=== PATIENT | male | born 1935 | race Caucasian/White ===

== ENCOUNTER → 2016-08-07 | Outpatient (CLI) | payer BC ==
[~2016-08-07] MED LIST: ASPCH81X PO; ATOR-24 PO; CEPH500C2 PO; CLOP1TAB15 PO; CYAN100020 PO; FLM4 PO; GLC/500 PO; GLIM2TAB2 PO; ISOS60TA25 PO; METO50TA7 PO; NRN100 PO; NTRGSL/4 UT; RANO500T PO; RIVA1DIS4 TD; RQP25 PO; TAMS0.4C59 PO
[2016-08-07 13:59] LABS: ESTIMATED AVERAGE GLUCOSE 146 mg/dl; HA1C FLAG Normal (Normal)
[2016-08-07 15:42] LABS: BLOOD UREA NITROGEN 26 mg/dl (7-18); BUN/CREATININE RATIO 15.1 (10-20); CALCIUM 9.2 mg/dl (8.5-10.1); CARBON DIOXIDE 27 mmol/L (21-32); CHLORIDE 103 mmol/L (98-107); GLUCOSE 200 mg/dl (70-99); POTASSIUM 5.2 mmol/L (3.5-5.1); SODIUM 138 mmol/L (136-145)
[2016-08-07 15:44] LABS: PHOSPHORUS 3.2 mg/dl (2.5-4.9)
== END | disposition home or self-care (01) ==
LOC: C.LABMFLN 08:02
PROVIDERS: ATTEND Family Medicine
DX: E11.9 Type 2 diabetes mellitus without complications (principal)

== ENCOUNTER → 2016-09-04 | Outpatient (CLI) | payer BC ==
[2016-09-04 18:19] LABS: URINE APPEARANCE CLEAR (CLEAR); URINE BILIRUBIN NEG (NEG); URINE COLOR YELLOW; URINE NITRITE NEG (NEG); URINE SPECIFIC GRAVITY 1.019 (1.000-1.030); UROBILINOGEN NEG (NEG)
[2016-09-04 18:31] LABS: MANUAL MICROSCOPIC REQUIRED? NO; REVIEW REQ? NO
[2016-09-04 18:51] LABS: URINE PROTIEN/CREAT RATIO 0.2 (0-0.2); URINE TOTAL PROTEIN 18.7 mg/dl (0-11.9)
[2016-09-04 19:27] LABS: BLOOD UREA NITROGEN 33 mg/dl (7-18); BUN/CREATININE RATIO 18.5 (10-20); CALCIUM 9.1 mg/dl (8.5-10.1); CARBON DIOXIDE 31 mmol/L (21-32); CHLORIDE 104 mmol/L (98-107); GLUCOSE 164 mg/dl (70-99); SODIUM 140 mmol/L (136-145)
== END | disposition home or self-care (01) ==
LOC: C.LABMFLN 07:47
PROVIDERS: ATTEND Internal Medicine Nephrology
DX: N18.3 Chronic kidney disease, stage 3 (moderate) (principal)

== ENCOUNTER → 2016-09-24 | Outpatient (CLI) | payer BC ==
[2016-09-24 13:41] LABS: BLOOD UREA NITROGEN 30 mg/dl (7-18); BUN/CREATININE RATIO 18.9 (10-20); CALCIUM 9.1 mg/dl (8.5-10.1); CARBON DIOXIDE 27 mmol/L (21-32); CHLORIDE 106 mmol/L (98-107); GLUCOSE 132 mg/dl (70-99); POTASSIUM 5.1 mmol/L (3.5-5.1); SODIUM 140 mmol/L (136-145)
[2016-09-24 13:42] LABS: PHOSPHORUS 3.4 mg/dl (2.5-4.9)
== END | disposition home or self-care (01) ==
LOC: C.LABMFLN 08:32
PROVIDERS: ATTEND Internal Medicine Nephrology
DX: N18.3 Chronic kidney disease, stage 3 (moderate) (principal)

== ENCOUNTER → 2016-10-27 | Outpatient (CLI) | payer BC ==
[2016-10-27 13:13] LABS: HEMATOCRIT 37.5 % (42-52); MEAN CELL VOLUME 92.8 fL (80-100); MEAN CORPUSCULAR HEMOGLOBIN 31.4 pg (25-34); MEAN CORPUSCULAR HGB CONC 33.9 g/dl (32-36); MEAN PLATELET VOLUME 9.9 fL (7.4-10.4); PLATELET COUNT 196 K/uL (130-400); RED BLOOD COUNT 4.04 M/uL (4.7-6.1); WHITE BLOOD COUNT 7.52 K/uL (4.8-10.8)
[2016-10-27 13:44] LABS: ALT/SGPT 14 U/L (12-78); AST/SGOT 12 U/L (15-37); BLOOD UREA NITROGEN 30 mg/dl (7-18); BUN/CREATININE RATIO 18.9 (10-20); CALCIUM 8.9 mg/dl (8.5-10.1); CARBON DIOXIDE 26 mmol/L (21-32); CHLORIDE 107 mmol/L (98-107); GLUCOSE 140 mg/dl (70-99); POTASSIUM 5.2 mmol/L (3.5-5.1); SODIUM 142 mmol/L (136-145)
== END | disposition home or self-care (01) ==
LOC: C.LABMFLN 11:28
PROVIDERS: ATTEND Internal Medicine Cardiovascular Disease
DX: I25.10 Atherosclerotic heart disease of native coronary artery without angina pectoris (principal); I10 Essential (primary) hypertension; R06.09 Other forms of dyspnea; E78.5 Hyperlipidemia, unspecified

== ENCOUNTER → 2016-11-12 | Outpatient (CLI) | payer BC ==
[2016-11-12 14:30] LABS: ESTIMATED AVERAGE GLUCOSE 143 mg/dl; HA1C FLAG Normal (Normal)
== END | disposition home or self-care (01) ==
LOC: C.LABMFLN 10:15
PROVIDERS: ATTEND Family Medicine
DX: E11.9 Type 2 diabetes mellitus without complications (principal)

== ENCOUNTER → 2017-02-17 | Outpatient (CLI) | payer BC ==
[2017-02-17 14:06] LABS: BLOOD UREA NITROGEN 32 mg/dl (7-18); BUN/CREATININE RATIO 16.1 (10-20); CALCIUM 9.5 mg/dl (8.5-10.1); CARBON DIOXIDE 29 mmol/L (21-32); CHLORIDE 104 mmol/L (98-107); GLUCOSE 304 mg/dl (70-99); PHOSPHORUS 3.1 mg/dl (2.5-4.9); POTASSIUM 5.2 mmol/L (3.5-5.1); SODIUM 138 mmol/L (136-145)
[2017-02-17 14:17] LABS: BETA-HYDROXYBUTYRATE 1.13 mg/dL (0.2-2.81)
[2017-02-18 07:33] LABS: ESTIMATED AVERAGE GLUCOSE 174 mg/dl; HA1C FLAG Normal (Normal)
== END | disposition home or self-care (01) ==
LOC: C.LABMFLN 08:48
PROVIDERS: ATTEND Family Medicine
DX: E11.9 Type 2 diabetes mellitus without complications (principal); N18.3 Chronic kidney disease, stage 3 (moderate)

== ENCOUNTER → 2017-03-02 | Outpatient (CLI) | payer BC ==
[2017-03-02 14:45] LABS: BLOOD UREA NITROGEN 30 mg/dl (7-18); BUN/CREATININE RATIO 17.8 (10-20); CALCIUM 9.2 mg/dl (8.5-10.1); CARBON DIOXIDE 28 mmol/L (21-32); CHLORIDE 105 mmol/L (98-107); GLUCOSE 183 mg/dl (70-99); POTASSIUM 5.3 mmol/L (3.5-5.1); SODIUM 139 mmol/L (136-145)
[2017-03-02 14:46] LABS: PHOSPHORUS 3.3 mg/dl (2.5-4.9)
== END | disposition home or self-care (01) ==
LOC: C.LABMFLN 11:01
PROVIDERS: ATTEND Family Medicine
DX: N18.3 Chronic kidney disease, stage 3 (moderate) (principal)

== ENCOUNTER → 2017-03-24 | Outpatient (CLI) | payer BC ==
[2017-03-24 17:59] LABS: URINE APPEARANCE CLEAR (CLEAR); URINE BILIRUBIN NEG (NEG); URINE COLOR YELLOW; URINE NITRITE NEG (NEG); URINE SPECIFIC GRAVITY 1.026 (1.000-1.030); UROBILINOGEN NEG (NEG)
[2017-03-24 18:04] LABS: MANUAL MICROSCOPIC REQUIRED? NO; REVIEW REQ? NO
[2017-03-24 18:07] LABS: BLOOD UREA NITROGEN 37 mg/dl (7-18); BUN/CREATININE RATIO 19.4 (10-20); CALCIUM 9.4 mg/dl (8.5-10.1); CARBON DIOXIDE 30 mmol/L (21-32); CHLORIDE 105 mmol/L (98-107); GLUCOSE 203 mg/dl (70-99); POTASSIUM 4.7 mmol/L (3.5-5.1); SODIUM 139 mmol/L (136-145)
[2017-03-24 18:08] LABS: PHOSPHORUS 3.5 mg/dl (2.5-4.9)
[2017-03-24 18:19] LABS: HEMATOCRIT 43.3 % (42-52); MEAN CELL VOLUME 92.7 fL (80-100); MEAN CORPUSCULAR HEMOGLOBIN 31.7 pg (25-34); MEAN CORPUSCULAR HGB CONC 34.2 g/dl (32-36); MEAN PLATELET VOLUME 9.8 fL (7.4-10.4); PLATELET COUNT 209 K/uL (130-400); RED BLOOD COUNT 4.67 M/uL (4.7-6.1); WHITE BLOOD COUNT 6.35 K/uL (4.8-10.8)
== END | disposition home or self-care (01) ==
LOC: C.LABMFLN 11:48
PROVIDERS: ATTEND Internal Medicine Nephrology
DX: N18.3 Chronic kidney disease, stage 3 (moderate) (principal)

== ENCOUNTER → 2017-04-08 | Outpatient (CLI) | payer BC ==
--- NOTE | 2017-04-08 14:19 | MAMMOGRAPHY REPORT ---
MALE BILATERAL DIGITAL DIAGNOSTIC MAMMOGRAM WITH CAD AND TARGETED LEFT ULTRASOUND: 04/08/2017 CLINICAL HISTORY: The patient reports focal tenderness in the left breast for approximately 2 months. He denies any palpable lumps, nipple discharge, or other complaints. TECHNIQUE: Current study was also evaluated with a Computer Aided Detection (CAD) system. Bilateral CC and MLO views were obtained. COMPARISON: No prior exams were available for comparison. BREAST COMPOSITION: The tissue of both breasts is prominently fatty. FINDINGS: A triangle marker calloway the site of focal tenderness in the left upper outer breast periare olar region. There is fibroglandular tissue within the left subareolar breast, consistent with gynec omastia. A minimal amount of fibroglandular tissue is also seen within the right subareolar breast. No suspicious masses, calcifications, or areas of architectural distortion are noted in either breas t. Targeted ultrasound was performed of the area of tenderness pointed out by the patient in the left la teral periareolar breast, with ultrasound also performed of the left subareolar breast. Mixed echoge nicity tissue is seen within these regions, which has the sonographic appearance of gynecomastia. No suspicious masses or other suspicious sonographic abnormalities are evident. IMPRESSION: ACR BI-RADS CATEGORY 2: BENIGN, TARGETED ULTRASOUND ACR BI-RADS CATEGORY 2: BENIGN The area of left breast tenderness pointed out by the patient corresponds with benign gynecomastia. There is no mammographic or targeted sonographic evidence of malignancy. Recommend clinical follow-u p as to a possible underlying cause. The patient has been verbally notified of the results. Approximately 10% of breast cancers are not detected with mammography. A negative mammographic report should not delay biopsy if a clinically suggestive mass is present. Amy Deleon M.D. /:04/08/2017 09:32:17 Computer Science Instructor: Merry FONTAINE)(Peterson), [facility] letter sent: Normal 1/2 BI-RADS Code: ACR BI-RADS Category 2: Benign Ultrasound BI-RADS: ACR BI-RADS Category 2: Benign
== END | disposition home or self-care (01) ==
LOC: C.MAMM 09:06
PROVIDERS: ATTEND Family Medicine
DX: N64.4 Mastodynia (principal); N62 Hypertrophy of breast

== ENCOUNTER 2017-04-24 16:57 | Emergency (ER) | payer BC ==
[~2017-04-24] VITALS: Ht 160 cm; Wt 62.6 kg
[~2017-04-24 16:57] MED LIST changes: -CEPH500C2 PO; -FLM4 PO; -NRN100 PO; -RIVA1DIS4 TD
[2017-04-24 17:15] VITALS: TEMP 36.7; Ht 160 cm; Wt 62.6 kg
[2017-04-24] MEDS ORDERED: BUPIVACAINE 0.5 % 5 MG/1 ML MPF 30ML VIAL INFIL ONE (17:45)
[2017-04-24] MEDS ORDERED: DIPHTHERIA/TETANUS/PERTUSSIS 0.5 ML SYR/VIAL IM. ONE (17:45)
[2017-04-24] MEDS ORDERED: XYLOCAINE 1%/SOD BICARB 20 ML VIAL INFIL ONE (17:45)
[2017-04-24] MEDS ORDERED: RIVA1DIS4 TD (18:21)
[2017-04-24] MEDS ORDERED: NRN100 PO (18:21)
[2017-04-24] MEDS ORDERED: FLM4 PO (18:21)
--- NOTE | 2017-04-24 18:27 | DIAGNOSTIC IMAGING REPORT ---
R FINGER(S) MIN 2 VIEWS ROUTINE HISTORY: 81 years-old Male RIGHT 5TH, CRUSH INJURY W/LACERATION acute crush injury with laceration of the distal fifth digit. COMPARISON: None available. TECHNIQUE: 3 views of the right fifth digit. FINDINGS: There is moderate soft tissue swelling about the distal fifth digit with skin defect and subcutaneous emphysema compatible with penetrating trauma. Additionally, there is an acute transverse displaced fracture of the fifth distal phalangeal tuft displaced medially 3 mm and distally 3 mm. No opaque foreign body. Moderate to severe interphalangeal degenerative changes are noted throughout the fifth digit. No additional acute fracture or dislocation. Bones are mildly demineralized. IMPRESSION: 1. Acute mildly displaced transverse fracture of the fifth distal phalangeal tuft. 2. Soft tissue swelling with areas of subcutaneous emphysema about the fifth digit compatible with history of penetrating trauma. Correlate clinically to exclude nailbed injury. No opaque foreign body. The above report was generated using voice recognition software. It may contain grammatical, syntax or spelling errors. Electronically signed by: Sandoval Savage M.D. 04/24/2017 6:25 PM Dictated Date/Time: 04/24/2017 6:23 PM
--- NOTE | 2017-04-24 19:25 | EMERGENCY ROOM VISIT NOTE ---
ED Visit Note First contact with patient: 19:24 This Patient was discussed with the physician Ged Preparation Teacher, Lela Jorgensen PA-C. The pertinent historical and physical exam findings were confirmed. I agree with the studies ordered and with the interpretations of these studies. I agree with the disposition and care plan.
[2017-04-24 19:26] VITALS: BP 156/82; PULSE 69; O2SAT 95
[2017-04-24] MEDS ORDERED: CEPH500C2 PO (19:26)
--- NOTE | 2017-04-24 19:28 | EMERGENCY ROOM VISIT NOTE ---
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 He was wearing a glove at the time. He notes a laceration to the tip of the right second finger. He reports that it is not particularly painful. Bleeding has been controlled. He rates his pain a 0/10. He denies any numbness finger. REVIEW OF SYSTEMS: Review of systems as per HPI. All other systems reviewed were negative. At least 6 systems reviewed. PMH: Electronic medical records are reviewed and summarized as above/below. See Problem List. Last tetanus is unknown. SOCIAL HISTORY: Patient lives at home with his . Former smoker. PHYSICAL EXAM: Vital Signs: Reviewed Nurse's notes. Examination of the right fifth finger show a small, 0.5 cm laceration on the palmar finger pad. He has a larger, 4 cm laceration through the dorsal aspect of the finger, through the midportion of the nailbed. The nail has been dislodged from the base, is still attached to the nailbed distally. There is no subungual hematoma. I cannot palpate or visualize distal phalanx in the base of the wound. The edges gape apart with traction. There is no foreign material in the wound and it looks clean. There is scant bleeding. Patient is able to flex and extend at the DIP joint, although minimally. Sensation is intact. EMERGENCY DEPARTMENT COURSE: The patient was seen and evaluated as above. His old records were reviewed. He declined any medication for discomfort. X-rays of the right fifth finger were obtained. His tetanus was updated. He appears to have a chronic, arthritic deformity at the DIP joints preceding the injury. I do not appreciate any tendinous disruption. His sensation is intact, and I do not suspect nerve injury. X-ray findings are consistent with a tuft fracture. Using sterile technique, the finger was scrubbed with Betadine. A 2:1 mixture of 1% plain buffered lidocaine and 0.5% Sensorcaine were used and digital block was performed. When the finger was adequately anesthetized, it was re-scrubbed with Betadine and redraped. The laceration was irrigated copiously using 250 mL of normal saline solution. A total of 12, 5-0 nylon sutures were used to repair the laceration, then 2, 4-0 nylon sutures were used to secure the nail back to the nail bed/root. Wounds were then cleansed and dressed and he was placed in a fingertip cage. Given the open fracture, he will be placed on Keflex. He was given a [place] home pack for pain. Wound care measures were outlined. He was discharged home in good condition with his . He rated his pain a 0/10 at discharge. Medication reconciliation: I attest that I have personally reviewed the patient' s current medication list. Blood pressure screening : Patient was found to have normal blood pressure on screening and does not require follow-up. R FINGER(S) MIN 2 VIEWS ROUTINE HISTORY: 81 years-old Male RIGHT 5TH, CRUSH INJURY W/LACERATION acute crush injury with laceration of the distal fifth digit. COMPARISON: None available. TECHNIQUE: 3 views of the right fifth digit. FINDINGS: There is moderate soft tissue swelling about the distal fifth digit with skin defect and subcutaneous emphysema compatible with penetrating trauma. Additionally, there is an acute transverse displaced fracture of the fifth distal phalangeal tuft displaced medially 3 mm and distally 3 mm. No opaque foreign body. Moderate to severe interphalangeal degenerative changes are noted throughout the fifth digit. No additional acute fracture or dislocation. Bones are mildly demineralized. IMPRESSION: 1. Acute mildly displaced transverse fracture of the fifth distal phalangeal tuft. 2. Soft tissue swelling with areas of subcutaneous emphysema about the fifth digit compatible with history of penetrating trauma. Correlate clinically to exclude nailbed injury. No opaque foreign body. Problem List Medical Problems: (1) Benign hypertension Status: Chronic (2) Calculus Of Kidney Status: Resolved (3) Cardiac angina Status: Resolved (4) Chest pain Status: Resolved (5) Diabetes mellitus Status: Chronic (6) Heart disease Status: Chronic (7) Hyperlipidemia, Unspecified Status: Chronic (8) Hypertensive Chronic Kidney Disease W Stg 1-4/Unsp Chr Kdny Status: Chronic (9) NSTEMI (non-ST elevated myocardial infarction) Status: Resolved (10) Precordial chest pain Status: Resolved Surgical Problems: (1) Cardiac bypass Status: Resolved (2) Orthopedic sugery Status: Resolved Current/Historical Medications Scheduled Aspirin (Aspirin Chewable), 81 MG PO QAM Atorvastatin (Lipitor), 40 MG PO HS Cephalexin Monohydrate (Keflex), 500 MG PO QID Clopidogrel (Plavix), 75 MG PO QAM Cyanocobalamin (Vitamin B12), 1 TAB PO QAM Gabapentin (Gabapentin), 1-2 TAB PO HS Glimepiride (Glimepiride), 1 TAB PO QAM Isosorbide Mononitrate Ext Rel (Imdur Ext Rel), 60 MG PO QAM Metoprolol Succ (Toprol Xl) (Toprol-Xl), 50 MG PO QAM Nitroglycerin (Nitrostat), 0.4 MG UT PRN Ranolazine (Ranexa), 1 TAB PO BID Rivastigmine (Rivastigmine Transdermal), 1 PATCH TD UD Ropinirole HCl (Ropinirole HCl), 1 TAB PO HS Tamsulosin HCl (Tamsulosin HCl), 1 TAB PO DAILY Allergies Coded Allergies: No Known Allergies (Unverified , 04/24/17) Vital Signs Date Time Temp Pulse Resp B/P (MAP) Pulse Ox O2 Delivery O2 Flow Rate FiO2 04/24/17 19:26 69 16 156/82 95 Room Air 04/24/17 17:15 36.7 67 15 127/67 95 Room Air Medications Administered Medications (Trade) Dose Ordered Sig/Bon Route Start Time Stop Time Status Last Admin Dose Admin Diphtheria/ Pertussis/Tetanus Vacc (Adacel Inj) 0.5 ml ONCE ONCE IM. 04/24/17 17:45 04/24/17 17:46 DC 04/24/17 18:03 0.5 ML Cephalexin Monohydrate (Keflex 500MG Home Pack) 1 homepack NOW ONCE PO 04/24/17 19:30 04/24/17 19:31 DC 04/24/17 19:30 1 HOMEPACK Acetaminophen/ Hydrocodone Bitart ([place] 5/325mg Home Pack) 1 homepack UD ONCE PO 04/24/17 19:30 04/24/17 19:31 DC 04/24/17 19:30 1 HOMEPACK Departure Information Impression Primary Impression: Open fracture of tuft of distal phalanx of finger Additional Impression: Finger laceration with complication Prescriptions Cephalexin Monohydrate (KEFLEX) 500 Mg Cap 500 MG PO QID, #40 CAP Prov: Meg Jorgensen PA 04/24/17 Referrals No Doctor, Assigned (PCP) Patient Instructions My [facility] Additional Instructions Keep wound clean and dry. Do not allow any crusting or dried blood to accumulate on sutures. Clean gently with mild soap and water daily. Use an antibiotic ointment for 3-4 days, then let wound dry. Wear the metal finger splint for support and protection until sutures are removed. Suture removal in 12-14 days. Return immediately for any signs of infection (increasing redness, swelling, drainage). Ice and elevate for swelling and pain. Acetaminophen(Tylenol) may be used for fever or pain. Use 1000mg every six hours as needed. Avoid using more than 3000mg in a 24 hour period. Hydrocodone/Acetaminophen ([place]) 5/325 mg: Take 1-2 pills every four hours for breakthrough pain. Avoid alcohol, operating machinery or dangerous equipment, working on ladders or roofs, DRIVING, or situations where being under the influence may be dangerous. It is recommended to use an [id number] stool softener such as Colace, 100mg twice daily while taking this medication to avoid constipation. Problem Qualifiers Additional Impression: Finger laceration with complication Encounter type: initial encounter Qualified Codes: S61.219A - Laceration without foreign body of unspecified finger without damage to nail, initial encounter
[2017-04-24] MEDS ORDERED: CEPHALEXIN 500MG HOME PACK 1 EA BTL PO ONE (19:30)
[2017-04-24] MEDS ORDERED: NORCO 5/325MG HOME PACK PO ONE (19:30)
== END 2017-04-24 19:41 | disposition home or self-care (01) ==
LOC: C.EDB 16:58 → C.EDD 19:41
DX: S62.636B Displaced fracture of distal phalanx of right little finger, initial encounter for open fracture (principal); S61.316A Laceration without foreign body of right little finger with damage to nail, initial encounter; S61.210A Laceration without foreign body of right index finger without damage to nail, initial encounter; W31.89XA Contact with other specified machinery, initial encounter; I12.9 Hypertensive chronic kidney disease with stage 1 through stage 4 chronic kidney disease, or unspecified chronic kidney disease; N18.9 Chronic kidney disease, unspecified; E11.22 Type 2 diabetes mellitus with diabetic chronic kidney disease; E78.5 Hyperlipidemia, unspecified; I25.2 Old myocardial infarction; Z95.1 Presence of aortocoronary bypass graft; Z79.82 Long term (current) use of aspirin; Z87.442 Personal history of urinary calculi; Z23 Encounter for immunization

== ENCOUNTER → 2017-06-04 | Outpatient (CLI) | payer BC ==
[~2017-06-04] MED LIST changes: +CEPH500C2 PO; +FLM4 PO; -GLC/500 PO; +NRN100 PO; +RIVA1DIS4 TD; -TAMS0.4C59 PO
[2017-06-04 13:21] LABS: BLOOD UREA NITROGEN 30 mg/dl (7-18); BUN/CREATININE RATIO 16.9 (10-20); CALCIUM 8.9 mg/dl (8.5-10.1); CARBON DIOXIDE 27 mmol/L (21-32); CHLORIDE 107 mmol/L (98-107); CREATININE 1.76 mg/dl (0.60-1.40); GLUCOSE 282 mg/dl (70-99); SODIUM 139 mmol/L (136-145)
[2017-06-04 13:22] LABS: PHOSPHORUS 3.1 mg/dl (2.5-4.9)
[2017-06-04 13:30] LABS: ESTIMATED AVERAGE GLUCOSE 154 mg/dl; HA1C FLAG Normal (Normal)
== END | disposition home or self-care (01) ==
LOC: C.LABMFLN 08:49
PROVIDERS: ATTEND Family Medicine
DX: N18.3 Chronic kidney disease, stage 3 (moderate) (principal); E11.9 Type 2 diabetes mellitus without complications

== ENCOUNTER → 2017-09-16 | Outpatient (CLI) | payer BC ==
[~2017-09-16] MED LIST changes: -METO50TA7 PO; +METO50TA8 PO; +REGADENOSON 0.4 MG/5 ML SYR ONE
--- NOTE | 2017-09-16 18:04 | Myocardial Perfusion Study ---
Myocardial Perfusion Study Rpt Myocardial Perfusion Study Rpt Date of Service 09/16/2017 Myocardial Perfusion Study Rpt Procedure: 1. Myocardial perfusion study performed in multiple views/images 2. Lexiscan pharmacologic stress ECG Indications: 1. Chest pain 2. CAD 3. Dyspnea with exertion 4. CABG Consent: Informed written consent was obtained prior to the procedure. Ordering physician: Dr. Blackburn Procedural details: For the stress portion of the study, Lexiscan 0.4 mg was intravenously administered followed by a saline flush. This was followed by 30 mCi of technetium 99m Cardiolite, injected at 11:05 a.m. on 09/16/2017. 30 minutes following the injection, imaging of the heart was performed in multiple projections. For the rest portion of the study, 11.1 mCi technetium 99m Cardiolite was injected intravenously at 9:36 a.m. on 09/16/2017. 1 hour following the injection, imaging of the heart was performed in the same projections. Lexiscan stress ECG: Resting ECG demonstrated: Sinus bradycardia at 59 bpm. PVC. Right bundle- branch block. Maximum heart rate: 78 bpm Resting blood pressure: 131/61 mmHg Maximum blood pressure: 134/60 mmHg Maximal, age-predicted heart rate: 57 % Significant ST changes: None Arrhythmia: None Symptoms: No chest pain or shortness of breath. No symptoms reported. Findings: Rotating raw imaging demonstrated no significant lung uptake. There is no significant motion artifact. Heart size appeared normal. Myocardial perfusion demonstrated a small area of mildly reduced uptake involving the inferolateral and inferior wall from base to apex which appeared fixed in post stress and rest imaging. There were no significant reversible defects to suggest ischemia. Ejection fraction: 67 % Wall motion: Normal No significant transient ischemic dilation. Impression: 1. Negative myocardial perfusion study for ischemic changes. 2. Fixed inferolateral and inferior wall defect may represent diaphragmatic attenuation given normal wall motion. 3. Normal left ventricular systolic function. EF 67%. 4. Normal wall motion. 5. No chest pain or shortness of breath reported. 6. Nondiagnostic Lexiscan ECG.
== END | disposition home or self-care (01) ==
LOC: C.NUCL 08:56
PROVIDERS: ATTEND Internal Medicine Cardiovascular Disease
DX: R93.1 Abnormal findings on diagnostic imaging of heart and coronary circulation (principal); E78.5 Hyperlipidemia, unspecified; I10 Essential (primary) hypertension; I25.10 Atherosclerotic heart disease of native coronary artery without angina pectoris; R06.09 Other forms of dyspnea; R07.89 Other chest pain; Z95.1 Presence of aortocoronary bypass graft

== ENCOUNTER → 2017-09-23 | Outpatient (CLI) | payer BC ==
[~2017-09-23] MED LIST changes: -REGADENOSON 0.4 MG/5 ML SYR ONE
[2017-09-23 13:06] LABS: HEMOGLOBIN A1C 7.1 % (4.5-5.6)
[2017-09-23 13:31] LABS: ALBUMIN 3.3 gm/dl (3.4-5.0); BLOOD UREA NITROGEN 27 mg/dl (7-18); CALCIUM 8.8 mg/dl (8.5-10.1); CARBON DIOXIDE 30 mmol/L (21-32); CHOLESTEROL 115 mg/dl (0-200); CREATININE 1.88 mg/dl (0.60-1.40); GLUCOSE 143 mg/dl (70-99); POTASSIUM 4.7 mmol/L (3.5-5.1); SODIUM 137 mmol/L (136-145)
[2017-09-23 13:34] LABS: LDL CHOLESTEROL CALCULATED 33 mg/dl; PHOSPHORUS 3.1 mg/dl (2.5-4.9)
== END | disposition home or self-care (01) ==
LOC: C.LABMFLN 10:00
PROVIDERS: ATTEND Internal Medicine Nephrology
DX: N18.3 Chronic kidney disease, stage 3 (moderate) (principal); I25.10 Atherosclerotic heart disease of native coronary artery without angina pectoris; I12.9 Hypertensive chronic kidney disease with stage 1 through stage 4 chronic kidney disease, or unspecified chronic kidney disease; R06.09 Other forms of dyspnea; E78.5 Hyperlipidemia, unspecified; R07.89 Other chest pain; Z95.1 Presence of aortocoronary bypass graft; E11.22 Type 2 diabetes mellitus with diabetic chronic kidney disease

== ENCOUNTER → 2017-12-15 | Outpatient (CLI) | payer BC ==
[~2017-12-15] MED LIST changes: -CEPH500C2 PO
[2017-12-15 12:45] LABS: BASO % 0.8 %; BASO ABS # 0.06 K/uL (0-0.2); EOS % 1.7 %; EOS ABS # 0.13 K/uL (0-0.5); HEMATOCRIT 41.4 % (42-52); IG# 0.08 K/uL (0.00-0.02); LYMPH % 23.1 %; LYMPH ABS # 1.73 K/uL (1.2-3.4); MEAN CELL VOLUME 93.7 fL (80-100); MEAN CORPUSCULAR HEMOGLOBIN 31.7 pg (25-34); MEAN CORPUSCULAR HGB CONC 33.8 g/dl (32-36); MEAN PLATELET VOLUME 9.8 fL (7.4-10.4); NEUT % 65.3 %; PLATELET COUNT 204 K/uL (130-400); RED CELL DISTRIBUTION WIDTH CV 13.2 % (11.5-14.5); RED CELL DISTRIBUTION WIDTH SD 45.9 fL (36.4-46.3)
[2017-12-15 13:32] LABS: HEMOGLOBIN A1C 7.6 % (4.5-5.6)
== END | disposition home or self-care (01) ==
LOC: C.LABMFLN 09:45
PROVIDERS: ATTEND Family Medicine
DX: E11.9 Type 2 diabetes mellitus without complications (principal)

== ENCOUNTER 2018-12-31 17:16 | Inpatient (IN) ==
[2018-12-31] MEDS ORDERED: CARBOHYDRATES FOR HYPOGLYCEMIA PO PRN (20:36)
[2018-12-31] MEDS ORDERED: GLUCOSE 10 TABS/TUBE PO PRN (20:36)
[2018-12-31] MEDS ORDERED: ONDANSETRON INJ 2 MG/ML 2 ML VIAL IV PRN (20:36)
[2018-12-31] MEDS ORDERED: DEXTROSE 50% 50 ML SYRINGE IV PRN (20:36)
[2018-12-31] MEDS ORDERED: GLUCAGON FOR INJ 1 MG VIAL SQ PRN (20:36)
[2018-12-31] MEDS ORDERED: ACETAMINOPHEN 325 MG TAB PO PRN (20:36)
[2018-12-31] MEDS ORDERED: GLUCOSE 40% GEL 15 GM TUBE PO PRN (20:36)
[2018-12-31] MEDS ORDERED: NITROGLYCERIN SL 0.4 MG/TAB TAB SL PRN (20:45)
[2018-12-31] MEDS ORDERED: SODIUM CHLORIDE 0.9% 1000ML 1,000 ML IV SCH (21:00)
--- NOTE | 2018-12-31 21:20 | History & Physical Report ---
Date of Service December 31, 2018 Assessment & Plan (1) MICHAEL (acute kidney injury): Patient is elevation of his creatinine likely based on his recent diuretic dosage and perhaps low blood pressure from the Ranexa. We are holding things at this time and reducing Ranexa to the previous dose of 500 (2) Coronary artery disease: Patient has known coronary disease he is Dr. Rich will maintain his Plavix aspirin atorvastatin metoprolol isosorbide and Ranexa. (3) Diabetes: Patient reportedly had his blood glucose checked during his periods at home and they were all in the normal range according to his . We will hold his oral agents and have him on insulin sliding scale right now (4) Chronic kidney disease, stage III (moderate): Patient typically has chronic kidney disease stage III with appropriate renal dose medications at this time (5) Hypertension: His antihypertensive medications were also used for coronary disease he is to be continued (6) DVT prophylaxis: Heparin is used for DVT prevention at this time (7) Movement disorder: Patient is typical and request this will be held poorly the patient's legs give out on him and he had a work-up with Dr. Infante if he continues any problems with ambulation after physical therapy evaluate and perhaps neurology consultation or imaging of his lumbar spine could be undertaken History of Present Illness Primary Care Provider: Edie Tavares MD We received the patient in transfer from [facility] emergency department as per family request. Patient is awake he is oriented to person place and somewhat to time. I spoke to the patient's who he resides with she states that he had intermittent episodes of the last 2 days and was in a continuous diarrhea leg on the ground but is been increasingly sleepy having increasing leg weakness for which she has a history of. Denies having injuries he said he just could not get up. He is a known significant coronary history having had CABG and PTCA and most recently has been managed by Dr. Rich. His most recent visit [address] Rich doubled his Ranexa from 502,000 twice daily and added Lasix 20 twice daily this occurred prior to these events. Hi In the emergency department there was no significant untoward issues found except for mild minor elevation of troponin without acute current of injury and EKG. Currently the patient has no complaints or problems but is somewhat forgetful and cannot tell me exact details about his medications or past medical history Patient is acute kidney injury on chronic kidney disease stage III Allergies Allergy/AdvReac Type Severity Reaction Status Date / Time No Known Allergies Allergy Unverified 04/24/17 18:17 Home Medications Home Medications Medication Instructions Recorded Confirmed Type ASPIRIN (ASPIRIN CHEWABLE) 81 mg PO QAM #0 11/20/15 History ATORVASTATIN (LIPITOR) 40 mg PO HS #0 tab 11/20/15 History CYANOCOBALAMIN (VITAMIN B12) 1 tab PO QAM #0 11/20/15 History Clopidogrel (Plavix) 75 mg PO QAM #0 tab 11/20/15 History GLIMEPIRIDE 1 tab PO QAM #0 tab 11/20/15 History Isosorbide Mononitrate Ext Rel 60 mg PO QAM #0 tab 11/20/15 History (Imdur Ext Rel) Metoprolol Succ (Toprol Xl) 50 mg PO QAM #30 tab 11/20/15 History (Toprol-Xl) RANOLAZINE (RANEXA) 1 tab PO BID #0 11/20/15 History Ropinirole HCl 1 tab PO HS #0 11/20/15 History Nitroglycerin (Nitrostat) 0.4 mg UT PRN #0 btl 11/28/15 History Gabapentin 1 - 2 tab PO HS #0 04/24/17 History Rivastigmine (Rivastigmine 1 patch TRANSDERMAL UD #0 04/24/17 History Transdermal) Tamsulosin HCl 1 tab PO DAILY #0 04/24/17 History Past Med/Surg History Medical History Chronic kidney disease, stage III (moderate) Coronary artery disease Diabetes Dyslipidemia Hypertension Nephrolithiasis Surgical History Hx of CABG Social History Smoking Status: Never smoker Hx Alcohol Use: Yes Review of Systems Review of Systems: ROS: well nourished well developed. No double vision blurry vision No problems with speech or swallowing No palpitations, chest pain or pressure No Wheezing or breathing issues No abdominal pain nausea vomiting diarrhea changes in appetite or weight No burning urine urine frequency or changes in color No focal joint pain or muscle pain No skin rashes or oral lesions No unusual bruising or bleeding No focused back pain or numbness or loss of strength patient cannot state why he fell nor can he give me any issues with regards to injuries from falling Seems to have some baseline dementia and persistent changes in memory Physical Exam Physical Exam: The patient appeared well nourished and normally developed. Vital signs as documented. Head exam is unremarkable. normocephalic, atraumatic Neck is without jugular venous distension, thyromegaly, or lymphademopathy Lungs are basilar rales which clear with deep inspiration Cardiac exam reveals Rhythm is regular. First and second heart sounds normal. Abdominal exam reveals normal bowel sounds, no masses, no organomegaly Extremities are mildly edematous and both pedal pulses are present Neurologic exam is A&Ox3, patient cannot follow complex questions he has no focal loss he has some intention tremor but no resting tremor Psychologically seems neither anxious or depressed Skin is warm Dry without bruises or lesions
[2018-12-31] MEDS: RANOLAZINE 500 MG ER TAB PO SCH (21:27)
[2018-12-31] MEDS: ATORVASTATIN 40 MG TAB PO SCH (21:27)
[2018-12-31] MEDS: INSULIN ASPART 100 UNITS/ML 3 ML PEN SC SCH (21:40)
[2018-12-31] MEDS: PATIENT'S HEIGHT AND/OR WEIGHT NEEDED SCH (21:41)
[2018-12-31 22:07] LABS: Hemoglobin 13.4 g/dL (14.0-18.0); Mean Corpuscular Hgb Conc 34.4 g/dL (32-36); Mean Corpuscular Volume 93.3 fL (80-100); Mean Platelet Volume 9.6 fL (7.4-10.4); Platelet Count 181 K/uL (130-400); RDW Coefficient of Variation 13.3 % (11.5-14.5); RDW Standard Deviation 45.6 fL (36.4-46.3); Red Blood Count 4.18 M/uL (4.7-6.1); White Blood Count 7.25 K/uL (4.8-10.8)
[2018-12-31 23:25] LABS: Prothrombin Time 10.7 Seconds (9.0-12.0)
[2019-01-01] MEDS: PATIENT'S HEIGHT AND/OR WEIGHT NEEDED SCH (00:47)
[2019-01-01 07:03] LABS: Hematocrit (blood only) 35.2 % (42-52); Hemoglobin 12.1 g/dL (14.0-18.0); Mean Corpuscular Hgb Conc 34.4 g/dL (32-36); Mean Corpuscular Volume 93.4 fL (80-100); Mean Platelet Volume 9.8 fL (7.4-10.4); Platelet Count 171 K/uL (130-400); RDW Coefficient of Variation 13.5 % (11.5-14.5); RDW Standard Deviation 46.3 fL (36.4-46.3); Red Blood Count 3.77 M/uL (4.7-6.1)
[2019-01-01 07:05] LABS: Estimated Average Glucose 226 mg/dl; Hemoglobin A1C 9.5 % (4.5-5.6)
[2019-01-01 07:44] LABS: BUN Creatinine Ratio 17.7 (10-20); Calcium 8.4 mg/dl (8.5-10.1); Creatinine Clr Calc Pharmacy 17.7 ml/min; Est GFR (African American) 24.3; Est GFR (Non-African American) 20.9; Potassium 4.2 mmol/L (3.5-5.1); Troponin I 0.019 ng/ml (0-0.045)
[2019-01-01 07:55] LABS: Beta-Hydroxybutyrate 4.35 mg/dl (0.2-2.81)
[2019-01-01] MEDS ORDERED: INSULIN GLARGINE SOLOSTAR 100 UNITS/ML 3 ML PEN SC STA (08:46)
[2019-01-01] MEDS: ISOSORBIDE MONO EXTENDED REL 60 MG TABCR PO SCH (09:25)
[2019-01-01] MEDS: RANOLAZINE 500 MG ER TAB PO SCH ×2 (09:25→21:11)
[2019-01-01] MEDS: CLOPIDOGREL BISULFATE 75 MG TAB PO SCH (09:25)
[2019-01-01] MEDS: TAMSULOSIN HCL 0.4 MG CAP PO SCH (09:25)
[2019-01-01] MEDS: ASPIRIN 81 MG ECTAB PO SCH (09:25)
[2019-01-01] MEDS: METOPROLOL SUCC 50MG EXT REL TAB PO SCH (09:25)
[2019-01-01] MEDS: INSULIN ASPART 100 UNITS/ML 3 ML PEN SC SCH ×4 (09:26→21:09)
[2019-01-01] MEDS: HEPARIN SOD 5,000 UNIT/0.5 ML VIAL SQ SCH ×2 (09:26→21:08)
--- NOTE | 2019-01-01 15:46 | Hospitalist Progress Note ---
Date of Service January 01, 2019 Assessment & Plan (1) MICHAEL (acute kidney injury): Cr up slightly to 2.6 from 2.3 but making urine electrolytes stable drinking well, continue to encourage hydration if there was an obstruction issue it has resolved with the gaitan repeat BMP in the morning if Cr continues to trend upward then consult Dr. Minor, his outpatient barrel lathe operator outside reviewing Cr trends, baseline appears to be in range of 1.5-2.0 (2) Coronary artery disease: Patient has known coronary disease he is Dr. Rich will maintain his Plavix aspirin atorvastatin metoprolol isosorbide and Ranexa. reduce Ranexa dose to 500mg instead of 1000mg (3) Diabetes: hyperglycemia this morning, 350s given a dose of Lantus 15 units and tightened coverage, sugar down to 250s will continue Lantus 15 units qAM normally on Glimepiride which is being held (4) Chronic kidney disease, stage III (moderate): Patient typically has chronic kidney disease stage III with appropriate renal dose medications at this time follows with Dr. Minor (5) Hypertension: BP low normal, continue to monitor (6) DVT prophylaxis: Heparin is used for DVT prevention at this time (7) Movement disorder: unclear picture, he says he is conscious during episodes has intention tremors, whole body will shake says he felt like he was "dying" on due to prolonged episode had difficult time accessing outpatient records so unsure of what Dr. Infante's differential was continue to monitor, get PT/OT evaluations, fall precautions Subjective patient feeling great, said "when can I go home" he said that he had one of his shaking spells this morning but it did not last long reviewed records from [place], his Cr was 2.3 in the ED, it is up slightly to 2.6 here he says he follows with Dr. Minor, his Cr is "always elevated" he also said that he follows with Dr. Infante for this "movement disorder" but he is not quite sure what it is he said that Dr. Blackburn treats his heart patient is eating well, transferring independently he says that the gaitan was placed at [facility] because he could not void he typically has no issues if he is taking Flomax per the RN, the gaitan had some minor bleeding and clots, that had resolved attempted to access outpatient records but could not login to [employer] Review of Systems Review of Systems: All systems reviewed & are unremarkable except as noted in HPI & below Physical Exam Constitutional: WD/WN, vitals as above Eyes: PERRL, conjunctivae normal, anicteric sclerae ENMT: external ear and nose normal, oropharynx normal Neck: trachea midline, no thyromegaly Respiratory: normal respiratory effort, lungs clear to auscultation Cardiovascular: RRR, no murmur, no edema Gastrointestinal (Abdomen): normal bowel sounds, soft, nontender, no hepatosplenomegaly Musculoskeletal: no cyanosis or clubbing, extremities motor strength 5/5 Skin: no rashes, warm and dry Neurologic: patellar DTR's 2+ bilat, sensation intact and PERRL, EOMI, accommodation nl, no face palsy, no dysarthria Psychiatric: A+Ox3, euthymic affect Lymphatic: no cervical or axillary lymphadenopathy Results & Data Vital Signs (Past 12 Hours) Vital Signs Temp Pulse Pulse Resp BP Pulse Ox 01/01/19 15:36 36.4 C L 65 20 120/65 97 01/01/19 11:49 36.5 C 68 20 114/62 96 01/01/19 08:00 73 01/01/19 07:00 36.8 C 78 16 109/61 92 Laboratory Results Laboratory Results - last 24 hr 12/31/18 12/31/18 12/31/18 20:40 21:42 21:42 WBC 7.25 RBC 4.18 L Hgb 13.4 L Hct 39.0 L MCV 93.3 MCH 32.1 MCHC 34.4 RDW Std Deviation 45.6 RDW Coeff of Bryce 13.3 Plt Count 181 MPV 9.6 PT Cancelled INR Cancelled Sodium Potassium Chloride Carbon Dioxide Anion Gap BUN Creatinine Est Cr Clr Drug Dosing Est GFR ( Amer) Est GFR (Non-Af Amer) BUN/Creatinine Ratio Glucose POC Glucose 185 H Estimat Average Glucose Hemoglobin A1c Calcium Troponin I Beta-Hydroxybutyric Acd 12/31/18 01/01/19 01/01/19 22:51 06:29 06:29 WBC 8.80 RBC 3.77 L Hgb 12.1 L Hct 35.2 L MCV 93.4 MCH 32.1 MCHC 34.4 RDW Std Deviation 46.3 RDW Coeff of Bryce 13.5 Plt Count 171 MPV 9.8 PT 10.7 INR 1.0 Sodium 139 Potassium 4.2 Chloride 102 Carbon Dioxide 26 Anion Gap 11.0 BUN 47 H Creatinine 2.66 H Est Cr Clr Drug Dosing 17.7 Est GFR ( Amer) 24.3 Est GFR (Non-Af Amer) 20.9 BUN/Creatinine Ratio 17.7 Glucose 357 H* POC Glucose Estimat Average Glucose Hemoglobin A1c Calcium 8.4 L Troponin I 0.019 Beta-Hydroxybutyric Acd 4.35 H 01/01/19 01/01/19 01/01/19 06:29 07:35 07:37 WBC RBC Hgb Hct MCV MCH MCHC RDW Std Deviation RDW Coeff of Bryce Plt Count MPV PT INR Sodium Potassium Chloride Carbon Dioxide Anion Gap BUN Creatinine Est Cr Clr Drug Dosing Est GFR ( Amer) Est GFR (Non-Af Amer) BUN/Creatinine Ratio Glucose POC Glucose 321 H* 356 H* Estimat Average Glucose 226 Hemoglobin A1c 9.5 H Calcium Troponin I Beta-Hydroxybutyric Acd 01/01/19 11:43 WBC RBC Hgb Hct MCV MCH MCHC RDW Std Deviation RDW Coeff of Bryce Plt Count MPV PT INR Sodium Potassium Chloride Carbon Dioxide Anion Gap BUN Creatinine Est Cr Clr Drug Dosing Est GFR ( Amer) Est GFR (Non-Af Amer) BUN/Creatinine Ratio Glucose POC Glucose 258 H Estimat Average Glucose Hemoglobin A1c Calcium Troponin I Beta-Hydroxybutyric Acd Medications Administered Current Inpatient Medications Acetaminophen (Tylenol) 650 mg PO Q4H PRN PRN Reason: Pain or Fever Stop: 01/30/19 20:35 Aspirin (Ecotrin Ectab) 81 mg PO [facility] Stop: 01/31/19 08:59 Last Admin: 01/01/19 09:25 Dose: 81 mg Documented by: Atorvastatin Calcium (Lipitor) 40 mg PO [facility] Stop: 01/30/19 20:59 Last Admin: 12/31/18 21:27 Dose: 40 mg Documented by: Clopidogrel [facility] ([facility]ix) [facility] Stop: 01/31/19 08:59 Last Admin: 01/01/19 09:25 Dose: 75 mg Documented by: Dextrose (Dextrose 50%) 25 - 50 ml IV UD PRN; Protocol PRN Reason: Hypoglycemia Protocol Stop: 01/30/19 20:35 Glucagon (Glucagen) 1 mg SQ UD PRN; Protocol PRN Reason: Hypoglycemia Protocol Stop: 01/30/19 20:35 Glucose (Glucose 40%) 15 - 30 gm PO UD PRN; Protocol PRN Reason: Hypoglycemia Protocol Stop: 01/30/19 20:35 Glucose (Dex4 Glucose) 4 - 8 tabs PO UD PRN; Protocol PRN Reason: Hypoglycemia Protocol Stop: 01/30/19 20:35 Heparin Sodium (Porcine) (Heparin Sodium (Porcine)) 5,000 units SQ Q12 [place] Stop: 01/31/19 08:59 Last Admin: 01/01/19 09:26 Dose: 5,000 units Documented by: Insulin Aspart (Novolog Flexpen) 0 units SC ACHS [facility] Stop: 01/30/19 20:59 Last Admin: 01/01/19 14:02 Dose: 11 units Documented by: Isosorbide Mononitrate (Imdur Extended Rel) 60 mg PO QAM [facility] Stop: 01/31/19 08:59 Last Admin: 01/01/19 09:25 Dose: 60 mg Documented by: Metoprolol Succinate (Toprol Xl) 50 mg PO QAM [facility] Stop: 01/31/19 08:59 Last Admin: 01/01/19 09:25 Dose: 50 mg Documented by: Miscellaneous (Carbohydrates For Hypoglycemia) 15 - 30 gm PO UD PRN PRN Reason: Hypoglycemia Treatment Stop: 01/30/19 20:35 Miscellaneous (Order Awaiting Action) 1 ea N/A QS [facility] Stop: 01/31/19 00:00 Last Admin: 01/01/19 14:04 Dose: Not Given Documented by: Nitroglycerin (Nitrostat) 0.4 mg SL UD PRN PRN Reason: Chest Pain Stop: 01/30/19 20:44 Ondansetron HCl (Zofran) 4 mg IV Q6H PRN PRN Reason: Nausea Stop: 01/30/19 20:35 Ranolazine (Ranexa) 500 mg PO BID [facility] Stop: 01/30/19 20:59 Last Admin: 01/01/19 09:25 Dose: 500 mg Documented by: Tamsulosin HCl (Flomax) 0.4 mg PO DAILY [facility] Stop: 01/31/19 08:59 Last Admin: 01/01/19 09:25 Dose: 0.4 mg Documented by:
[2019-01-01] MEDS: ATORVASTATIN 40 MG TAB PO SCH (21:07)
[2019-01-02 06:16] LABS: Hematocrit (blood only) 30.3 % (42-52); Hemoglobin 10.6 g/dL (14.0-18.0); Mean Corpuscular Volume 92.4 fL (80-100); Mean Platelet Volume 9.3 fL (7.4-10.4); Platelet Count 155 K/uL (130-400); RDW Coefficient of Variation 13.4 % (11.5-14.5); RDW Standard Deviation 45.1 fL (36.4-46.3); Red Blood Count 3.28 M/uL (4.7-6.1); White Blood Count 13.38 K/uL (4.8-10.8)
[2019-01-02 06:46] LABS: BUN Creatinine Ratio 29.7 (10-20); Calcium 8.2 mg/dl (8.5-10.1); Est GFR (African American) 36.9; Est GFR (Non-African American) 31.9; Potassium 4.5 mmol/L (3.5-5.1)
[2019-01-02] MEDS: RANOLAZINE 500 MG ER TAB PO SCH ×2 (08:07→21:30)
[2019-01-02] MEDS: TAMSULOSIN HCL 0.4 MG CAP PO SCH (08:07)
[2019-01-02] MEDS: INSULIN GLARGINE SOLOSTAR 100 UNITS/ML 3 ML PEN SC SCH (08:25)
[2019-01-02] MEDS: METOPROLOL SUCC 50MG EXT REL TAB PO SCH (08:25)
[2019-01-02] MEDS: INSULIN ASPART 100 UNITS/ML 3 ML PEN SC SCH ×4 (08:26→21:41)
[2019-01-02] MEDS: CLOPIDOGREL BISULFATE 75 MG TAB PO SCH (08:27)
[2019-01-02] MEDS: ASPIRIN 81 MG ECTAB PO SCH (08:28)
[2019-01-02] MEDS: HEPARIN SOD 5,000 UNIT/0.5 ML VIAL SQ SCH ×2 (08:28→21:42)
[2019-01-02] MEDS: ISOSORBIDE MONO EXTENDED REL 60 MG TABCR PO SCH (08:28)
[2019-01-02 14:30] LABS: Appearance Urine Clear (Clear); Bacteria Urine Automated Negative (Negative); Bilirubin Urine Negative (Negative); Blood Urine 2+ (Negative); Color Urine Yellow; Glucose Urine UA 1+ (Negative); Ketones Urine Negative (Negative); Leukocyte Esterase Urine 1+ (Negative); Nitrite Urine Negative (Negative); Protein Urine Negative (Negative); RBC Urine Automated >30 /hpf (0-4); Specific Gravity Urine 1.019 (1.000-1.030); Urobilinogen Urine Negative (Negative); pH Urine 6.5 (4.5-7.5)
--- NOTE | 2019-01-02 15:01 | Hospitalist Progress Note ---
Date of Service January 02, 2019 Assessment & Plan (1) MICHAEL (acute kidney injury): Cr up to 2.66 from baseline 1.9 upon admission, now improved again to 1.88 and feeling much better after giving IV fluids and holding Lasix. Was secondary to increased dose of Lasix recently as an outpatient from 20 mg every other day up to 20 mg twice daily (as per )-however, an outpatient cardiology notes state that patient was only to increase to 20 mg ONCE DAILY electrolytes stable Tolerating p.o. and eating 3 meals a day It is unclear Drummond catheter was placed for accurate I's and O's or due to renal failure or due to urinary retention. He has never had any issues with urinary retention in the past but does have BPH - will remove Drummond catheter today and do a trial of void-does have a history of BPH but never had to be catheterized in the past-does follow with Dr. Osborn of urology if needed -Suspect acute kidney injury caused buildup of metabolites of gabapentin and ropinirole possibly leading to his episodes of shaking and inability to speak or move all extremities prior to admission -Patient now reports feeling "great" since his acute kidney injury is resolved -Continue holding Lasix for now -Consider starting Lasix back at usual dose of 20 mg every other day or perhaps 20 mg once daily as was originally intended by mental measurements teacher if creatinine remains stable-we will need to closely watch his volume status given lower extremity edema (2) Coronary artery disease: Patient has known coronary disease and is status post CABG -Maintain his Plavix, aspirin, atorvastatin, metoprolol, isosorbide, and Ranexa at reduced dose of 500 mg twice daily although I do not think that the increased dose of Ranexa caused his symptoms leading to admission. No angina at this time (3) Diabetes: Hyperglycemia early in admission is now resolved with increased insulin coverage Hemoglobin A 1C severely uncontrolled 8.9% normally on Glimepiride which is being held -Continue basal bolus insulin -Consider adding on second agent as an outpatient (4) Chronic kidney disease, stage III (moderate): Patient typically has chronic kidney disease stage III, baseline creatini ne around 1.[address] Minor -Gabapentin is okay at current dosing from home-increase back to 300 mg at bedtime now Otherwise, medications are appropriately renally dosed-ropinirole requires creatinine clearance greater than 30 but otherwise is undefined for creatinine clearance less than 30-suspect this may have played a role when his creatinine clearance worsened with acute kidney injury as above -Okay to restart ropinirole at home dosing of 1 mg at lunchtime and 1 mg at bedtime (5) Hypertension: BP is controlled -Okay to continue metoprolol, isosorbide at current doses (6) Movement disorder: Upon admission, had episodes of body shaking, inability to move all extremities or speak and he says he is conscious during episodes says he felt like he was "dying" on due to prolonged episode As above, suspect likely due to accumulation of medication metabolites such as ropinirole and gabapentin due to acute kidney injury Completely resolved now Follows with neurology for tremor, restless leg syndrome, and polyneuropathy-is on Exelon patch, gabapentin, and ropinirole for all of these conditions. -Patient and family request a consultation with neurology in the morning (7) Restless leg syndrome: Okay to increase ropinirole back to home dose of 1 mg at lunchtime and 1 mg at bedtime, as well as increase gabapentin back to home dose of 300 mg at bedtime now that renal function is improved Even this dosing though is not controlling his symptoms -Is mildly anemic here-check iron studies and replace iron if deficient as this can contribute to worsening RLS (8) Essential tremor: Continue beta-radha (9) Leukocytosis: WBC count up to 13 today without obvious etiology Urinalysis negative for infection, no cough for evidence of pneumonia on examina tion, afebrile Perhaps just a stress response -Monitor for fevers -Follow CBC again in the morning (10) Polyneuropathy: Continue gabapentin Follows with neurology (11) Alzheimer's dementia: Follows with neurology, mild -Exelon patch if can be brought in from home (12) Lower extremity edema: Not thought to be secondary to heart failure as per outpatient cardiology notes, with preserved EF on echocardiogram in 2018 Increased dose of Lasix caused acute kidney injury as above -Continue COLE hose, elevation -Consider restarting Lasix 20 mg every other day as before -Follow weights, changed to low-sodium diet (13) S/P CABG (coronary artery bypass graft): Noted -Continue meds as above and CAD (14) BPH (benign prostatic hyperplasia): Follows with Dr. Osborn of urology -Remove Drummond now and trial of void as above -Continue tamsulosin (15) DVT prophylaxis: Heparin SQ, COLE hose Disposition-remain overnight as trial of void was delayed-Drummond catheter was not removed till 1700, also need to ensure leukocytosis resolves, renal function remains stable overnight, and family requesting neurology consultation in the morning If all is well, can be discharged to home on 01/03 PT/OT recommending return home Subjective Patient reports feeling "the best they have in a long time." No further episod es today of weakness or shaking with inability to speak. reports he had an episode of this for 3 nights last week prior to admission that resolved on their own. He was recently increased on his Lasix by the cardiology PA from 20 mg every other day to 20 mg twice daily approximately 2 weeks ago. While he does have a history of enlarged prostate and follows with Dr. Osborn of urology, he reports he has not had to have a Drummond catheter in the long long time. He cannot recall why it was placed at the outside hospital, but most likely due to acute kidney injury. Denies chest pain or shortness of breath. He denies abdominal pain or nausea. He ate 3 full meals today which is the most he is eaten in several days as per his . He reports that he was shaking very badly last night and RN confirms this. If finally was relieved when he got a dose of ropinirole around 1230 overnight. As it turns out, he did not get his usual ropinirole 1 mg at lunchtime and 1 mg in evening yesterday. Also, we do not have his Exelon patch available here. asked if there is anything else that can be done for his sleep as his restless leg syndrome is so severe it keeps him awake all night Telemetry with sinus bradycardia and normal sinus rhythm with IVCD with rates in the 50s to 60s Review of Systems Review of Systems: All systems reviewed & are unremarkable except as noted in HPI & below Physical Exam Constitutional: WD/WN, vitals as above Eyes: PERRL, conjunctivae normal, anicteric sclerae ENMT: external ear and nose normal, oropharynx normal Neck: trachea midline, no thyromegaly Respiratory: normal respiratory effort, lungs clear to auscultation Cardiovascular: Rate/Rhythm: regular rate and regular rhythm Heart Sounds: no murmur Extremities: + edema (1-2+ pitting edema of the legs to the knees bilaterally-family reports much improved from previous) Gastrointestinal (Abdomen): normal bowel sounds, soft, nontender, no hepatosplenomegaly Musculoskeletal: Extremities: extremities normal to inspection; no cyanosis and no clubbing Skin: no rashes, warm and dry Neurologic: moves all extremities and awake; no focal motor deficits Motor/Sensory: + tremor (Resting tremor in the hand on the right) Psychiatric: A+Ox3, euthymic affect Genitourinary: Drummond catheter in place draining clear yellow urine Results & Data Vital Signs (Past 12 Hours) Vital Signs Temp Pulse Pulse Resp BP Pulse Ox 01/02/19 11:48 96 01/02/19 11:46 36.4 C L 58 L 20 135/66 94 01/02/19 08:00 96 H 01/02/19 07:26 36.5 C 59 L 20 90/57 L 96 01/02/19 04:07 36.6 C 59 L 18 100/55 L 92 Laboratory Results 01/02/19 01/02/19 01/02/19 Range/Units 20:21 16:27 13:50 WBC (4.8-10.8) K/uL RBC (4.7-6.1) M/uL Hgb (14.0-18.0) g/dL Hct (42-52) % MCV (80-100) fL MCH (25-34) pg MCHC (32-36) g/dL RDW Std Deviation (36.4-46.3) fL RDW Coeff of Bryce (11.5-14.5) % Plt Count (130-400) K/uL MPV (7.4-10.4) fL Sodium (136-145) mmol/L Potassium (3.5-5.1) mmol/L Chloride (98-107) mmol/L Carbon Dioxide (21-32) mmol/L Anion Gap (3-11) BUN (7-18) mg/dl Creatinine (0.6-1.4) mg/dl Est Cr Clr Drug Dosing ml/min Est GFR ( Amer) Est GFR (Non-Af Amer) BUN/Creatinine Ratio (10-20) Glucose (70-99) mg/dl POC Glucose 120 H 140 H (70-99) Calcium (8.5-10.1) mg/dl Urine Color Yellow Urine Appearance Clear (Clear) Urine pH 6.5 (4.5-7.5) Ur Specific [place] 1.019 (1.000-1.030) Urine Protein Negative (Negative) Urine Glucose (UA) 1+ H (Negative) Urine Ketones Negative (Negative) Urine Blood 2+ H (Negative) Urine Nitrite Negative (Negative) Urine Bilirubin Negative (Negative) Urine Urobilinogen Negative (Negative) Ur Leukocyte Esterase 1+ H (Negative) Urine WBC (Auto) 1-5 (0-5) /hpf Urine RBC (Auto) >30 H (0-4) /hpf U Hyaline Cast (Auto) 1-5 (0-5) /lpf U Epithel Cells (Auto) 5-10 H (0-5) /lpf Urine Bacteria (Auto) Negative (Negative) 01/02/19 01/02/19 01/02/19 Range/Units 11:54 11:40 07:33 WBC (4.8-10.8) K/uL RBC (4.7-6.1) M/uL Hgb (14.0-18.0) g/dL Hct (42-52) % MCV (80-100) fL MCH (25-34) pg MCHC (32-36) g/dL RDW Std Deviation (36.4-46.3) fL RDW Coeff of Bryce (11.5-14.5) % Plt Count (130-400) K/uL MPV (7.4-10.4) fL Sodium (136-145) mmol/L Potassium (3.5-5.1) mmol/L Chloride (98-107) mmol/L Carbon Dioxide (21-32) mmol/L Anion Gap (3-11) BUN (7-18) mg/dl Creatinine (0.6-1.4) mg/dl Est Cr Clr Drug Dosing ml/min Est GFR ( Amer) Est GFR (Non-Af Amer) BUN/Creatinine Ratio (10-20) Glucose (70-99) mg/dl POC Glucose 90 90 93 (70-99) Calcium (8.5-10.1) mg/dl Urine Color Urine Appearance (Clear) Urine pH (4.5-7.5) Ur Specific [place] (1.000-1.030) Urine Protein (Negative) Urine Glucose (UA) (Negative) Urine Ketones (Negative) Urine Blood (Negative) Urine Nitrite (Negative) Urine Bilirubin (Negative) Urine Urobilinogen (Negative) Ur Leukocyte Esterase (Negative) Urine WBC (Auto) (0-5) /hpf Urine RBC (Auto) (0-4) /hpf U Hyaline Cast (Auto) (0-5) /lpf U Epithel Cells (Auto) (0-5) /lpf Urine Bacteria (Auto) (Negative) 01/02/19 01/02/19 Range/Units 05:59 05:59 WBC 13.38 H (4.8-10.8) K/uL RBC 3.28 L (4.7-6.1) M/uL Hgb 10.6 L (14.0-18.0) g/dL Hct 30.3 L (42-52) % MCV 92.4 (80-100) fL MCH 32.3 (25-34) pg MCHC 35.0 (32-36) g/dL RDW Std Deviation 45.1 (36.4-46.3) fL RDW Coeff of Bryce 13.4 (11.5-14.5) % Plt Count 155 (130-400) K/uL MPV 9.3 (7.4-10.4) fL Sodium 140 (136-145) mmol/L Potassium 4.5 (3.5-5.1) mmol/L Chloride 106 (98-107) mmol/L Carbon Dioxide 28 (21-32) mmol/L Anion Gap 6.0 (3-11) BUN 56 H (7-18) mg/dl Creatinine 1.88 H D (0.6-1.4) mg/dl Est Cr Clr Drug Dosing 25.0 ml/min Est GFR ( Amer) 36.9 Est GFR (Non-Af Amer) 31.9 BUN/Creatinine Ratio 29.7 H (10-20) Glucose 93 (70-99) mg/dl POC Glucose (70-99) Calcium 8.2 L (8.5-10.1) mg/dl Urine Color Urine Appearance (Clear) Urine pH (4.5-7.5) Ur Specific [place] (1.000-1.030) Urine Protein (Negative) Urine Glucose (UA) (Negative) Urine Ketones (Negative) Urine Blood (Negative) Urine Nitrite (Negative) Urine Bilirubin (Negative) Urine Urobilinogen (Negative) Ur Leukocyte Esterase (Negative) Urine WBC (Auto) (0-5) /hpf Urine RBC (Auto) (0-4) /hpf U Hyaline Cast (Auto) (0-5) /lpf U Epithel Cells (Auto) (0-5) /lpf Urine Bacteria (Auto) (Negative)
[2019-01-02] MEDS: DOCUSATE SODIUM/SENNA 50/8.6MG TAB PO SCH (16:50)
[2019-01-02] MEDS ORDERED: GABAPENTIN 300 MG CAP PO SCH (21:00)
[2019-01-02] MEDS ORDERED: GABAPENTIN 100 MG CAP PO SCH (21:00)
[2019-01-02] MEDS ORDERED: ROPINIROLE HCL 0.25 MG TABLET PO SCH (21:00)
[2019-01-02] MEDS: ATORVASTATIN 40 MG TAB PO SCH (21:30)
[2019-01-02] MEDS: ROPINIROLE HCL 1 MG TABLET PO SCH (21:39)
[2019-01-03 05:57] LABS: Hemoglobin 11.8 g/dL (14.0-18.0); Mean Corpuscular Hgb Conc 33.7 g/dL (32-36); Mean Corpuscular Volume 93.3 fL (80-100); Mean Platelet Volume 9.3 fL (7.4-10.4); Platelet Count 168 K/uL (130-400); RDW Coefficient of Variation 13.4 % (11.5-14.5); RDW Standard Deviation 45.8 fL (36.4-46.3); Red Blood Count 3.75 M/uL (4.7-6.1); White Blood Count 7.85 K/uL (4.8-10.8)
[2019-01-03 06:16] LABS: BUN Creatinine Ratio 27.5 (10-20); Calcium 8.5 mg/dl (8.5-10.1); Creatinine Clr Calc Pharmacy 24.1 ml/min; Est GFR (African American) 38.9; Est GFR (Non-African American) 33.6; Potassium 4.5 mmol/L (3.5-5.1)
[2019-01-03 06:26] LABS: Ferritin 88.7 ng/ml (8-388)
--- NOTE | 2019-01-03 08:58 | Neurology Consultation ---
Date of Consultation January 03, 2019 Assessment & Plan (1) Alzheimer's dementia: Patient has a history of memory dysfunction, predominantly short-term, over the last 6 years or so. He is followed by Dr. Infante as an outpatient who made a diagnosis of senile dementia of the Alzheimer's type, of a moderate nature, in February of 2016. He has failed donepezil due to side effects and is currently on Exelon patch 4.6 milligrams. Higher doses gave him side effects. He is stable on this although his feels that he is getting mildly worse memory over the last 6 months. Overall, he is functioning fairly well considering and can carry on conversations. He has no focal neurologic findings and no meningeal signs. There is nothing by his history or exam that would suggest stroke or TIA. Patient had issues with generalized weakness and other symptoms as described above over the last week. I believe these were likely secondary to medication effects (increased Ranexa as well as very large increase in furosemide) and he is neurologically back to baseline currently. Patient has had some sort of cerebral vascular event in the remote past. He is currently on Plavix and aspirin (for cardiac reasons). (2) Essential tremor: Patient has a mild essential tremor. There is no family history of tremor. On exam, there are no signs of parkinsonism. The tremor is mild and he is on metoprolol which may have a positive affect of dampening the tremor some. (3) Restless leg syndrome: Patient has significant restless leg syndrome. Ropinirole helps some but this can still be an issue sometimes. (4) Diabetic polyneuropathy: Patient has polyneuropathy with decreased reflexes on examination. This is likely secondary to diabetes. 300 milligrams gabapentin each evening helps and he any really does not have any neuropathic pain currently. Glucose was 71 this hospitalization. Recommendations: 1. Continue Exelon patch at 4.6 milligrams daily (higher doses gives him side effects). 2. Continue ropinirole 1 milligram at noon and 1 milligram in the evening. 3. Continue gabapentin 300 milligrams at bedtime 4. I see no reason for additional neurologic testing at this time. 5. He can follow up with Dr. Infante as an outpatient. Overall, I spent a total of 100 minutes with this case including review of records, direct evaluation the patient at bedside, and discussion of the case with the patient at bedside along with his and son were at bedside, and Dr. Miller including differential diagnosis and treatment options. History of Present Illness Reason for Consultation: Patient is an 83 year old, who i was asked to see at the request of Dr. Ta, for neurologic consultation regarding abnormal movements and other issues. Requesting Physician: Dr. Ta Attending Physician: Gavin Miller, DO History of Present Illness The patient has a history of hypertension, diabetes, coronary artery disease, and chronic renal disease, post CABG and stenting, followed by Dr. Go. He first saw Dr. Infante in April of 2016 for significant memory loss. A diagnosis of Senile dementia of the alzheimer's type (SDAT) was made and he was started on donepezil. MRI then showed moderate generalized and hippocampal atrophy. He scored 16/30 in a MMSE. Aricept was stopped due to nausea side effects. He was then put on Exelon patch which he is still on He carries diagnoses of restless legs syndrome, helped some with ropinirole and diabetic polyneuropathy. He has a chronic action tremor. Higher doses of Exelon gave side effects too, and he was last seen as an outpatient in September of this year, stable and doing well. On December 17, the patient saw Adeline Norman, as an outpatient, who at the direction of Dr. Blackburn, increase Lasix to 20 milligrams a day and Ranexa 1000 milligrams twice daily. Unfortunately, there was a misunderstanding and the patient was given 20 milligrams of Lasix twice daily as well as the increased Ranexa. Patient had several episodes and was feeling worse last week. December 26, December 27, and December 30 he had episodes lasting hours where he was weak in general could not talk or walk well and had difficulty swallowing. Most recently on December 30 he had some trouble breathing. He had no loss of consciousness, and could recall events from those days. In addition he had no incontinence of urine, tongue biting, or a jerking/stiffening of the limbs. His tremor was more predominant during these times and he had no vision problems, numbness or tingling. Patient gets occipital headaches from time to time and these were little worse during these episodes but he had no other increased pain. Patient was admitted to our institution on December 31 transferred from [facility] ER. At 2130 temperature 36.6, pulse 66 and regular, respiratory rate 18 and regular, blood pressure 124/68, and O2 saturation 92 percent. He had some mild anemia on CBC and elevated BUN creatinine on Chem profile. Urinalysis showed some blood but cultures showed no growth. Patient has been markedly improved over the last 48 hours. Today he denies weakness or balance problems. His speech is back to baseline and he is not short of breath. He can swallow normally. Most recent labs show hemoglobin of 11.8 hematocrit of 35. BUN is 50 and creatinine 1.8. Glucose was 71. Nursing reports no seizures or abnormal issues overnight or today. Allergies Allergy/AdvReac Type Severity Reaction Status Date / Time No Known Allergies Allergy Unverified 04/24/17 18:17 Home Medications Home Medications Medication Instructions Recorded Confirmed Type ASPIRIN (ASPIRIN CHEWABLE) 81 mg PO QAM #0 11/20/15 01/03/19 History ATORVASTATIN (LIPITOR) 40 mg PO HS #0 tab 11/20/15 01/03/19 History CYANOCOBALAMIN (VITAMIN B12) 1 tab PO QAM #0 11/20/15 01/03/19 History Clopidogrel (Plavix) 75 mg PO QAM #0 tab 11/20/15 01/03/19 History GLIMEPIRIDE 1 tab PO QAM #0 tab 11/20/15 01/03/19 History Isosorbide Mononitrate Ext Rel 60 mg PO QAM #0 tab 11/20/15 01/03/19 History (Imdur Ext Rel) Metoprolol Succ (Toprol Xl) 50 mg PO QAM #30 tab 11/20/15 01/03/19 History (Toprol-Xl) RANOLAZINE (RANEXA) 1 tab PO BID #0 11/20/15 01/03/19 History Ropinirole HCl 1 tab PO HS #0 11/20/15 01/03/19 History Nitroglycerin (Nitrostat) 0.4 mg UT PRN #0 btl 11/28/15 01/03/19 History Gabapentin 1 - 2 tab PO HS #0 04/24/17 01/03/19 History Rivastigmine (Rivastigmine 1 patch TRANSDERMAL UD #0 04/24/17 01/03/19 History Transdermal) Tamsulosin HCl 1 tab PO DAILY #0 04/24/17 01/03/19 History Patient History Medical History Chronic kidney disease, stage III (moderate) Coronary artery disease Diabetes Dyslipidemia Hypertension Nephrolithiasis Surgical History H/O shoulder surgery Hx of CABG Family History Mother , age 88 of heart issues Heart disease Father , age 52 of silicosis Lung disease Social History Communication Ability: Effective Sharepoint Solutions Developer Required: No Beliefs That Will Affect Care: None Current Living Situation: Spouse current occupational status: retired 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 Other Information That Helps Us Care for You: No Feels Safe at Home: Yes Safety Concerns: Feels Safe At This Time Smoking Status: Former smoker Number of Years Since Quit: 50 Hx Alcohol Use: Yes Alcohol type: beer Alcohol Intake Frequency Comment: Rare use only Hx Substance Use: No Review of Systems Constitutional: no fever, no body aches, no fatigue and no weakness Eyes: no diplopia, no eye pain and no worsening vision Ear, Nose, Mouth, Throat: + hearing loss; no ear pain, no tinnitus and no dysphagia Respiratory: no cough and no dyspnea Cardiovascular: no chest pain, no dyspnea and no palpitations Gastrointestinal: no abdominal pain, no nausea and no vomiting Genitourinary: no dysuria, no urinary frequency and no urinary incontinence Musculoskeletal: no back pain, no neck pain, no radicular pain, no myalgia, no muscle weakness and no muscle atrophy Integumentary: no rash and no lesions Neurologic: + headache(s) and + memory loss; no gait abnormality, no falls, no localized weakness, no generalized weakness, no tingling, no numbness, no tremor(s), no abnormal movements, no dizziness, no abnormal speech, no behavioral changes and no confusion Psychiatric: no depression, no abnormal sleep pattern, no anxiety, no difficulty concentrating, no confusion and no hallucinations Endocrine: no fatigue and no flushing Hematologic / Lymphatic: no easy bleeding and no easy bruising Allergy / Immunological: no urticaria Physical Exam Physical Exam: The patient is right-handed. The patient is awake, alert, and attentive. Speech is normal without any aphasia or dysarthria. Mentation and thought processes are reasonable to conversation and he is oriented to name, place, date.. Attention and concentration are normal. Mood and affect are normal and appropriate. General appearance and grooming are normal. Short term memory is moderately impaired long-term memory seems intact. The discs are sharp with positive venous pulsations bilaterally. There are no exudates, hemorrhages, or blood vessel changes seen. Pupils are 3 mm bilaterally and reactive to light. Extraocular eye muscles are intact without nystagmus. Visual acuity and visual hammonds seem normal grossly to confrontation. Patient has a variable chin tremor. There is no other head tremor. There is no masklike face or generalized bradykinesia. There are no deficits to sensation in the face in all 3 distributions of the fifth cranial nerve bilaterally. Corneal reflexes are positive bilaterally. Facial strength and symmetry was normal bilaterally. Hearing is decreased bilaterally. Palate moves well without asymmetry. There is normal sternocleidomastoid and trapezius (shoulder shrug) strength bilaterally. Tongue is midline with good strength bilaterally. Neck has a full range of motion without discomfort. There are no cervical bruits bilaterally. There are no cranial or ocular bruits. Heart is without murmur. There is a regular rhythm and rate. Cervical, thoracic, and lumbar spine are nontender to palpation. Gait is narrow based, with good arm swing, turns, and stance. With outstretched arms there is no drift. There are no resting or postural tremors. There is mild action tremor bilaterally. There is no ataxia with finger to nose testing. There is good facility in the hands. No other abnormal involuntary movements are noted. Motor strength is 5/5 diffusely in the arms bilaterally including deltoids, biceps, triceps, brachioradialis, wrist flexors and extensors, financial aids officer, and intrinsic hand muscles. Motor strength is 5/5 diffusely in the legs bilaterally including hip flexors, quadriceps, hamstrings, gastrocnemius, tibialis anterior, tibialis posterior, and Peroneii muscles bilaterally. Toe extensors are normal and there is good bulk in the extensor digitorum brevis muscles bilaterally. The limbs have good tone without rigidity or spasticity. There is no atrophy noted in the muscles. Muscle bulk is normal, there is no tenderness to palpation, no myotonia to percussion, and no fasciculations seen. Sensory examination is intact to touch and pin throughout all 4 limbs diffusely. Reflexes are 0/4 in the biceps, triceps, brachioradialis, quadriceps, and Achilles tendons bilaterally. Toes are downgoing with plantar stimulation bilaterally. Peripheral pulses are present and of normal quality distally in all 4 limbs. There is no peripheral edema noted in the limbs. Results & Data Vital Signs (Past 12 Hours) Vital Signs Temp Pulse Pulse Resp BP Pulse Ox 01/03/19 07:01 36.6 C 61 18 118/57 L 97 01/03/19 03:22 36.3 C L 61 18 122/64 97 01/03/19 00:13 36.4 C L 64 16 105/54 L 92 01/02/19 23:29 65
[2019-01-03 09:00] LABS: Folate (Folic Acid) 9.48 ng/ml (>5.38)
[2019-01-03] MEDS: DOCUSATE SODIUM/SENNA 50/8.6MG TAB PO SCH (09:05)
[2019-01-03] MEDS: HEPARIN SOD 5,000 UNIT/0.5 ML VIAL SQ SCH (09:06)
[2019-01-03] MEDS: CLOPIDOGREL BISULFATE 75 MG TAB PO SCH (09:07)
[2019-01-03] MEDS: METOPROLOL SUCC 50MG EXT REL TAB PO SCH (09:07)
[2019-01-03] MEDS: TAMSULOSIN HCL 0.4 MG CAP PO SCH (09:08)
[2019-01-03] MEDS: ASPIRIN 81 MG ECTAB PO SCH (09:08)
[2019-01-03] MEDS: ISOSORBIDE MONO EXTENDED REL 60 MG TABCR PO SCH (09:08)
[2019-01-03] MEDS: INSULIN ASPART 100 UNITS/ML 3 ML PEN SC SCH ×2 (09:09→12:28)
[2019-01-03] MEDS: INSULIN GLARGINE SOLOSTAR 100 UNITS/ML 3 ML PEN SC SCH (09:09)
[2019-01-03] MEDS: RANOLAZINE 500 MG ER TAB PO SCH (09:09)
--- NOTE | 2019-01-03 10:07 | Procedure Note ---
EEG Procedure Note Date of Service January 03, 2019 Start / End Times Start Time: 848 End Time: 908 Referring Physician Walt Goff PA-C History Patient is a 50-year-old with 2 day history of acute encephalopathy, combativeness/agitation Home Medication List Home Medications Medication Instructions Recorded Confirmed Type ASPIRIN (ASPIRIN CHEWABLE) 81 mg PO QAM #0 11/20/15 01/03/19 History ATORVASTATIN (LIPITOR) 40 mg PO HS #0 tab 11/20/15 01/03/19 History CYANOCOBALAMIN (VITAMIN B12) 1 tab PO QAM #0 11/20/15 01/03/19 History Clopidogrel (Plavix) 75 mg PO QAM #0 tab 11/20/15 01/03/19 History GLIMEPIRIDE 1 tab PO QAM #0 tab 11/20/15 01/03/19 History Isosorbide Mononitrate Ext Rel 60 mg PO QAM #0 tab 11/20/15 01/03/19 History (Imdur Ext Rel) Metoprolol Succ (Toprol Xl) 50 mg PO QAM #30 tab 11/20/15 01/03/19 History (Toprol-Xl) RANOLAZINE (RANEXA) 1 tab PO BID #0 11/20/15 01/03/19 History Ropinirole HCl 1 tab PO HS #0 11/20/15 01/03/19 History Nitroglycerin (Nitrostat) 0.4 mg UT PRN #0 btl 11/28/15 01/03/19 History Gabapentin 1 - 2 tab PO HS #0 04/24/17 01/03/19 History Rivastigmine (Rivastigmine 1 patch TRANSDERMAL UD #0 04/24/17 01/03/19 History Transdermal) Tamsulosin HCl 1 tab PO DAILY #0 04/24/17 01/03/19 History Inpatient Medication List Aspirin (Ecotrin Ectab) 81 mg PO QAM [place] Stop: 01/31/19 08:59 Last Admin: 01/03/19 09:08 Dose: 81 mg Documented by: [id number] Admin: 01/02/19 08:28 Dose: 81 mg Documented by: [id number] Admin: 01/01/19 09:25 Dose: 81 mg Documented by: [id number] Atorvastatin Calcium (Lipitor) 40 mg PO HS [place] Stop: 01/30/19 20:59 Last Admin: 01/02/19 21:30 Dose: 40 mg Documented by: [id number] Admin: 01/01/19 21:07 Dose: 40 mg Documented by: [id number] Admin: 12/31/18 21:27 Dose: 40 mg Documented by: [id number] Clopidogrel Bisulfate (Plavix) 75 mg PO QAM [facility] Stop: 01/31/19 08:59 Last Admin: 01/03/19 09:07 Dose: 75 mg Documented by: [id number] Admin: 01/02/19 08:27 Dose: 75 mg Documented by: [id number] Admin: 01/01/19 09:25 Dose: 75 mg Documented by: [id number] Gabapentin (Neurontin) 300 mg PO HS [facility] Stop: 02/01/19 20:59 Last Admin: 01/02/19 21:30 Dose: 300 mg Documented by: [id number] Heparin Sodium (Porcine) (Heparin Sodium (Porcine)) 5,000 units SQ Q12 [facility] Stop: 01/31/19 08:59 Last Admin: 01/03/19 09:06 Dose: 5,000 units Documented by: [id number] Cosigned by: [id number] Admin: 01/02/19 21:42 Dose: 5,000 units Documented by: [id number] Cosigned by: [id number] Admin: 01/02/19 08:28 Dose: 5,000 units Documented by: [id number] Cosigned by: [id number] Admin: 01/01/19 21:08 Dose: 5,000 units Documented by: [id number] Cosigned by: [id number] Admin: 01/01/19 09:26 Dose: 5,000 units Documented by: [id number] Cosigned by: [id number] Insulin Aspart (Novolog Flexpen) 0 units SC ACHS [facility] Stop: 01/30/19 20:59 Last Admin: 01/03/19 09:09 Dose: 4 units Documented by: [id number] Cosigned by: [id number] Admin: 01/02/19 21:41 Dose: Not Given Documented by: [id number] Cosigned by: [id number] Admin: 01/02/19 17:23 Dose: 7 units Documented by: [id number] Cosigned by: [id number] Admin: 01/02/19 13:30 Dose: 6 units Documented by: [id number] Cosigned by: [id number] Admin: 01/02/19 08:26 Dose: 4 units Documented by: [id number] Cosigned by: [id number] Admin: 01/01/19 21:09 Dose: Not Given Documented by: [id number] Cosigned by: [id number] Admin: 01/01/19 17:30 Dose: 8 units Documented by: [id number] Cosigned by: [id number] Admin: 01/01/19 14:02 Dose: 11 units Documented by: [id number] Cosigned by: [id number] Admin: 01/01/19 09:26 Dose: 15 units Documented by: [id number] Cosigned by: [id number] Admin: 12/31/18 21:40 Dose: 2 units Documented by: [id number] Cosigned by: [id number] Insulin Glargine (Lantus Solostar Pen) 15 units SC [facility] Stop: 02/01/19 08:59 Last Admin: 01/03/19 09:09 Dose: 15 units Documented by: [id number] Cosigned by: [id number] Admin: 01/02/19 08:25 Dose: 15 units Documented by: [id number] Cosigned by: [id number] Isosorbide Mononitrate (Imdur Extended Rel) 60 mg PO [facility] Stop: 01/31/19 08:59 Last Admin: 01/03/19 09:08 Dose: 60 mg Documented by: [id number] Admin: 01/02/19 08:28 Dose: 60 mg Documented by: [id number] Admin: 01/01/19 09:25 Dose: 60 mg Documented by: [id number] Metoprolol Succinate (Toprol Xl) 50 mg PO [facility] Stop: 01/31/19 08:59 Last Admin: 01/03/19 09:07 Dose: 50 mg Documented by: [id number] Admin: 01/02/19 08:25 Dose: Not Given Documented by: [id number] Admin: 01/01/19 09:25 Dose: 50 mg Documented by: [id number] Miscellaneous (Order Awaiting Action) 1 ea N/A QS [facility] Stop: 01/31/19 00:00 Last Admin: 01/03/19 09:05 Dose: Not Given Documented by: [id number] Admin: 01/02/19 23:46 Dose: Not Given Documented by: [id number] Admin: 01/02/19 13:30 Dose: Not Given Documented by: [id number] Admin: 01/02/19 08:07 Dose: Not Given Documented by: [id number] Admin: 01/01/19 23:18 Dose: Not Given Documented by: [id number] Admin: 01/01/19 14:04 Dose: Not Given Documented by: [id number] Admin: 01/01/19 09:24 Dose: Not Given Documented by: [id number] Admin: 01/01/19 00:19 Dose: Not Given Documented by: [id number] Ranolazine (Ranexa) 500 mg PO BID [place] Stop: 01/30/19 20:59 Last Admin: 01/03/19 09:09 Dose: 500 mg Documented by: [id number] Admin: 01/02/19 21:30 Dose: 500 mg Documented by: [id number] Admin: 01/02/19 08:07 Dose: 500 mg Documented by: [id number] Admin: 01/01/19 21:11 Dose: 500 mg Documented by: [id number] Admin: 01/01/19 09:25 Dose: 500 mg Documented by: [id number] Admin: 12/31/18 21:27 Dose: 500 mg Documented by: [id number] Ropinirole HCl (Requip) 1 mg PO BID@1200,2100 [facility] Stop: 02/01/19 20:59 Last Admin: 01/02/19 21:39 Dose: 1 mg Documented by: [id number] Senna/Docusate Sodium (Senokot S) 1 tab PO QAM [facility] Stop: 02/01/19 16:29 Last Admin: 01/03/19 09:05 Dose: 1 tab Documented by: [id number] Admin: 01/02/19 16:50 Dose: 1 tab Documented by: [id number] Tamsulosin HCl (Flomax) 0.4 mg PO DAILY [place] Stop: 01/31/19 08:59 Last Admin: 01/03/19 09:08 Dose: 0.4 mg Documented by: [id number] Admin: 01/02/19 08:07 Dose: 0.4 mg Documented by: [id number] Admin: 01/01/19 09:25 Dose: 0.4 mg Documented by: [id number] Discontinued Medications Gabapentin (Neurontin) 200 mg PO HS [place] Stop: 02/01/19 20:59 Last Admin: 01/02/19 00:31 Dose: 200 mg Documented by: [id number] Sodium Chloride (Nss 1000ml) 1,000 mls @ 80 mls/hr IV .[id number] [place] Stop: 01/01/19 03:14 Last Infusion: 01/01/19 09:24 Dose: 0 mls/hr Documented by: [id number] Admin: 12/31/18 21:25 Dose: 80 mls/hr Documented by: [id number] Insulin Glargine (Lantus Solostar Pen) 15 units SC [facility] Stop: 01/01/19 08:47 Last Admin: 01/01/19 09:32 Dose: 15 units Documented by: [id number] Cosigned by: [id number] Miscellaneous (Patient's Height And/Or Weight Needed) 1 ea N/A Q2H [place] Stop: 01/30/19 21:14 Last Admin: 01/01/19 00:47 Dose: Not Given Documented by: [id number] Admin: 12/31/18 21:41 Dose: 1 ea Documented by: [id number] Ropinirole HCl (Requip) 0.25 mg PO HS [place] Stop: 02/01/19 20:59 Last Admin: 01/02/19 00:31 Dose: 0.25 mg Documented by: [id number] Description This is a 21 electrode EEG with a single channel dedicated to limited EKG. The electrodes were placed in accordance with the International 10-20 system. Interpretation This EEG was very difficult to obtain due to patient cooperation issues. She had frequent head movement, eye movement, and eye opening throughout the recording. The predominant background activity consists of a somewhat irregular 10-11 Hz activity, of up to 30 mV in amplitude,seen symmetrically distributed over the posterior head regions bilaterally. This activity attenuates some with eye- opening and other alerting procedures. Photic stimulation and hyperventilation was not performed on this bedside ICU EEG. A moderate amount of muscle and movement artifact activity contaminated the recording and injury interpretation from time to time throughout the recording but not to any significant degree overall. Throughout the recording, no focal abnormalities, abnormal slow activity, or potentially epileptogenic discharges are seen. In summary, this EEG was normal during wakefulness. No focal abnormalities, potentially epileptogenic discharges, or abnormal slow activity was seen. Clinical Correlation The abscence of potentially epileptogenic activity does not exclude a seizure disorder, since interictally, EEGs can be normal. Clinical correlation is required.
[2019-01-03] MEDS: ROPINIROLE HCL 1 MG TABLET PO SCH (12:29)
--- NOTE | 2019-01-03 15:06 | Discharge Summary ---
Date of Service January 03, 2019 Admission HPI Per Admitting Provider We received the patient in transfer from [place] emergency department as per family request. Patient is awake he is oriented to person place and somewhat to time. I spoke to the patient's who he resides with she states that he had intermittent episodes of the last 2 days and was in a continuous diarrhea leg on the ground but is been increasingly sleepy having increasing leg weakness for which she has a history of. Denies having injuries he said he just could not get up. He is a known significant coronary history having had CABG and PTCA and most recently has been managed by Dr. Rich. His most recent visit [address] Rich doubled his Ranexa from 502,000 twice daily and added Lasix 20 twice daily this occurred prior to these events. Hi In the emergency department there was no significant untoward issues found except for mild minor elevation of troponin without acute current of injury and EKG. Currently the patient has no complaints or problems but is somewhat forgetful and cannot tell me exact details about his medications or past medical history Patient is acute kidney injury on chronic kidney disease stage III Admission Exam Per Admitting Provider The patient appeared well nourished and normally developed. Vital signs as documented. Head exam is unremarkable. normocephalic, atraumatic Neck is without jugular venous distension, thyromegaly, or lymphademopathy Lungs are basilar rales which clear with deep inspiration Cardiac exam reveals Rhythm is regular. First and second heart sounds normal. Abdominal exam reveals normal bowel sounds, no masses, no organomegaly Extremities are mildly edematous and both pedal pulses are present Neurologic exam is A&Ox3, patient cannot follow complex questions he has no focal loss he has some intention tremor but no resting tremor Psychologically seems neither anxious or depressed Skin is warm Dry without bruises or lesions Principal Diagnosis Acute kidney injury Discharge Exam Constitutional WD/WN, vitals as above Eyes PERRL, conjunctivae normal, anicteric sclerae ENMT external ear and nose normal, oropharynx normal Neck trachea midline, no thyromegaly Respiratory normal respiratory effort, lungs clear to auscultation Cardiovascular RRR, no murmur, no edema Gastrointestinal (Abdomen) normal bowel sounds, soft, nontender, no hepatosplenomegaly Musculoskeletal no cyanosis or clubbing, extremities motor strength 5/5 Skin no rashes, warm and dry Neurologic patellar DTR's 2+ bilat, sensation intact and PERRL, EOMI, accommodation nl, no face palsy, no dysarthria Psychiatric A+Ox3, euthymic affect Lymphatic no cervical or axillary lymphadenopathy Discharge Data Allergies Allergy/AdvReac Type Severity Reaction Status Date / Time No Known Allergies Allergy Unverified 04/24/17 18:17 Consultations 12/31/18 20:36 Consult Case Management - Discharge Planning Routine 01/02/19 15:08 Consult Neurology Routine Hospital Course (1) MICHAEL (acute kidney injury): Cr up to 2.66 from baseline 1.9 upon admission, now improved again to 1.88 and feeling much better after giving IV fluids and holding Lasix. Was secondary to increased dose of Lasix recently as an outpatient from 20 mg every other day up to 20 mg twice daily (as per )-however, an outpatient cardiology notes state that patient was only to increase to 20 mg ONCE DAILY electrolytes stable Tolerating p.o. and eating 3 meals a day It is unclear Gaitan catheter was placed for accurate I's and O's or due to renal failure or due to urinary retention. He has never had any issues with urinary retention in the past but does have BPH - gaitan removed, no issues urinating -Suspect acute kidney injury caused buildup of metabolites of gabapentin and ropinirole possibly leading to his episodes of shaking and inability to speak or move all extremities prior to admission -Patient now reports feeling "great" since his acute kidney injury is resolved will resume Lasix at 20mg EVERY OTHER DAY and should follow up with PCP and nephrology (2) Coronary artery disease: Patient has known coronary disease and is status post CABG -Maintain his Plavix, aspirin, atorvastatin, metoprolol, isosorbide, and Ranexa at reduced dose of 500 mg twice daily No angina at this time (3) Diabetes: Hyperglycemia early in admission is now resolved with increased insulin coverage Hemoglobin A 1C severely uncontrolled 8.9% normally on Glimepiride which is being held -Continue basal bolus insulin -Consider adding on second agent as an outpatient (4) Chronic kidney disease, stage III (moderate): Patient typically has chronic kidney disease stage III, baseline creat inine around 1.[address] Minor -Gabapentin is okay at current dosing from home-increase back to 300 mg at bedtime now Otherwise, medications are appropriately renally dosed-ropinirole requires creatinine clearance greater than 30 but otherwise is undefined for creatinine clearance less than 30-suspect this may have played a role when his creatinine clearance worsened with acute kidney injury as above -Okay to restart ropinirole at home dosing of 1 mg at lunchtime and 1 mg at bedtime (5) Hypertension: BP is controlled -Okay to continue metoprolol, isosorbide at current doses (6) Movement disorder: Upon admission, had episodes of body shaking, inability to move all extremities or speak and he says he is conscious during episodes says he felt like he was "dying" on due to prolonged episode As above, suspect likely due to accumulation of medication metabolites such as ropinirole and gabapentin due to acute kidney injury Completely resolved now Follows with neurology for tremor, restless leg syndrome, and polyneuropathy-is on Exelon patch, gabapentin, and ropinirole for all of these conditions. -Patient and family request a consultation with neurology - appreciate recommendations from neurology, d/w them prior to discharge (7) Restless leg syndrome: Okay to increase ropinirole back to home dose of 1 mg at lunchtime and 1 mg at bedtime, as well as increase gabapentin back to home dose of 300 mg at bedtime now that renal function is improved Even this dosing though is not controlling his symptoms -Is mildly anemic here-check iron studies and replace iron if deficient as this can contribute to worsening RLS (8) Essential tremor: Continue beta-radha (9) Leukocytosis: WBC count up to 13 today without obvious etiology Urinalysis negative for infection, no cough for evidence of pneumonia on examination, afebrile Perhaps just a stress response -Monitor for fevers -Follow CBC again in the morning (10) Polyneuropathy: Continue gabapentin Follows with neurology (11) Alzheimer's dementia: Follows with neurology, mild -Exelon patch if can be brought in from home (12) Lower extremity edema: Not thought to be secondary to heart failure as per outpatient cardiology notes, with preserved EF on echocardiogram in 2018 Increased dose of Lasix caused acute kidney injury as above -Continue COLE hose, elevation -Consider restarting Lasix 20 mg every other day as before -Follow weights, changed to low-sodium diet (13) S/P CABG (coronary artery bypass graft): Noted -Continue meds as above and CAD (14) BPH (benign prostatic hyperplasia): Follows with Dr. Osborn of urology -Remove Gaitan now and trial of void as above -Continue tamsulosin (15) DVT prophylaxis: Heparin SQ, COLE hose Disposition-remain overnight as trial of void was delayed-Gaitan catheter was not removed till 1700, also need to ensure leukocytosis resolves, renal function remains stable overnight, and family requesting neurology consultation in the morning If all is well, can be discharged to home on 01/03 PT/OT recommending return home Total Time Total Time Spent Total Time Spent (In Minutes): 35 minutes Total Time Includes: Examination of the Patient, Discharge Planning, Medication Reconciliation and Communication With Other Providers Discharge Plan Discharge Items Patient Disposition: Home - Home Health Services Reason For Visit: FALL,ACUTE KIDNEY INJURY Discharge Diagnosis: Acute kidney injury, resolved Movement disorder Condition: Good Discharge Goals: Improve disease control and Improve function Activity: Resume your previous activity Non-emergency contact: Primary Care Provider, Engineering Inspection Assistant and Neurologist Call non-emergency contact if: you have any medication questions, your symptoms worsen and you have a fever Follow-up/Referrals: Edie Tavares MD [Primary Care Provider] - 01/11/19 11:30 am (A follow up appt has been made with your PCP on Thursday 01/11 at 11:30am They are aware of A1C results) Diet: Carb Consistent or DM2 and Heart Healthy Addtl Provider Instructions: Medications: - FUROSEMIDE: recommend cutting back to 20mg every other day as previously taking - GABAPENTIN: continue 300mg at bedtime - RANEXA: 500mg twice a day continue all other medications at previous dosing Acute kidney injury: likely due to increased dosing of lasix to 20mg twice a day, Cr was up to 2.66 when you presented here Cr down to 1.8 which is in your baseline range, making good urine after gaitan removed recommend follow up with Dr. Minor in 2-3 weeks, call for appt [phone] Movement disorder: seen by Dr. Rivera with neurology, no new recommendations for tremors follow up with Dr. Infante in one month, call for appt [phone] FOLLOW UP - Dr. Tavares in one week, can keep appt for tomorrow if already scheduled Prescriptions: New furosemide 20 mg tablet 20 mg PO Q OTHER DAY Qty: 14 RF: 1 No Action OneTouch Verio strip .ROUTE .MEDSUPPLY Qty: 10 RF: 3 blood-glucose meter [OneTouch Verio Flex Start] kit .ROUTE .MEDSUPPLY Qty: 1 RF: 0 glimepiride 1 mg tablet 3 mg PO QAM Qty: 60 RF: 0 aspirin 81 mg tablet 81 mg PO DAILY RF: 0 cetirizine 10 mg tablet 10 mg PO HS Qty: 30 RF: 0 clopidogrel 75 mg tablet 75 mg PO DAILY Qty: 30 RF: 0 gabapentin 300 mg capsule 300 mg PO QPM Qty: 30 RF: 0 isosorbide mononitrate 60 mg tablet extended release 24 hr 60 mg PO DAILY Qty: 90 RF: 0 metoprolol succinate 50 mg tablet extended release 24 hr 50 mg PO DAILY Qty: 90 RF: 0 nitroglycerin 0.4 mg tablet, sublingual 0.4 mg SL Q5M Qty: 25 RF: 0 lancets [OneTouch UltraSoft Lancets] misc .ROUTE .MEDSUPPLY Qty: 50 RF: 0 ranolazine 500 mg tablet extended release 12 hr 1,000 mg PO Q12H Qty: 180 RF: 0 rivastigmine 4.6 mg/24 hr patch 24 hour 1 patch TD DAILY Qty: 30 RF: 0 tamsulosin 0.4 mg capsule 0.4 mg PO DAILY Qty: 90 RF: 0 ropinirole 1 mg tablet 1 mg PO .COMPLEX RF: 0 cyanocobalamin (vitamin B-12) 1,000 mcg tablet 1,000 mcg PO DAILY Qty: 90 RF: 0 Stand-Alone Forms: [facility] Discharge Orders: Discharge Order (Routine); Ordered 01/03/19 Ordered By: Gavin Miller Admission Data Admit Date/Time: 12/31/18 20:34 Attending Provider: Gavin Miller Admit Provider: Paul Pepe Primary Care Provider: Edie Tavares Other Providers: Linwood Infante Service: Telemetry Medical Other Interventions: Discharge Summary Assessment (RN) Last Done: 01/03/19 12:57 DC Date/Time DO NOT enter until pt leaves facility: 01/03/19 14:30
== END 2019-01-03 14:30 | disposition home health service (06) | DRG 683 ==
LOC: 2N → SUATTDRO 20:34
DX: E11.9 Type 2 diabetes mellitus without complications; R60.9 Edema, unspecified; D72.829 Elevated white blood cell count, unspecified; G25.0 Essential tremor; G30.9 Alzheimer's disease, unspecified; Z79.82 Long term (current) use of aspirin; G25.9 Extrapyramidal and movement disorder, unspecified; Z95.1 Presence of aortocoronary bypass graft; G62.9 Polyneuropathy, unspecified; N17.9 Acute kidney failure, unspecified; N18.3 Chronic kidney disease, stage 3 (moderate); G25.81 Restless legs syndrome; I25.10 Atherosclerotic heart disease of native coronary artery without angina pectoris; N40.0 Benign prostatic hyperplasia without lower urinary tract symptoms; I12.9 Hypertensive chronic kidney disease with stage 1 through stage 4 chronic kidney disease, or unspecified chronic kidney disease

== ENCOUNTER 2019-06-07 13:25 | Inpatient (IN) ==
[2019-06-07] MEDS ORDERED: ONDANSETRON INJ 2 MG/ML 2 ML VIAL IV PRN (15:28)
[2019-06-07] MEDS ORDERED: ACETAMINOPHEN 325 MG TAB PO PRN (15:28)
[2019-06-07] MEDS ORDERED: FUROSEMIDE 80 MG in SYRINGE 0 ML IV ONE (15:45)
[2019-06-07 16:40] LABS: BUN Creatinine Ratio 14.9 (10-20); Calcium 8.8 mg/dl (8.5-10.1); Creatinine Clr Calc Pharmacy 23.1 ml/min; Est GFR (African American) 36.9; Est GFR (Non-African American) 31.9; Hematocrit (blood only) 32.4 % (42-52); Hemoglobin 10.9 g/dL (14.0-18.0); Mean Corpuscular Hemoglobin 32.2 pg (25-34); Mean Corpuscular Hgb Conc 33.6 g/dL (32-36); Mean Corpuscular Volume 95.9 fL (80-100); Mean Platelet Volume 10.4 fL (7.4-10.4); Platelet Count 124 K/uL (130-400); Potassium 4.1 mmol/L (3.5-5.1); RDW Coefficient of Variation 14.2 % (11.5-14.5); RDW Standard Deviation 49.3 fL (36.4-46.3); Red Blood Count 3.38 M/uL (4.7-6.1); White Blood Count 5.16 K/uL (4.8-10.8)
--- NOTE | 2019-06-07 16:54 | History & Physical Report ---
Date of Service June 07, 2019 Assessment & Plan (1) Acute on chronic diastolic (congestive) heart failure: gained at least 10lb according to patient and pitting edema to his thighs will treat with Lasix 80mg IV x 1 now and watch for response place gaitan for strict I/O, daily weight, fluid restrict to 1500mL/day will consult cardiology, CHF clinic order echocardiogram redose Lasix in the AM based on renal function and his response (2) Angina pectoris: added Imdur continue antiplatelet therapy check echo add Ranexa cardiology following (3) Chronic kidney disease, stage III (moderate): Cr at baseline of 1.88, electrolytes stable will repeat in the AM with aggressive diuresis (4) Peripheral vascular disease: continue antiplatelet therapy (5) Coronary artery disease: continue antiplatelets continue beta radha Ranexa (6) Bilateral hearing loss: chronic issue (7) Type 2 diabetes mellitus: diabetic diet Novolog monitor for hypoglycemia (8) Essential hypertension: BP stable History of Present Illness Chief Complaint: My legs are swollen Primary Care Provider: Edie Tavares MD 83 yo male with history of heart failure with preserved EF, presented to his dietary clerk office today due to worsening swelling in his legs and weight gain. His helps with most of the recent history due to his poor hearing. She says that the swelling has been slowly increasing for the past few weeks. The past two weeks things have gotten really bad. He now has edema in his feet up to his thighs. He has some ulcer on his lower legs associated with the edema. He admits to some dyspnea on exertion and with activities of daily living. He is not orthopneic, can sleep through the night. His weight is up by 10lbs. He admits that he does not step on a scale at home, he does not follow a fluid restriction. He is compliant with his Lasix 20mg every other day, he has been on low dose diuretic due to his renal dysfunction. He denies any chest pain or pressure. He presented to Dr. Blackburn's office today, clearly needed admitted for IV diuretics. Discussed with Dr. Blackburn over the phone, he recommends Lasix 80mg IV, echocardiogram, he will see in the hospital tomorrow. Allergies Allergy/AdvReac Type Severity Reaction Status Date / Time No Known Allergies Allergy Verified 06/07/19 11:53 Home Medications Home Medications Medication Instructions Recorded Confirmed Type aspirin 81 mg tablet 81 mg PO DAILY tab 01/03/19 06/07/19 History cetirizine 10 mg tablet 10 mg PO HS #30 tab 01/03/19 06/07/19 History cyanocobalamin (vitamin B-12) 1,000 mcg PO DAILY #90 tab 01/03/19 06/07/19 History 1,000 mcg tablet furosemide 20 mg PO Q OTHER DAY #14 tab 01/03/19 06/07/19 Rx isosorbide mononitrate 60 mg 60 mg PO DAILY #90 tab 01/03/19 06/07/19 History tablet,extended release 24 hr lancets #50 ea 01/03/19 06/07/19 History metoprolol succinate 50 mg 50 mg PO DAILY #90 tab 01/03/19 06/07/19 History tablet,extended release 24 hr rivastigmine 4.6 mg/24 hour 1 patch TD DAILY #30 ea 01/03/19 06/07/19 History transdermal patch blood-glucose meter #1 ea 01/10/19 06/07/19 Rx atorvastatin 40 mg tablet 40 mg PO QPM 03/04/19 06/07/19 History blood sugar diagnostic #50 ea 03/08/19 06/07/19 Rx glimepiride 1 mg tablet 3 mg PO QAM #270 tab 03/11/19 06/07/19 Rx tamsulosin 0.4 mg capsule 0.4 mg PO DAILY #90 cap 03/21/19 06/07/19 Rx gabapentin 300 mg capsule 300 mg PO BID #60 cap 03/29/19 06/07/19 Rx ranolazine 500 mg tablet,extended 500 mg PO Q12H #180 tab 04/04/19 06/07/19 Rx release,12 hr ropinirole 1 mg tablet 1 mg PO .COMPLEX 30 Days #60 tab 04/20/19 06/07/19 Rx clopidogrel 75 mg tablet 75 mg PO DAILY #90 tab 05/17/19 06/07/19 Rx nitroglycerin 0.4 mg sublingual 0.4 mg SL Q5M PRN #25 tab 06/07/19 06/07/19 Rx tablet Past Med/Surg History Medical History (Updated 06/07/19 @ 21:49 by Gavin Miller DO) Alzheimer's dementia (Chronic) Benign prostatic hyperplasia with urinary obstruction (Chronic) Bilateral hearing loss (Chronic) Chronic kidney disease, stage III (moderate) (Chronic) Coronary artery disease (Chronic) Diabetic polyneuropathy (Chronic) Essential hypertension (Chronic) Essential tremor (Chronic) Hyperlipidemia (Chronic) Nephrolithiasis (Chronic) Past myocardial infarction (Chronic) Peripheral vascular disease (Chronic) Restless leg syndrome (Chronic) Type 2 diabetes mellitus (Chronic) Vitamin D deficiency (Chronic) Surgical History (Updated 03/31/19 @ 21:10 by Edie Tavares MD) H/O hemorrhoidectomy H/O shoulder surgery Hx of CABG S/P cholecystectomy S/P coronary artery stent placement S/P cystoscopy Social History Preferred Language: Trinidadian Communication Ability: Effective 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 Other Information That Helps Us Care for You: No Feels Safe at Home: Yes Safety Concerns: Feels Safe At This Time Smoking Status: Former smoker Hx Alcohol Use: No Hx Substance Use: No Review of Systems Review of Systems: All systems reviewed & are unremarkable except as noted in HPI & below Constitutional: + fatigue, + weakness and + weight gain (10 lbs); no fever, no chills and no sweats Respiratory: + dyspnea on exertion; no cough, no dyspnea, no sputum production and no wheezing Cardiovascular: + dyspnea on exertion and + edema; no chest pain, no orthopnea, no palpitations and no syncope Gastrointestinal: no abdominal pain, no nausea, no vomiting, no constipation and no diarrhea/loose stools Genitourinary: no dysuria Physical Exam Constitutional: WD/WN, vitals as above Eyes: PERRL, conjunctivae normal, anicteric sclerae ENMT: external ear and nose normal, oropharynx normal Neck: trachea midline, no thyromegaly Respiratory: normal respiratory effort, lungs clear to auscultation Cardiovascular: Rate/Rhythm: regular rate and regular rhythm Heart Sounds: normal S1 and normal S2; no murmur Vessels: + JVD Extremities: normal capillary refill and + edema (pitting edema to thighs bilaterally); no calf tenderness Gastrointestinal (Abdomen): normal bowel sounds, soft, nontender, no hepatosplenomegaly Musculoskeletal: no cyanosis or clubbing, extremities motor strength 5/5 Skin: no rashes, warm and dry Neurologic: patellar DTR's 2+ bilat, sensation intact and PERRL, EOMI, accommodation nl, no face palsy, no dysarthria Psychiatric: A+Ox3, euthymic affect Lymphatic: no cervical or axillary lymphadenopathy Results & Data Vital Signs (Past 12 Hours) Vital Signs Temp Pulse Pulse Resp BP Pulse Ox 06/07/19 16:00 64 06/07/19 15:05 36.4 C L 62 16 138/68 95 Laboratory Results Laboratory Results - last 24 hr 06/07/19 06/07/19 06/07/19 16:07 16:07 16:07 WBC 5.16 RBC 3.38 L Hgb 10.9 L Hct 32.4 L MCV 95.9 MCH 32.2 MCHC 33.6 RDW Std Deviation 49.3 H RDW Coeff of Bryce 14.2 Plt Count 124 L MPV 10.4 Sodium 139 Potassium 4.1 Chloride 107 Carbon Dioxide 28 Anion Gap 4.0 BUN 28 H Creatinine 1.88 H Est Cr Clr Drug Dosing 23.1 Est GFR ( Amer) 36.9 Est GFR (Non-Af Amer) 31.9 BUN/Creatinine Ratio 14.9 Glucose 140 H Calcium 8.8 Troponin I < 0.015 Medications Administered Current Inpatient Medications Acetaminophen (Tylenol) 650 mg PO Q4H PRN PRN Reason: Pain or Fever Stop: 07/07/19 15:27 Aspirin (Aspirin Chew) 81 mg PO DAILY [place] Stop: 07/07/19 16:14 Last Admin: 06/07/19 20:09 Dose: 81 mg Documented by: Atorvastatin Calcium (Lipitor) 40 mg PO QPM [place] Stop: 07/07/19 20:59 Last Admin: 06/07/19 20:09 Dose: 40 mg Documented by: Cetirizine HCl (Zyrtec) 10 mg PO HS [place] Stop: 07/07/19 20:59 Last Admin: 06/07/19 20:09 Dose: 10 mg Documented by: Clopidogrel Bisulfate (Plavix) 75 mg PO DAILY [place] Stop: 07/08/19 08:59 Cyanocobalamin (Vitamin B-12) 1,000 mcg PO DAILY [place] Stop: 07/08/19 08:59 Gabapentin (Neurontin) 300 mg PO BID [facility] Stop: 07/07/19 20:59 Last Admin: 06/07/19 20:09 Dose: 300 mg Documented by: Heparin Sodium (Porcine) (Heparin Sodium (Porcine)) 5,000 units SQ Q8 [place] Stop: 07/07/19 21:59 Last Admin: 06/07/19 20:09 Dose: 5,000 units Documented by: Insulin Aspart (Novolog Flexpen) 0 units SC ACHS [facility] Stop: 07/08/19 07:29 Isosorbide Mononitrate (Imdur Extended Rel) 60 mg PO QAM [facility] Stop: 07/08/19 08:59 Metoprolol Succinate (Toprol Xl) 50 mg PO QAM [facility] Stop: 07/08/19 08:59 Ondansetron HCl (Zofran) 4 mg IV Q6H PRN PRN Reason: Nausea Stop: 07/07/19 15:27 Ranolazine (Ranexa) 1,000 mg PO BID [facility] Stop: 07/07/19 20:59 Last Admin: 06/07/19 20:14 Dose: 1,000 mg Documented by: Code Status & VTE Plan Code Status full code VTE Prophylaxis Plan VTE Prophylaxis will be ordered: Yes PG Care Time/CCT Total # of Minutes Spent Total Time Spent with Patient: Total time spent is greater than 50% in coordination of care (as documented) at patient's floor/unit and/or counseling patient:
--- NOTE | 2019-06-07 19:27 | Cardiology Consultation ---
Date of Consultation June 07, 2019 Assessment & Plan (1) Acute on chronic diastolic (congestive) heart failure: (2) Coronary artery disease: (3) S/P coronary artery stent placement: (4) Essential hypertension: (5) Hyperlipidemia: (6) Angina pectoris: ASSESSMENT/PLAN: 1. Acute on chronic diastolic CHF: He appears significantly hypervolemic. He has been taking Lasix 20 mg p.o. every other day at home. Low-sodium diet recommended. Would recommend Lasix 80 mg IV x1 today and then reassess output tomorrow. Monitor renal function and electrolytes very closely given underlying CKD. Daily weights. Strict I&Os. 2. CAD s/p CABG x 2 and PCI of RCA and circumflex: He is describing symptoms concerning for angina, however chest pain-free during our meeting. We discussed potential options such as invasive measures with coronary angiography versus medical therapy. We discussed potential for worsening renal function given underlying CKD. Recommend continuing anti-platelet therapy, high-intensity statin therapy, ranolazine, beta-radha, nitrate therapy. Will increase ranolazine to 1000 mg twice daily. ECG ordered. Recommend echo. No urgent indication for cardiac catheterization at this time. 3. Angina: Plan as above. Adjust medical therapy for now. Consider coronary angiography for quality of life improvement if necessary. 4. Hypertension: Blood pressure adequately controlled. Plan as above. 5. Dyslipidemia: Continue high-intensity statin therapy. 6. Disposition: Cardiology will continue to follow. Plan of care discussed with Dr. Miller of the primary hospitalist service. Highly complex medical issues. Thank you for allowing me to participate in the care of your patient. Please call for any other questions or concerns. Sincerely, Robbie Blackburn M.D. History of Present Illness Reason for Consultation: Acute on chronic CHF Requesting Physician: Gavin Miller DO Attending Physician: Gavin Miller DO History of Present Illness Mr. Stanley is a pleasant 83-year-old gentleman with a history significant for multivessel CAD status post three-vessel PCI, CABG x 2, type 2 diabetes, hypertension, and hyperlipidemia. He also has dementia and is very hard of hearing. On 12/22/12, he was admitted to [facility] due to chest pain. It felt exactly as his angina did prior to CABG. [place] [facility] He underwent stent placement of the proximal circumflex and it was noted that his RCA occluded in the mid region since his last cardiac catheterization. He has had the following procedures: 1. PCI of left circumflex and RCA on 12/11/04. Paclitaxel drug-eluting stents. 2. LAD rotational atherectomy and paclitaxel and cobalt chromium stent 12/16/04. This was done for a total, chronic mid LAD occlusion. 3. Holter monitor 03/12/06: Sinus rhythm with average HR 66 bpm, maximum 117 bpm, minimum 49 bpm. Rare PVC. Frequent PACs. Symptoms of shortness of breath not associated with significant arrhythmia. 4. Stress Echo 04/15/12: Negative for ischemia at 76% MPHR. Nondiagnostic ECG. Chest pain and shortness of breath with exertion. Frequent PVCs. Exercised 7 minutes and 18 seconds on Jg protocol. 5. Echo 04/15/12: Normal LV size, wall motion, systolic function. EF 60%. Type I diastolic dysfunction. No significant valvular abnormalities. 6. Cardiac catheterization 11/03/12: Distal LMCA 50%. Proximal LAD in-stent restenosis 40%. Mid LAD in-stent restenosis 50% followed by 70% focal stenosis after the stent. Apical LAD 70%. Septal #1 with 70% ostial stenosis. Ostial D3 90%. Ostial circumflex 80%. Mid OM1 40% OM1 superior branch 70%. Ostial RCA 60- 70%. Proximal RCA stent minimal in-stent restenosis. 7. CABG x2 [facility] [place]/09/12: HERMOSILLO to LAD; SVG to OM. RCA stented throughout it's length and PDA too small to bypass. Had an asystolic episode while going to restroom with CPR post-op while ambulating, thought to be vaso-vagal. 8. Echo 12/10/12: Normal LV size, low normal systolic function, and basal inferior wall dyskinesis. EF 55%. No significant valvular abnormalities. 9. Echo 12/10/12: Normal LV size with low normal systolic function. Basal inferior wall was dyskinetic. EF 55%. No significant valvular abnormalities. 10. Cardiac catheterization 12/24/12 [facility] Mid LAD 60% proximal and distal to the anastomosis of the HERMOSILLO. D1 and D2 (small vessels) 80%. Proximal circumflex 90%. Small OM1 90% proximal to anastomosis of SVG. Ostial RCA 90%. Mid RCA diffuse in-stent tapering to 100% occlusion in the mid RCA. HERMOSILLO to LAD and SVG to OM 1 patent. PCI of PROX Cx with 2.75 x 18 mm Resolute Integrity NEO. 11. Echo 11/29/2015: Normal LV size, wall motion and systolic function. EF 55%. No significant valvular abnormalities. Mild biatrial dilation. 12. New stress 07/17/2016: No significant ischemic change. Small fixed inferolateral defect with normal wall motion. EF 49%. Possible mild hypokinesis of the septum. 13. PFT's 07/22/2016: Mild obstructive small airway disease. Normal lung volumes. Mild reduction in DLCO. 14. Nuclear stress 09/16/2017: Negative for ischemia. Fixed inferolateral and inferior wall defect may represent diaphragmatic attenuation given normal wall motion. EF 67%. 15. Echo 03/30/2018: Normal LV size and systolic function. EF 60-65%. Small area of akinesis involving the basal inferior wall. Small area of apical akinesis without obvious thrombus. No significant valvular abnormalities. Technically difficult. 16. Lower extremity arterial duplex 03/11/2019: Right lower extremity 30-49%. Left PFA 50-74%. Left ostial/proximal SFA 75-99% with dampened, monophasic flow distally. He is here today for routine cardiology appointment. He is very hard of hearing and his helps provide some of the history. He has been experiencing chest pain across his entire chest with bilateral arm radiation and also radiation to the neck. The symptoms have been occurring 3-4 times per day lasting for 3-4 minutes but sometimes resolves faster with nitroglycerin. He states that it is the same feeling that he experienced in the past with his myocardial infarction/angina. Symptoms occur at rest and also with exertion. Sometimes he will be awaken from sleep with these symptoms. He has occasional shortness of breath, especially with exertion but denies orthopnea. He has leg pain and has difficulty climbing stairs due to the fact that his legs are heavy with edema. Claudication is worse on the left leg compared to the right leg. He denies syncope, near-syncope, palpitations, or bleeding such as melena, hematochezia, or hematuria. He is currently chest pain-free. Review of systems: As above. Review of systems otherwise negative/unremarkable. Family history: Family history of CAD. Social history: Quit smoking over 30 years ago. Rare alcohol. and lives with his . 4 sons, one in 2010. 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 His accompanies him today. Allergies Allergy/AdvReac Type Severity Reaction Status Date / Time No Known Allergies Allergy Verified 06/07/19 11:53 Home Medications Home Medications Medication Instructions Recorded Confirmed Type aspirin 81 mg tablet 81 mg PO DAILY tab 01/03/19 06/07/19 History cetirizine 10 mg tablet 10 mg PO HS #30 tab 01/03/19 06/07/19 History cyanocobalamin (vitamin B-12) 1,000 mcg PO DAILY #90 tab 01/03/19 06/07/19 History 1,000 mcg tablet furosemide 20 mg PO Q OTHER DAY #14 tab 01/03/19 06/07/19 Rx isosorbide mononitrate 60 mg 60 mg PO DAILY #90 tab 01/03/19 06/07/19 History tablet,extended release 24 hr lancets #50 ea 01/03/19 06/07/19 History metoprolol succinate 50 mg 50 mg PO DAILY #90 tab 01/03/19 06/07/19 History tablet,extended release 24 hr rivastigmine 4.6 mg/24 hour 1 patch TD DAILY #30 ea 01/03/19 06/07/19 History transdermal patch blood-glucose meter #1 ea 01/10/19 06/07/19 Rx atorvastatin 40 mg tablet 40 mg PO QPM 03/04/19 06/07/19 History blood sugar diagnostic #50 ea 03/08/19 06/07/19 Rx glimepiride 1 mg tablet 3 mg PO QAM #270 tab 03/11/19 06/07/19 Rx tamsulosin 0.4 mg capsule 0.4 mg PO DAILY #90 cap 03/21/19 06/07/19 Rx gabapentin 300 mg capsule 300 mg PO BID #60 cap 03/29/19 06/07/19 Rx ranolazine 500 mg tablet,extended 500 mg PO Q12H #180 tab 04/04/19 06/07/19 Rx release,12 hr ropinirole 1 mg tablet 1 mg PO .COMPLEX 30 Days #60 tab 04/20/19 06/07/19 Rx clopidogrel 75 mg tablet 75 mg PO DAILY #90 tab 05/17/19 06/07/19 Rx nitroglycerin 0.4 mg sublingual 0.4 mg SL Q5M PRN #25 tab 06/07/19 06/07/19 Rx tablet Patient History Medical History (Updated 06/07/19 @ 19:08 by Negrito Blackburn MD) Alzheimer's dementia (Chronic) Benign prostatic hyperplasia with urinary obstruction (Chronic) Bilateral hearing loss (Chronic) Chronic kidney disease, stage III (moderate) (Chronic) Coronary artery disease (Chronic) Diabetic polyneuropathy (Chronic) Essential hypertension (Chronic) Essential tremor (Chronic) Hyperlipidemia (Chronic) Nephrolithiasis (Chronic) Past myocardial infarction (Chronic) Peripheral vascular disease (Chronic) Restless leg syndrome (Chronic) Type 2 diabetes mellitus (Chronic) Vitamin D deficiency (Chronic) Surgical History (Updated 03/31/19 @ 21:10 by Edie Tavares MD) H/O hemorrhoidectomy H/O shoulder surgery Hx of CABG S/P cholecystectomy S/P coronary artery stent placement S/P cystoscopy Social History Preferred Language: Amharic Communication Ability: Effective 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 Other Information That Helps Us Care for You: No Feels Safe at Home: Yes Safety Concerns: Feels Safe At This Time Smoking Status: Former smoker Hx Alcohol Use: No Hx Substance Use: No Physical Exam Physical Exam: Gen.: No acute distress. Alert. Very hard of hearing. HEENT: Anicteric sclera. Neck: Elevated JVD. Cardiac: PMI was nonpalpable. No ventricular heave. Regular. No ectopy. Normal S1-S2. No audible murmur. No rubs, or gallops. Pulmonary: Bibasilar rales. Abdomen: Soft, nontender, nondistended, with normoactive bowel sounds. No bruits noted. Extremities: 2+ radial pulses bilaterally. 1+ posterior tibialis pulses bilaterally. 3 to 4+ bilateral lower extremity edema to the knees and 1+ to the hips. (status post left lower extremity vein harvest). No cyanosis. Psychiatric: Affect appears appropriate. Results & Data Vital Signs (Past 12 Hours) Vital Signs Temp Pulse Pulse Resp BP Pulse Ox 06/07/19 18:58 36.4 C L 62 19 144/62 H 96 06/07/19 16:00 64 06/07/19 15:05 36.4 C L 62 16 138/68 95 Laboratory Results Laboratory Results - last 24 hr 06/07/19 06/07/19 16:07 16:07 WBC 5.16 RBC 3.38 L Hgb 10.9 L Hct 32.4 L MCV 95.9 MCH 32.2 MCHC 33.6 RDW Std Deviation 49.3 H RDW Coeff of Bryce 14.2 Plt Count 124 L MPV 10.4 Sodium 139 Potassium 4.1 Chloride 107 Carbon Dioxide 28 Anion Gap 4.0 BUN 28 H Creatinine 1.88 H Est Cr Clr Drug Dosing 23.1 Est GFR ( Amer) 36.9 Est GFR (Non-Af Amer) 31.9 BUN/Creatinine Ratio 14.9 Glucose 140 H Calcium 8.8 Medications Administered Current Inpatient Medications Acetaminophen (Tylenol) 650 mg PO Q4H PRN PRN Reason: Pain or Fever Stop: 07/07/19 15:27 Aspirin (Aspirin Chew) 81 mg PO DAILY [place] Stop: 07/07/19 16:14 Atorvastatin Calcium (Lipitor) 40 mg PO QPM [place] Stop: 07/07/19 20:59 Cetirizine HCl (Zyrtec) 10 mg PO HS [place] Stop: 07/07/19 20:59 Clopidogrel Bisulfate (Plavix) 75 mg PO DAILY [place] Stop: 07/08/19 08:59 Cyanocobalamin (Vitamin B-12) 1,000 mcg PO DAILY [place] Stop: 07/08/19 08:59 Gabapentin (Neurontin) 300 mg PO BID [place] Stop: 07/07/19 20:59 Heparin Sodium (Porcine) (Heparin Sodium (Porcine)) 5,000 units SQ Q8 [place] Stop: 07/07/19 21:59 Ondansetron HCl (Zofran) 4 mg IV Q6H PRN PRN Reason: Nausea Stop: 07/07/19 15:27 PG Care Time/CCT Total # of Minutes Spent Total Time Spent with Patient: Total time spent is greater than 50% in coordination of care (as documented) at patient's floor/unit and/or counseling patient:
--- NOTE | 2019-06-07 19:32 | XRay Report ---
XR chest 1V portable CLINICAL HISTORY: 83 years-old Male presenting with CHF. TECHNIQUE: Portable upright AP view of the chest was obtained. COMPARISON: 07/22/2018. FINDINGS: Median sternotomy wires and mediastinal surgical clips noted. Numerous external leads project over th e right upper quadrant of the abdomen. Atherosclerosis of the aortic arch. Cardiac silhouette normal in size. Coronary artery stent or calcification noted. Mildly low lung volumes with mild pulmonary va scular prominence and heterogeneity lung parenchyma. Minimal left linear opacities similar to prior. Small left pleural effusion. Trace right pleural effusion may also be present. No pneumothorax. Degen erative changes of the thoracic spine. Degenerative changes of the glenohumeral joints. Osteopenia ma y be present. Upper abdomen normal. IMPRESSION: 1. Mildly low lung volumes with left basilar atelectasis or scarring. 2. Small left effusion suspected. 3. Mild volume overload. No advanced congestive change or pulmonary edema. Electronically signed by: Tor Vazquez M.D. 06/07/2019 7:31 PM
[2019-06-07] MEDS: ASPIRIN 81 MG CHEW PO SCH (20:09)
[2019-06-07] MEDS: HEPARIN SOD 5,000 UNIT/0.5 ML VIAL SQ SCH (20:09)
[2019-06-07] MEDS: CETIRIZINE HCL 10 MG TABLET PO SCH (20:09)
[2019-06-07] MEDS: GABAPENTIN 300 MG CAP PO SCH (20:09)
[2019-06-07] MEDS: ATORVASTATIN 40 MG TAB PO SCH (20:09)
[2019-06-07] MEDS: RANOLAZINE 500 MG ER TAB PO SCH (20:14)
[2019-06-07] MEDS ORDERED: GLUCAGON FOR INJ 1 MG VIAL IM PRN (22:00)
[2019-06-07] MEDS ORDERED: DEXTROSE 50% 50 ML SYRINGE IV PRN (22:00)
[2019-06-07] MEDS ORDERED: GLUCOSE 40% GEL 15 GM TUBE PO PRN (22:00)
[2019-06-07] MEDS ORDERED: GLUCOSE 10 TABS/TUBE PO PRN (22:00)
[2019-06-08] MEDS: HEPARIN SOD 5,000 UNIT/0.5 ML VIAL SQ SCH ×3 (06:19→20:59)
[2019-06-08 06:38] LABS: Hematocrit (blood only) 35.5 % (42-52); Hemoglobin 11.9 g/dL (14.0-18.0); Mean Corpuscular Hemoglobin 31.8 pg (25-34); Mean Corpuscular Hgb Conc 33.5 g/dL (32-36); Mean Corpuscular Volume 94.9 fL (80-100); Platelet Count 145 K/uL (130-400); RDW Standard Deviation 48.5 fL (36.4-46.3); Red Blood Count 3.74 M/uL (4.7-6.1); White Blood Count 7.88 K/uL (4.8-10.8)
[2019-06-08 07:14] LABS: BUN Creatinine Ratio 14.4 (10-20); Calcium 9.2 mg/dl (8.5-10.1); Creatinine Clr Calc Pharmacy 19.1 ml/min; Est GFR (African American) 29.2; Est GFR (Non-African American) 25.2; Potassium 3.8 mmol/L (3.5-5.1)
[2019-06-08] MEDS: CARBOHYDRATES FOR HYPOGLYCEMIA PO PRN ×2 (07:35→07:52)
[2019-06-08] MEDS ORDERED: FUROSEMIDE 80 MG in SYRINGE 0 ML IV ONE (07:40)
[2019-06-08] MEDS: INSULIN ASPART 100 UNITS/ML 3 ML PEN SC SCH ×4 (08:14→20:56)
[2019-06-08] MEDS: GABAPENTIN 300 MG CAP PO SCH ×2 (08:15→20:19)
[2019-06-08] MEDS: CYANOCOBALAMIN 500 MCG TABLET (VITAMIN B-12) PO SCH (08:16)
[2019-06-08] MEDS: ISOSORBIDE MONO EXTENDED REL 60 MG TABCR PO SCH (08:16)
[2019-06-08] MEDS: CLOPIDOGREL BISULFATE 75 MG TAB PO SCH (08:16)
[2019-06-08] MEDS: METOPROLOL SUCC 50MG EXT REL TAB PO SCH (08:16)
[2019-06-08] MEDS: ASPIRIN 81 MG CHEW PO SCH (08:16)
[2019-06-08] MEDS: POTASSIUM CHLORIDE 20 MEQ TABCR PO SCH ×3 (08:21→20:19)
[2019-06-08] MEDS: RANOLAZINE 500 MG ER TAB PO SCH ×2 (09:03→20:57)
--- NOTE | 2019-06-08 09:20 | Cardiology Progress Note ---
Date of Service June 08, 2019 Assessment & Plan (1) Acute on chronic diastolic (congestive) heart failure: (2) Coronary artery disease: (3) S/P coronary artery stent placement: (4) Essential hypertension: (5) Hyperlipidemia: (6) Angina pectoris: ASSESSMENT/PLAN: 1. Acute on chronic diastolic CHF: Diuresed nicely with 80 mg of IV Lasix. Much improved but still hypervolemic. Improved from a symptom standpoint as well. Will give Lasix 40 mg IV daily but may need another dose this afternoon if his fluid balance is not nearing 1 L negative for the day. Continue to monitor renal function closely. Low-sodium diet recommended. Daily weights. Strict I&Os. 2. CAD s/p CABG x 2 and PCI of RCA and circumflex: He had complained of very frequent anginal symptoms prior to this hospitalization but has not had any symptoms while here. Symptoms may improve simply with diuresis and improvement of his filling pressures. Continue medical therapy for now. Ranolazine has been increased to 1000 mg twice daily. Continue other home medications including anti-platelet therapy, high-intensity statin therapy, ranolazine, beta-radha, nitrate therapy. Will increase ranolazine to 1000 mg twice daily. Recommend echo. No urgent indication for cardiac catheterization at this time. 3. Angina: Plan as above. Adjust medical therapy for now. Consider coronary angiography for quality of life improvement if necessary. 4. Hypertension: Blood pressure adequately controlled. Continue diuresis as above. 5. Dyslipidemia: Continue high-intensity statin therapy. 6. Disposition: Cardiology will continue to follow. Patient care communicated with Dr. Miller of primary hospitalist service. Please call with questions or concerns. Subjective He feels better. He denies any shortness of breath. He believes that his leg swelling has improved. He denies chest discomfort during this hospital stay. He denies palpitations, syncope, or bleeding. He was unaccompanied in his hospital room. Review of systems: As above. Physical Exam Physical Exam: Gen.: No acute distress. Alert. Very hard of hearing. HEENT: Anicteric sclera. Neck: Elevated JVD. Hepatic jugular reflux noted. Cardiac: Regular. No ectopy. Normal S1-S2. No audible murmur. No rubs, or gallops. Pulmonary: Bibasilar rales, left greater than right. Abdomen: Soft, nontender, nondistended, with normoactive bowel sounds. No bruits noted. Extremities: 2+ radial pulses bilaterally. 1+ posterior tibialis pulses bilaterally. 2 to 3+ bilateral lower extremity edema to the knees and 1+ to the hips. (status post left lower extremity vein harvest). No cyanosis. Psychiatric: Affect appears appropriate. Results & Data Vital Signs (Past 12 Hours) Vital Signs Temp Pulse Resp BP Pulse Ox 06/08/19 07:09 36.5 C 59 L 18 121/53 L 94 06/08/19 04:40 36.4 C L 61 17 101/49 L 92 06/07/19 23:51 36.4 C L 59 L 18 118/53 L 92 Intake & Output 06/06/19 06/07/19 06/08/19 06/09/19 06:59 06:59 06:59 06:59 Intake Total 275 / 275 Output Total 3301 / 3301 Balance -3026 / -3026 Weight 61.6 kg Laboratory Results Laboratory Results - last 24 hr 06/07/19 06/07/19 06/07/19 16:07 16:07 16:07 WBC 5.16 RBC 3.38 L Hgb 10.9 L Hct 32.4 L MCV 95.9 MCH 32.2 MCHC 33.6 RDW Std Deviation 49.3 H RDW Coeff of Bryce 14.2 Plt Count 124 L MPV 10.4 Sodium 139 Potassium 4.1 Chloride 107 Carbon Dioxide 28 Anion Gap 4.0 BUN 28 H Creatinine 1.88 H Est Cr Clr Drug Dosing 23.1 Est GFR ( Amer) 36.9 Est GFR (Non-Af Amer) 31.9 BUN/Creatinine Ratio 14.9 Glucose 140 H POC Glucose Calcium 8.8 Troponin I < 0.015 06/08/19 06/08/19 06/08/19 06:28 06:28 07:30 WBC 7.88 RBC 3.74 L Hgb 11.9 L Hct 35.5 L MCV 94.9 MCH 31.8 MCHC 33.5 RDW Std Deviation 48.5 H RDW Coeff of Bryce 14.0 Plt Count 145 MPV 10.0 Sodium 140 Potassium 3.8 Chloride 104 Carbon Dioxide 32 Anion Gap 4.0 BUN 33 H Creatinine 2.28 H D Est Cr Clr Drug Dosing 19.1 Est GFR ( Amer) 29.2 Est GFR (Non-Af Amer) 25.2 BUN/Creatinine Ratio 14.4 Glucose 58 L POC Glucose 60 L* Calcium 9.2 Troponin I 06/08/19 06/08/19 07:45 08:10 WBC RBC Hgb Hct MCV MCH MCHC RDW Std Deviation RDW Coeff of Bryce Plt Count MPV Sodium Potassium Chloride Carbon Dioxide Anion Gap BUN Creatinine Est Cr Clr Drug Dosing Est GFR ( Amer) Est GFR (Non-Af Amer) BUN/Creatinine Ratio Glucose POC Glucose 58 L* 103 H Calcium Troponin I Diagnostic Findings Telemetry personally reviewed: Sinus rhythm. ECG personally reviewed: ECG 06/07/2019: Sinus bradycardia 59 bpm. RBBB. Possible inferior infarct. Chest x-ray 06/07/2019: Low lung volumes with left basilar atelectasis or scarring per Radiology. Small left pleural effusion suspected. Mild pulmonary vascular prominence. Medications Administered Current Inpatient Medications Acetaminophen (Tylenol) 650 mg PO Q4H PRN PRN Reason: Pain or Fever Stop: 07/07/19 15:27 Aspirin (Aspirin Chew) 81 mg PO DAILY [place] Stop: 07/07/19 16:14 Last Admin: 06/08/19 08:16 Dose: 81 mg Documented by: Atorvastatin Calcium (Lipitor) 40 mg PO QPM [place] Stop: 07/07/19 20:59 Last Admin: 06/07/19 20:09 Dose: 40 mg Documented by: Cetirizine HCl (Zyrtec) 10 mg PO HS [place] Stop: 07/07/19 20:59 Last Admin: 06/07/19 20:09 Dose: 10 mg Documented by: Clopidogrel Bisulfate (Plavix) 75 mg PO DAILY [place] Stop: 07/08/19 08:59 Last Admin: 06/08/19 08:16 Dose: 75 mg Documented by: Cyanocobalamin (Vitamin B-12) 1,000 mcg PO DAILY [place] Stop: 07/08/19 08:59 Last Admin: 06/08/19 08:16 Dose: 1,000 mcg Documented by: Dextrose (Dextrose 50%) 25 - 50 ml IV UD PRN; Protocol PRN Reason: Hypoglycemia Protocol Stop: 07/07/19 21:59 Gabapentin (Neurontin) 300 mg PO BID [place] Stop: 07/07/19 20:59 Last Admin: 06/08/19 08:15 Dose: 300 mg Documented by: Glucagon (Glucagen) 1 mg IM UD PRN; Protocol PRN Reason: Hypoglycemia Protocol Stop: 07/07/19 21:59 Glucose (Glucose 40%) 15 - 30 gm PO UD PRN; Protocol PRN Reason: Hypoglycemia Protocol Stop: 07/07/19 21:59 Glucose (Dex4 Glucose) 4 - 8 tabs PO UD PRN; Protocol PRN Reason: Hypoglycemia Protocol Stop: 07/07/19 21:59 Heparin Sodium (Porcine) (Heparin Sodium (Porcine)) 5,000 units SQ Q8 [place] Stop: 07/07/19 21:59 Last Admin: 06/08/19 06:19 Dose: 5,000 units Documented by: Insulin Aspart (Novolog Flexpen) 0 units SC ACHS [facility] Stop: 07/08/19 07:29 Last Admin: 06/08/19 08:14 Dose: Not Given Documented by: Isosorbide Mononitrate (Imdur Extended Rel) 60 mg PO QAM [facility] Stop: 07/08/19 08:59 Last Admin: 06/08/19 08:16 Dose: 60 mg Documented by: Metoprolol Succinate (Toprol Xl) 50 mg PO QAM [facility] Stop: 07/08/19 08:59 Last Admin: 06/08/19 08:16 Dose: 50 mg Documented by: Miscellaneous (Carbohydrates For Hypoglycemia) 15 - 30 gm PO UD PRN PRN Reason: Hypoglycemia Treatment Stop: 07/07/19 21:59 Last Admin: 06/08/19 07:52 Dose: 15 gm Documented by: Ondansetron HCl (Zofran) 4 mg IV Q6H PRN PRN Reason: Nausea Stop: 07/07/19 15:27 Potassium Chloride (Klor-Con M20) 20 meq PO TID [facility] Stop: 07/08/19 08:59 Last Admin: 06/08/19 08:21 Dose: 20 meq Documented by: Ranolazine (Ranexa) 1,000 mg PO BID [facility] Stop: 07/07/19 20:59 Last Admin: 06/08/19 09:03 Dose: 1,000 mg Documented by: PG Care Time/CCT Total # of Minutes Spent Total Time Spent with Patient: Total time spent is greater than 50% in coordination of care (as documented) at patient's floor/unit and/or counseling patient:
--- NOTE | 2019-06-08 09:59 | Hospitalist Progress Note ---
Date of Service June 08, 2019 Assessment & Plan (1) Acute on chronic diastolic (congestive) heart failure: gained at least 10lb according to patient and pitting edema to his thighs responded well to Lasix 80mg IV, negative 3L, weight trending down will give another dose of Lasix 80mg IV today and follow response repeat BMP tomorrow place gaitan for strict I/O, daily weight, fluid restrict to 1500mL/day appreciate Dr. Blackburn's recommendations echo shows EF is preserved Dina Dee with heart failure clinic will follow after discharge (2) Angina pectoris: added Imdur, BP low normal so will keep an eye on pressures continue antiplatelet therapy echo without wall motion abnormalities add [facility] cardiology following (3) Chronic kidney disease, stage III (moderate): Cr at baseline of 1.88, electrolytes stable on admission Cr up to 2.2 today, K is 3.8 will repeat BMP tomorrow as patient still with impressive volume retention and needs diuresis (4) Peripheral vascular disease: continue antiplatelet therapy (5) Coronary artery disease: continue antiplatelets continue beta radha [facility]ex[facility] (6) Bilateral hearing loss: chronic issue (7) Type 2 diabetes mellitus: diabetic diet Novolog monitor for hypoglycemia (8) Essential hypertension: BP stable Subjective patient doing well this morning, negative 3L this morning Cr is up to 2.2 from 1.8 patient breathing well, eating well, no chest pain or pressure discussed with Dr. Blackburn, will observe how he responds to further Lasix IV today discussed with Heavenly Dee PA, she will make contact with him here in the hospital and arrange follow up K is low normal at 3.8, will plan to replace given aggressive diuresis explained to patient again that this will be day to day issue Review of Systems Review of Systems: All systems reviewed & are unremarkable except as noted in HPI & below Constitutional: no fever Respiratory: no cough, no dyspnea, no dyspnea on exertion and no wheezing Cardiovascular: + edema; no chest pain, no dyspnea, no dyspnea on exertion, no orthopnea and no syncope Gastrointestinal: no abdominal pain, no nausea, no vomiting, no constipation and no diarrhea/loose stools Physical Exam Constitutional: WD/WN, vitals as above Eyes: PERRL, conjunctivae normal, anicteric sclerae ENMT: external ear and nose normal, oropharynx normal Neck: trachea midline, no thyromegaly Respiratory: normal respiratory effort, lungs clear to auscultation Cardiovascular: Rate/Rhythm: regular rate and regular rhythm Heart Sounds: normal S1 and normal S2; no murmur Extremities: normal capillary refill and + edema (pitting edema to thighs bilaterally but just above knees today); no calf tenderness Gastrointestinal (Abdomen): normal bowel sounds, soft, nontender, no hepatosplenomegaly Musculoskeletal: no cyanosis or clubbing, extremities motor strength 5/5 Skin: no rashes, warm and dry Neurologic: patellar DTR's 2+ bilat, sensation intact and PERRL, EOMI, accommodation nl, no face palsy, no dysarthria Psychiatric: A+Ox3, euthymic affect Lymphatic: no cervical or axillary lymphadenopathy Results & Data Vital Signs (Past 12 Hours) Vital Signs Temp Pulse Resp BP Pulse Ox 06/08/19 07:09 36.5 C 59 L 18 121/53 L 94 06/08/19 04:40 36.4 C L 61 17 101/49 L 92 06/07/19 23:51 36.4 C L 59 L 18 118/53 L 92 Laboratory Results Laboratory Results - last 24 hr 06/07/19 06/07/19 06/07/19 16:07 16:07 16:07 WBC 5.16 RBC 3.38 L Hgb 10.9 L Hct 32.4 L MCV 95.9 MCH 32.2 MCHC 33.6 RDW Std Deviation 49.3 H RDW Coeff of Bryce 14.2 Plt Count 124 L MPV 10.4 Sodium 139 Potassium 4.1 Chloride 107 Carbon Dioxide 28 Anion Gap 4.0 BUN 28 H Creatinine 1.88 H Est Cr Clr Drug Dosing 23.1 Est GFR ( Amer) 36.9 Est GFR (Non-Af Amer) 31.9 BUN/Creatinine Ratio 14.9 Glucose 140 H POC Glucose Calcium 8.8 Troponin I < 0.015 06/08/19 06/08/19 06/08/19 06:28 06:28 07:30 WBC 7.88 RBC 3.74 L Hgb 11.9 L Hct 35.5 L MCV 94.9 MCH 31.8 MCHC 33.5 RDW Std Deviation 48.5 H RDW Coeff of Bryce 14.0 Plt Count 145 MPV 10.0 Sodium 140 Potassium 3.8 Chloride 104 Carbon Dioxide 32 Anion Gap 4.0 BUN 33 H Creatinine 2.28 H D Est Cr Clr Drug Dosing 19.1 Est GFR ( Amer) 29.2 Est GFR (Non-Af Amer) 25.2 BUN/Creatinine Ratio 14.4 Glucose 58 L POC Glucose 60 L* Calcium 9.2 Troponin I 06/08/19 06/08/19 07:45 08:10 WBC RBC Hgb Hct MCV MCH MCHC RDW Std Deviation RDW Coeff of Bryce Plt Count MPV Sodium Potassium Chloride Carbon Dioxide Anion Gap BUN Creatinine Est Cr Clr Drug Dosing Est GFR ( Amer) Est GFR (Non-Af Amer) BUN/Creatinine Ratio Glucose POC Glucose 58 L* 103 H Calcium Troponin I Medications Administered Current Inpatient Medications Acetaminophen (Tylenol) 650 mg PO Q4H PRN PRN Reason: Pain or Fever Stop: 07/07/19 15:27 Aspirin (Aspirin Chew) 81 mg PO DAILY [place] Stop: 07/07/19 16:14 Last Admin: 06/08/19 08:16 Dose: 81 mg Documented by: Atorvastatin Calcium (Lipitor) 40 mg PO QPM [place] Stop: 07/07/19 20:59 Last Admin: 06/07/19 20:09 Dose: 40 mg Documented by: Cetirizine HCl (Zyrtec) 10 mg PO HS [place] Stop: 07/07/19 20:59 Last Admin: 06/07/19 20:09 Dose: 10 mg Documented by: Clopidogrel Bisulfate (Plavix) 75 mg PO DAILY [place] Stop: 07/08/19 08:59 Last Admin: 06/08/19 08:16 Dose: 75 mg Documented by: Cyanocobalamin (Vitamin B-12) 1,000 mcg PO DAILY [place] Stop: 07/08/19 08:59 Last Admin: 06/08/19 08:16 Dose: 1,000 mcg Documented by: Dextrose (Dextrose 50%) 25 - 50 ml IV UD PRN; Protocol PRN Reason: Hypoglycemia Protocol Stop: 07/07/19 21:59 Gabapentin (Neurontin) 300 mg PO BID [place] Stop: 07/07/19 20:59 Last Admin: 06/08/19 08:15 Dose: 300 mg Documented by: Glucagon (Glucagen) 1 mg IM UD PRN; Protocol PRN Reason: Hypoglycemia Protocol Stop: 07/07/19 21:59 Glucose (Glucose 40%) 15 - 30 gm PO UD PRN; Protocol PRN Reason: Hypoglycemia Protocol Stop: 07/07/19 21:59 Glucose (Dex4 Glucose) 4 - 8 tabs PO UD PRN; Protocol PRN Reason: Hypoglycemia Protocol Stop: 07/07/19 21:59 Heparin Sodium (Porcine) (Heparin Sodium (Porcine)) 5,000 units SQ Q8 [facility] Stop: 07/07/19 21:59 Last Admin: 06/08/19 06:19 Dose: 5,000 units Documented by: Furosemide 40 mg/ Syringe 4 mls @ 4 mls/min IV QAM [facility] Stop: 07/08/19 09:59 Insulin Aspart (Novolog Flexpen) 0 units SC ACHS [facility] Stop: 07/08/19 07:29 Last Admin: 06/08/19 08:14 Dose: Not Given Documented by: Isosorbide Mononitrate (Imdur Extended Rel) 60 mg PO QAM [facility] Stop: 07/08/19 08:59 Last Admin: 06/08/19 08:16 Dose: 60 mg Documented by: Metoprolol Succinate (Toprol Xl) 50 mg PO QAM [facility] Stop: 07/08/19 08:59 Last Admin: 06/08/19 08:16 Dose: 50 mg Documented by: Miscellaneous (Carbohydrates For Hypoglycemia) 15 - 30 gm PO UD PRN PRN Reason: Hypoglycemia Treatment Stop: 07/07/19 21:59 Last Admin: 06/08/19 07:52 Dose: 15 gm Documented by: Ondansetron HCl (Zofran) 4 mg IV Q6H PRN PRN Reason: Nausea Stop: 07/07/19 15:27 Potassium Chloride (Klor-Con M20) 20 meq PO TID [facility] Stop: 07/08/19 08:59 Last Admin: 06/08/19 08:21 Dose: 20 meq Documented by: Ranolazine (Ranexa) 1,000 mg PO BID [facility] Stop: 07/07/19 20:59 Last Admin: 06/08/19 09:03 Dose: 1,000 mg Documented by: PG Care Time/CCT Total # of Minutes Spent Total Time Spent with Patient: Total time spent is greater than 50% in coordination of care (as documented) at patient's floor/unit and/or counseling patient:
[2019-06-08] MEDS ORDERED: FUROSEMIDE 40 MG in SYRINGE 0 ML IV SCH (10:00)
[2019-06-08] MEDS: ATORVASTATIN 40 MG TAB PO SCH (20:19)
[2019-06-08] MEDS: ROPINIROLE HCL 1 MG TABLET PO SCH (20:19)
[2019-06-08] MEDS: CETIRIZINE HCL 10 MG TABLET PO SCH (20:58)
[2019-06-09 05:51] LABS: Hemoglobin 10.5 g/dL (14.0-18.0); Mean Corpuscular Hemoglobin 31.9 pg (25-34); Mean Corpuscular Hgb Conc 33.9 g/dL (32-36); Mean Corpuscular Volume 94.2 fL (80-100); Platelet Count 145 K/uL (130-400); RDW Coefficient of Variation 14.1 % (11.5-14.5); RDW Standard Deviation 48.7 fL (36.4-46.3); Red Blood Count 3.29 M/uL (4.7-6.1); White Blood Count 6.44 K/uL (4.8-10.8)
[2019-06-09 06:23] LABS: BUN Creatinine Ratio 19.7 (10-20); Calcium 8.6 mg/dl (8.5-10.1); Creatinine Clr Calc Pharmacy 16.8 ml/min; Est GFR (African American) 25.1; Est GFR (Non-African American) 21.6; Potassium 4.3 mmol/L (3.5-5.1)
[2019-06-09] MEDS: HEPARIN SOD 5,000 UNIT/0.5 ML VIAL SQ SCH ×3 (06:34→20:45)
--- NOTE | 2019-06-09 08:00 | Hospitalist Progress Note ---
Date of Service June 09, 2019 Assessment & Plan (1) Acute on chronic diastolic (congestive) heart failure: gained at least 10lb according to patient and pitting edema to his thighs responded well to Lasix 80mg IV on 06/07, less response on 06/08 negative 3500mL total but could be higher given leaking around catheter weights are inaccurate, up by 2kg today? will give Lasix 40mg IV q12 ask nephrology to weigh in since Cr rising echo shows EF is preserved Dina Dee with heart failure clinic will follow after discharge (2) MICHAEL (acute kidney injury): due to aggressive diuresis Cr up to 2.59 from 1.8 at baseline K is stable will stop K supplementation consult nephrology Lasix 40mg IV q12 (3) Angina pectoris: added Imdur, BP low normal so will keep an eye on pressures continue antiplatelet therapy echo without wall motion abnormalities add [facility] cardiology following (4) Chronic kidney disease, stage III (moderate): Cr at baseline of 1.88, electrolytes stable on admission Cr up to 2.5 today, K is 4.3 repeat BMP, stop K supplementation (5) Peripheral vascular disease: continue antiplatelet therapy (6) Coronary artery disease: continue antiplatelets continue beta radha [facility] (7) Bilateral hearing loss: chronic issue (8) Type 2 diabetes mellitus: diabetic diet Novolog SS monitor for hypoglycemia, no episodes (9) Essential hypertension: BP running low normal with addition of Imdur and aggressive diuresis will monitor Subjective patient continues to feel better making more urine, likely low estimate because he was leaking around his catheter according to RN less edema in legs, less dyspnea on exertion, walked around the nursing unit d/w Dr. Blackburn, will give another dose of Lasix this morning Cr jumped up to 2.59, BUN is 51, CO2 is 29 will ask nephrology to see as well eating well, moving bowels Review of Systems Review of Systems: All systems reviewed & are unremarkable except as noted in HPI & below Cardiovascular: + edema Physical Exam Constitutional: WD/WN, vitals as above Eyes: PERRL, conjunctivae normal, anicteric sclerae ENMT: external ear and nose normal, oropharynx normal Neck: trachea midline, no thyromegaly Respiratory: normal respiratory effort, lungs clear to auscultation Cardiovascular: Rate/Rhythm: regular rate and regular rhythm Heart Sounds: normal S1 and normal S2; no murmur Extremities: normal capillary refill and + edema (pitting edema to knees bilaterally); no calf tenderness Gastrointestinal (Abdomen): normal bowel sounds, soft, nontender, no hepatosplenomegaly Musculoskeletal: no cyanosis or clubbing, extremities motor strength 5/5 Skin: no rashes, warm and dry Neurologic: patellar DTR's 2+ bilat, sensation intact and PERRL, EOMI, accommodation nl, no face palsy, no dysarthria Psychiatric: A+Ox3, euthymic affect Lymphatic: no cervical or axillary lymphadenopathy Results & Data Vital Signs (Past 12 Hours) Vital Signs Temp Pulse Resp BP Pulse Ox 06/09/19 07:18 36.5 C 64 18 112/60 93 06/09/19 04:02 36.3 C L 73 20 119/57 L 94 06/08/19 23:48 36.8 C 52 L 16 94/44 L 92 Laboratory Results Laboratory Results - last 24 hr 06/08/19 06/08/19 06/08/19 08:10 11:22 16:02 WBC RBC Hgb Hct MCV MCH MCHC RDW Std Deviation RDW Coeff of Bryce Plt Count MPV Sodium Potassium Chloride Carbon Dioxide Anion Gap BUN Creatinine Est Cr Clr Drug Dosing Est GFR ( Amer) Est GFR (Non-Af Amer) BUN/Creatinine Ratio Glucose POC Glucose 103 H 176 H 176 H Calcium 06/08/19 06/09/19 06/09/19 20:19 05:34 05:34 WBC 6.44 RBC 3.29 L Hgb 10.5 L Hct 31.0 L MCV 94.2 MCH 31.9 MCHC 33.9 RDW Std Deviation 48.7 H RDW Coeff of Bryce 14.1 Plt Count 145 MPV 10.0 Sodium 140 Potassium 4.3 Chloride 106 Carbon Dioxide 29 Anion Gap 5.0 BUN 51 H D Creatinine 2.59 H D Est Cr Clr Drug Dosing 16.8 Est GFR ( Amer) 25.1 Est GFR (Non-Af Amer) 21.6 BUN/Creatinine Ratio 19.7 Glucose 91 POC Glucose 220 H Calcium 8.6 06/09/19 06/09/19 07:17 07:35 WBC RBC Hgb Hct MCV MCH MCHC RDW Std Deviation RDW Coeff of Bryce Plt Count MPV Sodium Potassium Chloride Carbon Dioxide Anion Gap BUN Creatinine Est Cr Clr Drug Dosing Est GFR ( Amer) Est GFR (Non-Af Amer) BUN/Creatinine Ratio Glucose POC Glucose 88 85 Calcium Medications Administered Current Inpatient Medications Acetaminophen (Tylenol) 650 mg PO Q4H PRN PRN Reason: Pain or Fever Stop: 07/07/19 15:27 Aspirin (Aspirin Chew) 81 mg PO DAILY [place] Stop: 07/07/19 16:14 Last Admin: 06/08/19 08:16 Dose: 81 mg Documented by: Atorvastatin Calcium (Lipitor) 40 mg PO QPM [place] Stop: 07/07/19 20:59 Last Admin: 06/08/19 20:19 Dose: 40 mg Documented by: Cetirizine HCl (Zyrtec) 10 mg PO HS [place] Stop: 07/07/19 20:59 Last Admin: 06/08/19 20:58 Dose: 10 mg Documented by: Clopidogrel Bisulfate (Plavix) 75 mg PO DAILY [place] Stop: 07/08/19 08:59 Last Admin: 06/08/19 08:16 Dose: 75 mg Documented by: Cyanocobalamin (Vitamin B-12) 1,000 mcg PO DAILY [place] Stop: 07/08/19 08:59 Last Admin: 06/08/19 08:16 Dose: 1,000 mcg Documented by: Dextrose (Dextrose 50%) 25 - 50 ml IV UD PRN; Protocol PRN Reason: Hypoglycemia Protocol Stop: 07/07/19 21:59 Gabapentin (Neurontin) 300 mg PO BID [place] Stop: 07/07/19 20:59 Last Admin: 06/08/19 20:19 Dose: 300 mg Documented by: Glucagon (Glucagen) 1 mg IM UD PRN; Protocol PRN Reason: Hypoglycemia Protocol Stop: 07/07/19 21:59 Glucose (Glucose 40%) 15 - 30 gm PO UD PRN; Protocol PRN Reason: Hypoglycemia Protocol Stop: 07/07/19 21:59 Glucose (Dex4 Glucose) 4 - 8 tabs PO UD PRN; Protocol PRN Reason: Hypoglycemia Protocol Stop: 07/07/19 21:59 Heparin Sodium (Porcine) (Heparin Sodium (Porcine)) 5,000 units SQ Q8 [place] Stop: 07/07/19 21:59 Last Admin: 06/09/19 06:34 Dose: 5,000 units Documented by: Furosemide 40 mg/ Syringe 4 mls @ 4 mls/min IV QAM [facility] Stop: 07/08/19 09:59 Last Admin: 06/08/19 10:50 Dose: Not Given Documented by: Insulin Aspart (Novolog Flexpen) 0 units SC ACHS [facility] Stop: 07/08/19 07:29 Last Admin: 06/08/19 20:56 Dose: 2 units Documented by: Isosorbide Mononitrate (Imdur Extended Rel) 60 mg PO QAM [facility] Stop: 07/08/19 08:59 Last Admin: 06/08/19 08:16 Dose: 60 mg Documented by: Metoprolol Succinate (Toprol Xl) 50 mg PO QAM [facility] Stop: 07/08/19 08:59 Last Admin: 06/08/19 08:16 Dose: 50 mg Documented by: Miscellaneous (Carbohydrates For Hypoglycemia) 15 - 30 gm PO UD PRN PRN Reason: Hypoglycemia Treatment Stop: 07/07/19 21:59 Last Admin: 06/08/19 07:52 Dose: 15 gm Documented by: Ondansetron HCl (Zofran) 4 mg IV Q6H PRN PRN Reason: Nausea Stop: 07/07/19 15:27 Potassium Chloride (Klor-Con M20) 20 meq PO TID [facility] Stop: 07/08/19 08:59 Last Admin: 06/08/19 20:19 Dose: 20 meq Documented by: Ranolazine (Ranexa) 1,000 mg PO BID [facility] Stop: 07/07/19 20:59 Last Admin: 06/08/19 20:57 Dose: 1,000 mg Documented by: Ropinirole HCl (Requip) 1 mg PO BID@1200,1900 [facility] Stop: 07/08/19 19:59 Last Admin: 06/08/19 20:19 Dose: 1 mg Documented by: PG Care Time/CCT Total # of Minutes Spent Total Time Spent with Patient: Total time spent is greater than 50% in coordination of care (as documented) at patient's floor/unit and/or counseling patient:
[2019-06-09] MEDS: INSULIN ASPART 100 UNITS/ML 3 ML PEN SC SCH ×4 (08:50→20:44)
[2019-06-09] MEDS: ASPIRIN 81 MG CHEW PO SCH (08:50)
[2019-06-09] MEDS: ISOSORBIDE MONO EXTENDED REL 60 MG TABCR PO SCH (08:51)
[2019-06-09] MEDS: GABAPENTIN 300 MG CAP PO SCH ×2 (08:52→20:40)
[2019-06-09] MEDS: RANOLAZINE 500 MG ER TAB PO SCH ×2 (08:53→20:40)
[2019-06-09] MEDS: METOPROLOL SUCC 50MG EXT REL TAB PO SCH (08:53)
[2019-06-09] MEDS: CLOPIDOGREL BISULFATE 75 MG TAB PO SCH (08:53)
[2019-06-09] MEDS: CYANOCOBALAMIN 500 MCG TABLET (VITAMIN B-12) PO SCH (08:54)
--- NOTE | 2019-06-09 09:02 | Cardiology Progress Note ---
Date of Service June 09, 2019 Assessment & Plan (1) Acute on chronic diastolic (congestive) heart failure: (2) Coronary artery disease: (3) S/P coronary artery stent placement: (4) Essential hypertension: (5) Hyperlipidemia: (6) Angina pectoris: ASSESSMENT/PLAN: 1. Acute on chronic diastolic CHF: He still appears significantly hypervolemic. He diuresed less so yesterday but there was some leakage around the Drummond catheter. For now, Lasix 40 mg IV b.i.d.. BUN and creatinine are rising. We will involve Nephrology. Continue to monitor renal function closely. Low-sodium diet recommended. Daily weights. Strict I&Os. 2. CAD s/p CABG x 2 and PCI of RCA and circumflex: He had complained of very frequent anginal symptoms prior to this hospitalization. He has been here we for 3 days and has not had any chest discomfort. Continue medical therapy for now. Ranolazine has been increased to 1000 mg twice daily. Continue other home medications including anti-platelet therapy, high-intensity statin therapy, ranolazine, beta-radha, nitrate therapy. Ranolazine has been increased to 1000 mg twice daily. No urgent indication for cardiac catheterization at this time. 3. Angina: Plan as above. No symptoms while hospitalized. We Adjust medical therapy for now. Consider coronary angiography for quality of life improvement if necessary. 4. Hypertension: Blood pressure adequately controlled. Continue diuresis as above. 5. Dyslipidemia: Continue high-intensity statin therapy. 6. CKD: Nephrology consultation as noted above. 7. Disposition: Cardiology will continue to follow. Patient care communicated with Dr. Miller of primary hospitalist service. Patient care also discussed with Dr. Kay of Nephrology. Please call with questions or concerns. Subjective He denies chest pain, shortness of breath, syncope, near-syncope, palpitations. He acknowledges that his legs are still edematous. He states that his legs bother him at night, concerning for restless leg syndrome. He denies bleeding. Yesterday it was noted by nursing staff that there was leakage around his Drummond catheter. His Drummond catheter has since been removed. Because of this, his fluid balance may not be completely accurate. He was alone in his hospital room. Review of systems: As above. Physical Exam Physical Exam: Gen.: No acute distress. Alert. Hard of hearing. HEENT: Anicteric sclera. Neck: No obvious JVD sitting upright. Hepatic jugular reflux noted. Cardiac: Regular. No ectopy. Normal S1-S2. No audible murmur. No rubs, or gallops. Pulmonary: Bibasilar rales, left greater than right, but improved since admission. Abdomen: Soft, nontender, nondistended, with normoactive bowel sounds. No bruits noted. Extremities: 2+ radial pulses bilaterally. 1+ posterior tibialis pulses bilaterally. 3+ bilateral lower extremity edema to the knees and trace to 1+ above the knees. (status post left lower extremity vein harvest). No cyanosis. Psychiatric: Affect appears appropriate. Results & Data Vital Signs (Past 12 Hours) Vital Signs Temp Pulse Resp BP Pulse Ox 06/09/19 07:18 36.5 C 64 18 112/60 93 06/09/19 04:02 36.3 C L 73 20 119/57 L 94 06/08/19 23:48 36.8 C 52 L 16 94/44 L 92 Intake & Output 06/07/19 06/08/19 06/09/19 06/10/19 06:59 06:59 06:59 06:59 Intake Total 275 / 275 780 / 780 Output Total 3301 / 3301 1100 / 1100 Balance -3026 / -3026 -320 / -320 Weight 61.6 kg 63.8 kg Laboratory Results Laboratory Results - last 24 hr 06/08/19 06/08/19 06/08/19 11:22 16:02 20:19 WBC RBC Hgb Hct MCV MCH MCHC RDW Std Deviation RDW Coeff of Bryce Plt Count MPV Sodium Potassium Chloride Carbon Dioxide Anion Gap BUN Creatinine Est Cr Clr Drug Dosing Est GFR ( Amer) Est GFR (Non-Af Amer) BUN/Creatinine Ratio Glucose POC Glucose 176 H 176 H 220 H Calcium Albumin 06/09/19 06/09/19 06/09/19 05:34 05:34 05:34 WBC 6.44 RBC 3.29 L Hgb 10.5 L Hct 31.0 L MCV 94.2 MCH 31.9 MCHC 33.9 RDW Std Deviation 48.7 H RDW Coeff of Bryce 14.1 Plt Count 145 MPV 10.0 Sodium 140 Potassium 4.3 Chloride 106 Carbon Dioxide 29 Anion Gap 5.0 BUN 51 H D Creatinine 2.59 H D Est Cr Clr Drug Dosing 16.8 Est GFR ( Amer) 25.1 Est GFR (Non-Af Amer) 21.6 BUN/Creatinine Ratio 19.7 Glucose 91 POC Glucose Calcium 8.6 Albumin 2.7 L 06/09/19 06/09/19 07:17 07:35 WBC RBC Hgb Hct MCV MCH MCHC RDW Std Deviation RDW Coeff of Bryce Plt Count MPV Sodium Potassium Chloride Carbon Dioxide Anion Gap BUN Creatinine Est Cr Clr Drug Dosing Est GFR ( Amer) Est GFR (Non-Af Amer) BUN/Creatinine Ratio Glucose POC Glucose 88 85 Calcium Albumin Diagnostic Findings Telemetry personally reviewed: Sinus rhythm. Medications Administered Current Inpatient Medications Acetaminophen (Tylenol) 650 mg PO Q4H PRN PRN Reason: Pain or Fever Stop: 07/07/19 15:27 Aspirin (Aspirin Chew) 81 mg PO DAILY [place] Stop: 07/07/19 16:14 Last Admin: 06/09/19 08:50 Dose: 81 mg Documented by: Atorvastatin Calcium (Lipitor) 40 mg PO QPM [place] Stop: 07/07/19 20:59 Last Admin: 06/08/19 20:19 Dose: 40 mg Documented by: Cetirizine HCl (Zyrtec) 10 mg PO HS [place] Stop: 07/07/19 20:59 Last Admin: 06/08/19 20:58 Dose: 10 mg Documented by: Clopidogrel Bisulfate (Plavix) 75 mg PO DAILY [place] Stop: 07/08/19 08:59 Last Admin: 06/09/19 08:53 Dose: 75 mg Documented by: Cyanocobalamin (Vitamin B-12) 1,000 mcg PO DAILY [place] Stop: 07/08/19 08:59 Last Admin: 06/09/19 08:54 Dose: 1,000 mcg Documented by: Dextrose (Dextrose 50%) 25 - 50 ml IV UD PRN; Protocol PRN Reason: Hypoglycemia Protocol Stop: 07/07/19 21:59 Gabapentin (Neurontin) 300 mg PO BID [place] Stop: 07/07/19 20:59 Last Admin: 06/09/19 08:52 Dose: 300 mg Documented by: Glucagon (Glucagen) 1 mg IM UD PRN; Protocol PRN Reason: Hypoglycemia Protocol Stop: 07/07/19 21:59 Glucose (Glucose 40%) 15 - 30 gm PO UD PRN; Protocol PRN Reason: Hypoglycemia Protocol Stop: 07/07/19 21:59 Glucose (Dex4 Glucose) 4 - 8 tabs PO UD PRN; Protocol PRN Reason: Hypoglycemia Protocol Stop: 07/07/19 21:59 Heparin Sodium (Porcine) (Heparin Sodium (Porcine)) 5,000 units SQ Q8 [place] Stop: 07/07/19 21:59 Last Admin: 06/09/19 06:34 Dose: 5,000 units Documented by: Furosemide 40 mg/ Syringe 4 mls @ 4 mls/min IV BID [facility] Stop: 07/09/19 08:59 Insulin Aspart (Novolog Flexpen) 0 units SC ACHS [facility] Stop: 07/08/19 07:29 Last Admin: 06/09/19 08:50 Dose: Not Given Documented by: Isosorbide Mononitrate (Imdur Extended Rel) 60 mg PO QAM [facility] Stop: 07/08/19 08:59 Last Admin: 06/09/19 08:51 Dose: 60 mg Documented by: Metoprolol Succinate (Toprol Xl) 50 mg PO QAM [facility] Stop: 07/08/19 08:59 Last Admin: 06/09/19 08:53 Dose: 50 mg Documented by: Miscellaneous (Carbohydrates For Hypoglycemia) 15 - 30 gm PO UD PRN PRN Reason: Hypoglycemia Treatment Stop: 07/07/19 21:59 Last Admin: 06/08/19 07:52 Dose: 15 gm Documented by: Ondansetron HCl (Zofran) 4 mg IV Q6H PRN PRN Reason: Nausea Stop: 07/07/19 15:27 Ranolazine (Ranexa) 1,000 mg PO BID [facility] Stop: 07/07/19 20:59 Last Admin: 06/09/19 08:53 Dose: 1,000 mg Documented by: Ropinirole HCl (Requip) 1 mg PO BID@1200,1900 [facility] Stop: 07/08/19 19:59 Last Admin: 06/08/19 20:19 Dose: 1 mg Documented by: PG Care Time/CCT Total # of Minutes Spent Total Time Spent with Patient: Total time spent is greater than 50% in coordination of care (as documented) at patient's floor/unit and/or counseling patient:
[2019-06-09] MEDS: FUROSEMIDE 40 MG in SYRINGE 0 ML IV SCH ×2 (09:45→16:59)
[2019-06-09] MEDS: ROPINIROLE HCL 1 MG TABLET PO SCH ×2 (12:17→20:41)
--- NOTE | 2019-06-09 13:23 | Heart Failure Progress Note ---
Date of Service June 09, 2019 Assessment & Plan (1) Acute on chronic diastolic (congestive) heart failure: (2) Coronary artery disease: (3) S/P coronary artery stent placement: (4) Essential hypertension: (5) Hyperlipidemia: (6) Angina pectoris: ASSESSMENT/PLAN: Acute on chronic diastolic CHF: Dr. Blackburn did see the patient this morning and has outlined the plan. He still appears significantly hypervolemic with crackles and significant lower extremity edema. Initially he had a good response to Lasix. He diuresed less so yesterday but there was some leakage around the Drummond catheter. For now, Lasix 40 mg IV b.i.d.. BUN and creatinine are rising. Nephrology consult is pending. Continue to monitor renal function closely. Low-sodium diet recommended, less than 2,000 mg daily. Fluid restriction, less than 1500 ml daily. Daily standing weights. Strict I&Os. Aim for net negative 0.5-1 L daily. Disposition: Cardiology will continue to follow. The heart failure program was introduced yesterday while his family was present and he is agreeable. Anticipate heart failure follow up in [place] within 7 days of discharge. This will be arranged once a more definitive discharge plan is established. Subjective Patient sitting in a chair at the bedside. Reports he's feeing improved.He denies shortness of breath. He has been sleeping with his head elevated and denies PND. He continues to have lower extremity edema. He is net negative 3.3 L so far this admission. His documented output has slowed down significantly. Yesterday it was noted by nursing staff that there was leakage around his Drummond catheter. His Drummond catheter has since been removed. Because of this, his fluid balance may not be completely accurate. Weight was 147 lb at admission, down to 135 lb, now 140 lb today. Physical Exam Physical Exam: Gen.: No acute distress. Alert. Hard of hearing. HEENT: Anicteric sclera. Neck: No obvious JVD sitting upright. Hepatic jugular reflux noted. Cardiac: Regular. No ectopy. Normal S1-S2. No audible murmur. No rubs, or gallops. Pulmonary: Normal respiratory rate. Bibasilar rales, left greater than right, but improved since admission. Abdomen: Soft, nontender, nondistended, with normoactive bowel sounds. No bruits noted. Extremities: 2+ radial pulses bilaterally. 1+ posterior tibialis pulses bilaterally. 3+ bilateral lower extremity edema to the knees and trace to 1+ above the knees. (status post left lower extremity vein harvest). No cyanosis. No ulcerations or drainage. Psychiatric: Affect appears appropriate. Results & Data Vital Signs (Past 12 Hours) Vital Signs Temp Pulse Resp BP Pulse Ox 06/09/19 11:03 97.5 F L 55 L 18 99/44 L 95 06/09/19 07:18 97.7 F 64 18 112/60 93 06/09/19 04:02 97.3 F L 73 20 119/57 L 94 PG Care Time/CCT Total # of Minutes Spent Total Time Spent with Patient: Total time spent is greater than 50% in coordination of care (as documented) at patient's floor/unit and/or counseling patient:
--- NOTE | 2019-06-09 18:49 | Nephrology Consultation ---
Date of Consultation June 09, 2019 Assessment & Plan (1) Acute on chronic diastolic (congestive) heart failure: There was notable improvement with IV furosemide 80 mg. Patient has maintain appropriate negative fluid balance. Certainly seems like his decompensated heart failure is improving with treatment. Due to his aggressive recent diuresis changes in his hemodynamics, I do think that this is the reason his creatinine has been rising. Furosemide was reduced to 40 mg twice daily today. We will continue to monitor closely as we continue his diuresis. (2) MICHAEL (acute kidney injury): Blood pressure and volume status are acceptable. Certainly the patient is having adequate urine output to continue his diuresis. His electrolytes are appropriate. There is no current indication for dialysis. Agree with the adjustment in his diuretic. Input and output should be strictly documented. Will monitor daily weights. I will repeat a metabolic profile tomorrow morning. (3) Angina pectoris: Cardiology following. This does appear to be improving as well with medical management. (4) Chronic kidney disease, stage III (moderate): Baseline creatinine approximately 1.8 mg/dL. Urine studies will be updated. Renal imaging deferred at this time pending additional monitoring. Patient does have anemia and iron studies will be checked with next blood work. (5) Coronary artery disease: (6) Type 2 diabetes mellitus: (7) Essential hypertension: Blood had pressure has been running low on therapy for his coronary disease and hypertension. Does not appear to be overtly treated. Will continue to monitor. Check orthostatic vitals in the a.m.. History of Present Illness Reason for Consultation: MICHAEL/CKD Requesting Physician: Gavin Miller DO Attending Physician: Gavin Miller DO History of Present Illness Mr. Dae Stanley is an 83-year-old male who was seen in consultation this morning regarding his acute and chronic renal insufficiency. The patient's medical history and current plan of care were reviewed with Dr. Blackburn. The patient has at least class 4 chronic kidney disease at baseline with a serum creatinine of approximately 1.88 mg/dL. Patient did not have proteinuria on urine studies obtained in December of 2018. There are no renal imaging studies available for review. Medical history is notable for significant coronary artery disease, history of CABG, type 2 diabetes mellitus, hypertension, and hyperlipidemia. The patient has a history of chronic diastolic congestive heart failure. He presented to the cardiology clinic on June 07 for routine cardiology evaluation. At the time of his evaluation was noted be in significant decompensated congestive heart failure. Patient was then directly admitted at the medical center. He has undergone aggressive diuresis. Symptomatically the patient notes that he is significantly improved. He did have some difficulty with a Drummond catheter resulting in leakage around the catheter. Input and output has not been accurately documented for this reason. Dae has been experiencing chest pain consistent with exertional and nonexertional angina. This is being LIP medically managed at this time. It is noted that the patient has also had recent progressive symptoms of peripheral arterial disease including a claudication. Activity tolerance is limited at baseline. I did not discuss this in detail with the patient today. However, he has noted significant improvement in symptoms. Ranexa has been added in the patient's isosorbide mononitrate has been increased. Orthopnea has dramatically improved since admission. Patient was sitting comfortably in bed upon my evaluation. He was breathing comfortably and denied any chest pain at that time. He denies any palpitations. He denied lightheadedness or dizziness. He denies any syncope or presyncope. He had no urinary complaints. Allergies Allergy/AdvReac Type Severity Reaction Status Date / Time No Known Allergies Allergy Verified 06/07/19 11:53 Home Medications Home Medications Medication Instructions Recorded Confirmed Type aspirin 81 mg tablet 81 mg PO DAILY tab 01/03/19 06/07/19 History cetirizine 10 mg tablet 10 mg PO HS #30 tab 01/03/19 06/07/19 History cyanocobalamin (vitamin B-12) 1,000 mcg PO DAILY #90 tab 01/03/19 06/07/19 History 1,000 mcg tablet furosemide 20 mg PO Q OTHER DAY #14 tab 01/03/19 06/07/19 Rx isosorbide mononitrate 60 mg 60 mg PO DAILY #90 tab 01/03/19 06/07/19 History tablet,extended release 24 hr lancets #50 ea 01/03/19 06/07/19 History metoprolol succinate 50 mg 50 mg PO DAILY #90 tab 01/03/19 06/07/19 History tablet,extended release 24 hr rivastigmine 4.6 mg/24 hour 1 patch TD DAILY #30 ea 01/03/19 06/07/19 History transdermal patch blood-glucose meter #1 ea 01/10/19 06/07/19 Rx atorvastatin 40 mg tablet 40 mg PO QPM 03/04/19 06/07/19 History blood sugar diagnostic #50 ea 03/08/19 06/07/19 Rx glimepiride 1 mg tablet 3 mg PO QAM #270 tab 03/11/19 06/07/19 Rx tamsulosin 0.4 mg capsule 0.4 mg PO DAILY #90 cap 03/21/19 06/07/19 Rx gabapentin 300 mg capsule 300 mg PO BID #60 cap 03/29/19 06/07/19 Rx ranolazine 500 mg tablet,extended 500 mg PO Q12H #180 tab 04/04/19 06/07/19 Rx release,12 hr ropinirole 1 mg tablet 1 mg PO .COMPLEX 30 Days #60 tab 04/20/19 06/07/19 Rx clopidogrel 75 mg tablet 75 mg PO DAILY #90 tab 05/17/19 06/07/19 Rx nitroglycerin 0.4 mg sublingual 0.4 mg SL Q5M PRN #25 tab 06/08/19 06/08/19 Rx tablet Patient History Medical History Alzheimer's dementia (Chronic) Benign prostatic hyperplasia with urinary obstruction (Chronic) Bilateral hearing loss (Chronic) Chronic kidney disease, stage III (moderate) (Chronic) Coronary artery disease (Chronic) Diabetic polyneuropathy (Chronic) Essential hypertension (Chronic) Essential tremor (Chronic) Hyperlipidemia (Chronic) Nephrolithiasis (Chronic) Past myocardial infarction (Chronic) Peripheral vascular disease (Chronic) Restless leg syndrome (Chronic) Type 2 diabetes mellitus (Chronic) Vitamin D deficiency (Chronic) Surgical History H/O hemorrhoidectomy H/O shoulder surgery Hx of CABG S/P cholecystectomy S/P coronary artery stent placement S/P cystoscopy Family History Mother , age 88 of heart issues Heart disease Father , age 52 of silicosis Lung disease Social History Preferred Language: [place] Communication Ability: Effective Director Of Dietary Required: No Beliefs That Will Affect Care: None Current Living Situation: Spouse current occupational status: retired 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 Other Information That Helps Us Care for You: No Feels Safe at Home: Yes Safety Concerns: Feels Safe At This Time Smoking Status: Former smoker Hx Alcohol Use: No Hx Substance Use: No Review of Systems Review of Systems: All systems reviewed & are unremarkable except as noted in HPI & below Physical Exam Constitutional: well developed; no acute distress Eyes: no scleral abnormality and no corneal abnormality ENMT: Mouth: no oral mucosal abnormality and oral mucous membranes not dry Neck: normal visual inspection; + trachea not midline Respiratory: normal respiratory effort Auscultation: lungs clear to auscultation bilaterally Cardiovascular: Rate/Rhythm: regular rate Heart Sounds: normal S1 and normal S2 Vessels: + JVD Extremities: + edema Gastrointestinal (Abdomen): Percussion/Palpation: abdomen soft; abdomen nontender Musculoskeletal: Extremities: no cyanosis and no clubbing Skin: normal turgor; no lesions Neurologic: Motor/Sensory: no tremor and no asterixis Psychiatric: Orientation: alert and oriented x 3 Results & Data Vital Signs (Past 12 Hours) Vital Signs Temp Pulse Pulse Resp BP Pulse Ox 06/09/19 18:25 113/48 L 06/09/19 18:23 49 L 06/09/19 15:55 36.4 C L 51 L 17 95/42 L 96 06/09/19 11:03 36.4 C L 55 L 18 99/44 L 95 06/09/19 08:00 66 06/09/19 07:18 36.5 C 64 18 112/60 93 Laboratory Results Laboratory Results - last 24 hr 06/08/19 06/09/19 06/09/19 20:19 05:34 05:34 WBC 6.44 RBC 3.29 L Hgb 10.5 L Hct 31.0 L MCV 94.2 MCH 31.9 MCHC 33.9 RDW Std Deviation 48.7 H RDW Coeff of Bryce 14.1 Plt Count 145 MPV 10.0 Sodium 140 Potassium 4.3 Chloride 106 Carbon Dioxide 29 Anion Gap 5.0 BUN 51 H D Creatinine 2.59 H D Est Cr Clr Drug Dosing 16.8 Est GFR ( Amer) 25.1 Est GFR (Non-Af Amer) 21.6 BUN/Creatinine Ratio 19.7 Glucose 91 POC Glucose 220 H Calcium 8.6 Albumin 06/09/19 06/09/19 06/09/19 05:34 07:17 07:35 WBC RBC Hgb Hct MCV MCH MCHC RDW Std Deviation RDW Coeff of Bryce Plt Count MPV Sodium Potassium Chloride Carbon Dioxide Anion Gap BUN Creatinine Est Cr Clr Drug Dosing Est GFR ( Amer) Est GFR (Non-Af Amer) BUN/Creatinine Ratio Glucose POC Glucose 88 85 Calcium Albumin 2.7 L 06/09/19 06/09/19 11:05 16:28 WBC RBC Hgb Hct MCV MCH MCHC RDW Std Deviation RDW Coeff of Bryce Plt Count MPV Sodium Potassium Chloride Carbon Dioxide Anion Gap BUN Creatinine Est Cr Clr Drug Dosing Est GFR ( Amer) Est GFR (Non-Af Amer) BUN/Creatinine Ratio Glucose POC Glucose 229 H 111 H Calcium Albumin PG Care Time/CCT Total # of Minutes Spent Total Time Spent with Patient: Total time spent is greater than 50% in coordination of care (as documented) at patient's floor/unit and/or counseling patient:
[2019-06-09] MEDS: ATORVASTATIN 40 MG TAB PO SCH (20:39)
[2019-06-09] MEDS: CETIRIZINE HCL 10 MG TABLET PO SCH (20:43)
[2019-06-10] MEDS: HEPARIN SOD 5,000 UNIT/0.5 ML VIAL SQ SCH (05:51)
[2019-06-10 05:55] LABS: Appearance Urine Clear (Clear); Bilirubin Urine Negative (Negative); Blood Urine Negative (Negative); Color Urine Yellow; Glucose Urine UA Negative (Negative); Ketones Urine Negative (Negative); Leukocyte Esterase Urine Negative (Negative); Nitrite Urine Negative (Negative); Protein Urine Negative (Negative); Specific Gravity Urine 1.013 (1.000-1.030); Urobilinogen Urine Negative (Negative); pH Urine 5.5 (4.5-7.5)
[2019-06-10 06:56] LABS: Hematocrit (blood only) 32.5 % (42-52); Hemoglobin 10.9 g/dL (14.0-18.0); Mean Corpuscular Hemoglobin 31.8 pg (25-34); Mean Corpuscular Hgb Conc 33.5 g/dL (32-36); Mean Corpuscular Volume 94.8 fL (80-100); Platelet Count 150 K/uL (130-400); RDW Coefficient of Variation 14.3 % (11.5-14.5); RDW Standard Deviation 49.2 fL (36.4-46.3); Red Blood Count 3.43 M/uL (4.7-6.1); White Blood Count 5.56 K/uL (4.8-10.8)
[2019-06-10 07:33] LABS: Albumin Level 2.7 gm/dl (3.4-5.0); BUN Creatinine Ratio 20.1 (10-20); Calcium 8.7 mg/dl (8.5-10.1); Creatinine Clr Calc Pharmacy 18.3 ml/min; Est GFR (African American) 27.8; Potassium 4.2 mmol/L (3.5-5.1)
[2019-06-10 07:38] LABS: Ferritin 88.2 ng/ml (8-388); Phosphorus 2.7 mg/dl (2.5-4.9)
--- NOTE | 2019-06-10 08:32 | Cardiology Progress Note ---
Date of Service June 10, 2019 Assessment & Plan (1) Acute on chronic diastolic (congestive) heart failure: (2) Coronary artery disease: (3) S/P coronary artery stent placement: (4) Essential hypertension: (5) Hyperlipidemia: (6) Angina pectoris: ASSESSMENT/PLAN: 1. Acute on chronic diastolic CHF: Improving on a daily basis for from a volume standpoint. He still has residual edema. Renal function improving. Continue Lasix 40 mg IV b.i.d. Continue to monitor renal function closely. Low-sodium diet recommended. Daily weights. Strict I&Os. 2. CAD s/p CABG x 2 and PCI of RCA and circumflex: He had complained of very frequent anginal symptoms prior to this hospitalization. He has been here for 4 days and has not had any chest discomfort. Continue medical therapy for now. Ranolazine has been increased to 1000 mg twice daily during the hospital stay. Continue other home medications including anti-platelet therapy, high-intensity statin therapy, ranolazine, beta-radha, nitrate therapy. Ranolazine has been increased to 1000 mg twice daily. No urgent indication for cardiac catheterization at this time. 3. Angina: Plan as above. No symptoms while hospitalized. Would not pursue coronary angiography at this time. Improvement in his filling pressures of also likely help relieve any anginal symptoms. 4. Hypertension: Blood pressure adequately controlled. Continue diuresis as above. 5. Dyslipidemia: Continue high-intensity statin therapy. 6. CKD: Appreciate Nephrology input. 7. Disposition: Cardiology will continue to follow. On discharge, recommend close follow-up with heart failure program. Please call with any other questions or concerns. Subjective He denies shortness of breath. He has gone several days without chest discomfort throughout this entire hospitalization. He denies orthopnea, syncope, near-syncope, palpitations. He believes that his edema has improved. He denies bleeding. He denies lightheadedness. He was unaccompanied during our visit. Review of systems: As above. Physical Exam Physical Exam: Gen.: No acute distress. Alert. Hard of hearing. HEENT: Anicteric sclera. Neck: No obvious JVD sitting upright. No significant hepatic jugular reflux today. Cardiac: Regular. No ectopy. Normal S1-S2. 1/6 systolic murmur. No rubs, or gallops. Pulmonary: Clear to auscultation bilaterally today. Abdomen: Soft, nontender, nondistended, with normoactive bowel sounds. No bruits noted. Extremities: 3+ bilateral lower extremity edema; overall improved. (status post left lower extremity vein harvest). No cyanosis. Psychiatric: Affect appears appropriate. Results & Data Vital Signs (Past 12 Hours) Vital Signs Temp Pulse Pulse Resp BP Pulse Ox 06/10/19 03:30 36.5 C 63 17 110/58 L 97 06/10/19 00:00 55 L 06/09/19 23:47 36.4 C L 57 L 18 97/50 L 94 Intake & Output 06/08/19 06/09/19 06/10/19 06/11/19 06:59 06:59 06:59 06:59 Intake Total 275 / 275 780 / 780 640 / 640 Output Total 3301 / 3301 1100 / 1100 1350 / 1350 Balance -3026 / -3026 -320 / -320 -710 / -710 Weight 61.6 kg 63.8 kg 63.7 kg Laboratory Results Laboratory Results - last 24 hr 06/09/19 06/09/19 06/09/19 05:34 11:05 16:28 WBC RBC Hgb Hct MCV MCH MCHC RDW Std Deviation RDW Coeff of Bryce Plt Count MPV Sodium Potassium Chloride Carbon Dioxide Anion Gap BUN Creatinine Est Cr Clr Drug Dosing Est GFR ( Amer) Est GFR (Non-Af Amer) BUN/Creatinine Ratio Glucose POC Glucose 229 H 111 H Calcium Phosphorus Iron Transferrin Transferrin % Sat Ferritin Albumin 2.7 L Urine Color Urine Appearance Urine pH Ur Specific [place] Urine Protein Urine Glucose (UA) Urine Ketones Urine Blood Urine Nitrite Urine Bilirubin Urine Urobilinogen Ur Leukocyte Esterase 06/09/19 06/10/19 06/10/19 20:38 05:15 06:45 WBC 5.56 RBC 3.43 L Hgb 10.9 L Hct 32.5 L MCV 94.8 MCH 31.8 MCHC 33.5 RDW Std Deviation 49.2 H RDW Coeff of Bryce 14.3 Plt Count 150 MPV 10.0 Sodium Potassium Chloride Carbon Dioxide Anion Gap BUN Creatinine Est Cr Clr Drug Dosing Est GFR ( Amer) Est GFR (Non-Af Amer) BUN/Creatinine Ratio Glucose POC Glucose 167 H Calcium Phosphorus Iron Transferrin Transferrin % Sat Ferritin Albumin Urine Color Yellow Urine Appearance Clear Urine pH 5.5 Ur Specific [place] 1.013 Urine Protein Negative Urine Glucose (UA) Negative Urine Ketones Negative Urine Blood Negative Urine Nitrite Negative Urine Bilirubin Negative Urine Urobilinogen Negative Ur Leukocyte Esterase Negative 06/10/19 06/10/19 06:45 07:30 WBC RBC Hgb Hct MCV MCH MCHC RDW Std Deviation RDW Coeff of Bryce Plt Count MPV Sodium 139 Potassium 4.2 Chloride 103 Carbon Dioxide 32 Anion Gap 4.0 BUN 48 H Creatinine 2.38 H Est Cr Clr Drug Dosing 18.3 Est GFR ( Amer) 27.8 Est GFR (Non-Af Amer) 24.0 BUN/Creatinine Ratio 20.1 H Glucose 105 H POC Glucose 105 H Calcium 8.7 Phosphorus 2.7 Iron 86 Transferrin 223 Transferrin % Sat 27 Ferritin 88.2 Albumin 2.7 L Urine Color Urine Appearance Urine pH Ur Specific [place] Urine Protein Urine Glucose (UA) Urine Ketones Urine Blood Urine Nitrite Urine Bilirubin Urine Urobilinogen Ur Leukocyte Esterase Diagnostic Findings Telemetry personally reviewed: Sinus rhythm. Chart reviewed. Medications Administered Current Inpatient Medications Acetaminophen (Tylenol) 650 mg PO Q4H PRN PRN Reason: Pain or Fever Stop: 07/07/19 15:27 Aspirin (Aspirin Chew) 81 mg PO DAILY [place] Stop: 07/07/19 16:14 Last Admin: 06/09/19 08:50 Dose: 81 mg Documented by: Atorvastatin Calcium (Lipitor) 40 mg PO QPM [place] Stop: 07/07/19 20:59 Last Admin: 06/09/19 20:39 Dose: 40 mg Documented by: Cetirizine HCl (Zyrtec) 10 mg PO HS [place] Stop: 07/07/19 20:59 Last Admin: 06/09/19 20:43 Dose: 10 mg Documented by: Clopidogrel Bisulfate (Plavix) 75 mg PO DAILY [place] Stop: 07/08/19 08:59 Last Admin: 06/09/19 08:53 Dose: 75 mg Documented by: Cyanocobalamin (Vitamin B-12) 1,000 mcg PO DAILY [place] Stop: 07/08/19 08:59 Last Admin: 06/09/19 08:54 Dose: 1,000 mcg Documented by: Dextrose (Dextrose 50%) 25 - 50 ml IV UD PRN; Protocol PRN Reason: Hypoglycemia Protocol Stop: 07/07/19 21:59 Gabapentin (Neurontin) 300 mg PO BID [facility] Stop: 07/07/19 20:59 Last Admin: 06/09/19 20:40 Dose: 300 mg Documented by: Glucagon (Glucagen) 1 mg IM UD PRN; Protocol PRN Reason: Hypoglycemia Protocol Stop: 07/07/19 21:59 Glucose (Glucose 40%) 15 - 30 gm PO UD PRN; Protocol PRN Reason: Hypoglycemia Protocol Stop: 07/07/19 21:59 Glucose (Dex4 Glucose) 4 - 8 tabs PO UD PRN; Protocol PRN Reason: Hypoglycemia Protocol Stop: 07/07/19 21:59 Heparin Sodium (Porcine) (Heparin Sodium (Porcine)) 5,000 units SQ Q8 [facility] Stop: 07/07/19 21:59 Last Admin: 06/10/19 05:51 Dose: 5,000 units Documented by: Furosemide 40 mg/ Syringe 4 mls @ 4 mls/min IV [id number] [facility] Stop: 07/09/19 08:59 Last Admin: 06/09/19 16:59 Dose: 4 mls/min Documented by: Insulin Aspart (Novolog Flexpen) 0 units SC ACHS [facility] Stop: 07/08/19 07:29 Last Admin: 06/09/19 20:44 Dose: 1 units Documented by: Isosorbide Mononitrate (Imdur Extended Rel) 60 mg PO QAM [facility] Stop: 07/08/19 08:59 Last Admin: 06/09/19 08:51 Dose: 60 mg Documented by: Metoprolol Succinate (Toprol Xl) 50 mg PO QAM [facility] Stop: 07/08/19 08:59 Last Admin: 06/09/19 08:53 Dose: 50 mg Documented by: Miscellaneous (Carbohydrates For Hypoglycemia) 15 - 30 gm PO UD PRN PRN Reason: Hypoglycemia Treatment Stop: 07/07/19 21:59 Last Admin: 06/08/19 07:52 Dose: 15 gm Documented by: Ondansetron HCl (Zofran) 4 mg IV Q6H PRN PRN Reason: Nausea Stop: 07/07/19 15:27 Ranolazine (Ranexa) 1,000 mg PO BID [facility] Stop: 07/07/19 20:59 Last Admin: 06/09/19 20:40 Dose: 1,000 mg Documented by: Ropinirole HCl (Requip) 1 mg PO BID@1200,1900 [place] Stop: 07/08/19 19:59 Last Admin: 06/09/19 20:41 Dose: 1 mg Documented by: PG Care Time/CCT Total # of Minutes Spent Total Time Spent with Patient: Total time spent is greater than 50% in coordination of care (as documented) at patient's floor/unit and/or counseling patient:
[2019-06-10] MEDS: INSULIN ASPART 100 UNITS/ML 3 ML PEN SC SCH ×2 (09:00→12:01)
[2019-06-10] MEDS: CYANOCOBALAMIN 500 MCG TABLET (VITAMIN B-12) PO SCH (09:27)
[2019-06-10] MEDS: METOPROLOL SUCC 50MG EXT REL TAB PO SCH (09:27)
[2019-06-10] MEDS: GABAPENTIN 300 MG CAP PO SCH (09:27)
[2019-06-10] MEDS: CLOPIDOGREL BISULFATE 75 MG TAB PO SCH (09:27)
[2019-06-10] MEDS: ISOSORBIDE MONO EXTENDED REL 60 MG TABCR PO SCH (09:27)
[2019-06-10] MEDS: ASPIRIN 81 MG CHEW PO SCH (09:28)
[2019-06-10] MEDS: RANOLAZINE 500 MG ER TAB PO SCH (09:28)
[2019-06-10] MEDS: FUROSEMIDE 40 MG in SYRINGE 0 ML IV SCH (09:28)
--- NOTE | 2019-06-10 11:55 | Discharge Summary ---
Date of Service June 10, 2019 Admission HPI Per Admitting Provider 83 yo male with history of heart failure with preserved EF, presented to his controller mechanic office today due to worsening swelling in his legs and weight gain. His helps with most of the recent history due to his poor hearing. She says that the swelling has been slowly increasing for the past few weeks. The past two weeks things have gotten really bad. He now has edema in his feet up to his thighs. He has some ulcer on his lower legs associated with the edema. He admits to some dyspnea on exertion and with activities of daily living. He is not orthopneic, can sleep through the night. His weight is up by 10lbs. He admits that he does not step on a scale at home, he does not follow a fluid restriction. He is compliant with his Lasix 20mg every other day, he has been on low dose diuretic due to his renal dysfunction. He denies any chest pain or pressure. He presented to Dr. Blackburn's office today, clearly needed admitted for IV diuretics. Discussed with Dr. Blackburn over the phone, he recommends Lasix 80mg IV, echocardiogram, he will see in the hospital tomorrow. Principal Diagnosis Acute on chronic heart failure with preserved EF Discharge Exam Constitutional WD/WN, vitals as above Eyes PERRL, conjunctivae normal, anicteric sclerae ENMT external ear and nose normal, oropharynx normal Neck trachea midline, no thyromegaly Respiratory normal respiratory effort, lungs clear to auscultation Cardiovascular Rate/Rhythm: regular rate and regular rhythm Heart Sounds: normal S1 and normal S2; no murmur Extremities: normal capillary refill and + edema (pitting edema to mid shins bilaterally); no calf tenderness Gastrointestinal (Abdomen) normal bowel sounds, soft, nontender, no hepatosplenomegaly Musculoskeletal no cyanosis or clubbing, extremities motor strength 5/5 Skin no rashes, warm and dry Neurologic patellar DTR's 2+ bilat, sensation intact and PERRL, EOMI, accommodation nl, no face palsy, no dysarthria Psychiatric A+Ox3, euthymic affect Lymphatic no cervical or axillary lymphadenopathy Discharge Data Allergies Allergy/AdvReac Type Severity Reaction Status Date / Time No Known Allergies Allergy Verified 06/07/19 11:53 Consultations 06/07/19 15:28 Consult Cardiology Routine 06/07/19 15:30 Consult Case Management - Discharge Planning Routine 06/09/19 08:52 Consult Nephrology Routine Hospital Course (1) Acute on chronic diastolic (congestive) heart failure: gained at least 10lb according to patient and pitting edema to his thighs on admission responded well to Lasix 80mg IV on 06/07 and 06/08 responded well to Lasix 40mg IV BID with Cr actually going down slightly weight is down, edema is significantly decreased he is ambulating around the RN station without difficulty, no dyspnea will d/c home on Lasix 40mg daily, this is increased from 20mg every other day that he was on will check BMP next week with results to PCP, cardiology, nephrology CHF instructions given including fluid restriction, salt restriction, daily weights and info on when to call cardiology echo shows EF is preserved Dina Dee with heart failure clinic will follow after discharge (2) MICHAEL (acute kidney injury): due to aggressive diuresis Cr up to 2.59 from 1.8 at baseline K is stable nephrology followed while here Cr down to 2.3 from 2.5 on admission it ranged from 1.8 to 2.5, likely baseline is in the low 2's will repeat BMP early next week (3) Angina pectoris: continue Imdur, BP low normal so will keep an eye on pressures continue antiplatelet therapy echo without wall motion abnormalities increased Ranexa to 1000mg BID cardiology following (4) Chronic kidney disease, stage III (moderate): Cr at baseline of 1.88, electrolytes stable on admission likely baseline is low 2's (5) Peripheral vascular disease: continue antiplatelet therapy (6) Coronary artery disease: continue antiplatelets continue beta radha Ranexa (7) Bilateral hearing loss: chronic issue (8) Type 2 diabetes mellitus: diabetic diet Novolog monitor for hypoglycemia, no episodes (9) Essential hypertension: BP running low normal with aggressive diuresis will monitor Total Time Total Time Spent Total Time Spent (In Minutes): 36 minutes Total Time Includes: Examination of the Patient, Discharge Planning, Medication Reconciliation and Communication With Other Providers (Dr. Kay, Dr. Blackburn) Discharge Plan Discharge Items Patient Disposition: Home - Self-Care Reason For Visit: ACUTE ON CHRONIC HEART FAILURE Discharge Diagnosis: Acute on chronic heart failure with preserved ejection fracture Acute kidney injury due to aggressive diuresis Condition on Discharge: Good Goals: improve disease control follow fluid restriction, salt restriction follow up lab work next week Activity: Resume your previous activity Non-emergency contact: Primary Care Provider and Household Refrigerator Mechanic Call non-emergency contact if: you have any medication questions and your symptoms worsen Follow-up/Referrals: Edie Tavares MD [Primary Care Provider] - Heavenly Dee PA-C [Physician Access Clerk] - 06/16/19 2:00 pm (Congestive Heart Failure Program Appointment Information Early follow up is essential to managing your heart failure. An appointment has been scheduled for you with the [facility] Heart Failure Program within 7 days of discharge. Anticipate this visit to be 30-60 minutes long. Please expect a animal husbandry worker phone call from one of our nurses approximately 48 hours from discharge. They will also be placing an order for lab work to be completed 1-2 days prior to your heart failure follow up appointment. Please be sure to have this done so we can go over the results when you come in. Office Location The cardiology office building is located in front of the hospital at [address] [facility]. Bring the following with you to your follow-up doctor appointments: Please bring your daily weight log any discharge paperwork all of your medication bottles with you to this visit. ) Diet: Carb Consistent or DM2 and Heart Healthy Fluids: 1800ml (7 cups) Ambulatory Orders: Basic Metabolic Panel (Routine) Timeframe: 3 Days Location: Determined by Patient Ordered By: Gavin Torres Attending Provider Instructions: Medications: - LASIX: increased to 40mg daily, start this tomorrow - RANEXA: dose increased to 1000mg twice a day to help control chest pain symptoms Acute on chronic heart failure, preserved ejection fraction on echocardiogram likely caused by drinking too much fluids, eating too much salt you will need to follow a fluid restriction of 1800mL a day (seven 8oz cups) this is all fluid, water, coffee, soda, juice etc you will need to follow a sodium restriction of less than 2gm a day, read how much sodium is in food you eat most important, you will need to WEIGH YOURSELF EVERY MORNING generally recommend stepping on scale after you urinate and before you eat or drink, record your weight if your weight trends upward by more than 2-3 lbs total from your baseline then you need to call cardiology office for instructions you will be on lasix 40mg daily, this is a change from 20mg every other day Acute kidney injury on Chronic kidney disease stage III Creatinine anu due to aggressive diuresis with Lasix IV Creatinine is coming back down with lower doses of Lasix it is possible that your Creatinine was even a little falsely low due to how much volume you had recommend repeating renal profile on lab work early next week FOLLOW UP - Dr. Tavares in one week - heart failure clinic in 1-2 weeks, Heavenly CASTRO - Dr. Blackburn in 3-4 weeks - nephrology as previously scheduled for managment of CKD Call 911 and go to the Emergency Room if: * You have tightness or pain in your chest that does not go away with rest or Nitroglycerin * You are very short of breath even with rest Call your doctor if any of the following symptoms or problems start or get worse: * Shortness of breath or difficulty breathing * Wake up at night short of breath * Chest pain * Cough * Swelling of your hands, fee, or legs * More fatigued or tired with your normal activity * Palpitations - sudden fast heart beats WEIGHT * Weigh yourself every morning after using the bathroom. * Use the same scale. * Wear the same amount of clothing. * Write your weight down on your chart. * Call your doctor if you gain more than 2-3 pounds in 1-2 days. MEDICATIONS * Use this discharge instruction sheet for instructions. * Take your medications at the time your doctor ordered. * Do not skip a dose of your medicines. * If you miss a dose of medicine, take as soon as possible, but DO NOT DOUBLE A DOSE. * Read your medicine information when you get home. * Know all of the side effects of your medicine. * Call your doctor's office if you have any side effects. * Be sure all of your doctors know what medicine and herbs you take (including cold, flu, and herbal medicine). * Pain Medicine: If you do not get relief from your pain, please call your doctor for help. Take the following with you to your follow-up doctor appointments: * Weight Chart * Medication List * List of questions Do not drink excessive alcohol, beer or wine. Pending Studies at Discharge: No Stand-Alone Forms: [facility] [place], Smoking Cessation Medications and DC Order Prescriptions: New ranolazine [Ranexa] 500 mg Tablet Extended Release 12 Hr 1,000 mg PO BID 30 Days Qty: 120 RF: 0 furosemide [Lasix] 40 mg tablet 40 mg PO DAILY 30 Days Qty: 30 RF: 3 Continued (DME) OneTouch Verio strip See Dose Instructions .ROUTE .MEDSUPPLY Qty: 50 RF: 5 glimepiride 1 mg tablet 3 mg PO QAM Qty: 270 RF: 3 tamsulosin 0.4 mg capsule 0.4 mg PO DAILY Qty: 90 RF: 3 ropinirole 1 mg tablet 1 mg PO .COMPLEX 30 Days Qty: 60 RF: 5 clopidogrel 75 mg tablet 75 mg PO DAILY Qty: 90 RF: 3 (DME) blood-glucose meter [OneTouch Verio Flex Start] kit See Dose Instructions .ROUTE .MEDSUPPLY Qty: 1 RF: 0 aspirin 81 mg tablet 81 mg PO DAILY RF: 0 cetirizine 10 mg tablet 10 mg PO HS Qty: 30 RF: 0 isosorbide mononitrate 60 mg tablet extended release 24 hr 60 mg PO DAILY Qty: 90 RF: 0 metoprolol succinate 50 mg tablet extended release 24 hr 50 mg PO DAILY Qty: 90 RF: 0 (DME) lancets [OneTouch UltraSoft Lancets] misc See Dose Instructions .ROUTE .MEDSUPPLY Qty: 50 RF: 0 rivastigmine 4.6 mg/24 hr patch 24 hour 1 patch TD DAILY Qty: 30 RF: 0 cyanocobalamin (vitamin B-12) 1,000 mcg tablet 1,000 mcg PO DAILY Qty: 90 RF: 0 atorvastatin 40 mg tablet 40 mg PO QPM RF: 0 gabapentin 300 mg capsule 300 mg PO BID Qty: 60 RF: 5 nitroglycerin 0.4 mg tablet, sublingual 0.4 mg SL Q5M PRN (Reason: chest pain) Qty: 25 RF: 3 Discontinued ranolazine 500 mg tablet extended release 12 hr 500 mg PO Q12H Qty: 180 RF: 1 furosemide 20 mg tablet 20 mg PO Q OTHER DAY Qty: 14 RF: 1 Discharge Orders: Discharge Order (Routine); Ordered 06/10/19 Ordered By: Gavin Miller Admission Data Admit Date/Time: 06/07/19 14:39 Attending Provider: Gavin Miller Admit Provider: Gavin Miller Primary Care Provider: Edie Tavares Other Providers: Negrito Blackburn ; Jj Kay Other Interventions: Discharge Summary Assessment (RN) Last Done: 06/10/19 12:06 DC Date/Time DO NOT enter until pt leaves facility: 06/10/19 15:07
--- NOTE | 2019-06-10 11:56 | Nephrology Progress Note ---
Date of Service June 10, 2019 Assessment & Plan (1) Acute on chronic diastolic (congestive) heart failure: Improving. Plan for discharge today with follow up in the CHF clinic. Continue furosemide at current dose. (2) MICHAEL (acute kidney injury): Related to aggressive diuresis. Kidney function stable. Metabolic profile otherwise acceptable. No changes at this time. (3) Angina pectoris: (4) Chronic kidney disease, stage III (moderate): Baseline creatinine approximately 1.8 mg/dL. Urine studies updated. Follow up in the nephrology clinic within weeks of discharge. (5) Coronary artery disease: (6) Type 2 diabetes mellitus: (7) Essential hypertension: BP acceptable at this time. Subjective No acute events overnight. Dae feels well. Edema improving. Dyspnea notably improved. No lightheadedness or dizziness. No syncope or presyncope. Review of Systems Review of Systems: All systems reviewed & are unremarkable except as noted in HPI & below Physical Exam Constitutional: well developed; no acute distress Eyes: no scleral abnormality and no corneal abnormality ENMT: Mouth: no oral mucosal abnormality and oral mucous membranes not dry Neck: normal visual inspection and trachea midline Respiratory: normal respiratory effort Auscultation: lungs clear to au scultation bilaterally Cardiovascular: Rate/Rhythm: regular rate Heart Sounds: normal S1 and normal S2 Extremities: + edema Gastrointestinal (Abdomen): Percussion/Palpation: abdomen soft; abdomen nontender Musculoskeletal: Extremities: no cyanosis and no clubbing Skin: normal turgor; no lesions Neurologic: Motor/Sensory: no tremor and no asterixis Psychiatric: Orientation: alert and oriented x 3 Results & Data Vital Signs (Past 12 Hours) Vital Signs Temp Pulse Pulse Resp BP Pulse Ox 06/10/19 08:00 59 L 06/10/19 03:30 36.5 C 63 17 110/58 L 97 06/10/19 00:00 55 L Laboratory Results Laboratory Results - last 24 hr 06/09/19 06/09/19 06/10/19 16:28 20:38 05:15 WBC RBC Hgb Hct MCV MCH MCHC RDW Std Deviation RDW Coeff of Bryce Plt Count MPV Sodium Potassium Chloride Carbon Dioxide Anion Gap BUN Creatinine Est Cr Clr Drug Dosing Est GFR ( Amer) Est GFR (Non-Af Amer) BUN/Creatinine Ratio Glucose POC Glucose 111 H 167 H Calcium Phosphorus Iron Transferrin Transferrin % Sat Ferritin Albumin Urine Color Yellow Urine Appearance Clear Urine pH 5.5 Ur Specific Carnation 1.013 Urine Protein Negative Urine Glucose (UA) Negative Urine Ketones Negative Urine Blood Negative Urine Nitrite Negative Urine Bilirubin Negative Urine Urobilinogen Negative Ur Leukocyte Esterase Negative 06/10/19 06/10/19 06/10/19 06:45 06:45 07:30 WBC 5.56 RBC 3.43 L Hgb 10.9 L Hct 32.5 L MCV 94.8 MCH 31.8 MCHC 33.5 RDW Std Deviation 49.2 H RDW Coeff of Bryce 14.3 Plt Count 150 MPV 10.0 Sodium 139 Potassium 4.2 Chloride 103 Carbon Dioxide 32 Anion Gap 4.0 BUN 48 H Creatinine 2.38 H Est Cr Clr Drug Dosing 18.3 Est GFR ( Amer) 27.8 Est GFR (Non-Af Amer) 24.0 BUN/Creatinine Ratio 20.1 H Glucose 105 H POC Glucose 105 H Calcium 8.7 Phosphorus 2.7 Iron 86 Transferrin 223 Transferrin % Sat 27 Ferritin 88.2 Albumin 2.7 L Urine Color Urine Appearance Urine pH Ur Specific Carnation Urine Protein Urine Glucose (UA) Urine Ketones Urine Blood Urine Nitrite Urine Bilirubin Urine Urobilinogen Ur Leukocyte Esterase 06/10/19 11:30 WBC RBC Hgb Hct MCV MCH MCHC RDW Std Deviation RDW Coeff of Bryce Plt Count MPV Sodium Potassium Chloride Carbon Dioxide Anion Gap BUN Creatinine Est Cr Clr Drug Dosing Est GFR ( Amer) Est GFR (Non-Af Amer) BUN/Creatinine Ratio Glucose POC Glucose 275 H Calcium Phosphorus Iron Transferrin Transferrin % Sat Ferritin Albumin Urine Color Urine Appearance Urine pH Ur Specific Carn[place] Urine Protein Urine Glucose (UA) Urine Ketones Urine Blood Urine Nitrite Urine Bilirubin Urine Urobilinogen Ur Leukocyte Esterase PG Care Time/CCT Total # of Minutes Spent Total Time Spent with Patient: Total time spent is greater than 50% in coordination of care (as documented) at patient's floor/unit and/or counseling patient:
[2019-06-10] MEDS: ROPINIROLE HCL 1 MG TABLET PO SCH (12:03)
[2019-06-10] MEDS ORDERED: FUROSEMIDE 40 MG in SYRINGE 0 ML IV ONE (15:00)
== END 2019-06-10 15:07 | disposition home or self-care (01) | DRG 291 ==
LOC: 2E 14:39

== ENCOUNTER 2019-06-13 02:40 | Inpatient (IN) ==
[2019-06-13] MEDS: SODIUM CHLORIDE 0.9% 500 ML IV SCH ×2 (03:20→07:31)
[2019-06-13 03:24] LABS: Basophils # (auto) 0.04 K/uL (0-0.2); Basophils % (auto) 0.8 %; Eosinophils # (auto) 0.14 K/uL (0-0.5); Eosinophils % (auto) 2.9 %; Hematocrit (blood only) 34.4 % (42-52); Hemoglobin 11.5 g/dL (14.0-18.0); Immature Granulocytes # (auto) 0.02 K/uL (0.00-0.02); Immature Granulocytes % (auto) 0.4 %; Lymphocytes # (auto) 1.28 K/uL (1.2-3.4); Lymphocytes % (auto) 26.6 %; Mean Corpuscular Hemoglobin 31.9 pg (25-34); Mean Corpuscular Hgb Conc 33.4 g/dL (32-36); Mean Corpuscular Volume 95.6 fL (80-100); Mean Platelet Volume 10.3 fL (7.4-10.4); Monocytes # (auto) 0.61 K/uL (0.11-0.59); Monocytes % (auto) 12.7 %; Neutrophils # (auto) 2.72 K/uL (1.4-6.5); Neutrophils % (auto) 56.6 %; Platelet Count 177 K/uL (130-400); RDW Coefficient of Variation 13.9 % (11.5-14.5); RDW Standard Deviation 48.4 fL (36.4-46.3); White Blood Count 4.81 K/uL (4.8-10.8)
[2019-06-13 03:33] LABS: Alanine Aminotransferase 20 U/L (12-78); Albumin Level 3.1 gm/dl (3.4-5.0); Aspartate Aminotransferase 20 U/L (15-37); Blood Urea Nitrogen 43 mg/dl (7-18); Calcium 9.3 mg/dl (8.5-10.1); Carbon Dioxide 32 mmol/L (21-32); Chloride 101 mmol/L (98-107); Est GFR (Non-African American) 22.5; Glucose 150 mg/dl (70-99); Lipase 121 U/L (73-393); Magnesium 2.3 mg/dl (1.8-2.4); Potassium 4.2 mmol/L (3.5-5.1); Sodium 139 mmol/L (136-145)
[2019-06-13 03:44] LABS: Albumin Globulin Ratio 0.9 (0.9-2); Alkaline Phosphatase 59 U/L (45-117); Bilirubin,Total 0.7 mg/dl (0.2-1); Creatine Kinase 59 U/L (39-308); Creatine Kinase MB 1.3 ng/ml (0.5-3.6); Globulin 3.6 gm/dl (2.5-4.0); NT Pro B Type Natriuretic Pept 557 pg/ml (0-1800); Total Protein 6.7 gm/dl (6.4-8.2); Troponin I < 0.015 ng/ml (0-0.045)
[2019-06-13 04:28] LABS: Partial Thromboplastin Ratio 0.8; Partial Thromboplastin Time 22.2 Seconds (21.0-31.0); Prothrombin Time 10.6 Seconds (9.0-12.0)
--- NOTE | 2019-06-13 05:19 | Emergency Department Note ---
ED Visit Note I saw this patient in conjunction with Dae Gill PA-C. I agree with his decision making and treatment plan. The patient was sleeping upon my evaluation. He easily woke up and stated that his back pain was feeling somewhat better. He was preparing to go for CT scan. I reviewed the laboratory studies with the PA and with the patient's family. He will be dispositioned once we see the results of the CT scan. .
--- NOTE | 2019-06-13 05:23 | Emergency Department Note ---
History of Present Illness General Chief complaint: Flank Pain Stated complaint: ACUTE KIDNEY FAILURE, CANT WALK, KIDNEY PAIN Time Seen by Provider: 06/13/19 03:00 History of Present Illness Maximum Pain Intensity: 6 This is an 83-year-old male presenting to the emergency department with complaint of weakness and flank pain worsening over the past 2 to 3 days. The patient has an extensive chronic medical history including diabetes, coronary artery disease, and chronic kidney disease. The patient was last seen at this facility less than a week ago, where he was admitted for CHF. The patient was feeling well at the time of discharge, and did go home after being diuresed. Evidently 2 days ago he was feeling ill agatin but refused to come to the ER per family request. He is reported to have had episodic severe back pain, and has had difficulty with walking. The patient's symptoms continued tonight, and now he presents for evaluation. The patient does not report injury or trauma. He has not had recent fevers or chills. No chest pain or shortness of breath in the past 48 hours. He has lost roughly 6 pounds from the time of his admission a few days ago. He does have some increased tremors according to family. His discomfort is currently rated a 6/10. Home Medications Home Medications Medication Instructions Recorded Confirmed Type cetirizine 10 mg tablet 10 mg PO HS #30 tab 01/03/19 06/13/19 History cyanocobalamin (vitamin B-12) 1,000 mcg PO DAILY #90 tab 01/03/19 06/13/19 History 1,000 mcg tablet isosorbide mononitrate 60 mg 60 mg PO DAILY #90 tab 01/03/19 06/13/19 History tablet,extended release 24 hr lancets #50 ea 01/03/19 06/07/19 History metoprolol succinate 50 mg 50 mg PO DAILY #90 tab 01/03/19 06/13/19 History tablet,extended release 24 hr rivastigmine 4.6 mg/24 hour 1 patch TD DAILY #30 ea 01/03/19 06/13/19 History transdermal patch blood-glucose meter #1 ea 01/10/19 06/07/19 Rx atorvastatin 40 mg tablet 40 mg PO QPM 03/04/19 06/13/19 History blood sugar diagnostic #50 ea 03/08/19 06/07/19 Rx glimepiride 1 mg tablet 3 mg PO QAM #270 tab 03/11/19 06/13/19 Rx tamsulosin 0.4 mg capsule 0.4 mg PO DAILY #90 cap 03/21/19 06/13/19 Rx gabapentin 300 mg capsule 300 mg PO BID #60 cap 03/29/19 06/13/19 Rx ropinirole 1 mg tablet 1 mg PO .COMPLEX 30 Days #60 tab 04/20/19 06/13/19 Rx clopidogrel 75 mg tablet 75 mg PO DAILY #90 tab 05/17/19 06/13/19 Rx nitroglycerin 0.4 mg sublingual 0.4 mg SL Q5M PRN #25 tab 06/08/19 06/13/19 Rx tablet furosemide [Lasix] 40 mg PO DAILY 30 Days #30 tab 06/10/19 06/13/19 Rx ranolazine [Ranexa] 1,000 mg PO BID 30 Days #120 tab 06/10/19 06/13/19 Rx aspirin 81 mg PO DAILY 06/13/19 06/13/19 History Allergies Allergy/AdvReac Type Severity Reaction Status Date / Time No Known Allergies Allergy Verified 06/13/19 03:10 Past Med/Surg History Medical History Alzheimer's dementia (Chronic) Benign prostatic hyperplasia with urinary obstruction (Chronic) Bilateral hearing loss (Chronic) Chronic kidney disease, stage III (moderate) (Chronic) Coronary artery disease (Chronic) Diabetic polyneuropathy (Chronic) Essential hypertension (Chronic) Essential tremor (Chronic) Hyperlipidemia (Chronic) Nephrolithiasis (Chronic) Past myocardial infarction (Chronic) Peripheral vascular disease (Chronic) Restless leg syndrome (Chronic) Type 2 diabetes mellitus (Chronic) Vitamin D deficiency (Chronic) Surgical History H/O hemorrhoidectomy H/O shoulder surgery Hx of CABG S/P cholecystectomy S/P coronary artery stent placement S/P cystoscopy Family History Mother , age 88 of heart issues Heart disease Father , age 52 of silicosis Lung disease Social History Preferred Language: Stateless Communication Ability: Effective Gambreler Helper Required: No Beliefs That Will Affect Care: None Current Living Situation: Spouse current occupational status: retired 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 Feels Safe at Home: Yes Smoking Status: Former smoker Hx Alcohol Use: No Hx Substance Use: No Review of Systems A total of 10 systems reviewed and were otherwise negative Physical Exam Vital Signs Vital Signs - 24 hr 06/13/19 02:41 06/13/19 03:00 06/13/19 03:17 Temperature 36.6 C Temperature Source Oral Pulse Rate 79 50 L 79 Pulse Rate [Left Finger] Pulse Rate from SpO2 Sensor 51 L Respiratory Rate 18 14 18 Respiratory Effort / Characteristics Non-Labored Spontaneous Respiratory Depth Normal Blood Pressure 108/69 114/55 L Blood Pressure [Left Arm] Blood Pressure Mean 82 86 Blood Pressure Mean [Left Arm] Pulse Oximetry 98 92 98 Oxygen Delivery Method Room Air Room Air Oxygen Flow Rate Sepsis Recent Fever Within 48 Hours No Sepsis Action Taken by Nursing No Action Required 06/13/19 03:30 06/13/19 03:42 06/13/19 04:00 Temperature Temperature Source Pulse Rate 50 L 50 L 50 L Pulse Rate [Left Finger] Pulse Rate from SpO2 Sensor 50 L 50 L 51 L Respiratory Rate 12 16 19 Respiratory Effort / Characteristics Respiratory Depth Blood Pressure 120/57 L 123/75 108/65 Blood Pressure [Left Arm] Blood Pressure Mean 88 88 80 Blood Pressure Mean [Left Arm] Pulse Oximetry 91 96 95 Oxygen Delivery Method Oxygen Flow Rate Sepsis Recent Fever Within 48 Hours Sepsis Action Taken by Nursing 06/13/19 04:31 06/13/19 05:02 06/13/19 05:32 Temperature Temperature Source Pulse Rate 50 L 54 L 54 L Pulse Rate [Left Finger] Pulse Rate from SpO2 Sensor 50 L 52 L 54 L Respiratory Rate 14 15 17 Respiratory Effort / Characteristics Respiratory Depth Blood Pressure 110/59 L 128/56 L 122/56 L Blood Pressure [Left Arm] Blood Pressure Mean 71 84 91 Blood Pressure Mean [Left Arm] Pulse Oximetry 93 94 96 Oxygen Delivery Method Oxygen Flow Rate Sepsis Recent Fever Within 48 Hours Sepsis Action Taken by Nursing 06/13/19 06:01 06/13/19 06:59 Temperature Temperature Source Pulse Rate 53 L Pulse Rate [Left Finger] 52 L Pulse Rate from SpO2 Sensor 53 L Respiratory Rate 14 18 Respiratory Effort / Characteristics Respiratory Depth Blood Pressure 125/53 L Blood Pressure [Left Arm] 111/56 L Blood Pressure Mean 91 Blood Pressure Mean [Left Arm] 74 Pulse Oximetry 92 96 Oxygen Delivery Method Nasal Cannula Oxygen Flow Rate 2 Sepsis Recent Fever Within 48 Hours Sepsis Action Taken by Nursing VITALS: Vitals are noted on the nurse's note and reviewed by myself. Vital signs stable. GENERAL: Elderly white male who is very hard of hearing. HEAD: Normocephalic atraumatic. NECK: Supple without nuchal rigidity. No lymphadenopathy. No thyromegaly. Cervical spine is nontender. HEART: Regular rate and rhythm LUNGS: Clear to auscultation bilaterally without wheezes, rales or rhonchi. No retractions or accessory muscle use. ABDOMEN: Positive normal bowel sounds x 4. Soft, nontender, without masses or organomegaly. No guarding or rebound tenderness. No CVA tenderness. MUSCULOSKELETAL: No muscle atrophy, erythema, or edema noted. Full range of motion in all extremities. No tenderness to palpation. Normal gait. Strength 5/5 throughout. NEURO: Patient was alert and oriented to person place and time. Course Administered Medications Aspirin (Ecotrin Ectab) 81 mg PO DAILY [place] Stop: 07/13/19 09:08 Last Admin: 06/13/19 11:44 Dose: 81 mg Documented by: [id number] Atorvastatin Calcium (Lipitor) 40 mg PO QPM [place] Stop: 07/13/19 20:59 Last Admin: 06/13/19 20:59 Dose: 40 mg Documented by: [id number] Clopidogrel Bisulfate (Plavix) 75 mg PO DAILY [place] Stop: 07/13/19 09:08 Last Admin: 06/13/19 11:38 Dose: 75 mg Documented by: [id number] Cyanocobalamin (Vitamin B-12) 1,000 mcg PO DAILY [place] Stop: 07/13/19 08:59 Last Admin: 06/13/19 11:37 Dose: 1,000 mcg Documented by: [id number] Furosemide (Lasix) 40 mg PO DAILY [place] Stop: 07/13/19 09:08 Last Admin: 06/13/19 11:36 Dose: 40 mg Documented by: [id number] Gabapentin (Neurontin) 300 mg PO BID [place] Stop: 07/13/19 09:08 Last Admin: 06/13/19 20:59 Dose: 300 mg Documented by: [id number] Admin: 06/13/19 11:55 Dose: 300 mg Documented by: [id number] Sodium Chloride (Nss 1000ml) 1,000 mls @ 60 mls/hr IV .[id number] [place] Stop: 07/13/19 09:34 Last Admin: 06/13/19 11:39 Dose: 60 mls/hr Documented by: [id number] Insulin Aspart (Novolog Flexpen) 0 units SC ACHS [place] Stop: 07/13/19 16:29 Last Admin: 06/13/19 21:01 Dose: Not Given Documented by: [id number] Cosigned by: [id number] Admin: 06/13/19 17:36 Dose: 5 units Documented by: [id number] Cosigned by: [id number] Isosorbide Mononitrate (Imdur Extended Rel) 60 mg PO DAILY [facility] Stop: 07/13/19 09:08 Last Admin: 06/13/19 11:44 Dose: 60 mg Documented by: [id number] Metoprolol Succinate (Toprol Xl) 50 mg PO DAILY [facility] Stop: 07/13/19 09:08 Last Admin: 06/13/19 11:38 Dose: 50 mg Documented by: [id number] Miscellaneous (Order Awaiting Action) 1 ea N/A QS [facility] Stop: 07/13/19 09:59 Last Admin: 06/13/19 17:09 Dose: Not Given Documented by: [id number] Admin: 06/13/19 11:45 Dose: Not Given Documented by: [id number] Ranolazine (Ranexa) 1,000 mg PO BID [facility] Stop: 07/13/19 09:08 Last Admin: 06/13/19 21:00 Dose: 1,000 mg Documented by: [id number] Admin: 06/13/19 11:37 Dose: 1,000 mg Documented by: [id number] Ropinirole HCl (Requip) 1 mg PO DAILY@1200,1900 [facility] Stop: 07/13/19 11:59 Last Admin: 06/13/19 20:58 Dose: 1 mg Documented by: [id number] Admin: 06/13/19 11:48 Dose: 1 mg Documented by: [id number] Tamsulosin HCl (Flomax) 0.4 mg PO DAILY [facility] Stop: 07/13/19 09:08 Last Admin: 06/13/19 11:38 Dose: 0.4 mg Documented by: [id number] Discontinued Medications Sodium Chloride (Nss) 500 mls @ 125 mls/hr IV .Q4H [place] Stop: 07/13/19 03:14 Last Infusion: 06/13/19 11:11 Dose: 0 mls/hr Documented by: [id number] Admin: 06/13/19 07:31 Dose: 125 mls/hr Documented by: [id number] Infusion: 06/13/19 07:30 Dose: 0 mls/hr Documented by: [id number] Admin: 06/13/19 03:20 Dose: 125 mls/hr Documented by: [id number] Insulin Aspart (Novolog Flexpen) 0 units SC Q6 [place] Stop: 07/13/19 11:59 Last Admin: 06/13/19 11:51 Dose: Not Given Documented by: [id number] Cosigned by: [id number] Miscellaneous (Patient's Height And/Or Weight Needed) 1 ea N/A Q2H [place] Stop: 07/13/19 09:44 Last Admin: 06/13/19 18:29 Dose: Not Given Documented by: [id number] Morphine Sulfate (Morphine Sulfate) 4 mg IV NOW STA Stop: 06/13/19 06:03 Last Admin: 06/13/19 06:07 Dose: 4 mg Documented by: [id number] Ondansetron HCl (Zofran) 4 mg IV NOW STA Stop: 06/13/19 06:03 Last Admin: 06/13/19 06:08 Dose: 4 mg Documented by: [id number] Medical Decision Making Differential Diagnosis Differential diagnosis: Etiologies such as biliary colic, cholecystitis, hepatitis, pancreatitis, cardiac disease, pancreatitis, gastritis, peptic ulcer disease, appendicitis, cystitis, diverticulitis, mesenteric ischemia, inflammatory bowel disease, ileus, bowel obstruction, testicular/adnexal torsion, aortic pathology, shingles, as well as others were considered Laboratory Data Result diagrams: 06/13/19 09:17 06/13/19 03:02 Lab Results 06/13/19 06/13/19 06/13/19 Range/Units 03:02 03:02 03:02 WBC 4.81 (4.8-10.8) K/uL RBC 3.60 L (4.7-6.1) M/uL Hgb 11.5 L (14.0-18.0) g/dL Hct 34.4 L (42-52) % MCV 95.6 (80-100) fL MCH 31.9 (25-34) pg MCHC 33.4 (32-36) g/dL RDW Std Deviation 48.4 H (36.4-46.3) fL RDW Coeff of Bryce 13.9 (11.5-14.5) % Plt Count 177 (130-400) K/uL MPV 10.3 (7.4-10.4) fL Immature Gran % (Auto) 0.4 % Neut % (Auto) 56.6 % Lymph % (Auto) 26.6 % [place] % (Auto) 12.7 % Eos % (Auto) 2.9 % Baso % (Auto) 0.8 % Immature Gran # (Auto) 0.02 (0.00-0.02) K/uL Neut # (Auto) 2.72 (1.4-6.5) K/uL Lymph # (Auto) 1.28 (1.2-3.4) K/uL [place] # (Auto) 0.61 H (0.11-0.59) K/uL Eos # (Auto) 0.14 (0-0.5) K/uL Baso # (Auto) 0.04 (0-0.2) K/uL PT Cancelled INR Cancelled APTT Cancelled PTT Ratio Cancelled Sodium 139 (136-145) mmol/L Potassium 4.2 (3.5-5.1) mmol/L Chloride 101 (98-107) mmol/L Carbon Dioxide 32 (21-32) mmol/L Anion Gap 6.0 (3-11) BUN 43 H (7-18) mg/dl Creatinine 2.51 H (0.6-1.4) mg/dl Est Cr Clr Drug Dosing Not Reportable Est GFR ( Amer) 26.0 Est GFR (Non-Af Amer) 22.5 BUN/Creatinine Ratio 17.0 (10-20) Glucose 150 H (70-99) mg/dl Calcium 9.3 (8.5-10.1) mg/dl Magnesium 2.3 (1.8-2.4) mg/dl Total Bilirubin 0.7 (0.2-1) mg/dl AST 20 (15-37) U/L ALT 20 (12-78) U/L Alkaline Phosphatase 59 (45-117) U/L Total Creatine Kinase 59 (39-308) U/L CK-MB (CK-2) 1.3 (0.5-3.6) ng/ml CK/CKMB % Calc 2.2 (0-3.0) Troponin I < 0.015 (0-0.045) ng/ml NT-Pro-B Natriuret Pep 557 (0-1800) pg/ml Total Protein 6.7 (6.4-8.2) gm/dl Albumin 3.1 L (3.4-5.0) gm/dl Globulin 3.6 (2.5-4.0) gm/dl Albumin/Globulin Ratio 0.9 (0.9-2) Lipase 121 (73-393) U/L TSH 1.440 (0.300-4.500) uIu/ml 06/13/19 Range/Units 03:59 WBC (4.8-10.8) K/uL RBC (4.7-6.1) M/uL Hgb (14.0-18.0) g/dL Hct (42-52) % MCV (80-100) fL MCH (25-34) pg MCHC (32-36) g/dL RDW Std Deviation (36.4-46.3) fL RDW Coeff of Bryce (11.5-14.5) % Plt Count (130-400) K/uL MPV (7.4-10.4) fL Immature Gran % (Auto) % Neut % (Auto) % Lymph % (Auto) % [place] % (Auto) % Eos % (Auto) % Baso % (Auto) % Immature Gran # (Auto) (0.00-0.02) K/uL Neut # (Auto) (1.4-6.5) K/uL Lymph # (Auto) (1.2-3.4) K/uL [place] # (Auto) (0.11-0.59) K/uL Eos # (Auto) (0-0.5) K/uL Baso # (Auto) (0-0.2) K/uL PT 10.6 INR 1.0 APTT 22.2 PTT Ratio 0.8 Sodium (136-145) mmol/L Potassium (3.5-5.1) mmol/L Chloride (98-107) mmol/L Carbon Dioxide (21-32) mmol/L Anion Gap (3-11) BUN (7-18) mg/dl Creatinine (0.6-1.4) mg/dl Est Cr Clr Drug Dosing Est GFR ( Amer) Est GFR (Non-Af Amer) BUN/Creatinine Ratio (10-20) Glucose (70-99) mg/dl Calcium (8.5-10.1) mg/dl Magnesium (1.8-2.4) mg/dl Total Bilirubin (0.2-1) mg/dl AST (15-37) U/L ALT (12-78) U/L Alkaline Phosphatase (45-117) U/L Total Creatine Kinase (39-308) U/L CK-MB (CK-2) (0.5-3.6) ng/ml CK/CKMB % Calc (0-3.0) Troponin I (0-0.045) ng/ml NT-Pro-B Natriuret Pep (0-1800) pg/ml Total Protein (6.4-8.2) gm/dl Albumin (3.4-5.0) gm/dl Globulin (2.5-4.0) gm/dl Albumin/Globulin Ratio (0.9-2) Lipase (73-393) U/L TSH (0.300-4.500) uIu/ml Imaging Data Radiologist's Impression: CT SCAN OF THE ABDOMEN AND PELVIS WITHOUT IV CONTRAST CLINICAL HISTORY: Back and flank pain. COMPARISON STUDY: Abdominal CT dated 03/31/2008. TECHNIQUE: CT scan of the abdomen and pelvis is performed from the lung bases to the proximal femora. Images are reviewed in the axial, sagittal, and coronal planes. IV contrast was not administered for this examination as per the referring clinician. The examination is compromised by motion artifact. A dose lowering technique was utilized adhering to the principles of ALARA. CT DOSE: 314.32 mGy.cm FINDINGS: Lung bases: The patient is status post midline sternotomy. The heart is mildly enlarged and without pericardial effusion. The coronary arteries are densely calcified. There is a tiny hiatal hernia. Scarring/atelectasis is noted at the lung bases. No airspace consolidation or pleural effusion is seen. Liver: The unenhanced liver is normal in size, contour, and attenuation. There is no intrahepatic biliary ductal dilatation. Gallbladder: Unremarkable. Spleen: Normal in size and attenuation. Pancreas: The unenhanced pancreas is moderately atrophic and grossly unremarkable. Adrenal glands: Unremarkable. Kidneys: The unenhanced kidneys are atrophic and without hydronephrosis. A 4 mm nonobstructing calculus is seen in the lower pole of the right kidney. No left renal calculi are identified. There is a 5 mm calculus in the right proximal ureter seen on image #229 at the level of L3-L4. A 3 cm simple cyst is noted in the left lower pole. Additional renal cortical hypodensities also likely represent cysts but are too small for definitive characterization. Abdominal vasculature: The abdominal aorta is normal in course and caliber noting moderate atherosclerotic calcification. Bowel: There is mild to moderate colonic diverticulosis without CT evidence of acute diverticulitis. No bowel obstruction is seen. There is colonic fecal retention. The appendix is well-visualized and normal. Peritoneum: There is no intraperitoneal free air or abdominal ascites. Lymphadenopathy: None. Pelvic viscera: The prostate gland is enlarged and heterogeneous, noting median lobe hypertrophy. The bladder wall is mildly thickened and trabeculated indicating chronic outlet obstruction. Skeletal structures: The skeletal structures are osteopenic. Moderate lumbosacral spondylosis. No lytic or blastic lesions are seen. IMPRESSION: 1. Motion compromised examination. 2. There is a 5 mm obstructing calculus in the right proximal ureter as above. There is no associated upstream hydronephrosis. 3. There is an additional nonobstructing right renal calculus. No left renal calculi are identified. 4. Mild to moderate colonic diverticulosis without CT evidence of acute diverticulitis. 5. Additional findings as above. ECG Data Additional Comments: Sinus bradycardia @51 bpm Right bundle branch block Abnormal ECG When compared with ECG of 08-JUN-2019 07:03, No significant change was found MDM Narrative Physical exam and history were performed. Nursing notes, EMR, and Medication List were personally reviewed. Patient appears to have several vague complaints bring him to the ER. The patient is very hard of hearing and much of the history is provided by the family. The patient was recently discharged following an episode of congestive heart failure and successful diuresis. The patient has been feeling unwell the past 2 days with primary complaint being of back and side pain. He does not urinate very often, and does not report dysuria or hematuria. IV access was established and labs were obtained. Patient was gently hydrated with 125 cc of saline per hour. EKG was performed as above. He was placed on the phototypesetting equipment monitor. The patient's blood work is as above and was reviewed. He does not have a significantly elevated white blood cell count. He is minimally anemic at 11.7. INR is 1.0. BUN is 43 and creatinine is 2.51. This is roughly stable for him. Glucose is 150. BNP is normal. We did eventually obtain a urine which is with some red blood cells but no obvious infection. Because of this CT scan of the abdomen and pelvis was performed, and reviewed by myself and radiology showing a 5 mm proximal ureteral calculi. This is likely the cause of the patient's back discomfort. Overall the patient does not appear well for discharge home. He is 83 years old and has a proximal stone with several comorbidities. The case was discussed with the on-call hospitalist team who agreed to evaluate the patient for further care management. The chart was completed utilizing [employer] Speech Voice Recognition Software. Grammatical errors, random word insertions, pronoun errors, and incomplete sentences are an occasional consequence of this system due to software limitations, ambient noise, and hardware issues. Any formal questions or concerns about the content, text, or information contained within the body of this dictation should be directly addressed to the provider for clarification. . Impression & Plan Acute flank pain, Calculus of proximal right ureter Discharge Plan Visit Data *Final* Discharge Date/Time: 06/13/19 08:36 Chief Complaint: Flank Pain Stated Complaint: ACUTE KIDNEY FAILURE, CANT WALK, KIDNEY PAIN ED Provider: Monica Cartwright ED Midlevel Provider: Dae Gill Discharge Problem: Acute flank pain, Calculus of proximal right ureter Patient Disposition: Admitted As Inpatient Discharge Instructions Interventions: ED Discharge Assessment Last Done: 06/13/19 08:36
[2019-06-13] MEDS ORDERED: MoRPHine SULFATE 4 MG/ML 1 ML CARP\\VIAL IV STA (06:02)
[2019-06-13] MEDS ORDERED: ONDANSETRON INJ 2 MG/ML 2 ML VIAL IV STA (06:02)
--- NOTE | 2019-06-13 07:17 | CT Scan Report ---
CT SCAN OF THE ABDOMEN AND PELVIS WITHOUT IV CONTRAST CLINICAL HISTORY: Back and flank pain. COMPARISON STUDY: Abdominal CT dated 03/31/2008. TECHNIQUE: CT scan of the abdomen and pelvis is performed from the lung bases to the proximal femora. Images are reviewed in the axial, sagittal, and coronal planes. IV contrast was not administered for this examination as per the referring clinician. The examination is compromised by motion artifact. A dose lowering technique was utilized adhering to the principles of ALARA. CT DOSE: 314.32 mGy.cm FINDINGS: Lung bases: The patient is status post midline sternotomy. The heart is mildly enlarged and without p ericardial effusion. The coronary arteries are densely calcified. There is a tiny hiatal hernia. Scar ring/atelectasis is noted at the lung bases. No airspace consolidation or pleural effusion is seen. Liver: The unenhanced liver is normal in size, contour, and attenuation. There is no intrahepatic alicia iary ductal dilatation. Gallbladder: Unremarkable. Spleen: Normal in size and attenuation. Pancreas: The unenhanced pancreas is moderately atrophic and grossly unremarkable. Adrenal glands: Unremarkable. Kidneys: The unenhanced kidneys are atrophic and without hydronephrosis. A 4 mm nonobstructing calcul us is seen in the lower pole of the right kidney. No left renal calculi are identified. There is a 5 mm calculus in the right proximal ureter seen on image #229 at the level of L3-L4. A 3 cm simple cyst is noted in the left lower pole. Additional renal cortical hypodensities also likely represent cysts but are too small for definitive characterization. Abdominal vasculature: The abdominal aorta is normal in course and caliber noting moderate atheroscle rotic calcification. Bowel: There is mild to moderate colonic diverticulosis without CT evidence of acute diverticulitis. No bowel obstruction is seen. There is colonic fecal retention. The appendix is well-visualized and normal. Peritoneum: There is no intraperitoneal free air or abdominal ascites. Lymphadenopathy: None. Pelvic viscera: The prostate gland is enlarged and heterogeneous, noting median lobe hypertrophy. The bladder wall is mildly thickened and trabeculated indicating chronic outlet obstruction. Skeletal structures: The skeletal structures are osteopenic. Moderate lumbosacral spondylosis. No lyt ic or blastic lesions are seen. IMPRESSION: 1. Motion compromised examination. 2. There is a 5 mm obstructing calculus in the right proximal ureter as above. There is no associated upstream hydronephrosis. 3. There is an additional nonobstructing right renal calculus. No left renal calculi are identified. 4. Mild to moderate colonic diverticulosis without CT evidence of acute diverticulitis. 5. Additional findings as above. Electronically signed by: Walt Centeno M.D. 06/13/2019 7:16 AM
--- NOTE | 2019-06-13 08:07 | History & Physical Report ---
Date of Service June 13, 2019 Assessment & Plan (1) Nephrolithiasis: Admit to PCU on telemetry. Vital signs every 4 hours. Neurochecks every 4 hours for possible transient ischemic attack versus stroke. Gentle IV fluid hydration is 60 cc/h of normal saline for only 1 L. Carefully monitor for volume overload since patient also has congestive heart failure not in exacerbation. Patient appears to be euvolemic at this time. Urology consult for extraction of 5 mm right ureteral stone. Physical and occupational therapy for immobility MRI of the brain for slurred speech and possible transient ischemic attack versus stroke and ultrasound of the bilateral carotids to rule out any obstruct ion as a reason for transient ischemic attack versus stroke versus slurred speech. DVT prophylaxis SCDs and teds Full code Present on Admission?: Yes (2) MICHAEL (acute kidney injury): Acute to chronic kidney insufficiency. Monitor creatinine and GFR. Avoid nephrotoxic agents. Present on Admission?: Yes (3) Coronary artery disease: Continue home medication: Aspirin 81 mg p.o. daily, clopidogrel 75 mg p.o. daily, furosemide 40 mg p.o. daily, isosorbide mononitrate 60 mg extended release p.o. daily, metoprolol succinate 50 mg extended release p.o. daily, nitroglycerin 0.4 sublingual tablet, ranolazine 1000 mg p.o. twice daily Present on Admission?: Yes (4) Slurred speech: Continue aspirin and clopidogrel. MRI brain pending and bilateral ult rasound of carotids. Neurochecks every 24 hours and stroke without TPA to rule out transient ischemic attack. Present on Admission?: Yes (5) Hyperlipidemia: Continue home dose of atorvastatin 40 mg p.o. every afternoon. Present on Admission?: Yes (6) Type 2 diabetes mellitus: Hold home hypoglycemic agents while patient is in the hospital to avoid hypoglycemia and nephrotoxic effect. Sliding scale insulin and Accu-Cheks befo re meals and at bedtime. Glycemic control per pharmacy. Present on Admission?: Yes (7) Alzheimer's dementia: Appears to be worsening. Possibly patient has progression of the disease at this point versus transient ischemic attack versus stroke. MRI brain pending. Ultrasound of the carotid pending. Continue to rivastigmine 4.6 mg every 24 hours transdermal patch daily. Present on Admission?: Yes (8) Essential hypertension: Continue home medicine furosemide 40 mg p.o. daily, isosorbide mononitrate 60 mg extended release p.o. daily, metoprolol succinate 50 mg extended release p.o. daily, nitroglycerin 0.4 mg sublingual tablets every afternoon as needed, ranolazine 1000 mg p.o. twice daily, heart healthy diet low sodium. Present on Admission?: Yes (9) Congestive heart failure, diastolic, left, w/preserved LV function, NYHA class 4: Continue home medicine as above. At this point patient appears to be euvolemic. Monitor for fluid overload. Present on Admission?: Yes (10) Diabetic neuropathy: Continue gabapentin 300 mg p.o. twice daily. Present on Admission?: Yes (11) Restless leg syndrome: Continue Adderall. No 1 mg p.o., continue home dose of ferrous sulfate and B12. Present on Admission?: Yes (12) Benign prostatic hyperplasia: Continue tamsulosin 0.4 mg p.o. daily. Present on Admission?: Yes History of Present Illness Chief Complaint: Confusion, slurred speech immobility and back pain Primary Care Provider: Edie Tavares MD Patient is a 83 years old male with past medical history of congestive heart failure with preserved ejection fraction, poor hearing, coronary artery disease, nephrolithiasis, hyperlipidemia, essential hypertension, benign prostatic hypert rophy, status post coronary artery stent placement approximately 10 years ago chronic kidney disease stage III, acute on chronic diastolic heart failure, type 2 diabetes mellitus, early Alzheimer dementia, diabetic neuropathy, restless leg syndrome, essential tremor who was brought by his and son to the emergency room with a complaint that since discharge home patient is not acting himself an d he has slowed speech, he appears to be confused he complains of generalized weakness and flank pain and he is unable to walk. Patient himself is a poor historian and most of the history is given by patient and . Patient usually does not use oxygen at home and now in the emergency room he is on 2 L. Patient reports no swelling of his lower extremities and he appears to be euvolemic at this time. Patient denies fever, chills, chest pain, shortness of breath, abdominal pain,, dysuria, hematuria, syncope or near syncope. He complains of generalized weakness inability to walk and the right flank pain. Patient is oriented in person and place and disoriented in time. He is very hard and hearing and he does not have hearing aid. Patient Mini-Mental test is poor. Patient scored below 15. Patient is very concerned about patient's short- term memory loss even though she knows that he has early Alzheimer dementia, she said he never acted in such way that he does not know how to speak and his speech is very slurred. Labs are reviewed: WBCs 4.81, hemoglobin 11.5, hematocrit 34.4, platelets 177, there is no left shift, PT 10.6, INR 1, APTT 22.2, sodium 139, potassium 4.2, chloride 101, anion gap 6, BUN 43, creatinine 2.51 which is worsening in comparison from June 07, 2019 when was 1.88, GFR is worsening from 31.9-21.6., TSH 1.44, troponin 0 0.015, ALT 28 AST 20. Urine clear, all negative. CT abdomen and pelvis: Shows 5 mm obstructing calculus in the right proximal ureter as above. There is no association with upstream hydronephrosis. There is an additional nonobstructing right renal calculus. No left renal calculi are identified. Mild to moderate chronic diverticulosis without CT evidence of acute diverticulitis. Chest x-ray shows mildly low lung volumes with left bibasilar atelectasis or scarring. Small left effusion suspected. Mild volume overload. No evidence of congestive changes or pulmonary edema. Decision was made to admit patient for nephrolithiasis, confusion versus transient ischemic attack to PCU on telemetry. Allergies Allergy/AdvReac Type Severity Reaction Status Date / Time No Known Allergies Allergy Verified 06/13/19 03:10 Home Medications Home Medications Medication Instructions Recorded Confirmed Type cetirizine 10 mg tablet 10 mg PO HS #30 tab 01/03/19 06/13/19 History cyanocobalamin (vitamin B-12) 1,000 mcg PO DAILY #90 tab 01/03/19 06/13/19 History 1,000 mcg tablet isosorbide mononitrate 60 mg 60 mg PO DAILY #90 tab 01/03/19 06/13/19 History tablet,extended release 24 hr lancets #50 ea 01/03/19 06/07/19 History metoprolol succinate 50 mg 50 mg PO DAILY #90 tab 01/03/19 06/13/19 History tablet,extended release 24 hr rivastigmine 4.6 mg/24 hour 1 patch TD DAILY #30 ea 01/03/19 06/13/19 History transdermal patch blood-glucose meter #1 ea 01/10/19 06/07/19 Rx atorvastatin 40 mg tablet 40 mg PO QPM 03/04/19 06/13/19 History blood sugar diagnostic #50 ea 03/08/19 06/07/19 Rx glimepiride 1 mg tablet 3 mg PO QAM #270 tab 03/11/19 06/13/19 Rx tamsulosin 0.4 mg capsule 0.4 mg PO DAILY #90 cap 03/21/19 06/13/19 Rx gabapentin 300 mg capsule 300 mg PO BID #60 cap 03/29/19 06/13/19 Rx ropinirole 1 mg tablet 1 mg PO .COMPLEX 30 Days #60 tab 04/20/19 06/13/19 Rx clopidogrel 75 mg tablet 75 mg PO DAILY #90 tab 05/17/19 06/13/19 Rx nitroglycerin 0.4 mg sublingual 0.4 mg SL Q5M PRN #25 tab 06/08/19 06/13/19 Rx tablet furosemide [Lasix] 40 mg PO DAILY 30 Days #30 tab 06/10/19 06/13/19 Rx ranolazine [Ranexa] 1,000 mg PO BID 30 Days #120 tab 06/10/19 06/13/19 Rx aspirin 81 mg PO DAILY 06/13/19 06/13/19 History Past Med/Surg History Medical History Alzheimer's dementia (Chronic) Benign prostatic hyperplasia with urinary obstruction (Chronic) Bilateral hearing loss (Chronic) Chronic kidney disease, stage III (moderate) (Chronic) Coronary artery disease (Chronic) Diabetic polyneuropathy (Chronic) Essential hypertension (Chronic) Essential tremor (Chronic) Hyperlipidemia (Chronic) Nephrolithiasis (Chronic) Past myocardial infarction (Chronic) Peripheral vascular disease (Chronic) Restless leg syndrome (Chronic) Type 2 diabetes mellitus (Chronic) Vitamin D deficiency (Chronic) Surgical History H/O hemorrhoidectomy H/O shoulder surgery Hx of CABG S/P cholecystectomy S/P coronary artery stent placement S/P cystoscopy Family History Mother , age 88 of heart issues Heart disease Father , age 52 of silicosis Lung disease Social History Preferred Language: [place] Communication Ability: Effective Tax Manager Public Required: No Beliefs That Will Affect Care: None Current Living Situation: Spouse current occupational status: retired 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 Other Information That Helps Us Care for You: No Feels Safe at Home: Yes Safety Concerns: Feels Safe At This Time Smoking Status: Former smoker Hx Alcohol Use: No Hx Substance Use: No Review of Systems Review of Systems: All systems reviewed & are unremarkable except as noted in HPI & below Physical Exam Constitutional: WD/WN, vitals as above well developed and + frail appearing Eyes: PERRL, conjunctivae normal, anicteric sclerae ENMT: Ears: + hearing impairment Neck: trachea midline, no thyromegaly Respiratory: Auscultation: + wheezes Cardiovascular: Heart Sounds: normal S1 and normal S2 Palpation: + palpable S3 Vessels: dorsalis pedis pulses present Extremities: + pedal edema Gastrointestinal (Abdomen): normal bowel sounds, soft, nontender, no hepatosplenomegaly Musculoskeletal: no cyanosis or clubbing, extremities motor strength 5/5 Skin: no rashes, warm and dry Neurologic: patellar DTR's 2+ bilat, sensation intact Psychiatric: Insight: + limited insight Judgement: + limited judgement Very confused, has slurred speech Lymphatic: no cervical or axillary lymphadenopathy Results & Data Vital Signs (Past 12 Hours) Vital Signs Temp Pulse Pulse Resp BP BP Pulse Ox 06/13/19 06:59 52 L 18 111/56 L 96 06/13/19 06:01 53 L 14 125/53 L 92 06/13/19 05:32 54 L 17 122/56 L 96 06/13/19 05:02 54 L 15 128/56 L 94 06/13/19 04:31 50 L 14 110/59 L 93 06/13/19 04:00 50 L 19 108/65 95 06/13/19 03:42 50 L 16 123/75 96 06/13/19 03:30 50 L 12 120/57 L 91 06/13/19 03:17 79 18 98 06/13/19 03:00 50 L 14 114/55 L 92 06/13/19 02:41 36.6 C 79 18 108/69 98 Code Status & VTE Plan Code Status Full code VTE Prophylaxis Plan VTE Prophylaxis will be ordered: Yes PG Care Time/CCT Total # of Minutes Spent Total Time Spent with Patient: Total time spent is greater than 50% in coordination of care (as documented) at patient's floor/unit and/or counseling patient:
[2019-06-13] MEDS ORDERED: PHARMACIST DISCHARGE MED REC CONSULT PRN (09:09)
[2019-06-13] MEDS ORDERED: ACETAMINOPHEN 325 MG TAB PO PRN (09:09)
[2019-06-13] MEDS ORDERED: POLYETHYLENE (MIRALAX) 17 GM PACK PO PRN (09:09)
[2019-06-13] MEDS ORDERED: DEXTROSE 50% 50 ML SYRINGE IV PRN (09:09)
[2019-06-13] MEDS ORDERED: NITROGLYCERIN SL 0.4 MG/TAB TAB SL PRN (09:09)
[2019-06-13] MEDS ORDERED: ALUMINUM/MAGNESIUM SUSP 30 ML UDC PO PRN (09:09)
[2019-06-13] MEDS ORDERED: MAGNESIUM HYDROXIDE SUSP 30 ML UDC PO PRN (09:09)
[2019-06-13] MEDS ORDERED: ONDANSETRON INJ 2 MG/ML 2 ML VIAL IV PRN (09:09)
[2019-06-13] MEDS ORDERED: CARBOHYDRATES FOR HYPOGLYCEMIA PO PRN (09:09)
[2019-06-13] MEDS ORDERED: GLUCOSE 10 TABS/TUBE PO PRN (09:09)
[2019-06-13] MEDS ORDERED: GLUCAGON FOR INJ 1 MG VIAL SQ PRN (09:09)
[2019-06-13] MEDS ORDERED: GLUCOSE 40% GEL 15 GM TUBE PO PRN (09:09)
[2019-06-13 09:23] LABS: Appearance Urine Clear (Clear); Bilirubin Urine Negative (Negative); Blood Urine Negative (Negative); Color Urine Yellow; Glucose Urine UA Trace (Negative); Ketones Urine Negative (Negative); Leukocyte Esterase Urine Negative (Negative); Nitrite Urine Negative (Negative); Protein Urine Negative (Negative); Urobilinogen Urine Negative (Negative)
[2019-06-13 09:38] LABS: Basophils # (auto) 0.03 K/uL (0-0.2); Basophils % (auto) 0.6 %; Eosinophils # (auto) 0.12 K/uL (0-0.5); Eosinophils % (auto) 2.2 %; Hematocrit (blood only) 34.7 % (42-52); Hemoglobin 11.7 g/dL (14.0-18.0); Immature Granulocytes # (auto) 0.03 K/uL (0.00-0.02); Immature Granulocytes % (auto) 0.6 %; Lymphocytes # (auto) 1.76 K/uL (1.2-3.4); Lymphocytes % (auto) 32.7 %; Mean Corpuscular Hemoglobin 32.4 pg (25-34); Mean Corpuscular Hgb Conc 33.7 g/dL (32-36); Mean Corpuscular Volume 96.1 fL (80-100); Mean Platelet Volume 10.2 fL (7.4-10.4); Monocytes # (auto) 0.46 K/uL (0.11-0.59); Monocytes % (auto) 8.6 %; Neutrophils # (auto) 2.98 K/uL (1.4-6.5); Neutrophils % (auto) 55.3 %; Platelet Count 163 K/uL (130-400); RDW Standard Deviation 49.4 fL (36.4-46.3); Red Blood Count 3.61 M/uL (4.7-6.1); White Blood Count 5.38 K/uL (4.8-10.8)
[2019-06-13] MEDS ORDERED: PATIENT'S HEIGHT AND/OR WEIGHT NEEDED SCH (09:45)
[2019-06-13 10:01] LABS: Influenza A virus by PCR Neg for Influ A (Neg); Influenza B virus by PCR Neg for Influ B (Neg)
[2019-06-13] MEDS ORDERED: PHARMACY GLYCEMIC MGMT CONSULT SCH (10:02)
--- NOTE | 2019-06-13 10:22 | Pharmacy Report ---
Pharmacy Glycemic Short Note 2 - Date of Service June 13, 2019 - Glycemic Short BSG Results (Last 24 hours): 06/13/19 03:02 Glucose 150 H OUTPATIENT ANTIDIABETIC REGIMEN: * Glimepiride 3mg PO Q AM * A1c = 7.9% 04/01/19 ASSESSMENT: * Type 2 diabetic admitted for weakness and flank pain, found to have urolithiasis. MICHAEL present on admit labs * Admission Glu 150 on 1st set of labs. A1c probably near goal for a patient of this age w/ current comorbidities * Patient is currently NPO. * Will initiate Novolog SQ based upon pt weight and moderate stress level * Will add basal insulin at low stress level dosing given NPO status PLAN FOR INPATIENT GLYCEMIC CONTROL: * Hold outpatient oral diabetes medications (glimepiride) * Basal insulin * Lantus 6 units SQ BID * Bolus insulin * NovoLog per scale ACHS or Q6hrs while NPO * Goal Range: Low 110 mg/dL - High 140 mg/dL * Correction Factor: 30 mg/dL/unit * Nutritional / Prandial insulin per carb ratio of 1 unit per 12 grams CHO consumed PLAN FOR DISCHARGE: * to be determined.
--- NOTE | 2019-06-13 11:09 | Ultrasound Report ---
ULTRASOUND OF THE CAROTID ARTERIES CLINICAL HISTORY: Change in mental status. Transient ischemic attack. COMPARISON STUDY: No priors. TECHNIQUE: Real-time, grayscale, and color Doppler sonography of the carotid arteries is performed. I mages are reviewed in the transverse and longitudinal planes. FINDINGS: Blood pressures were not assessed due to limb restrictions. The carotid arteries are patent bilaterally and demonstrate antegrade flow. There is mild to moderate atherosclerotic plaque seen in the carotid bulbs bilaterally, right greater than left. Normal dopple r arterial waveforms are seen throughout. Velocity measurements are listed below. Common carotid peak systolic velocity (cm/sec): RIGHT: 97 LEFT: 115 ICA proximal peak systolic velocity (cm/sec): RIGHT: 181 LEFT: 93 ICA mid peak systolic velocity (cm/sec): RIGHT: 145 LEFT: 108 ICA distal peak systolic velocity (cm/sec): RIGHT: 98 LEFT: 102 ICA/CC peak systolic ratio: RIGHT: 1.9 LEFT: 0.9 Antegrade flow was shown in the vertebral arteries. The external carotid arteries are patent. IMPRESSION: 1. 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 2. There is no sonographic evidence of hemodynamically significant stenosis in the left carotid arter ial system. 3. Antegrade flow is shown in the vertebral arteries. Electronically signed by: Walt Centeno M.D. 06/13/2019 11:08 AM
--- NOTE | 2019-06-13 11:19 | Magnetic Resonance Report ---
MRI OF THE BRAIN WITHOUT IV CONTRAST CLINICAL HISTORY: Change in mental status. COMPARISON STUDY: MRI of the brain dated 01/23/2016. TECHNIQUE: MRI of the brain was performed utilizing various T1 and T2-weighted sequences in the axial , sagittal, and coronal planes. IV contrast was not administered for this examination. FINDINGS: Brain parenchyma: There is age-related involutional change noting mild subcortical and periventricula r microangiopathic disease. There is no hemorrhage or mass effect. There is no restricted diffusion t o suggest acute ischemia. Max-white matter differentiation is preserved. No extra-axial fluid collec tion is seen. Mineralization is noted in the basal ganglia. The cerebellar tonsils are normal in conf iguration. Ventricles, sulci, and cisterns: Prominent secondary to involutional change. Pituitary and sella: Unremarkable. Intracranial vasculature: Normal flow voids are maintained at the skull base. Orbits: The bony orbits are grossly intact. Orbital contents are normal in appearance noting bilatera l ocular lens implants. Sinuses and mastoids: There is opacification of a right posterior ethmoid sinus. The remaining nasal sinuses are clear. The mastoid air cells are well pneumatized. Calvarium: Unremarkable. Cervical cord: Partially visualized cervical spinal cord is normal in morphology and signal intensity . IMPRESSION: No acute intracranial abnormality. Electronically signed by: Walt Centeno M.D. 06/13/2019 11:18 AM
[2019-06-13] MEDS: FUROSEMIDE 40 MG TAB PO SCH (11:36)
[2019-06-13] MEDS: CYANOCOBALAMIN 500 MCG TABLET (VITAMIN B-12) PO SCH (11:37)
[2019-06-13] MEDS: RANOLAZINE 500 MG ER TAB PO SCH ×2 (11:37→21:00)
[2019-06-13] MEDS: CLOPIDOGREL BISULFATE 75 MG TAB PO SCH (11:38)
[2019-06-13] MEDS: METOPROLOL SUCC 50MG EXT REL TAB PO SCH (11:38)
[2019-06-13] MEDS: TAMSULOSIN HCL 0.4 MG CAP PO SCH (11:38)
[2019-06-13] MEDS: SODIUM CHLORIDE 0.9% 1000ML 1,000 ML IV SCH (11:39)
[2019-06-13] MEDS: ISOSORBIDE MONO EXTENDED REL 60 MG TABCR PO SCH (11:44)
[2019-06-13] MEDS: ASPIRIN 81 MG ECTAB PO SCH (11:44)
[2019-06-13] MEDS: ROPINIROLE HCL 1 MG TABLET PO SCH ×2 (11:48→20:58)
[2019-06-13] MEDS: GABAPENTIN 300 MG CAP PO SCH ×2 (11:55→20:59)
--- NOTE | 2019-06-13 11:56 | Urology Consultation ---
Date of Consultation June 13, 2019 Assessment & Plan (1) Nephrolithiasis: Assessment Nephrolithiasis CT reviewed 4 mm stone proximal right ureter there is no hydronephrosis Discussed with patient and his family the stone is small enough that it can pass on its own he would rather not be taken to the operating room for stent we will continue to watch the stone plan on outpatient extracorporal shockwave lithotripsy if the stone does not pass if he develops fevers or chills then he will need to have an emergent stent No urologic intervention planned at this time History of Present Illness Attending Physician: Amina Jones MD History of Present Illness Patient is a 89-year-old white male admitted to the hospital with change in mental status concerning for stroke or TIA He had an incidental finding of a 4 mm stone in the proximal right ureter. He is currently having no flank pain no fevers chills nausea or vomiting. He has passed stones before. He is currently being evaluated for possible stroke or TIA Allergies Allergy/AdvReac Type Severity Reaction Status Date / Time No Known Allergies Allergy Verified 06/13/19 03:10 Home Medications Home Medications Medication Instructions Recorded Confirmed Type cetirizine 10 mg tablet 10 mg PO HS #30 tab 01/03/19 06/13/19 History cyanocobalamin (vitamin B-12) 1,000 mcg PO DAILY #90 tab 01/03/19 06/13/19 History 1,000 mcg tablet isosorbide mononitrate 60 mg 60 mg PO DAILY #90 tab 01/03/19 06/13/19 History tablet,extended release 24 hr lancets #50 ea 01/03/19 06/07/19 History metoprolol succinate 50 mg 50 mg PO DAILY #90 tab 01/03/19 06/13/19 History tablet,extended release 24 hr rivastigmine 4.6 mg/24 hour 1 patch TD DAILY #30 ea 01/03/19 06/13/19 History transdermal patch blood-glucose meter #1 ea 01/10/19 06/07/19 Rx atorvastatin 40 mg tablet 40 mg PO QPM 03/04/19 06/13/19 History blood sugar diagnostic #50 ea 03/08/19 06/07/19 Rx glimepiride 1 mg tablet 3 mg PO QAM #270 tab 03/11/19 06/13/19 Rx tamsulosin 0.4 mg capsule 0.4 mg PO DAILY #90 cap 03/21/19 06/13/19 Rx gabapentin 300 mg capsule 300 mg PO BID #60 cap 03/29/19 06/13/19 Rx ropinirole 1 mg tablet 1 mg PO .COMPLEX 30 Days #60 tab 04/20/19 06/13/19 Rx clopidogrel 75 mg tablet 75 mg PO DAILY #90 tab 05/17/19 06/13/19 Rx nitroglycerin 0.4 mg sublingual 0.4 mg SL Q5M PRN #25 tab 06/08/19 06/13/19 Rx tablet furosemide [Lasix] 40 mg PO DAILY 30 Days #30 tab 06/10/19 06/13/19 Rx ranolazine [Ranexa] 1,000 mg PO BID 30 Days #120 tab 06/10/19 06/13/19 Rx aspirin 81 mg PO DAILY 06/13/19 06/13/19 History Patient History Medical History Alzheimer's dementia (Chronic) Benign prostatic hyperplasia with urinary obstruction (Chronic) Bilateral hearing loss (Chronic) Chronic kidney disease, stage III (moderate) (Chronic) Coronary artery disease (Chronic) Diabetic polyneuropathy (Chronic) Essential hypertension (Chronic) Essential tremor (Chronic) Hyperlipidemia (Chronic) Nephrolithiasis (Chronic) Past myocardial infarction (Chronic) Peripheral vascular disease (Chronic) Restless leg syndrome (Chronic) Type 2 diabetes mellitus (Chronic) Vitamin D deficiency (Chronic) Surgical History H/O hemorrhoidectomy H/O shoulder surgery Hx of CABG S/P cholecystectomy S/P coronary artery stent placement S/P cystoscopy Family History Mother , age 88 of heart issues Heart disease Father , age 52 of silicosis Lung disease Social History Preferred Language: Kiny[place] Communication Ability: Effective Spanish Medical Interpreter Required: No Beliefs That Will Affect Care: None Current Living Situation: Spouse current occupational status: retired 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 Feels Safe at Home: Yes Smoking Status: Former smoker Hx Alcohol Use: No Hx Substance Use: No Physical Exam Physical Exam: Well-developed well-nourished white male in no acute distress Neurologically alert and oriented x3 Abdomen soft nontender there are no masses or hepatospleno megaly Cardiac shows a regular rate and rhythm without murmur Lungs are clear Extremities there is no calf pain or edema Results & Data Vital Signs (Past 12 Hours) Vital Signs Temp Pulse Pulse Resp BP BP BP 06/13/19 10:19 52 L 06/13/19 09:08 36.4 C L 57 L 20 105/55 L 06/13/19 08:16 51 L 16 124/56 L 06/13/19 06:59 52 L 18 111/56 L 06/13/19 06:01 53 L 14 125/53 L 06/13/19 05:32 54 L 17 122/56 L 06/13/19 05:02 54 L 15 128/56 L 06/13/19 04:31 50 L 14 110/59 L 06/13/19 04:00 50 L 19 108/65 06/13/19 03:42 50 L 16 123/75 06/13/19 03:30 50 L 12 120/57 L 06/13/19 03:17 79 18 06/13/19 03:00 50 L 14 114/55 L 06/13/19 02:41 36.6 C 79 18 108/69 Pulse Ox 06/13/19 10:19 06/13/19 09:08 94 06/13/19 08:16 99 06/13/19 06:59 96 06/13/19 06:01 92 06/13/19 05:32 96 06/13/19 05:02 94 06/13/19 04:31 93 06/13/19 04:00 95 06/13/19 03:42 96 06/13/19 03:30 91 06/13/19 03:17 98 06/13/19 03:00 92 06/13/19 02:41 98 PG Care Time/CCT Total # of Minutes Spent Total Time Spent with Patient: Total time spent is greater than 50% in coordination of care (as documented) at patient's floor/unit and/or counseling patient:
[2019-06-13] MEDS ORDERED: INSULIN ASPART 100 UNITS/ML 3 ML PEN SC SCH (12:00)
[2019-06-13] MEDS ORDERED: Nursing to Pharmacy Communication ONE (17:11)
[2019-06-13] MEDS: INSULIN ASPART 100 UNITS/ML 3 ML PEN SC SCH ×2 (17:36→21:01)
--- NOTE | 2019-06-13 20:49 | Magnetic Resonance Report ---
MR angio neck wo con CLINICAL HISTORY: 83 years-old Male presenting with slurred speech, gait difficulties, abnormal ultra sound of the carotid arteries. TECHNIQUE: MR angiography of the neck was performed before and after the administration of intravenou s contrast. 3-D volumetric and/or maximum intensity projection (MIP) images were subsequently reconst ructed for review. IV contrast: None. Stenosis measurements were based on NASCET-like criteria (dista l lumen diameter as the denominator for stenosis measurement). COMPARISON: 06/13/2019. FINDINGS: Localizer images: Unremarkable. Aortic arch: Atherosclerosis of the three-vessel aortic arch. Innominate artery: Patent. Right subclavian artery: Patent. Right common carotid artery: Patent. Right internal and external carotid arteries: Right carotid bifurcation patent. Right internal and ex ternal carotid arteries widely patent. Left common carotid artery: Patent. Left internal and external carotid arteries: Left carotid bifurcation patent. Left internal and exter nal carotid arteries widely patent. Left subclavian artery: Patent. Vertebral arteries: Codominant vertebral arteries. Origins and courses of the bilateral vertebral art eries patent. Other: Limited intracranial evaluation within normal limits. Soft tissues of the neck normal allowing for the phase of contrast. IMPRESSION: 1. No dissection, significant stenosis, or focal vessel occlusion. Electronically signed by: Tor Vazquez M.D. 06/13/2019 8:47 PM
[2019-06-13] MEDS ORDERED: INSULIN GLARGINE SOLOSTAR 100 UNITS/ML 3 ML PEN SC SCH (21:00)
[2019-06-13] MEDS ORDERED: ATORVASTATIN 40 MG TAB PO SCH (21:00)
[2019-06-14] MEDS: SODIUM CHLORIDE 0.9% 1000ML 1,000 ML IV SCH (02:33)
[2019-06-14 02:52] LABS: Appearance Urine Clear (Clear); Bilirubin Urine Negative (Negative); Blood Urine Negative (Negative); Color Urine Yellow; Glucose Urine UA Negative (Negative); Ketones Urine Negative (Negative); Leukocyte Esterase Urine Negative (Negative); Nitrite Urine Negative (Negative); Protein Urine Negative (Negative); Specific Gravity Urine 1.015 (1.000-1.030); Urobilinogen Urine Negative (Negative); pH Urine 6.5 (4.5-7.5)
[2019-06-14 07:18] LABS: Basophils # (auto) 0.02 K/uL (0-0.2); Basophils % (auto) 0.3 %; Eosinophils # (auto) 0.18 K/uL (0-0.5); Eosinophils % (auto) 3.1 %; Hematocrit (blood only) 31.8 % (42-52); Hemoglobin 10.6 g/dL (14.0-18.0); Immature Granulocytes # (auto) 0.03 K/uL (0.00-0.02); Immature Granulocytes % (auto) 0.5 %; Lymphocytes # (auto) 1.49 K/uL (1.2-3.4); Lymphocytes % (auto) 25.9 %; Mean Corpuscular Hemoglobin 31.9 pg (25-34); Mean Corpuscular Hgb Conc 33.3 g/dL (32-36); Mean Corpuscular Volume 95.8 fL (80-100); Monocytes # (auto) 0.68 K/uL (0.11-0.59); Monocytes % (auto) 11.8 %; Neutrophils # (auto) 3.36 K/uL (1.4-6.5); Neutrophils % (auto) 58.4 %; Platelet Count 144 K/uL (130-400); RDW Coefficient of Variation 13.9 % (11.5-14.5); Red Blood Count 3.32 M/uL (4.7-6.1); White Blood Count 5.76 K/uL (4.8-10.8)
[2019-06-14 07:28] LABS: Prothrombin Time 10.6 Seconds (9.0-12.0)
[2019-06-14 07:47] LABS: Albumin Level 2.4 gm/dl (3.4-5.0); BUN Creatinine Ratio 17.6 (10-20); Calcium 8.6 mg/dl (8.5-10.1); Creatinine Clr Calc Pharmacy 17.9 ml/min; Est GFR (African American) 28.8; Est GFR (Non-African American) 24.8; Potassium 4.8 mmol/L (3.5-5.1)
[2019-06-14 07:53] LABS: Albumin Globulin Ratio 0.8 (0.9-2); Bilirubin,Total 0.6 mg/dl (0.2-1); Globulin 3.1 gm/dl (2.5-4.0); Total Protein 5.5 gm/dl (6.4-8.2)
[2019-06-14 08:16] LABS: Estimated Average Glucose 163 mg/dl; Hemoglobin A1C 7.3 % (4.5-5.6)
[2019-06-14] MEDS: METOPROLOL SUCC 50MG EXT REL TAB PO SCH (08:25)
[2019-06-14] MEDS: FUROSEMIDE 40 MG TAB PO SCH (08:27)
[2019-06-14] MEDS: GABAPENTIN 300 MG CAP PO SCH (08:27)
[2019-06-14] MEDS: CYANOCOBALAMIN 500 MCG TABLET (VITAMIN B-12) PO SCH (08:27)
[2019-06-14] MEDS: CLOPIDOGREL BISULFATE 75 MG TAB PO SCH (08:27)
[2019-06-14] MEDS: RANOLAZINE 500 MG ER TAB PO SCH (08:27)
[2019-06-14] MEDS: TAMSULOSIN HCL 0.4 MG CAP PO SCH (08:27)
[2019-06-14] MEDS: ISOSORBIDE MONO EXTENDED REL 60 MG TABCR PO SCH (08:27)
[2019-06-14] MEDS: INSULIN ASPART 100 UNITS/ML 3 ML PEN SC SCH ×2 (08:34→12:28)
[2019-06-14] MEDS: ASPIRIN 81 MG ECTAB PO SCH (08:34)
--- NOTE | 2019-06-14 09:39 | Pharmacy Report ---
Pharmacy Glycemic Short Note 2 - Date of Service June 14, 2019 - Glycemic Short BSG Results (Last 24 hours): 06/13/19 06/13/19 06/13/19 11:31 15:06 20:59 Glucose POC Glucose 80 136 H 80 06/14/19 06/14/19 07:02 08:39 Glucose 110 H POC Glucose 171 H OUTPATIENT ANTIDIABETIC REGIMEN: * Glimepiride 3mg PO Q AM * A1c = 7.9% 04/01/19 ASSESSMENT: 06/14 * Fasting BSG 110 this AM w/ no basal insulin on board * Novolog prandial insulin given w/ dinner yesterday and BSG did drop to 80 - will lessen prandial insulin dose * Renal fxn appears to be improving 06/13 * Type 2 diabetic admitted for weakness and flank pain, found to have urolithiasis. MICHAEL present on admit labs * Admission Glu 150 on 1st set of labs. A1c probably near goal for a patient of this age w/ current comorbidities * Patient is currently NPO. * Will initiate Novolog SQ based upon pt weight and moderate stress level * Will add basal insulin at low stress level dosing given NPO status PLAN FOR INPATIENT GLYCEMIC CONTROL: * Hold outpatient oral diabetes medications (glimepiride) * Basal insulin * None at this time * Bolus insulin (dose reduction) * NovoLog per scale ACHS or Q6hrs while NPO * Goal Range: Low 110 mg/dL - High 140 mg/dL * Correction Factor: 30 mg/dL/unit * Nutritional / Prandial insulin per carb ratio of 1 unit per 18 grams CHO consumed PLAN FOR DISCHARGE: * to be determined.
--- NOTE | 2019-06-14 09:41 | Urology Progress Note ---
Date of Service June 14, 2019 Assessment & Plan (1) Calculus of proximal right ureter: A/P 83-year-old male with asymptomatic right proximal ureteral stone. Trial of stone expulsion with medical therapy has been planned. This seems reasonable and the patient is amenable. Will arrange for outpatient follow-up with our service with imaging in the near future. Worrisome signs and symptoms reviewed. Thank you for allowing us to participate in this patient's care. Please contact our service with any questions or concerns. Subjective 83-year-old male admitted due to left lower extremity spasticity and fall who is been seen by our service for a 4 mm proximal right ureteral stone. This morning his chief complaint is left foot pain. He denies flank pain, stone passage or hematuria. He notes a previous history of kidney stone on one occasion, passed over the course of hospitalization. No surgical intervention was required. Previous notes reviewed. Review of Systems Constitutional: no fever and no chills Eyes: no diplopia Ear, Nose, Mouth, Throat: no ear trauma Respiratory: no hemoptysis Cardiovascular: no chest pain Integumentary: no acne and no boil Neurologic: no paralysis Psychiatric: no hopelessness Allergy / Immunological: no tongue swelling Physical Exam Constitutional: well developed and well nourished; no acute distress Eyes: eyes not dysmorphic ENMT: Ears: no external ear abnormality Neck: trachea midline; no anterior neck swelling Respiratory: no respiratory distress and does not use accessory muscles Cardiovascular: Vessels: radial pulses present Gastrointestinal (Abdomen): Inspection/Auscultation: abdomen not distended Percussion/Palpation: abdomen soft; abdomen nontender Musculoskeletal: Head/Neck/Chest: normocephalic and neck supple Skin: normal turgor Neurologic: awake; not obtunded Psychiatric: Orientation: oriented x 3 Lymphatic: no lymphadenopathy Results & Data Vital Signs (Past 12 Hours) Vital Signs Temp Pulse Pulse Resp BP Pulse Ox 06/14/19 08:01 36.5 C 49 L 18 106/59 L 95 06/14/19 08:00 54 L 06/14/19 03:22 36.5 C 54 L 17 107/54 L 97 06/14/19 00:48 54 L 06/13/19 23:08 36.4 C L 54 L 17 91/55 L 97 Laboratory Results Laboratory Results - last 48 hr 06/13/19 06/13/19 06/13/19 03:02 03:02 03:02 WBC 4.81 RBC 3.60 L Hgb 11.5 L Hct 34.4 L MCV 95.6 MCH 31.9 MCHC 33.4 RDW Std Deviation 48.4 H RDW Coeff of Bryce 13.9 Plt Count 177 MPV 10.3 Immature Gran % (Auto) 0.4 Neut % (Auto) 56.6 Lymph % (Auto) 26.6 [place] % (Auto) 12.7 Eos % (Auto) 2.9 Baso % (Auto) 0.8 Immature Gran # (Auto) 0.02 Neut # (Auto) 2.72 Lymph # (Auto) 1.28 [place] # (Auto) 0.61 H Eos # (Auto) 0.14 Baso # (Auto) 0.04 PT Cancelled INR Cancelled APTT Cancelled PTT Ratio Cancelled Sodium 139 Potassium 4.2 Chloride 101 Carbon Dioxide 32 Anion Gap 6.0 BUN 43 H Creatinine 2.51 H Est Cr Clr Drug Dosing Not Reportable Est GFR ( Amer) 26.0 Est GFR (Non-Af Amer) 22.5 BUN/Creatinine Ratio 17.0 Glucose 150 H POC Glucose Estimat Average Glucose Hemoglobin A1c Calcium 9.3 Magnesium 2.3 Total Bilirubin 0.7 AST 20 ALT 20 Alkaline Phosphatase 59 Total Creatine Kinase 59 CK-MB (CK-2) 1.3 CK/CKMB % Calc 2.2 Troponin I < 0.015 NT-Pro-B Natriuret Pep 557 Total Protein 6.7 Albumin 3.1 L Globulin 3.6 Albumin/Globulin Ratio 0.9 Lipase 121 TSH 1.440 Urine Color Urine Appearance Urine pH Ur Specific [place] Urine Protein Urine Glucose (UA) Urine Ketones Urine Blood Urine Nitrite Urine Bilirubin Urine Urobilinogen Ur Leukocyte Esterase Influenza Type A (PCR) Influenza Type B (PCR) 06/13/19 06/13/19 06/13/19 03:59 09:10 09:17 WBC RBC Hgb Hct MCV MCH MCHC RDW Std Deviation RDW Coeff of Bryce Plt Count MPV Immature Gran % (Auto) Neut % (Auto) Lymph % (Auto) [place] % (Auto) Eos % (Auto) Baso % (Auto) Immature Gran # (Auto) Neut # (Auto) Lymph # (Auto) [place] # (Auto) Eos # (Auto) Baso # (Auto) PT 10.6 INR 1.0 APTT 22.2 PTT Ratio 0.8 Sodium Potassium Chloride Carbon Dioxide Anion Gap BUN Creatinine Est Cr Clr Drug Dosing Est GFR ( Amer) Est GFR (Non-Af Amer) BUN/Creatinine Ratio Glucose POC Glucose Estimat Average Glucose Hemoglobin A1c Calcium Magnesium Total Bilirubin AST ALT Alkaline Phosphatase Total Creatine Kinase CK-MB (CK-2) CK/CKMB % Calc Troponin I NT-Pro-B Natriuret Pep 536 Total Protein Albumin Globulin Albumin/Globulin Ratio Lipase TSH Urine Color Yellow Urine Appearance Clear Urine pH 8.0 H Ur Specific [place] 1.010 Urine Protein Negative Urine Glucose (UA) Trace H Urine Ketones Negative Urine Blood Negative Urine Nitrite Negative Urine Bilirubin Negative Urine Urobilinogen Negative Ur Leukocyte Esterase Negative Influenza Type A (PCR) Influenza Type B (PCR) 06/13/19 06/13/19 06/13/19 09:17 09:19 11:31 WBC 5.38 RBC 3.61 L Hgb 11.7 L Hct 34.7 L MCV 96.1 MCH 32.4 MCHC 33.7 RDW Std Deviation 49.4 H RDW Coeff of Bryce 14.0 Plt Count 163 MPV 10.2 Immature Gran % (Auto) 0.6 Neut % (Auto) 55.3 Lymph % (Auto) 32.7 [place] % (Auto) 8.6 Eos % (Auto) 2.2 Baso % (Auto) 0.6 Immature Gran # (Auto) 0.03 H Neut # (Auto) 2.98 Lymph # (Auto) 1.76 [place] # (Auto) 0.46 Eos # (Auto) 0.12 Baso # (Auto) 0.03 PT INR APTT PTT Ratio Sodium Potassium Chloride Carbon Dioxide Anion Gap BUN Creatinine Est Cr Clr Drug Dosing Est GFR ( Amer) Est GFR (Non-Af Amer) BUN/Creatinine Ratio Glucose POC Glucose 80 Estimat Average Glucose Hemoglobin A1c Calcium Magnesium Total Bilirubin AST ALT Alkaline Phosphatase Total Creatine Kinase CK-MB (CK-2) CK/CKMB % Calc Troponin I NT-Pro-B Natriuret Pep Total Protein Albumin Globulin Albumin/Globulin Ratio Lipase TSH Urine Color Urine Appearance Urine pH Ur Specific [place] Urine Protein Urine Glucose (UA) Urine Ketones Urine Blood Urine Nitrite Urine Bilirubin Urine Urobilinogen Ur Leukocyte Esterase Influenza Type A (PCR) Neg for Influ A Influenza Type B (PCR) Neg for Influ B 06/13/19 06/13/19 06/14/19 15:06 20:59 02:29 WBC RBC Hgb Hct MCV MCH MCHC RDW Std Deviation RDW Coeff of Bryce Plt Count MPV Immature Gran % (Auto) Neut % (Auto) Lymph % (Auto) [place] % (Auto) Eos % (Auto) Baso % (Auto) Immature Gran # (Auto) Neut # (Auto) Lymph # (Auto) [place] # (Auto) Eos # (Auto) Baso # (Auto) PT INR APTT PTT Ratio Sodium Potassium Chloride Carbon Dioxide Anion Gap BUN Creatinine Est Cr Clr Drug Dosing Est GFR ( Amer) Est GFR (Non-Af Amer) BUN/Creatinine Ratio Glucose POC Glucose 136 H 80 Estimat Average Glucose Hemoglobin A1c Calcium Magnesium Total Bilirubin AST ALT Alkaline Phosphatase Total Creatine Kinase CK-MB (CK-2) CK/CKMB % Calc Troponin I NT-Pro-B Natriuret Pep Total Protein Albumin Globulin Albumin/Globulin Ratio Lipase TSH Urine Color Yellow Urine Appearance Clear Urine pH 6.5 Ur Specific [place] 1.015 Urine Protein Negative Urine Glucose (UA) Negative Urine Ketones Negative Urine Blood Negative Urine Nitrite Negative Urine Bilirubin Negative Urine Urobilinogen Negative Ur Leukocyte Esterase Negative Influenza Type A (PCR) Influenza Type B (PCR) 06/14/19 06/14/19 06/14/19 07:02 07:02 07:02 WBC 5.76 RBC 3.32 L Hgb 10.6 L Hct 31.8 L MCV 95.8 MCH 31.9 MCHC 33.3 RDW Std Deviation 49.0 H RDW Coeff of Bryce 13.9 Plt Count 144 MPV 10.0 Immature Gran % (Auto) 0.5 Neut % (Auto) 58.4 Lymph % (Auto) 25.9 [place] % (Auto) 11.8 Eos % (Auto) 3.1 Baso % (Auto) 0.3 Immature Gran # (Auto) 0.03 H Neut # (Auto) 3.36 Lymph # (Auto) 1.49 [place] # (Auto) 0.68 H Eos # (Auto) 0.18 Baso # (Auto) 0.02 PT 10.6 INR 1.0 APTT PTT Ratio Sodium 139 Potassium 4.8 Chloride 105 Carbon Dioxide 31 Anion Gap 3.0 BUN 41 H Creatinine 2.31 H Est Cr Clr Drug Dosing 17.9 Est GFR ( Amer) 28.8 Est GFR (Non-Af Amer) 24.8 BUN/Creatinine Ratio 17.6 Glucose 110 H POC Glucose Estimat Average Glucose Hemoglobin A1c Calcium 8.6 Magnesium Total Bilirubin 0.6 AST 18 ALT 16 Alkaline Phosphatase 49 Total Creatine Kinase CK-MB (CK-2) CK/CKMB % Calc Troponin I NT-Pro-B Natriuret Pep Total Protein 5.5 L Albumin 2.4 L Globulin 3.1 Albumin/Globulin Ratio 0.8 L Lipase TSH Urine Color Urine Appearance Urine pH Ur Specific [place] Urine Protein Urine Glucose (UA) Urine Ketones Urine Blood Urine Nitrite Urine Bilirubin Urine Urobilinogen Ur Leukocyte Esterase Influenza Type A (PCR) Influenza Type B (PCR) 06/14/19 06/14/19 07:02 08:39 WBC RBC Hgb Hct MCV MCH MCHC RDW Std Deviation RDW Coeff of Bryce Plt Count MPV Immature Gran % (Auto) Neut % (Auto) Lymph % (Auto) [place] % (Auto) Eos % (Auto) Baso % (Auto) Immature Gran # (Auto) Neut # (Auto) Lymph # (Auto) [place] # (Auto) Eos # (Auto) Baso # (Auto) PT INR APTT PTT Ratio Sodium Potassium Chloride Carbon Dioxide Anion Gap BUN Creatinine Est Cr Clr Drug Dosing Est GFR ( Amer) Est GFR (Non-Af Amer) BUN/Creatinine Ratio Glucose POC Glucose 171 H Estimat Average Glucose 163 Hemoglobin A1c 7.3 H Calcium Magnesium Total Bilirubin AST ALT Alkaline Phosphatase Total Creatine Kinase CK-MB (CK-2) CK/CKMB % Calc Troponin I NT-Pro-B Natriuret Pep Total Protein Albumin Globulin Albumin/Globulin Ratio Lipase TSH Urine Color Urine Appearance Urine pH Ur Specific [place] Urine Protein Urine Glucose (UA) Urine Ketones Urine Blood Urine Nitrite Urine Bilirubin Urine Urobilinogen Ur Leukocyte Esterase Influenza Type A (PCR) Influenza Type B (PCR) PG Care Time/CCT Total # of Minutes Spent Total Time Spent with Patient: Total time spent is greater than 50% in coord ination of care (as documented) at patient's floor/unit and/or counseling patient:
--- NOTE | 2019-06-14 11:26 | Consultation ---
Date of Consultation June 14, 2019 Assessment & Plan (1) Carotid stenosis: Pt with mild BL carotid stenosis noted on MRA and sx inconsistent with TIA. No indications for vascular surgical intervention at this time. Recommend consider neuro consult, pt has seen Dr Infante in past. Please call if needed. Present on Admission?: Yes History of Present Illness Reason for Consultation: carotid stenosis Attending Physician: Amina Jones MD History of Present Illness 83 yo m with multiple medical problems, including CHF, CKD, BPH, DMII, hx OR, HTN, hyperlipidemia, tremor, and alzheimer's dementia, admitted after his family brought him to [facility] d/t worsening tremors and difficulty speaking. Pt states he has had multiple episodes of his legs "shaking" uncontrollably, then his arms start. During these episodes, he has difficulty speaking and swallowing as well. He states he had this twice in past 2 days and they were worse than usual, so family brought him to [facility]. States episodes last a few hrs, then resolve. Was unable to get up and walk last night when this occurred. Pt states he was aware of everything that was happening. [facility] has seen Dr Infante in past for the hx of tremors. Denies DURANT, recent illness, chest pain, SOB, abd pain, N/V, rest pain, claudication, other complaints. Carotid US demonstrates 50-60% stenosis of R ICA. MRA neck demonstrates no significant stenosis of BL ICA. Allergies Allergy/AdvReac Type Severity Reaction Status Date / Time No Known Allergies Allergy Verified 06/13/19 03:10 Home Medications Home Medications Medication Instructions Recorded Confirmed Type cetirizine 10 mg tablet 10 mg PO HS #30 tab 01/03/19 06/13/19 History cyanocobalamin (vitamin B-12) 1,000 mcg PO DAILY #90 tab 01/03/19 06/13/19 History 1,000 mcg tablet isosorbide mononitrate 60 mg 60 mg PO DAILY #90 tab 01/03/19 06/13/19 History tablet,extended release 24 hr lancets #50 ea 01/03/19 06/07/19 History metoprolol succinate 50 mg 50 mg PO DAILY #90 tab 01/03/19 06/13/19 History tablet,extended release 24 hr rivastigmine 4.6 mg/24 hour 1 patch TD DAILY #30 ea 01/03/19 06/13/19 History transdermal patch blood-glucose meter #1 ea 01/10/19 06/07/19 Rx atorvastatin 40 mg tablet 40 mg PO QPM 03/04/19 06/13/19 History blood sugar diagnostic #50 ea 03/08/19 06/07/19 Rx glimepiride 1 mg tablet 3 mg PO QAM #270 tab 03/11/19 06/13/19 Rx tamsulosin 0.4 mg capsule 0.4 mg PO DAILY #90 cap 03/21/19 06/13/19 Rx gabapentin 300 mg capsule 300 mg PO BID #60 cap 03/29/19 06/13/19 Rx ropinirole 1 mg tablet 1 mg PO .COMPLEX 30 Days #60 tab 04/20/19 06/13/19 Rx clopidogrel 75 mg tablet 75 mg PO DAILY #90 tab 05/17/19 06/13/19 Rx nitroglycerin 0.4 mg sublingual 0.4 mg SL Q5M PRN #25 tab 06/08/19 06/13/19 Rx tablet furosemide [Lasix] 40 mg PO DAILY 30 Days #30 tab 06/10/19 06/13/19 Rx ranolazine [Ranexa] 1,000 mg PO BID 30 Days #120 tab 06/10/19 06/13/19 Rx aspirin 81 mg PO DAILY 06/13/19 06/13/19 History Patient History Medical History Alzheimer's dementia (Chronic) Benign prostatic hyperplasia with urinary obstruction (Chronic) Bilateral hearing loss (Chronic) Chronic kidney disease, stage III (moderate) (Chronic) Coronary artery disease (Chronic) Diabetic polyneuropathy (Chronic) Essential hypertension (Chronic) Essential tremor (Chronic) Hyperlipidemia (Chronic) Nephrolithiasis (Chronic) Past myocardial infarction (Chronic) Peripheral vascular disease (Chronic) Restless leg syndrome (Chronic) Type 2 diabetes mellitus (Chronic) Vitamin D deficiency (Chronic) Surgical History H/O hemorrhoidectomy H/O shoulder surgery Hx of CABG S/P cholecystectomy S/P coronary artery stent placement S/P cystoscopy Family History Mother , age 88 of heart issues Heart disease Father , age 52 of silicosis Lung disease Social History Preferred Language: Samoan Communication Ability: Effective 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 Feels Safe at Home: Yes Smoking Status: Former smoker Hx Alcohol Use: No Hx Substance Use: No Review of Systems Review of Systems: All systems reviewed & are unremarkable except as noted in HPI & below (difficult d/t pt is UNGA) Physical Exam Constitutional: WD/WN, vitals as above healthy appearing, cooperative and comfortable; not in distress and not combative Eyes: PERRL, conjunctivae normal, anicteric sclerae ENMT: Ears: + hearing impairment Nose: no external nose abnormality Neck: trachea midline Respiratory: normal respiratory effort (pt on oxygen via NC) and able to speak in complete sentences Auscultation: + diminished lung sounds Cardiovascular: Rate/Rhythm: regular rate and regular rhythm Vessels: posterior tibial pulses present, dorsalis pedis pulses present, brachial pulses present and radial pulses present; no carotid bruit and + abnormal peripheral pulses Extremities: normal capillary refill and + edema (trace) Gastrointestinal (Abdomen): normal bowel sounds, soft, nontender, no hepatosplenomegaly Musculoskeletal: no cyanosis or clubbing, extremities motor strength 5/5 Skin: no rashes, warm and dry Neurologic: moves all extremities and awake; no focal motor deficits and not confused Motor/Sensory: + tremor Psychiatric: A+Ox3, euthymic affect Results & Data Vital Signs (Past 12 Hours) Vital Signs Temp Pulse Pulse Resp BP BP Pulse Ox 06/14/19 11:16 36.4 C L 58 L 18 144/69 H 97 06/14/19 10:52 97 06/14/19 10:11 06/14/19 08:01 36.5 C 49 L 18 106/59 L 95 06/14/19 08:00 54 L 06/14/19 03:22 36.5 C 54 L 17 107/54 L 97 06/14/19 00:48 54 L Pulse Ox Pulse Ox 06/14/19 11:16 06/14/19 10:52 06/14/19 10:11 95 85 L 06/14/19 08:01 06/14/19 08:00 06/14/19 03:22 06/14/19 00:48
[2019-06-14] MEDS: ROPINIROLE HCL 1 MG TABLET PO SCH (12:28)
--- NOTE | 2019-06-14 14:33 | Hospitalist Progress Note ---
Date of Service June 14, 2019 Assessment & Plan (1) Nephrolithiasis: Patient is eager to go home. Follow-up with PCP in 7 days and follow-up with neurology for progressive Alzheimer dementia in 2 to 3 weeks. No vascular intervention required at this time. Discussed with . MRI of the brain for slurred speech and possible transient ischemic attack versus stroke- negative and MRA of the carotid -No dissection, significant stenosis, or focal vessel occlusion. DVT prophylaxis SCDs and teds Full code (2) MICHAEL (acute kidney injury): Acute to chronic kidney insufficiency. Monitor creatinine and GFR. Avoid nephrotoxic agents. Follow up nephrology in 2 weeks. (3) Coronary artery disease: Continue home medication: Aspirin 81 mg p.o. daily, clopidogrel 75 mg p.o. daily, furosemide 40 mg p.o. daily, isosorbide mononitrate 60 mg extended release p.o. daily, metoprolol succinate 50 mg extended release p.o. daily, nitroglycerin 0.4 sublingual tablet, ranolazine 1000 mg p.o. twice daily (4) Slurred speech: Resolved. Not stroke or TIA related. Continue aspirin and clopidogrel. MRI brain and MRA carotids negative for stroke or obstruction. (5) Hyperlipidemia: Continue home dose of atorvastatin 40 mg p.o. every afternoon. (6) Type 2 diabetes mellitus: Continue home meds. (7) Alzheimer's dementia: Appears to be worsening. Referred to neurology as outpatient. (8) Essential hypertension: Continue home medicine furosemide 40 mg p.o. daily, isosorbide mononitrate 60 mg extended release p.o. daily, metoprolol succinate 50 mg extended release p.o. daily, nitroglycerin 0.4 mg sublingual tablets every afternoon as needed, ranolazine 1000 mg p.o. twice daily, heart healthy diet low sodium. (9) Congestive heart failure, diastolic, left, w/preserved LV function, NYHA class 4: Continue home medicine as above. At this point patient appears to be euvolemic. Monitor for fluid overload. (10) Diabetic neuropathy: Continue gabapentin 300 mg p.o. twice daily. (11) Restless leg syndrome: Continue Adderall. No 1 mg p.o., continue home dose of ferrous sulfate and B12. (12) Benign prostatic hyperplasia: Continue tamsulosin 0.4 mg p.o. daily. Subjective Patient seen and examined at the bedside. He appears to the day alert and oriented in person time and space.He is able to speak in full sentences. He was actively involved in eating his breakfast sitting up in the bed. Patient is eager to go home. Case discussed with Dr. Lolita adamson and there is no vascular intervention required at this time. He recommended for patient to be seen by neurology. Discussed with Dr.Roy Pantoja and he recommended to see patient in the office for Alzheimer dementia and occasionally slurred speech.Pt dementia appeared to be a progression. He denies fever, chills, chest pain, SOB , abdominal pain , flank pain, stone passage or hematuria. He notes a previous history of kidney stone on one occasion, passed over the course of hospitalization. Review of Systems Review of Systems: All systems reviewed & are unremarkable except as noted in HPI & below Physical Exam Constitutional: WD/WN, vitals as above well developed and + frail appearing Eyes: PERRL, conjunctivae normal, anicteric sclerae ENMT: Ears: + hearing impairment Neck: trachea midline, no thyromegaly Respiratory: Auscultation: + wheezes Cardiovascular: Heart Sounds: normal S1 and normal S2 Palpation: + palpable S3 Vessels: dorsalis pedis pulses present Extremities: + pedal edema Gastrointestinal (Abdomen): normal bowel sounds, soft, nontender, no hepatosplenomegaly Musculoskeletal: no cyanosis or clubbing, extremities motor strength 5/5 Skin: no rashes, warm and dry Neurologic: patellar DTR's 2+ bilat, sensation intact Psychiatric: Insight: + limited insight Judgement: + limited judgement Lymphatic: no cervical or axillary lymphadenopathy Results & Data Vital Signs (Past 12 Hours) Vital Signs Temp Pulse Pulse Resp BP BP Pulse Ox 06/14/19 11:16 36.4 C L 58 L 18 144/69 H 97 06/14/19 10:52 97 06/14/19 10:11 06/14/19 08:01 36.5 C 49 L 18 106/59 L 95 06/14/19 08:00 54 L 06/14/19 03:22 36.5 C 54 L 17 107/54 L 97 Pulse Ox Pulse Ox 06/14/19 11:16 06/14/19 10:52 06/14/19 10:11 95 85 L 06/14/19 08:01 06/14/19 08:00 06/14/19 03:22 PG Care Time/CCT Total # of Minutes Spent Total Time Spent with Patient: Total time spent is greater than 50% in coordination of care (as documented) at patient's floor/unit and/or counseling patient:
--- NOTE | 2019-06-14 16:17 | Discharge Summary ---
Date of Service June 14, 2019 Admission HPI Per Admitting Provider Patient is a 83 years old male with past medical history of congestive heart failure with preserved ejection fraction, poor hearing, coronary artery disease, nephrolithiasis, hyperlipidemia, essential hypertension, benign prostatic hypertrophy, status post coronary artery stent placement approximately 10 years ago chronic kidney disease stage III, acute on chronic diastolic heart failure, type 2 diabetes mellitus, early Alzheimer dementia, diabetic neuropathy, restless leg syndrome, essential tremor who was brought by his and son to the emergency room with a complaint that since discharge home patient is not acting himself and he has slowed speech, he appears to be confused he complains of generalized weakness and flank pain and he is unable to walk. Patient himself is a poor historian and most of the history is given by patient and . Patient usually does not use oxygen at home and now in the emergency room he is on 2 L. Patient reports no swelling of his lower extremities and he appears to be euvolemic at this time. Patient denies fever, chills, chest pain, shortness of breath, abdominal pain,, dysuria, hematuria, syncope or near syncope. He complains of generalized weakness inability to walk and the right flank pain. Patient is oriented in person and place and disoriented in time. He is very hard and hearing and he does not have hearing aid. Patient Mini- Mental test is poor. Patient scored below 15. Patient is very concerned about patient's short-term memory loss even though she knows that he has early Alzheimer dementia, she said he never acted in such way that he does not know how to speak and his speech is very slurred. Labs are reviewed: WBCs 4.81, hemoglobin 11.5, hematocrit 34.4, platelets 177, there is no left shift, PT 10.6, INR 1, APTT 22.2, sodium 139, potassium 4.2, chloride 101, anion gap 6, BUN 43, creatinine 2.51 which is worsening in comparison from June 07, 2019 when was 1.88, GFR is worsening from 31.9-21.6., TSH 1.44, troponin 0 0.015, ALT 28 AST 20. Urine clear, all negative. CT abdomen and pelvis: Shows 5 mm obstructing calculus in the right proximal ureter as above. There is no association with upstream hydronephrosis. There is an additional nonobstructing right renal calculus. No left renal calculi are identified. Mild to moderate chronic diverticulosis without CT evidence of acute diverticulitis. Chest x-ray shows mildly low lung volumes with left bibasilar atelectasis or scarring. Small left effusion suspected. Mild volume overload. No evidence of congestive changes or pulmonary edema. Decision was made to admit patient for nephrolithiasis, confusion versus transient ischemic attack to PCU on telemetry. Principal Diagnosis none Discharge Exam Constitutional WD/WN, vitals as above well developed and + frail appearing Eyes PERRL, conjunctivae normal, anicteric sclerae ENMT Ears: + hearing impairment Neck trachea midline, no thyromegaly Respiratory Auscultation: + wheezes Cardiovascular Heart Sounds: normal S1 and normal S2 Palpation: + palpable S3 Vessels: dorsalis pedis pulses present Extremities: + pedal edema Gastrointestinal (Abdomen) normal bowel sounds, soft, nontender, no hepatosplenomegaly Musculoskeletal no cyanosis or clubbing, extremities motor strength 5/5 Skin no rashes, warm and dry Neurologic patellar DTR's 2+ bilat, sensation intact Psychiatric Insight: + limited insight Judgement: + limited judgement Lymphatic no cervical or axillary lymphadenopathy Discharge Data Allergies Allergy/AdvReac Type Severity Reaction Status Date / Time No Known Allergies Allergy Verified 06/13/19 03:10 Consultations 06/13/19 06:14 ED Decision to Admit Stat 06/13/19 09:09 Consult Case Management - Discharge Planning Routine Consult Case Management - Discharge Planning Routine Consult Urology Routine 06/13/19 17:25 Consult Vascular Surgery Routine Ordered Studies 06/13/19 04:56 CT abd pelvis wo con Urgent 06/13/19 09:09 MR brain wo con Stat US carotid doppler BI Stat 06/13/19 17:37 MR angio neck wo con Routine Hospital Course (1) Nephrolithiasis: Patient is eager to go home. Follow-up with PCP in 7 days and follow-up with neurology for progressive Alzheimer dementia in 2 to 3 weeks. No vascular intervention required at this time. Discussed with . MRI of the brain for slurred speech and possible transient ischemic attack versus stroke- negative and MRA of the carotid -No dissection, significant stenosis, or focal vessel occlusion. DVT prophylaxis SCDs and teds Full code (2) MICHAEL (acute kidney injury): Acute to chronic kidney insufficiency. Monitor creatinine and GFR. Avoid nephrotoxic agents. Follow up nephrology in 2 weeks. (3) Coronary artery disease: Continue home medication: Aspirin 81 mg p.o. daily, clopidogrel 75 mg p.o. daily, furosemide 40 mg p.o. daily, isosorbide mononitrate 60 mg extended r elease p.o. daily, metoprolol succinate 50 mg extended release p.o. daily, nitroglycerin 0.4 sublingual tablet, ranolazine 1000 mg p.o. twice daily (4) Slurred speech: Resolved. Not stroke or TIA related. Continue aspirin and clopidogrel. MRI brain and MRA carotids negative for stroke or obstruction. (5) Hyperlipidemia: Continue home dose of atorvastatin 40 mg p.o. every afternoon. (6) Type 2 diabetes mellitus: Continue home meds. (7) Alzheimer's dementia: Appears to be worsening. Referred to neurology as outpatient. (8) Essential hypertension: Continue home medicine furosemide 40 mg p.o. daily, isosorbide mononitrate 60 mg extended release p.o. daily, metoprolol succinate 50 mg extended release p.o. daily, nitroglycerin 0.4 mg sublingual tablets every afternoon as needed, ranolazine 1000 mg p.o. twice daily, heart healthy diet low sodium. (9) Congestive heart failure, diastolic, left, w/preserved LV function, NYHA class 4: Continue home medicine as above. At this point patient appears to be euvolemic. Monitor for fluid overload. (10) Diabetic neuropathy: Continue gabapentin 300 mg p.o. twice daily. (11) Restless leg syndrome: Continue Adderall. No 1 mg p.o., continue home dose of ferrous sulfate and B12. (12) Benign prostatic hyperplasia: Continue tamsulosin 0.4 mg p.o. daily. Total Time Total Time Spent Total Time Spent (In Minutes): over 30 min Discharge Plan Discharge Items Patient Disposition: Home - Self-Care Reason For Visit: UROLITHIASIS,CONFUSSION,TIA,ACUTE ON CHRONIC Discharge Diagnosis: Urolithiasis Condition on Discharge: Good Activity: As commented below Lifting: Gradually increase as tolerated Non-emergency contact: Primary Care Provider and Urologist Call non-emergency contact if: you have any medication questions, your symptoms worsen, your pain is not controlled, your pain is worsening, your pain is unusual for you, your pain is concerning for you, you have a fever, your tem perature is above 101 and your temperature is above 101.5 Follow-up/Referrals: Brendan Bruno MD [Physician] - (office will call you with a follow up appointment date and time ) Linwood Infante MD [Physician] - 08/22/19 9:30 am (follow up appointment with the nuerologist this appointment was scheudled for the [facility] as no appointments were available in the [facility] office. If you are unable to keep this appointment please call the office to reschedule) Edie Tavares MD [Primary Care Provider] - 06/16/19 11:30 am (follow up appointment with your primary care physician) Diet: Carb Consistent or DM2 and Heart Healthy Fluids: 1000ml (4 cups) Addtl Attending Provider Instructions: Follow up with Urology in 2 weeks for kidney stone follow up. Follow up with Neurology for Dementia in 2 weeks. Follow up with PCP in 7 days. Please repeat the labs. Pending Studies at Discharge: No Stand-Alone Forms: My [facility] [place], Smoking Cessation Medications and DC Order Prescriptions: Continued (DME) OneTouch Verio strip See Dose Instructions .ROUTE .MEDSUPPLY Qty: 50 RF: 5 glimepiride 1 mg tablet 3 mg PO QAM Qty: 270 RF: 3 tamsulosin 0.4 mg capsule 0.4 mg PO DAILY Qty: 90 RF: 3 ropinirole 1 mg tablet 1 mg PO .COMPLEX 30 Days Qty: 60 RF: 5 clopidogrel 75 mg tablet 75 mg PO DAILY Qty: 90 RF: 3 (DME) blood-glucose meter [OneTouch Verio Flex Start] kit See Dose Instructions .ROUTE .MEDSUPPLY Qty: 1 RF: 0 cetirizine 10 mg tablet 10 mg PO HS Qty: 30 RF: 0 isosorbide mononitrate 60 mg tablet extended release 24 hr 60 mg PO DAILY Qty: 90 RF: 0 metoprolol succinate 50 mg tablet extended release 24 hr 50 mg PO DAILY Qty: 90 RF: 0 (DME) lancets [OneTouch UltraSoft Lancets] misc See Dose Instructions .ROUTE .MEDSUPPLY Qty: 50 RF: 0 rivastigmine 4.6 mg/24 hr patch 24 hour 1 patch TD DAILY Qty: 30 RF: 0 cyanocobalamin (vitamin B-12) 1,000 mcg tablet 1,000 mcg PO DAILY Qty: 90 RF: 0 atorvastatin 40 mg tablet 40 mg PO QPM RF: 0 gabapentin 300 mg capsule 300 mg PO BID Qty: 60 RF: 5 nitroglycerin 0.4 mg tablet, sublingual 0.4 mg SL Q5M PRN (Reason: chest pain) Qty: 25 RF: 3 ranolazine [Ranexa] 500 mg Tablet Extended Release 12 Hr 1,000 mg PO BID 30 Days Qty: 120 RF: 0 furosemide [Lasix] 40 mg tablet 40 mg PO DAILY 30 Days Qty: 30 RF: 3 aspirin 81 mg Tablet,Delayed Release (Dr/Ec) 81 mg PO DAILY RF: 0 Discharge Orders: Discharge Order (Routine); Ordered 06/14/19 Ordered By: Amina Hopson/Other Patient Handouts: TIA, Falls Risks Prevent, Falls Prevent Safe Cane Walker, Falls Preventing Admission Data Admit Date/Time: 06/13/19 07:38 Attending Provider: Amina Jones Admit Provider: Amina Jones Primary Care Provider: Edie Tavares Other Providers: Rogerio Williamson ; Raffy Wong ; Earl Mchugh Other Interventions: Discharge Summary Assessment (RN) Last Done: 06/14/19 14:47
== END 2019-06-14 18:01 | disposition home or self-care (01) | DRG 694 ==
LOC: ED 02:40 → 2S 07:38

== ENCOUNTER 2021-02-16 06:28 | Inpatient (IN) ==
[2021-02-16] MEDS ORDERED: ONDANSETRON INJ 2 MG/ML 2 ML VIAL IV STA (07:03)
--- NOTE | 2021-02-16 07:10 | Emergency Department Note ---
Impression & Plan Intractable low back pain, Kidney stone on right side ED Provider Note NAME: BERNADETTE MARIN AGE: 85 SEX: M : 1935 ARRIVES VIA: Walk-In INFORMANT: Patient, the patient's significant other ED PROVIDER(S): Toi Boyle DO CHIEF COMPLAINT: Back pain HPI: The patient is an 85-year-old male who presented to the emergency [facility] for an evaluation of back pain. The patient's significant other gives the history for her . The patient has very severe hearing loss and also underlying dementia but for the most part his significant other knows his condition very well. The patient states that he was having significant back pain over the last few days which became much worse over the last 24 hours. He states his pain is worsened with any movement or sitting up. The patient denies any recent trauma. He denies having any abdominal pain. He does not have lower extremity pain but does have lower extremity swelling at baseline. The patient also had an episode of chest pain today for which she took nitroglycerin. The patient has had recent episodes of chest pain requiring nitroglycerin over the last few weeks. His significant other states this not necessarily new for him but he has no chest pain at this time. He denies having any difficulty breathing. He has had no dysuria frequency or hematuria. The patient's pain is moderate to severe and worsened with any movement. He did not see his provider for the symptoms. ROS: See above HPI for pertinent positives & negatives. A total of 10 systems reviewed and were otherwise negative. PAST MEDICAL HISTORY: See Below PAST SURGICAL HISTORY: See Below FAMILY HISTORY: See Below SOCIAL HISTORY: See Below HOME MEDICATIONS: See Below ALLERGIES: See Below VITALS: See Below PHYSICAL EXAMINATION: GENERAL: The patient is awake and alert. He appears to be somewhat uncomfortable. EYES: The conjunctivae are clear. The pupils are round and reactive. EARS, NOSE, MOUTH AND THROAT: The nose is without any evidence of any deformity. NECK: The neck is nontender and supple. RESPIRATORY: Normal respiratory effort is noted there is no evidence of wheezing rhonchi or rales CARDIOVASCULAR: Regular rate and rhythm noted there no murmurs rubs or gallops normal S1 normal S2. GASTROINTESTINAL: The abdomen is soft. Abdomen is nontender. BACK: No midline tenderness was appreciated. Range of motion elicits significant pain. The patient is unable to sit forward. Palpation over the right paravertebral musculature over the lower lumbar spine was appreciated. MUSCULOSKELETAL/EXTREMITIES: There is no evidence of gross deformity full range of motion is noted in the hips and shoulders. SKIN: Skin was warm and dry. Pedal edema was noted bilaterally. Pulses are symmetric in both wrists. NEUROLOGIC: Patient is awake alert and oriented to person place and situation. The patient moves all extremities well. Patellar tendon reflexes are 1+ bilaterally. MEDICAL DECISION MAKING: The patient is an 85-year-old male who presented to the emergency department for an evaluation of back pain. The patient was treated with IV pain medication in the emergency department. He was reevaluated multiple times. I discussed the patient's laboratory and radiographic studies with him. He continued to have very severe pain and does not appear to be able to perform his own activities of daily living at this time. I discussed this with the patient's significant other and she was very concerned about the patient's safety if he was discharged home. He was found to have signs of a kidney stone on CT the abdomen pelvis but I do not feel this is what is causing the patient's pain his pain is very reproducible but no definite musculoskeletal cause could be found. For this reason I discussed his case with the on-call [facility] group. They have agreed to evaluate the patient in the emergency department for further management and disposition. Triage Nursing notes reviewed. Prior medical records reviewed Vital Signs: reviewed and remarkable for no significant abnormalities Differential diagnosis: Cardiac ischemia, aortic dissection, pulmonary embolism, pneumothorax, pneumon ia, pericarditis, myocarditis, esophageal rupture, GERD, cholecystitis, pancreatitis, musculoskeletal, as well as other pathologies. ER treatment provided: See below Diagnostics interpreted by me: ECG: EKG was obtained in the emergency department. My interpretation is normal sinus rhythm at 72 bpm. Right bundle branch block pattern was noted. There were no PVCs noted. This was compared to a tracing from December 04, 2020. No significant changes were noted. Cardiac Monitoring: An order was placed for continuous cardiac monitoring. The monitor shows a rate of 72 bpm with sinus rhythm. Laboratory studies: As stated above and show below. Imaging studies: See below Consultation(s): I discussed this case with Dr. Peck who is on-call for the [facility] group. They will evaluate the patient in the emergency department. Past Med/Surg History Medical History Alzheimer's dementia Anemia Benign prostatic hyperplasia with urinary obstruction Bilateral hearing loss Chronic diastolic CHF (congestive heart failure) Chronic kidney disease, stage III (moderate) CKD (chronic kidney disease) stage 4, GFR 15-29 ml/min Coronary artery disease COVID-19 virus infection Diabetic polyneuropathy Essential hypertension Essential tremor Hyperlipidemia Nephrolithiasis Past myocardial infarction Peripheral vascular disease Restless leg syndrome Type 2 diabetes mellitus Uncontrolled diabetes mellitus Vitamin D deficiency Surgical History H/O hemorrhoidectomy H/O shoulder surgery Hx of CABG S/P cholecystectomy S/P coronary artery stent placement S/P cystoscopy Family History Mother , age 88 of heart issues Heart disease Father , age 52 of silicosis Lung disease Social History Smoking Status: Former smoker Number of Years Since Quit: 50; Hx Alcohol Use: No Hx Substance Use: No Preferred Language: Macedonian Communication Ability: Effective Visual Impairment: No Limitations Trout Farmer Required: No Beliefs That Will Affect Care: None marital status: Current Living Situation: Spouse current occupational status: retired 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 Feels Safe at Home: Yes Assistive Devices: Hearing Aid - Bilateral and Oxygen - Continuous Allergies Allergies Allergy/AdvReac Type Severity Reaction Status Date / Time No Known Allergies Allergy Verified 12/12/20 15:52 Home Meds Home Medications Medication Instructions Recorded Confirmed cyanocobalamin (vitamin B-12) 1,000 mcg PO QAM #90 tab 01/03/19 02/16/21 1,000 mcg tablet aspirin 81 mg tablet,delayed 81 mg PO QAM 06/13/19 02/16/21 release atorvastatin 40 mg tablet 40 mg PO HS 06/18/20 02/16/21 clopidogrel 75 mg tablet 75 mg PO QAM 06/18/20 02/16/21 finasteride 5 mg tablet 5 mg PO QAM 06/18/20 02/16/21 tamsulosin 0.4 mg capsule 0.4 mg PO HS 06/18/20 02/16/21 metoprolol succinate 50 mg 100 mg PO BID tab 10/26/20 02/16/21 tablet,extended release 24 hr furosemide 40 mg tablet (Lasix) 40 mg PO TID 02/16/21 02/16/21 Previous Rx's Medication Instructions Recorded nitroglycerin 0.4 mg sublingual 0.4 mg SL Q5M PRN #25 tab 05/16/20 tablet gabapentin 300 mg capsule 300 mg PO BID #60 cap 09/24/20 rivastigmine 4.6 mg TD DAILY #30 ea 09/24/20 ranolazine 500 mg tablet,extended 1,000 mg PO BID #180 tab 10/16/20 release,12 hr (Ranexa) insulin glargine 100 unit/mL (3 10 unit SUBCUT QPM #3 ml 11/09/20 mL) subcutaneous pen (Lantus Solostar U-100 Insulin) cetirizine 10 mg tablet 10 mg PO HS #90 tab 11/14/20 isosorbide mononitrate 60 mg 30 mg PO QAM #90 tab 11/26/20 tablet,extended release 24 hr glimepiride 1 mg tablet 3 mg PO BID #540 tab 11/28/20 pramipexole 1 mg tablet 1 mg PO BID 90 Days #180 tab 01/31/21 Results & Data (ED) Vital Signs Vital Signs - 24 hr 02/16/21 06:30 02/16/21 07:01 02/16/21 07:18 Temperature 36.6 C Temperature Source Temporal Artery Scan Pulse Rate 76 75 Pulse Rate [Left Finger] 70 Pulse Rate from SpO2 Sensor 75 Pulse Rhythm [Left Finger] Regular Respiratory Rate 16 14 20 Respiratory Effort / Characteristics Non-Labored Spontaneous Respiratory Depth Normal Blood Pressure 137/70 121/59 L Blood Pressure [Right Arm] 121/59 L Blood Pressure Mean 92 79 Blood Pressure Mean [Right Arm] 79 Blood Pressure Position Sitting Pulse Oximetry 94 97 97 Oxygen Delivery Method Room Air Sepsis Recent Fever Within 48 Hours No Sepsis New/Unexplained Change in Mental Status N/A Sepsis Action Taken by Nursing No Action Required 02/16/21 07:19 02/16/21 08:00 02/16/21 08:32 Temperature Temperature Source Pulse Rate 74 Pulse Rate [Left Finger] 70 Pulse Rate from SpO2 Sensor 74 Pulse Rhythm [Left Finger] Respiratory Rate 16 18 Respiratory Effort / Characteristics Respiratory Depth Blood Pressure 112/53 L Blood Pressure [Right Arm] 120/82 Blood Pressure Mean 72 Blood Pressure Mean [Right Arm] 94 Blood Pressure Position Pulse Oximetry 97 92 Oxygen Delivery Method Room Air Room Air Sepsis Recent Fever Within 48 Hours Sepsis New/Unexplained Change in Mental Status Sepsis Action Taken by Nursing 02/16/21 09:51 02/16/21 11:00 02/16/21 12:17 Temperature 36.8 C Temperature Source Oral Pulse Rate Pulse Rate [Left Finger] 77 77 67 Pulse Rate from SpO2 Sensor Pulse Rhythm [Left Finger] Respiratory Rate 15 16 18 Respiratory Effort / Characteristics Respiratory Depth Blood Pressure Blood Pressure [Right Arm] 113/55 L 108/58 L 130/52 L Blood Pressure Mean Blood Pressure Mean [Right Arm] 74 74 78 Blood Pressure Position Pulse Oximetry 98 97 96 Oxygen Delivery Method Room Air Room Air Room Air Sepsis Recent Fever Within 48 Hours Sepsis New/Unexplained Change in Mental Status Sepsis Action Taken by Half-Way Medications Current Medication List: was personally reviewed by me Laboratory Data Attestation: I reviewed the patient's lab results. Result diagrams: 02/16/21 06:47 02/16/21 06:47 Lab Results 02/16/21 02/16/21 02/16/21 Range/Units 06:38 06:47 06:47 WBC 7.53 (4.8-10.8) K/uL RBC 4.17 L (4.7-6.1) M/uL Hgb 12.8 L (14.0-18.0) g/dL Hct 38.1 L (42-52) % MCV 91.4 (80-100) fL MCH 30.7 (25-34) pg MCHC 33.6 (32-36) g/dL RDW Std Deviation 47.5 H (36.4-46.3) fL RDW Coeff of Rbyce 14.1 (11.5-14.5) % Plt Count 151 (130-400) K/uL MPV 9.9 (7.4-10.4) fL Immature Gran % (Auto) 0.7 % Neut % (Auto) 60.9 % Lymph % (Auto) 23.4 % Gray % (Auto) 12.1 % Eos % (Auto) 2.5 % Baso % (Auto) 0.4 % Neut # (Auto) 4.59 (1.4-6.5) K/uL Lymph # (Auto) 1.76 (1.2-3.4) K/uL Gray # (Auto) 0.91 H (0.11-0.59) K/uL Eos # (Auto) 0.19 (0-0.5) K/uL Baso # (Auto) 0.03 (0-0.2) K/uL Immature Gran # (Auto) 0.05 H (0.00-0.02) K/uL PT 10.1 (9.0-12.0) Seconds INR 1.0 (0.9-1.1) APTT 22.8 (21.0-31.0) Seconds PTT Ratio 0.9 Sodium (136-145) mmol/L Potassium (3.5-5.1) mmol/L Chloride (98-107) mmol/L Carbon Dioxide (21-32) mmol/L Anion Gap (3-11) BUN (7-18) mg/dl Creatinine (0.6-1.4) mg/dl Est Cr Clr Drug Dosing ml/min Est GFR ( Amer) ml/min Est GFR (Non-Af Amer) ml/min BUN/Creatinine Ratio (10-20) Glucose (70-99) mg/dl Calcium (8.5-10.1) mg/dl Total Bilirubin (0.2-1) mg/dl AST (15-37) U/L ALT (12-78) U/L Alkaline Phosphatase (45-117) U/L Troponin I (0-0.045) ng/ml Total Protein (6.4-8.2) gm/dl Albumin (3.4-5.0) gm/dl Globulin (2.5-4.0) gm/dl Albumin/Globulin Ratio (0.9-2) Lipase (73-393) U/L Urine Color Yellow Urine Appearance Clear (Clear) Urine pH 6.5 (4.5-7.5) Ur Specific [place] 1.012 (1.000-1.030) Urine Protein Negative (Negative) Urine Glucose (UA) 3+ H (Negative) Urine Ketones Negative (Negative) Urine Blood Negative (Negative) Urine Nitrite Negative (Negative) Urine Bilirubin Negative (Negative) Urine Urobilinogen Negative (Negative) Ur Leukocyte Esterase Negative (Negative) COVID-19 Eval Order SARS-CoV-2 (PCR) (Negative) 02/16/21 02/16/21 02/16/21 Range/Units 06:47 11:30 11:30 WBC (4.8-10.8) K/uL RBC (4.7-6.1) M/uL Hgb (14.0-18.0) g/dL Hct (42-52) % MCV (80-100) fL MCH (25-34) pg MCHC (32-36) g/dL RDW Std Deviation (36.4-46.3) fL RDW Coeff of Bryce (11.5-14.5) % Plt Count (130-400) K/uL MPV (7.4-10.4) fL Immature Gran % (Auto) % Neut % (Auto) % Lymph % (Auto) % Gray % (Auto) % Eos % (Auto) % Baso % (Auto) % Neut # (Auto) (1.4-6.5) K/uL Lymph # (Auto) (1.2-3.4) K/uL Gray # (Auto) (0.11-0.59) K/uL Eos # (Auto) (0-0.5) K/uL Baso # (Auto) (0-0.2) K/uL Immature Gran # (Auto) (0.00-0.02) K/uL PT (9.0-12.0) Seconds INR (0.9-1.1) APTT (21.0-31.0) Seconds PTT Ratio Sodium 138 (136-145) mmol/L Potassium 3.9 (3.5-5.1) mmol/L Chloride 104 (98-107) mmol/L Carbon Dioxide 32 (21-32) mmol/L Anion Gap 2.0 L (3-11) BUN 52 H (7-18) mg/dl Creatinine 1.93 H (0.6-1.4) mg/dl Est Cr Clr Drug Dosing 21.7 ml/min Est GFR ( Amer) 35.3 ml/min Est GFR (Non-Af Amer) 30.4 ml/min BUN/Creatinine Ratio 27.2 H (10-20) Glucose 291 H (70-99) mg/dl Calcium 9.2 (8.5-10.1) mg/dl Total Bilirubin 0.6 (0.2-1) mg/dl AST 15 (15-37) U/L ALT 17 (12-78) U/L Alkaline Phosphatase 82 (45-117) U/L Troponin I < 0.015 (0-0.045) ng/ml Total Protein 7.1 (6.4-8.2) gm/dl Albumin 3.3 L (3.4-5.0) gm/dl Globulin 3.8 (2.5-4.0) gm/dl Albumin/Globulin Ratio 0.9 (0.9-2) Lipase 333 (73-393) U/L Urine Color Urine Appearance (Clear) Urine pH (4.5-7.5) Ur Specific [place] (1.000-1.030) Urine Protein (Negative) Urine Glucose (UA) (Negative) Urine Ketones (Negative) Urine Blood (Negative) Urine Nitrite (Negative) Urine Bilirubin (Negative) Urine Urobilinogen (Negative) Ur Leukocyte Esterase (Negative) COVID-19 Eval Order Covid19 at [facility] SARS-CoV-2 (PCR) NEGATIVE (Negative) Administered Medications Fentanyl Citrate (Fentanyl Citrate 100 Mcg/2 Ml Vial) 25 mcg IV Q15M PRN PRN Reason: Pain Stop: 03/02/21 07:02 Last Admin: 02/16/21 10:50 Dose: 25 mcg Documented by: [id number] Admin: 02/16/21 07:28 Dose: 25 mcg Documented by: [id number] Discontinued Medications Ondansetron HCl (Ondansetron Inj 2 Mg/Ml 2 Ml Vial) 4 mg IV NOW STA Stop: 02/16/21 07:04 Last Admin: 02/16/21 07:28 Dose: 4 mg Documented by: [id number] Imaging Data Radiologist's Impression: Abdomen/Pelvis CT 02/16/21 07:03 CT OF THE ABDOMEN AND PELVIS WITHOUT CONTRAST CLINICAL HISTORY: Right-sided abdominal pain. COMPARISON STUDY: CT of the abdomen and pelvis December 12, 2020. KUB January 03, 2021. TECHNIQUE: Axial images of the abdomen and pelvis were obtained without IV contrast. Images were reviewed in the axial, sagittal, and coronal planes. Automated exposure control was utilized for the study. A dose lowering technique was utilized adhering to the principles of ALARA. FINDINGS: The 5 mm distal right ureteral calculus is similar position to prior CT. A 4 mm right renal calculus is present. There is no hydronephrosis. A water attenuation left renal lesion favors a cyst. There are no left-sided urinary calculi. Evaluation of the remainder of the abdomen and pelvis is suboptimal on this unenhanced examination. There are gallstones within the gallbladder. There is no evidence for acute cholecystitis. A lateral segment hepatic cyst is noted. The spleen, adrenal glands and pancreas are unremarkable. Is no evidence for a b owel obstruction. This colonic diverticulosis without evidence for acute diverticulitis. The appendix is normal. No acute fracture or suspicious lesion is identified within the visualized skeletal structures. There is no lymphadenopathy. IMPRESSION: 1. No change in position of a 5 mm distal right ureteral calculus since CT of December 12, 2020. No hydronephrosis. 2. 4 mm right renal calculus. 3. Colonic diverticulosis. No evidence for acute diverticulitis. 4. Normal appendix. 5. Cholelithiasis. ACT 112: Negative or not required by law. Electronically signed by: Galindo Mahan M.D. 02/16/2021 9:07 AM Chest X-Ray 02/16/21 07:04 XR chest 1V portable CLINICAL HISTORY: Chest pain. COMPARISON STUDY: Chest radiograph December 04, 2020. FINDINGS: No pneumothorax or pleural effusion is noted. There are median sternotomy wires and mediastinal surgical clips. Cardiomegaly is unchanged. There is no consolidation. There is no evidence for pulmonary edema. Lung volumes are mildly diminished. IMPRESSION: No acute cardiopulmonary findings. Low lung volumes. ACT 112: Negative or not required by law. Electronically signed by: Galindo Mahan M.D. 02/16/2021 7:27 AM Discharge Plan Visit Data Chief Complaint: Flank Pain Stated Complaint: BACK PAIN ED Provider: Toi Boyle Discharge Problem: Intractable low back pain, Kidney stone on right side Patient Disposition: Being Evaluated by Hospitalist Condition: Good Forms Stand Alone Forms: [facility] Prescriptions Prescriptions: No Action ranolazine [Ranexa] 500 mg tablet extended release 12 hr 1,000 mg PO BID Qty: 180 RF: 3 Lantus Solostar U-100 Insulin 100 unit/mL (3 mL) insulin pen 10 unit subcut QPM Qty: 3 RF: 2 cetirizine 10 mg tablet 10 mg PO HS Qty: 90 RF: 3 isosorbide mononitrate 60 mg tablet extended release 24 hr 30 mg PO QAM Qty: 90 RF: 3 glimepiride 1 mg tablet 3 mg PO BID Qty: 540 RF: 3 pramipexole 1 mg tablet 1 mg PO BID 90 Days Qty: 180 RF: 0 cyanocobalamin (vitamin B-12) 1,000 mcg tablet 1,000 mcg PO QAM Qty: 90 RF: 0 rivastigmine 4.6 mg/24 hr patch 24 hour 4.6 mg TD DAILY Qty: 30 RF: 5 gabapentin 300 mg capsule 300 mg PO BID Qty: 60 RF: 5 nitroglycerin 0.4 mg tablet, sublingual 0.4 mg SL Q5M PRN (Reason: chest pain) Qty: 25 RF: 3 metoprolol succinate 50 mg tablet extended release 24 hr 100 mg PO BID RF: 0 atorvastatin 40 mg tablet 40 mg PO HS RF: 0 clopidogrel 75 mg tablet 75 mg PO QAM RF: 0 tamsulosin 0.4 mg capsule 0.4 mg PO HS RF: 0 finasteride 5 mg tablet 5 mg PO QAM RF: 0 aspirin 81 mg Tablet,Delayed Release (Dr/Ec) 81 mg PO QAM RF: 0 furosemide [Lasix] 40 mg tablet 40 mg PO TID RF: 0 Referrals Referrals: Edie Tavares MD [Primary Care Provider] -
[2021-02-16 07:14] LABS: Basophils # (auto) 0.03 K/uL (0-0.2); Basophils % (auto) 0.4 %; Eosinophils # (auto) 0.19 K/uL (0-0.5); Eosinophils % (auto) 2.5 %; Hematocrit (blood only) 38.1 % (42-52); Hemoglobin 12.8 g/dL (14.0-18.0); Immature Granulocytes # (auto) 0.05 K/uL (0.00-0.02); Immature Granulocytes % (auto) 0.7 %; Lymphocytes # (auto) 1.76 K/uL (1.2-3.4); Lymphocytes % (auto) 23.4 %; Mean Corpuscular Hemoglobin 30.7 pg (25-34); Mean Corpuscular Hgb Conc 33.6 g/dL (32-36); Mean Corpuscular Volume 91.4 fL (80-100); Mean Platelet Volume 9.9 fL (7.4-10.4); Monocytes # (auto) 0.91 K/uL (0.11-0.59); Monocytes % (auto) 12.1 %; Neutrophils # (auto) 4.59 K/uL (1.4-6.5); Neutrophils % (auto) 60.9 %; Platelet Count 151 K/uL (130-400); RDW Coefficient of Variation 14.1 % (11.5-14.5); RDW Standard Deviation 47.5 fL (36.4-46.3); Red Blood Count 4.17 M/uL (4.7-6.1); White Blood Count 7.53 K/uL (4.8-10.8)
[2021-02-16 07:21] LABS: Partial Thromboplastin Ratio 0.9; Partial Thromboplastin Time 22.8 Seconds (21.0-31.0); Prothrombin Time 10.1 Seconds (9.0-12.0)
[2021-02-16 07:22] LABS: Alanine Aminotransferase 17 U/L (12-78); Albumin Level 3.3 gm/dl (3.4-5.0); Aspartate Aminotransferase 15 U/L (15-37); BUN Creatinine Ratio 27.2 (10-20); Blood Urea Nitrogen 52 mg/dl (7-18); Calcium 9.2 mg/dl (8.5-10.1); Carbon Dioxide 32 mmol/L (21-32); Chloride 104 mmol/L (98-107); Creatinine Clr Calc Pharmacy 21.7 ml/min; Est GFR (African American) 35.3 ml/min; Est GFR (Non-African American) 30.4 ml/min; Glucose 291 mg/dl (70-99); Lipase 333 U/L (73-393); Potassium 3.9 mmol/L (3.5-5.1); Sodium 138 mmol/L (136-145)
[2021-02-16 07:27] LABS: Albumin Globulin Ratio 0.9 (0.9-2); Alkaline Phosphatase 82 U/L (45-117); Bilirubin,Total 0.6 mg/dl (0.2-1); Globulin 3.8 gm/dl (2.5-4.0); Total Protein 7.1 gm/dl (6.4-8.2); Troponin I < 0.015 ng/ml (0-0.045)
[2021-02-16] MEDS: fentaNYL citrate 100 MCG/2 ML VIAL IV PRN ×2 (07:28→10:50)
--- NOTE | 2021-02-16 07:28 | XRay Report ---
XR chest 1V portable CLINICAL HISTORY: Chest pain. COMPARISON STUDY: Chest radiograph December 04, 2020. FINDINGS: No pneumothorax or pleural effusion is noted. There are median sternotomy wires and mediast inal surgical clips. Cardiomegaly is unchanged. There is no consolidation. There is no evidence for p ulmonary edema. Lung volumes are mildly diminished. IMPRESSION: No acute cardiopulmonary findings. Low lung volumes. ACT 112: Negative or not required by law. Electronically signed by: Galindo Mahan M.D. 02/16/2021 7:27 AM
[2021-02-16 07:49] LABS: Appearance Urine Clear (Clear); Bilirubin Urine Negative (Negative); Blood Urine Negative (Negative); Color Urine Yellow; Glucose Urine UA 3+ (Negative); Ketones Urine Negative (Negative); Leukocyte Esterase Urine Negative (Negative); Nitrite Urine Negative (Negative); Protein Urine Negative (Negative); Specific Gravity Urine 1.012 (1.000-1.030); Urobilinogen Urine Negative (Negative); pH Urine 6.5 (4.5-7.5)
--- NOTE | 2021-02-16 09:08 | CT Scan Report ---
CT OF THE ABDOMEN AND PELVIS WITHOUT CONTRAST CLINICAL HISTORY: Right-sided abdominal pain. COMPARISON STUDY: CT of the abdomen and pelvis December 12, 2020. KUB January 03, 2021. TECHNIQUE: Axial images of the abdomen and pelvis were obtained without IV contrast. Images were revi ewed in the axial, sagittal, and coronal planes. Automated exposure control was utilized for the jyoti dy. A dose lowering technique was utilized adhering to the principles of ALARA. FINDINGS: The 5 mm distal right ureteral calculus is similar position to prior CT. A 4 mm right renal calculus is present. There is no hydronephrosis. A water attenuation left renal lesion favors a cyst . There are no left-sided urinary calculi. Evaluation of the remainder of the abdomen and pelvis is s uboptimal on this unenhanced examination. There are gallstones within the gallbladder. There is no ev idence for acute cholecystitis. A lateral segment hepatic cyst is noted. The spleen, adrenal glands a nd pancreas are unremarkable. Is no evidence for a bowel obstruction. This colonic diverticulosis wit hout evidence for acute diverticulitis. The appendix is normal. No acute fracture or suspicious lesio n is identified within the visualized skeletal structures. There is no lymphadenopathy. IMPRESSION: 1. No change in position of a 5 mm distal right ureteral calculus since CT of December 12, 2020. No hydron ephrosis. 2. 4 mm right renal calculus. 3. Colonic diverticulosis. No evidence for acute diverticulitis. 4. Normal appendix. 5. Cholelithiasis. ACT 112: Negative or not required by law. Electronically signed by: Galindo Mahan M.D. 02/16/2021 9:07 AM
--- NOTE | 2021-02-16 10:02 | Electrocardiogram Report ---
Test Reason : Blood Pressure : / mmHG Vent. Rate : 072 BPM Atrial Rate : 072 BPM P-R Int : 200 ms QRS Dur : 142 ms QT Int : 460 ms P-R-T Axes : 057 025 019 degrees QTc Int : 503 ms Poor data quality, interpretation may be adversely affected Normal sinus rhythm Possible Left atrial enlargement Right bundle branch block Abnormal ECG When compared with ECG of 04-DEC-2020 13:12, No significant change was found Confirmed by Freddy Ramirez ([id number]) on 02/16/2021 10:01:58 AM Referred By: REFERRED SELF Confirmed By:Freddy Ramirez
[2021-02-16] MEDS ORDERED: GLUCOSE 40% GEL 15 GM TUBE PO PRN (12:55)
[2021-02-16] MEDS ORDERED: CARBOHYDRATES FOR HYPOGLYCEMIA PO PRN (12:55)
[2021-02-16] MEDS ORDERED: DEXTROSE 50% 50 ML SYRINGE IV PRN (12:55)
[2021-02-16] MEDS ORDERED: GLUCAGON FOR INJ 1 MG VIAL SQ PRN (12:55)
[2021-02-16] MEDS ORDERED: GLUCOSE 10 TABS/TUBE PO PRN (12:55)
--- NOTE | 2021-02-16 12:55 | History & Physical Report ---
Date of Service February 16, 2021 Assessment & Plan (1) Back pain: Plan: 85 y/o M with an extensive medical history including dementia, BPH, HTN, HLD, DM, CKD IV, CAD with chronic CP, diastolic CHF. The pt has a chronic distal ureteral calculus. He presents with a primary complaint of severe back pain. The pain is primarily limited to the R lower back. As a result of the pain he is not able to ambulate, whereas he normally mobilizes with a walker. He has not had fevers or rigors. He is accustomed to some pain due to his calculus but states that the pain he is experiencing feels different. Labs are at baseline. A CT abdomen confirmed the presence of a 5 mm distal right ureteral calculus. 1) Back pain - unclear if this is related to his calculus or a new issue. A lumbar MRI is pending therefore. He will be evaluated by his urologist as due to his complex medical history, he was told that if the stone needs extraction, he may need to be transferred to a tertiary center for the procedure. Pt may need rehab placement and would consult PT contingent on MRI result. 2) CAD - no evidence of ACS - cont ASA, Plavix, metoprolol, Ranexa, Imdur, NTG PRN 3) CHF - euvolemic on admission - cont Lasix, metoprolol 4) CKD IV - renal function is at baseline 5) DM - sliding scale 6) HTN, HLD - cont statin, metoprolol, Imdur Full code - Heparin prophylaxis Total time for this admit including review of labs, meds, imaging, records - discussion with pt, , ER attedning - 50 min (2) CKD (chronic kidney disease) stage 4, GFR 15-29 ml/min: (3) Alzheimer's dementia: (4) CAD (coronary artery disease): (5) Diastolic CHF: (6) Ureteral calculi: History of Present Illness Chief Complaint: Back pain Primary Care Provider: Edie Tavares MD 85 y/o M with an extensive medical history including dementia, BPH, HTN, HLD, DM, CKD IV, CAD with chronic CP, diastolic CHF. The pt has a chronic distal ureteral calculus. He presents with a primary complaint of severe back pain. The pain is primarily limited to the R lower back. As a result of the pain he is not able to ambulate, whereas he normally mobilizes with a walker. He has not had fevers or rigors. He is accustomed to some pain due to his calculus but states that the pain he is experiencing feels different. Labs are at baseline. A CT abdomen confirmed the presence of a 5 mm distal right ureteral calculus. PMH: 1) HTN 2) HLD 3) DM II 4) BPH 5) Dementia 6) CAD - chronic CP - takes Ranexa 7) Diastolic CHF 8) CKD IV 9) Hard of hearing 10) Carotid stenosis 11) TIA Surgical: 1) CABG 2) Cholecystectomy 3) Hemorrhoidectomy Social: Does not drink or smoke Family: Noncontributory Allergies Allergy/AdvReac Type Severity Reaction Status Date / Time No Known Allergies Allergy Verified 12/12/20 15:52 Home Medications Medication Instructions Recorded Confirmed Type cyanocobalamin (vitamin B-12) 1,000 mcg PO QAM #90 tab 01/03/19 02/16/21 History 1,000 mcg tablet aspirin 81 mg tablet,delayed 81 mg PO QAM 06/13/19 02/16/21 History release nitroglycerin 0.4 mg sublingual 0.4 mg SL Q5M PRN #25 tab 05/16/20 02/16/21 Rx tablet atorvastatin 40 mg tablet 40 mg PO HS 06/18/20 02/16/21 History clopidogrel 75 mg tablet 75 mg PO QAM 06/18/20 02/16/21 History finasteride 5 mg tablet 5 mg PO QAM 06/18/20 02/16/21 History tamsulosin 0.4 mg capsule 0.4 mg PO HS 06/18/20 02/16/21 History gabapentin 300 mg capsule 300 mg PO BID #60 cap 09/24/20 02/16/21 Rx rivastigmine 4.6 mg TD DAILY #30 ea 09/24/20 02/16/21 Rx ranolazine 500 mg tablet,extended 1,000 mg PO BID #180 tab 10/16/20 02/16/21 Rx release,12 hr (Ranexa) metoprolol succinate 50 mg 100 mg PO BID tab 10/26/20 02/16/21 History tablet,extended release 24 hr insulin glargine 100 unit/mL (3 10 unit SUBCUT QPM #3 ml 11/09/20 02/16/21 Rx mL) subcutaneous pen (Lantus Solostar U-100 Insulin) cetirizine 10 mg tablet 10 mg PO HS #90 tab 11/14/20 02/16/21 Rx isosorbide mononitrate 60 mg 30 mg PO QAM #90 tab 11/26/20 02/16/21 Rx tablet,extended release 24 hr glimepiride 1 mg tablet 3 mg PO BID #540 tab 11/28/20 02/16/21 Rx pramipexole 1 mg tablet 1 mg PO BID 90 Days #180 tab 01/31/21 02/16/21 Rx furosemide 40 mg tablet (Lasix) 40 mg PO TID 02/16/21 02/16/21 History Past Med/Surg History Medical History Alzheimer's dementia Anemia Benign prostatic hyperplasia with urinary obstruction Bilateral hearing loss Chronic diastolic CHF (congestive heart failure) Chronic kidney disease, stage III (moderate) CKD (chronic kidney disease) stage 4, GFR 15-29 ml/min Coronary artery disease COVID-19 virus infection Diabetic polyneuropathy Essential hypertension Essential tremor Hyperlipidemia Nephrolithiasis Past myocardial infarction Peripheral vascular disease Restless leg syndrome Type 2 diabetes mellitus Uncontrolled diabetes mellitus Vitamin D deficiency Surgical History H/O hemorrhoidectomy H/O shoulder surgery Hx of CABG S/P cholecystectomy S/P coronary artery stent placement S/P cystoscopy Family History Mother , age 88 of heart issues Heart disease Father , age 52 of silicosis Lung disease Social History Smoking Status: Former smoker Number of Years Since Quit: 50; Hx Alcohol Use: No Hx Substance Use: No Preferred Language: Tristanian Communication Ability: Effective Visual Impairment: No Limitations 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 Feels Safe at Home: Yes Assistive Devices: Hearing Aid - Bilateral and Oxygen - Continuous Review of Systems Review of Systems: Gen: Denies fevers, night sweats, rigors, fatigue, malaise, weight loss/gain ENT: Denies congestion, throat pain, hearing loss Eyes: Denies acute visual changes CV: Denies CP, palpitations Pulmonary: Denies SOB, cough, wheezing GI: Denies N/V, diarrhea, constipation Neuro: Denies acute or unilateral weakness, acute gait impairment, headache or acute visual changes Musculoskeletal: Severe intermittent back pain and difficulty ambulating Endocrine: Denies polydipsia, polyuria Skin: Denies acute rashes or ulcers Physical Exam Physical Exam: General: Pleasant, elderly M, AAO - distress due to back pain comes in waves ENT: No erythema or exudates, no thrush Eyes: ZEB, EOMI Head and neck: Normocephalic, atraumatic, No JVD, neck is supple. Chest/heart: Nontender, S1,2, + systolic murmur, RRR Lungs: CTAB, no wheezing or crackles Abdomen: Nontender, nondistended, BS+ - could not elicit CVA tenderness Neuro: AAO x 3, speech is clear, no unilateral weakness or loss of sensation, coordination intact Musculoskeletal: Was not tender to palpation over lower back Skin: No acute rashes or ulcers Extremities: No clubbing, cyanosis. +3 BL edema Results & Data Results & Data ([facility]) Vital Signs (Past 12 Hours) Vital Signs Temp Pulse Pulse Resp BP BP Pulse Ox 02/16/21 12:17 67 18 130/52 L 96 02/16/21 11:00 77 16 108/58 L 97 02/16/21 09:51 98.2 F 77 15 113/55 L 98 02/16/21 08:32 70 18 120/82 92 02/16/21 08:00 74 16 112/53 L 02/16/21 07:19 97 02/16/21 07:18 70 20 121/59 L 97 02/16/21 07:01 75 14 121/59 L 97 02/16/21 06:30 97.9 F 76 16 137/[address] abdomen: 5 mm distal right ureteral calculus is similar position to prior CT. Code Status & VTE Plan VTE Prophylaxis Plan VTE Prophylaxis will be ordered: Yes PG Care Time/CCT Total # of Minutes Spent Total Time Spent with Patient: Total time spent is greater than 50% in coordination of care (as documented) at patient's floor/unit and/or counseling patient: Coding Level of Care Code 50161 Initial Inpt Care Lvl 3 Diagnoses Back pain M54.9 CKD (chronic kidney disease) stage 4, GFR 15-29 ml/min N18.4 Alzheimer's dementia G30.9; F02.80 CAD (coronary artery disease) I25.10 Diastolic CHF I50.30 Ureteral calculi N20.1
[2021-02-16] MEDS ORDERED: NITROGLYCERIN SL 0.4 MG/TAB TAB SL PRN (14:35)
[2021-02-16] MEDS ORDERED: HYDROmorphone INJ 0.5 MG/0.5 ML SYR IV PRN (14:35)
[2021-02-16] MEDS: INSULIN ASPART 100 UNITS/ML 3 ML PEN SC SCH ×2 (18:22→21:06)
--- NOTE | 2021-02-16 19:23 | Magnetic Resonance Report ---
MRI OF THE LUMBAR SPINE WITHOUT CONTRAST CLINICAL HISTORY: Back pain, immobile COMPARISON STUDY: No previous studies for comparison. TECHNIQUE: Utilizing a 1.5 Angelina magnet and dedicated coil, multiplanar, [facility] was performed without IV contrast. FINDINGS: For purposes of numbering on this exam, the L5-S1 disc space is assigned to axial image 23 of 25. Ali gnment of lumbar spine is anatomic. There is mild loss of height of the superior endplate of L4 with associated linear T1 and T2 hypointense signal. There is marrow edema within the STIR sequence. No ad ditional compression fractures are present. There is no intracanalicular mass or fluid collection. Th e conus terminates at the upper L1 level. Paravertebral soft tissues are unremarkable. There is no celeste spicious marrow replacement. L1-2: The central canal and neural foramen are patent. L2-3: There is disc bulge with ligamentous hypertrophy and facet arthrosis. There is a small superimp osed left paracentral disc protrusion. There is moderate narrowing of the left lateral recess and mil d narrowing of the central canal. The neural foramen are patent. L3-4: There is mild disc bulge and ligamentous hypertrophy with facet arthrosis is present. There is mild narrowing of the central canal, lateral recesses. Neural foramen are patent. L4-5: There is disc bulge with severe facet arthrosis and ligamentous hypertrophy. There is moderate narrowing of the central canal and lateral recesses. There is mild narrowing of both neural foramen. L5-S1: There is marked disc space narrowing. There is disc bulge. Facet arthrosis is present. Central canal is patent. There is mild narrowing of the central canal. There is moderate narrowing of both n eural foramen. IMPRESSION: 1. Acute mild compression fracture of the superior endplate of L4. Mild loss of vertebral body height . No retropulsion. 2. Multilevel facet arthrosis and degenerative disc disease within lumbar spine. Moderate central can al stenosis at L4-L5. ACT 112: Negative or not required by law. Electronically signed by: Galindo Mahan M.D. 02/16/2021 7:22 PM
--- NOTE | 2021-02-16 19:55 | Urology Consultation ---
Date of Consultation February 16, 2021 Assessment & Plan (1) Kidney stone on right side: Patient has been admitted to the hospital in the hospital service proceeding as follows: Analgesics will be provided Antiemetics will be provided Patient is receiving Flomax for expulsive therapy Recommend hydrating with IV fluids As the patient does not appear to be in acute renal failure, and has no evidence of sepsis as he does not have leukocytosis or fever there is no need for acute urologic intervention at the present time. Does appear that his pain has improved and for the most part resolved at this time. Certainly his new acute compression fracture could be an element that is contributing to his pain. We will continue to follow along with the patient is hospitalized History of Present Illness Reason for Consultation: Nephrolithiasis Attending Physician: Miguel Peck MD History of Present Illness This is an 85-year-old male who presented to [facility] emergency department secondary to severe back pain. Patient says that the pain is located in his lower back more pronounced on the right side. He says it does not radiate to his abdomen. He denies any fevers, shakes, chills. He denies any nausea or vomiting. Denies any palliative or provocative factors of his pain. Patient does have a known history of kidney stones and notes he typically has an element of back pain but notes that pain today is somewhat more severe. Today he had labs and imaging which independently reviewed. He did have a CT scan of the abdomen pelvis that showed a 5 mm distal right ureteral stone that is unchanged since November of this year. No hydronephrosis was noted he was noted to have a 4 mm right renal stone as well. A chest x-ray showed no evidence of pneumonia. Patient did have a lumbar spine MRI that showed an acute compression fracture at the L4 region. Labs included a CBC where his white blood cell count was not elevated. Platelet count was noted to be within normal range. His hemoglobin and hematocrit were 12.8 and 38.1 respectively. Chemistry profile showed sodium and potassium were both normal. His BUN and creatinine were elevated at 52 and 1.9 but these were near his baseline levels. Urinalysis was not indicative of infection and a Covid test was negative. At the time of my interview the patient was resting comfortably in bed and his pain appeared resolved at this time Allergies Allergy/AdvReac Type Severity Reaction Status Date / Time No Known Allergies Allergy Verified 12/12/20 15:52 Home Medications Medication Instructions Recorded Confirmed Type cyanocobalamin (vitamin B-12) 1,000 mcg PO QAM #90 tab 01/03/19 02/16/21 History 1,000 mcg tablet aspirin 81 mg tablet,delayed 81 mg PO QAM 06/13/19 02/16/21 History release nitroglycerin 0.4 mg sublingual 0.4 mg SL Q5M PRN #25 tab 05/16/20 02/16/21 Rx tablet atorvastatin 40 mg tablet 40 mg PO HS 06/18/20 02/16/21 History clopidogrel 75 mg tablet 75 mg PO QAM 06/18/20 02/16/21 History finasteride 5 mg tablet 5 mg PO QAM 06/18/20 02/16/21 History tamsulosin 0.4 mg capsule 0.4 mg PO HS 06/18/20 02/16/21 History gabapentin 300 mg capsule 300 mg PO BID #60 cap 09/24/20 02/16/21 Rx rivastigmine 4.6 mg TD DAILY #30 ea 09/24/20 02/16/21 Rx ranolazine 500 mg tablet,extended 1,000 mg PO BID #180 tab 10/16/20 02/16/21 Rx release,12 hr (Ranexa) metoprolol succinate 50 mg 100 mg PO BID tab 10/26/20 02/16/21 History tablet,extended release 24 hr insulin glargine 100 unit/mL (3 10 unit SUBCUT QPM #3 ml 11/09/20 02/16/21 Rx mL) subcutaneous pen (Lantus Solostar U-100 Insulin) cetirizine 10 mg tablet 10 mg PO HS #90 tab 11/14/20 02/16/21 Rx isosorbide mononitrate 60 mg 30 mg PO QAM #90 tab 11/26/20 02/16/21 Rx tablet,extended release 24 hr glimepiride 1 mg tablet 3 mg PO BID #540 tab 11/28/20 02/16/21 Rx pramipexole 1 mg tablet 1 mg PO BID 90 Days #180 tab 01/31/21 02/16/21 Rx furosemide 40 mg tablet (Lasix) 40 mg PO TID 02/16/21 02/16/21 History Patient History Medical History Alzheimer's dementia Anemia Benign prostatic hyperplasia with urinary obstruction Bilateral hearing loss Chronic diastolic CHF (congestive heart failure) Chronic kidney disease, stage III (moderate) CKD (chronic kidney disease) stage 4, GFR 15-29 ml/min Coronary artery disease COVID-19 virus infection Diabetic polyneuropathy Essential hypertension Essential tremor Hyperlipidemia Nephrolithiasis Past myocardial infarction Peripheral vascular disease Restless leg syndrome Type 2 diabetes mellitus Uncontrolled diabetes mellitus Vitamin D deficiency Surgical History H/O hemorrhoidectomy H/O shoulder surgery Hx of CABG S/P cholecystectomy S/P coronary artery stent placement S/P cystoscopy Family History Mother , age 88 of heart issues Heart disease Father , age 52 of silicosis Lung disease Social History Smoking Status: Former smoker Number of Years Since Quit: 50; Second Hand Exposure: No; Hx Alcohol Use: No Hx Substance Use: No Preferred Language: [place] Communication Ability: [place] Visual Impairment: No Limitations Campus Safety Officer Required: No Beliefs That Will Affect Care: None marital status: Current Living Situation: Spouse and Other Current Living Situation Comment: Home with and son. 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 Feels Safe at Home: Yes Assistive Devices: Walker Review of Systems Constitutional: no fever Eyes: no diplopia Ear, Nose, Mouth, Throat: + hearing loss Respiratory: no cough Cardiovascular: no chest pain Gastrointestinal: no abdominal pain, no nausea and no vomiting Genitourinary: no dysuria Musculoskeletal: + back pain Integumentary: no rash Neurologic: no localized weakness Physical Exam Constitutional: well developed and well nourished; no acute distress Eyes: no conjunctival abnormality ENMT: Ears: + hearing impairment Neck: trachea midline Respiratory: normal respiratory effort; no respiratory distress and no labored breathing Cardiovascular: Rate/Rhythm: regular rate and regular rhythm Gastrointestinal (Abdomen): Abdomen is soft and nondistended. Palpation did not cause pain Musculoskeletal: No calf tenderness Skin: no rashes Neurologic: moves all extremities Genitourinary: no CVA tenderness Results & Data ([facility]) Vital Signs (Past 12 Hours) Vital Signs Temp Pulse Pulse Resp BP BP Pulse Ox 02/16/21 14:15 36.4 C L 67 16 128/71 94 02/16/21 14:00 36.7 C 61 16 122/59 L 98 02/16/21 12:17 67 18 130/52 L 96 02/16/21 11:00 77 16 108/58 L 97 02/16/21 09:51 36.8 C 77 15 113/55 L 98 02/16/21 08:32 70 18 120/82 92 02/16/21 08:00 74 16 112/53 L PG Care Time/CCT Total # of Minutes Spent Total Time Spent with Patient: Total time spent is greater than 50% in coordination of care (as documented) at patient's floor/unit and/or counseling patient: Coding Level of Care Code 78795 Inpt Consult Level 5 Diagnoses Kidney stone on right side N20.0
[2021-02-16] MEDS: ATORVASTATIN 40 MG TAB PO SCH (21:05)
[2021-02-16] MEDS: FUROSEMIDE 40 MG TAB PO SCH (21:06)
[2021-02-16] MEDS: HEPARIN SOD 5,000 UNIT/0.5 ML VIAL SQ SCH (21:06)
[2021-02-16] MEDS: CETIRIZINE HCL 10 MG TABLET PO SCH (21:06)
[2021-02-16] MEDS: GABAPENTIN 300 MG CAP PO SCH (21:06)
[2021-02-16] MEDS: TAMSULOSIN HCL 0.4 MG CAP PO SCH (21:07)
[2021-02-16] MEDS: PRAMIPEXOLE DIHYDROCHLO 0.5 MG TAB PO SCH (21:07)
[2021-02-16] MEDS: INSULIN GLARGINE SOLOSTAR 100 UNITS/ML 3 ML PEN SQ SCH (21:07)
[2021-02-16] MEDS: RANOLAZINE 500 MG ER TAB PO SCH (21:07)
[2021-02-16] MEDS: METOPROLOL SUCC 50MG EXT REL TAB PO SCH (21:14)
[2021-02-17] MEDS: INSULIN ASPART 100 UNITS/ML 3 ML PEN SC SCH ×4 (08:56→20:53)
[2021-02-17] MEDS: ASPIRIN 81 MG ECTAB PO SCH (08:58)
[2021-02-17] MEDS: METOPROLOL SUCC 50MG EXT REL TAB PO SCH ×2 (08:58→20:50)
[2021-02-17] MEDS: GABAPENTIN 300 MG CAP PO SCH ×2 (08:58→20:50)
[2021-02-17] MEDS: PRAMIPEXOLE DIHYDROCHLO 0.5 MG TAB PO SCH ×2 (08:58→20:52)
[2021-02-17] MEDS: CLOPIDOGREL BISULFATE 75 MG TAB PO SCH (08:58)
[2021-02-17] MEDS: CYANOCOBALAMIN 500 MCG TABLET (VITAMIN B-12) PO SCH (08:58)
[2021-02-17] MEDS: ISOSORBIDE MONO EXTENDED REL 30 MG TABCR PO SCH (08:58)
[2021-02-17] MEDS: FINASTERIDE 5 MG TAB PO SCH (08:58)
[2021-02-17] MEDS: RANOLAZINE 500 MG ER TAB PO SCH ×2 (08:58→20:52)
[2021-02-17] MEDS: FUROSEMIDE 40 MG TAB PO SCH ×2 (08:58→20:50)
[2021-02-17] MEDS: HEPARIN SOD 5,000 UNIT/0.5 ML VIAL SQ SCH ×2 (08:59→20:52)
--- NOTE | 2021-02-17 20:18 | Hospitalist Progress Note ---
Date of Service February 17, 2021 Assessment & Plan (1) Back pain: Plan: 85 y/o M with an extensive medical history including dementia, BPH, HTN, HLD, DM, CKD IV, CAD with chronic CP, diastolic CHF. The pt has a chronic distal ureteral calculus. He presents with a primary complaint of severe back pain. The pain is primarily limited to the R lower back. As a result of the pain he is not able to ambulate, whereas he normally mobilizes with a walker. He has not had fevers or rigors. He is accustomed to some pain due to his calculus but states that the pain he is experiencing feels different. Labs are at baseline. A CT abdomen confirmed the presence of a 5 mm distal right ureteral calculus. 1) Back pain -while initially the differential was fairly broad, the pain does not seem to be related to the kidney stone given that its been there, is unchanged, and his pain is really more in his back than his flank or abdomen. There was concern about whether or not this compression fracture may be causing pain, but given that the pain is really more SI/buttock region and he has no bony tenderness, it seems very unlikely that is part of the problem. Highly likely biomechanicalmostly in the region of gluteus minimus. PT/OT eval and treat. Consider trial of OMT. Voltaren gel to the region. 2) CAD -asymptomatic, continue his home meds- cont ASA, Plavix, metoprolol, Ranexa, Imdur, NTG PRN 3) CHF -clinically appearing euvolemic- cont Lasix, metoprolol 4) CKD IV - renal function is at baseline 5) DM -on Lantus and log. Sugars appear to be running a little sweetwill tighten log coverage. 6) HTN, HLD - cont statin, metoprolol, Imdur Full code - Heparin prophylaxis PT/OT eval and treat, dispo depending on further pain improvement and his ability to mobilizehopefully home. (2) CKD (chronic kidney disease) stage 4, GFR 15-29 ml/min: (3) Alzheimer's dementia: (4) CAD (coronary artery disease): (5) Diastolic CHF: (6) Ureteral calculi: Admission and Anticipated Discharge Date Admission Date: February 16, 2021 Subjective back pain feeling better and a little looser. able to move a little better. no other new complaints Review of Systems Review of Systems: All systems reviewed & are unremarkable except as noted in HPI & below Physical Exam Physical Exam: gen aao pleasant very hard of hearing - hears best if spoken to loudly in R ear. No distress. Breathing unlabored no accessory muscle use good effort. Skin shows no rashes no pallor or icterus. Absolutely no bony tenderness palpation of L-spine. He does have a little bit of tenderness palp ation of right-sided buttock musculaturein the region of gluteus minimus more so than piriformis. Results & Data Results & Data ([facility]) Vital Signs (Past 12 Hours) Vital Signs Temp Pulse Resp BP Pulse Ox 02/17/21 15:12 97.9 F 64 16 106/64 94 PG Care Time/CCT Total # of Minutes Spent Total Time Spent with Patient: Total time spent is greater than 50% in coordination of care (as documented) at patient's floor/unit and/or counseling patient: Coding Level of Care Code 12442 Subseq Hosp Care Lvl 2 Diagnoses Back pain M54.9 CKD (chronic kidney disease) stage 4, GFR 15-29 ml/min N18.4 Alzheimer's dementia G30.9; F02.80 CAD (coronary artery disease) I25.10 Diastolic CHF I50.30 Ureteral calculi N20.1
[2021-02-17] MEDS: ATORVASTATIN 40 MG TAB PO SCH (20:50)
[2021-02-17] MEDS: CETIRIZINE HCL 10 MG TABLET PO SCH (20:50)
[2021-02-17] MEDS: TAMSULOSIN HCL 0.4 MG CAP PO SCH (20:52)
[2021-02-17] MEDS: INSULIN GLARGINE SOLOSTAR 100 UNITS/ML 3 ML PEN SQ SCH (20:52)
[2021-02-17] MEDS: DICLOFENAC SOD 1% GEL 100 GM TUBE EXT SCH (21:01)
[2021-02-18] MEDS: METOPROLOL SUCC 50MG EXT REL TAB PO SCH ×2 (08:19→20:57)
[2021-02-18] MEDS: PRAMIPEXOLE DIHYDROCHLO 0.5 MG TAB PO SCH ×2 (08:20→20:58)
[2021-02-18] MEDS: RANOLAZINE 500 MG ER TAB PO SCH ×2 (08:20→20:58)
[2021-02-18] MEDS: ISOSORBIDE MONO EXTENDED REL 30 MG TABCR PO SCH (08:20)
[2021-02-18] MEDS: GABAPENTIN 300 MG CAP PO SCH ×2 (08:21→20:54)
[2021-02-18] MEDS: FUROSEMIDE 40 MG TAB PO SCH ×2 (08:21→20:54)
[2021-02-18] MEDS: HEPARIN SOD 5,000 UNIT/0.5 ML VIAL SQ SCH ×2 (08:21→20:55)
[2021-02-18] MEDS: FINASTERIDE 5 MG TAB PO SCH (08:22)
[2021-02-18] MEDS: ASPIRIN 81 MG ECTAB PO SCH (08:23)
[2021-02-18] MEDS: DICLOFENAC SOD 1% GEL 100 GM TUBE EXT SCH ×4 (08:23→20:54)
[2021-02-18] MEDS: CYANOCOBALAMIN 500 MCG TABLET (VITAMIN B-12) PO SCH (08:23)
[2021-02-18] MEDS: CLOPIDOGREL BISULFATE 75 MG TAB PO SCH (08:23)
[2021-02-18] MEDS: RIVASTIGMINE PATCH TD SCH (08:24)
[2021-02-18] MEDS: INSULIN ASPART 100 UNITS/ML 3 ML PEN SC SCH ×4 (08:44→20:56)
[2021-02-18] MEDS: POLYETHYLENE (MIRALAX) 17 GM PACK PO SCH (09:39)
--- NOTE | 2021-02-18 15:36 | Hospitalist Progress Note ---
Date of Service February 18, 2021 Assessment & Plan (1) Intractable low back pain: Plan: 85 y/o M with an extensive medical history including dementia, BPH, HTN, HLD, DM, CKD IV, CAD with chronic CP, diastolic CHF. The pt has a chronic distal ureteral calculus. He presents with a primary complaint of severe back pain. Back pain, right lower As a result of the pain he is not able to ambulate, whereas he normally mobilizes with a walker. He has not had fevers or rigors. Labs are at baseline. A CT abdomen confirmed the presence of a 5 mm distal right ureteral calculus. Unlikely related to kidney stone as the location is unchanged, and the pain is more in his back. Pain could be radicular due to L4 compression fracture seen on MRI although given that the location is SI/buttock and no bony tenderness. - PT OT ordered - continue Voltaren and Gabapentin - discontinued IV Dilaudid - started Ibuprofen 600mg QAM CAD - asymptomatic - cont ASA, Plavix, metoprolol, Ranexa, Imdur, NTG PRN Chronic CHF clinically appearing euvolemic - cont Lasix, metoprolol CKD IV - renal function is at baseline - continue to trend DM II -on Lantus and log - continue to follow and adjust as needed HTN, HLD - cont statin, metoprolol, Imdur GI prophylaxis: started Famotidine (given NSAID's) DVT prophylaxis: Heparin Code: full PT/OT eval. and treat, dispo. depending on further pain improvement and his ability to mobilizepotentially home vs. rehab. (2) CAD (coronary artery disease): (3) Diastolic CHF: (4) Essential hypertension: (5) Hyperlipidemia: Admission and Anticipated Discharge Date Admission Date: February 16, 2021 Supervising Physician Co-Signing Physician Notes Resident Physician Supervision Note: I independently interviewed and examined the patient and verified the causey history and physical, reviewed labs and image studies and agree with resident Dr. Chavarria findings and care plan. Subjective Dae Stanley is doing okay this morning. He is having severe pain with movement of his lower extremity. His pain is at his lower back as well as his left anterior hip. He was noting some spasm in his left leg when it was extended that resolved with flexion of the legs. Review of Systems Review of Systems: Constitutional: denies fever; admits chills (improved with a blanket) Cardaic: denies chest pain, palpitations GI: admits constipation Pulm: denies cough, shortness of breath Physical Exam Constitutional: WD/WN, vitals as above Eyes: PERRL, conjunctivae normal, anicteric sclerae Neck: normal visual inspection Respiratory: normal respiratory effort, lungs clear to auscultation Cardiovascular: RRR, no murmur, no edema - Estrada's negative Gastrointestinal (Abdomen): normal bowel sounds, soft, nontender, no hepatosplenomegaly Musculoskeletal: - TTP of the right lower back over SI, along with left anterior hip Results & Data Results & Data ([facility]) Vital Signs (Past 12 Hours) Vital Signs Temp Pulse Resp BP Pulse Ox 02/18/21 09:25 36.3 C L 91/51 L 02/18/21 07:23 36.1 C L 55 L 16 92/52 L 93
[2021-02-18] MEDS: ATORVASTATIN 40 MG TAB PO SCH (20:53)
[2021-02-18] MEDS: CETIRIZINE HCL 10 MG TABLET PO SCH (20:53)
[2021-02-18] MEDS: INSULIN GLARGINE SOLOSTAR 100 UNITS/ML 3 ML PEN SQ SCH (20:56)
[2021-02-18] MEDS: TAMSULOSIN HCL 0.4 MG CAP PO SCH (20:59)
[2021-02-19 06:46] LABS: Basophils # (auto) 0.03 K/uL (0-0.2); Basophils % (auto) 0.4 %; Eosinophils # (auto) 0.19 K/uL (0-0.5); Eosinophils % (auto) 2.7 %; Hematocrit (blood only) 35.4 % (42-52); Immature Granulocytes # (auto) 0.03 K/uL (0.00-0.02); Immature Granulocytes % (auto) 0.4 %; Lymphocytes # (auto) 2.59 K/uL (1.2-3.4); Lymphocytes % (auto) 36.8 %; Mean Corpuscular Hemoglobin 30.7 pg (25-34); Mean Corpuscular Hgb Conc 33.9 g/dL (32-36); Mean Corpuscular Volume 90.5 fL (80-100); Mean Platelet Volume 9.9 fL (7.4-10.4); Monocytes # (auto) 0.67 K/uL (0.11-0.59); Monocytes % (auto) 9.5 %; Neutrophils # (auto) 3.53 K/uL (1.4-6.5); Neutrophils % (auto) 50.2 %; Platelet Count 145 K/uL (130-400); RDW Coefficient of Variation 14.2 % (11.5-14.5); RDW Standard Deviation 47.1 fL (36.4-46.3); Red Blood Count 3.91 M/uL (4.7-6.1); White Blood Count 7.04 K/uL (4.8-10.8)
[2021-02-19 07:10] LABS: BUN Creatinine Ratio 24.2 (10-20); Calcium 9.1 mg/dl (8.5-10.1); Creatinine Clr Calc Pharmacy 20.8 ml/min; Est GFR (African American) 33.6 ml/min; Potassium 4.3 mmol/L (3.5-5.1)
[2021-02-19] MEDS: ASPIRIN 81 MG ECTAB PO SCH (08:34)
[2021-02-19] MEDS: DICLOFENAC SOD 1% GEL 100 GM TUBE EXT SCH ×4 (08:35→20:41)
[2021-02-19] MEDS: CYANOCOBALAMIN 500 MCG TABLET (VITAMIN B-12) PO SCH (08:35)
[2021-02-19] MEDS: CLOPIDOGREL BISULFATE 75 MG TAB PO SCH (08:35)
[2021-02-19] MEDS: FUROSEMIDE 40 MG TAB PO SCH ×2 (08:37→20:41)
[2021-02-19] MEDS: FINASTERIDE 5 MG TAB PO SCH (08:37)
[2021-02-19] MEDS: GABAPENTIN 300 MG CAP PO SCH ×2 (08:38→20:40)
[2021-02-19] MEDS: HEPARIN SOD 5,000 UNIT/0.5 ML VIAL SQ SCH ×2 (08:38→20:41)
[2021-02-19] MEDS: ISOSORBIDE MONO EXTENDED REL 30 MG TABCR PO SCH (08:39)
[2021-02-19] MEDS: POLYETHYLENE (MIRALAX) 17 GM PACK PO SCH (08:40)
[2021-02-19] MEDS: METOPROLOL SUCC 50MG EXT REL TAB PO SCH (08:40)
[2021-02-19] MEDS: PRAMIPEXOLE DIHYDROCHLO 0.5 MG TAB PO SCH ×2 (08:41→20:40)
[2021-02-19] MEDS: RANOLAZINE 500 MG ER TAB PO SCH ×2 (08:41→20:40)
[2021-02-19] MEDS: RIVASTIGMINE PATCH TD SCH (08:42)
[2021-02-19] MEDS: FAMOTIDINE 20 MG TAB PO SCH (08:48)
[2021-02-19] MEDS ORDERED: IBUPROFEN 600 MG TAB PO SCH (09:00)
[2021-02-19] MEDS: INSULIN ASPART 100 UNITS/ML 3 ML PEN SC SCH ×4 (09:11→20:45)
--- NOTE | 2021-02-19 17:06 | Hospitalist Progress Note ---
Date of Service February 19, 2021 Assessment & Plan (1) Back pain: Plan: 85 y/o M with an extensive medical history including dementia, BPH, HTN, HLD, DM, CKD IV, CAD with chronic CP, diastolic CHF. The pt has a chronic distal ureteral calculus. He presents with a primary complaint of severe back pain. Back pain, right lower Nontraumatic(Osteoporotic) L4 compression fracture As a result of the pain he is not able to ambulate, whereas he normally mobilizes with a walker. He has not had fevers or rigors. Labs are at baseline. A CT abdomen confirmed the presence of a 5 mm distal right ureteral calculus. Unlikely related to kidney stone as the location is unchanged, and the pain is more in his back. Pain could be radicular due to L4 compression fracture seen on MRI although given that the location is SI/buttock and no bony tenderness. - PT OT ordered - continue Voltaren and Gabapentin - discontinued IV Dilaudid CAD - asymptomatic - cont ASA, Plavix, Ranexa, NTG PRN - Metoprolol and Imdur held due to hypotension Chronic CHF clinically appearing euvolemic - cont. Lasix - metoprolol held due to hypotension CKD IV - renal function is at baseline - continue to trend DM II - on Lantus and log - continue to follow and adjust as needed HTN, HLD - cont statin - held metoprolol and Imdur as above DVT prophylaxis: Heparin Code: full PT/OT eval. and treat, dispo. depending on further pain improvement and his ability to mobilizepotentially home vs. rehab. (2) Essential hypertension: (3) Restless leg syndrome: (4) Congestive heart failure, diastolic, left, w/preserved LV function, NYHA class 4: Admission and Anticipated Discharge Date Admission Date: February 16, 2021 Supervising Physician Co-Signing Physician Notes Resident Physician Supervision Note: I independently interviewed and examined the patient and verified the causey history and physical, reviewed labs and image studies and agree with resident Dr. Chavarria findings and care plan. Subjective Dae Stanley is doing, "alright" this morning. He was having pain when he was moving 4-5/10 in his lower back. I called his Vanessa today and discussed that PT had rec. rehab and she brought up that Dae would not be willing to go to a rehab facility. She was open to talking more about this and will be here tomorr ow at 2PM. Review of Systems Review of Systems: Constitutional: denies fevers Cardiac: denies chest pain : denies urinary pain, frequency, urgency Pulm.: denies cough, SOB Physical Exam Constitutional: WD/WN, vitals as above Eyes: PERRL, conjunctivae normal, anicteric sclerae Neck: normal visual inspection Respiratory: normal respiratory effort, lungs clear to auscultation Cardiovascular: RRR, no murmur, no edema Gastrointestinal (Abdomen): normal bowel sounds, soft, nontender, no hepatosplenomegaly Musculoskeletal: - nTTP of the lumbar spinous process or paraspinous muscles Results & Data Results & Data ([facility]) Vital Signs (Past 12 Hours) Vital Signs Temp Pulse Resp BP Pulse Ox 02/19/21 14:58 36.3 C L 43 L 14 105/52 L 95 02/19/21 07:40 36.4 C L 52 L 16 121/67 97
[2021-02-19] MEDS: TAMSULOSIN HCL 0.4 MG CAP PO SCH (20:40)
[2021-02-19] MEDS: ATORVASTATIN 40 MG TAB PO SCH (20:41)
[2021-02-19] MEDS: CETIRIZINE HCL 10 MG TABLET PO SCH (20:41)
[2021-02-19] MEDS: INSULIN GLARGINE SOLOSTAR 100 UNITS/ML 3 ML PEN SQ SCH (20:45)
[2021-02-20] MEDS ORDERED: INSULIN ASPART 100 UNITS/ML 3 ML PEN SC SCH
[2021-02-20 07:47] LABS: Basophils # (auto) 0.03 K/uL (0-0.2); Basophils % (auto) 0.5 %; Eosinophils # (auto) 0.12 K/uL (0-0.5); Hematocrit (blood only) 35.6 % (42-52); Hemoglobin 12.2 g/dL (14.0-18.0); Immature Granulocytes # (auto) 0.03 K/uL (0.00-0.02); Immature Granulocytes % (auto) 0.5 %; Lymphocytes # (auto) 1.74 K/uL (1.2-3.4); Lymphocytes % (auto) 28.4 %; Mean Corpuscular Hemoglobin 30.9 pg (25-34); Mean Corpuscular Hgb Conc 34.3 g/dL (32-36); Mean Corpuscular Volume 90.1 fL (80-100); Monocytes # (auto) 0.54 K/uL (0.11-0.59); Monocytes % (auto) 8.8 %; Neutrophils # (auto) 3.67 K/uL (1.4-6.5); Neutrophils % (auto) 59.8 %; Platelet Count 147 K/uL (130-400); RDW Coefficient of Variation 14.2 % (11.5-14.5); RDW Standard Deviation 47.2 fL (36.4-46.3); Red Blood Count 3.95 M/uL (4.7-6.1); White Blood Count 6.13 K/uL (4.8-10.8)
[2021-02-20 08:07] LABS: BUN Creatinine Ratio 23.9 (10-20); Calcium 9.2 mg/dl (8.5-10.1); Creatinine Clr Calc Pharmacy 18.6 ml/min; Est GFR (African American) 29.3 ml/min; Est GFR (Non-African American) 25.3 ml/min; Potassium 4.3 mmol/L (3.5-5.1)
[2021-02-20] MEDS ORDERED: ACETAMINOPHEN 1,000 MG/100 ML VIAL IV PRN (08:10)
--- NOTE | 2021-02-20 09:11 | Hospitalist Progress Note ---
Date of Service February 20, 2021 Assessment & Plan (1) Back pain: Plan: 85 y/o M with an extensive medical history including dementia, BPH, HTN, HLD, DM, CKD IV, CAD with chronic CP, diastolic CHF. The pt has a chronic distal ureteral calculus. He presents with a primary complaint of severe back pain. Back pain, right lower Nontraumatic(Osteoporotic) L4 compression fracture As a result of the pain he is not able to ambulate, whereas he normally mobilizes with a walker. He has not had fevers or rigors. Labs are at baseline. A CT abdomen confirmed the presence of a 5 mm distal right ureteral calculus. Unlikely related to kidney stone as the location is unchanged, and the pain is more in his back. Pain could be radicular due to L4 compression fracture seen on MRI although given that the location is SI/buttock and no bony tenderness. - PT OT ordered - continue Voltaren and Gabapentin - discontinued IV Dilaudid Dysphagia speech consulted - puree diet was recommended coughing this evening after eating puree potatoes with some vomiting - NPO for now, reconsider in AM - CXR ordered to evaluate aspiration Constipation - KUB to evaluate for constipation or ileus - enema ordered given concern for aspiration AMS history per of Parkinson's with history of dementia; potentially due to delirium - CT head w/o contrast: no changes CAD - asymptomatic - cont ASA, Plavix, Ranexa, NTG PRN - Metoprolol and Imdur held due to hypotension Chronic CHF clinically appearing dry on exam - held extra 80 IV Lasix QAM dose - cont. home Lasix 40 IV QHS CKD - IV - renal function slightly - continue to trend DM II - on Lantus and log - continue to follow and adjust as needed HTN, HLD - cont statin - held metoprolol and Imdur as above DVT prophylaxis: Heparin Code: full PT/OT eval. and treat, dispo. depending on further pain improvement and his ability to mobilizepotentially home vs. rehab. (2) Congestive heart failure, diastolic, left, w/preserved LV function, NYHA class 4: (3) CKD (chronic kidney disease) stage 4, GFR 15-29 ml/min: (4) Hx of CABG: (5) Restless leg syndrome: (6) Essential hypertension: (7) Type 2 diabetes mellitus: Admission and Anticipated Discharge Date Admission Date: February 16, 2021 Supervising Physician Co-Signing Physician Notes Resident Physician Supervision Note: I independently interviewed and examined the patient and verified the causey history and physical, reviewed labs and image studies and agree with resident Dr. Chavarria findings and care plan. Subjective Dae Stanley was having some trouble communicating this morning. He could speak but some of his words were difficult to understand and he had a significant tremor. His was in later in the day and she brought up that he has had multiple spells like this in the past but they resolve generally after a few hours and this is lasting longer than in the past. He denied any pain. Review of Systems Review of Systems: Unobtainable due to reduced consciousness Physical Exam Physical Exam: Constitutional able to communicate 1-2 words, vitals as above Eyes PERRL, conjunctivae normal, anicteric sclerae Neck normal visual inspection Respiratory normal respiratory effort, lungs clear to auscultation, no increased work of breathing Cardiovascular RRR, no murmur, no edema Gastrointestinal (Abdomen) normal bowel sounds, soft, nontender, no hepatosplenomegaly Musculoskeletal - nTTP of the lumbar spinous process or paraspinous muscles Neurologic - CN II-XII intact with the exception of hearing - strength intact in upper and lower extremity symmetric - resting tremor present Results & Data Results & Data ([facility]) Vital Signs (Past 12 Hours) Vital Signs Temp Pulse Pulse Resp BP Pulse Ox 02/20/21 07:45 36.3 C L 56 L 16 118/59 L 90 02/20/21 00:47 36.7 C 45 L 16 91/48 L 93 02/19/21 22:30 36.4 C L 45 L 16 100/50 L 95 CBC Results Results Complete Blood Count Results: RBC 3.75 M/uL (4.7-6.1) L 02/21/21 WBC 9.69 K/uL (4.8-10.8) 02/21/21 Hgb 11.7 g/dL (14.0-18.0) L 02/21/21 Hct 34.1 % (42-52) L 02/21/21 Plt Count 151 K/uL (130-400) 02/21/21 Chemistry (BMP) Results BMP Results: Sodium 135 mmol/L (136-145) L 02/21/21 Potassium 4.3 mmol/L (3.5-5.1) 02/21/21 Chloride 98 mmol/L (98-107) 02/21/21 BUN 54 mg/dl (7-18) H 02/21/21 Creatinine 2.31 mg/dl (0.6-1.4) H 02/21/21 Glucose 102 mg/dl (70-99) H 02/21/21 Resident Activity Tracking Resident Involvement: Resident Care Provided Care Provided: Adult [facility] Medicine
[2021-02-20] MEDS: INSULIN ASPART 100 UNITS/ML 3 ML PEN SC SCH ×3 (09:26→18:13)
[2021-02-20] MEDS: DICLOFENAC SOD 1% GEL 100 GM TUBE EXT SCH ×4 (09:31→22:16)
[2021-02-20] MEDS: RIVASTIGMINE PATCH TD SCH (09:31)
[2021-02-20] MEDS: HEPARIN SOD 5,000 UNIT/0.5 ML VIAL SQ SCH ×2 (09:32→21:44)
[2021-02-20] MEDS: ASPIRIN 81 MG ECTAB PO SCH (10:43)
[2021-02-20] MEDS: PRAMIPEXOLE DIHYDROCHLO 0.5 MG TAB PO SCH ×2 (10:44→21:57)
[2021-02-20] MEDS: FAMOTIDINE 20 MG TAB PO SCH (10:44)
[2021-02-20] MEDS: POLYETHYLENE (MIRALAX) 17 GM PACK PO SCH (10:44)
[2021-02-20] MEDS: CYANOCOBALAMIN 500 MCG TABLET (VITAMIN B-12) PO SCH (10:45)
[2021-02-20] MEDS: CLOPIDOGREL BISULFATE 75 MG TAB PO SCH (10:45)
[2021-02-20] MEDS: RANOLAZINE 500 MG ER TAB PO SCH ×2 (10:45→21:57)
[2021-02-20] MEDS: FINASTERIDE 5 MG TAB PO SCH (10:45)
[2021-02-20] MEDS: GABAPENTIN 300 MG CAP PO SCH ×2 (10:46→21:57)
--- NOTE | 2021-02-20 16:23 | CT Scan Report ---
HEAD CT NONCONTRAST CT DOSE: 729.78 mGycm HISTORY: new onset dysphagia, altered mental status TECHNIQUE: Multiaxial CT images of the head were performed without the use of intravenous contrast. A utomated exposure control was utilized for this study. A dose lowering technique was utilized adheri ng to the principles of ALARA. Comparison: Head CT 12/04/2020. Findings: Chronic opacification of a right posterior ethmoid air cell, unchanged. The remaining paran yifan sinuses and mastoid air cells are clear. The calvarium and skull base are intact. There is no ma ss, hematoma, midline shift, acute infarct. White matter hypodensity is nonspecific but suggestive of microvascular ischemic change. The ventricles and sulci demonstrate mild age-related involutional ch anges. Impression: No significant change compared to the prior study. No acute intracranial abnormality. ACT 112: Negative or not required by law. Electronically signed by: Abdullahi Elizabeth M.D. 02/20/2021 4:22 PM
[2021-02-20] MEDS ORDERED: ONDANSETRON INJ 2 MG/ML 2 ML VIAL IV ONE (18:23)
--- NOTE | 2021-02-20 19:44 | XRay Report ---
XR chest 1V portable CLINICAL HISTORY: trouble breathing COMPARISON STUDY: February 16, 2021 FINDINGS: No pneumothorax. No pleural effusion. No large infiltrates or consolidative lesions are seen. Mild interval improvement of lung parenchymal aeration since prior study. Cardiomediastinal silhouette is within normal limits in size. Pulmonary vasculature is indistinct. Aorta is calcified. Osseous structures: Degenerative changes of the spine. Midline sternotomy wires are again seen. IMPRESSION: 1. No large infiltrates or consolidative lesions. ACT 112: Negative or not required by law. The above report was generated using voice recognition software. It may contain grammatical, syntax o r spelling errors. Electronically signed by: Yashira Ocasio DO 02/20/2021 7:43 PM
[2021-02-20] MEDS ORDERED: INSULIN GLARGINE SOLOSTAR 100 UNITS/ML 3 ML PEN SQ SCH (21:00)
--- NOTE | 2021-02-20 21:28 | XRay Report ---
XR KUB/Abdomen 1 view CLINICAL HISTORY: vomiting COMPARISON STUDY: January 03, 2021 FINDINGS: There are few gas and stool-filled nondilated loops of bowel are seen throughout the abdomen. Moderat e stool content is seen within right hemiabdomen and pelvic region. There is dilated gas distended stomach is seen. Degenerative changes of the spine and bilateral hip joints are seen. Midline sternotomy wires are demonstrated. IMPRESSION: 1. Dilated gas-filled stomach. If patient will continue to experience symptoms, CT of the abdomen an d pelvis might be considered. 2. Constipation pattern. 3. The rest of findings as above. ACT 112: Negative or not required by law. The above report was generated using voice recognition software. It may contain grammatical, syntax o r spelling errors. Electronically signed by: Yashira Ocasio DO 02/20/2021 9:27 PM
[2021-02-20] MEDS: SOD PHOSPHATE/SOD BIPHOSPHATE ENEMA 132 ML BTL PR PRN ×2 (21:43→21:54)
[2021-02-20] MEDS: CETIRIZINE HCL 10 MG TABLET PO SCH (21:56)
[2021-02-20] MEDS: ATORVASTATIN 40 MG TAB PO SCH (21:56)
[2021-02-20] MEDS: FUROSEMIDE 40 MG TAB PO SCH (21:56)
[2021-02-20] MEDS: TAMSULOSIN HCL 0.4 MG CAP PO SCH (21:57)
[2021-02-21] MEDS ORDERED: INSULIN ASPART 100 UNITS/ML 3 ML PEN SC SCH (06:00)
[2021-02-21 06:43] LABS: Basophils # (auto) 0.02 K/uL (0-0.2); Basophils % (auto) 0.2 %; Eosinophils # (auto) 0.07 K/uL (0-0.5); Eosinophils % (auto) 0.7 %; Hematocrit (blood only) 34.1 % (42-52); Hemoglobin 11.7 g/dL (14.0-18.0); Immature Granulocytes # (auto) 0.03 K/uL (0.00-0.02); Immature Granulocytes % (auto) 0.3 %; Lymphocytes % (auto) 11.4 %; Mean Corpuscular Hemoglobin 31.2 pg (25-34); Mean Corpuscular Hgb Conc 34.3 g/dL (32-36); Mean Corpuscular Volume 90.9 fL (80-100); Monocytes # (auto) 0.59 K/uL (0.11-0.59); Monocytes % (auto) 6.1 %; Neutrophils # (auto) 7.88 K/uL (1.4-6.5); Neutrophils % (auto) 81.3 %; Platelet Count 151 K/uL (130-400); RDW Coefficient of Variation 14.4 % (11.5-14.5); RDW Standard Deviation 48.4 fL (36.4-46.3); Red Blood Count 3.75 M/uL (4.7-6.1); White Blood Count 9.69 K/uL (4.8-10.8)
[2021-02-21 07:12] LABS: BUN Creatinine Ratio 23.6 (10-20); Calcium 9.2 mg/dl (8.5-10.1); Creatinine Clr Calc Pharmacy 18.1 ml/min; Est GFR (African American) 28.4 ml/min; Est GFR (Non-African American) 24.5 ml/min; Potassium 4.3 mmol/L (3.5-5.1)
[2021-02-21] MEDS: DICLOFENAC SOD 1% GEL 100 GM TUBE EXT SCH ×4 (09:10→21:14)
[2021-02-21] MEDS: CLOPIDOGREL BISULFATE 75 MG TAB PO SCH (09:10)
[2021-02-21] MEDS: FAMOTIDINE 20 MG TAB PO SCH (09:11)
[2021-02-21] MEDS: PRAMIPEXOLE DIHYDROCHLO 0.5 MG TAB PO SCH ×2 (09:11→21:15)
[2021-02-21] MEDS: FINASTERIDE 5 MG TAB PO SCH (09:11)
[2021-02-21] MEDS: CYANOCOBALAMIN 500 MCG TABLET (VITAMIN B-12) PO SCH (09:11)
[2021-02-21] MEDS: POLYETHYLENE (MIRALAX) 17 GM PACK PO SCH (09:12)
[2021-02-21] MEDS: GABAPENTIN 300 MG CAP PO SCH ×2 (09:12→21:14)
[2021-02-21] MEDS: RANOLAZINE 500 MG ER TAB PO SCH ×2 (09:13→21:15)
[2021-02-21] MEDS: HEPARIN SOD 5,000 UNIT/0.5 ML VIAL SQ SCH ×2 (09:13→21:15)
[2021-02-21] MEDS: RIVASTIGMINE PATCH TD SCH (09:14)
[2021-02-21] MEDS: ASPIRIN 81 MG ECTAB PO SCH (09:14)
[2021-02-21] MEDS ORDERED: Nursing to Pharmacy Communication SCH (11:45)
[2021-02-21] MEDS: INSULIN ASPART 100 UNITS/ML 3 ML PEN SC SCH ×4 (12:46→21:17)
[2021-02-21] MEDS: SOD PHOSPHATE/SOD BIPHOSPHATE ENEMA 132 ML BTL PR PRN (17:48)
--- NOTE | 2021-02-21 17:56 | Hospitalist Progress Note ---
Date of Service February 21, 2021 Assessment & Plan (1) Back pain: Plan: 85 y/o M with an extensive medical history including dementia, BPH, HTN, HLD, DM, CKD IV, CAD with chronic CP, diastolic CHF. The pt has a chronic distal ureteral calculus. He presents with a primary complaint of severe back pain. Back pain, right lower Nontraumatic(Osteoporotic) L4 compression fracture As a result of the pain he is not able to ambulate, whereas he normally mobilizes with a walker. He has not had fevers or rigors. Labs are at baseline. A CT abdomen confirmed the presence of a 5 mm distal right ureteral calculus. Unlikely related to kidney stone as the location is unchanged, and the pain is more in his back. Pain could be radicular due to L4 compression fracture seen on MRI although given that the location is SI/buttock and no bony tenderness. - PT OT ordered - continue Voltaren and Gabapentin Hypoxia - sec to ? aspiration event. stable Vomiting - ? sec to ileus from constipation - none since the one event on 02/20. - continue with bowel prep Dysphagia speech consulted - puree diet was recommended - continue to evaluate for aspiration risk - order placed to hold diet if altered mental status AMS, waxing and waning level of awareness history of Parkinson's with dementia; also concerning for acute delirium - CT head w/o contrast: no changes Constipation - KUB with finding of dilated stomach, constipation - Miralax order, escalate bowel regimen as needed CAD - asymptomatic - cont ASA, Plavix, Ranexa, NTG PRN - Metoprolol and Imdur held due to hypotension Chronic CHF clinically appearing dry on exam - held extra 80 IV Lasix QAM dose - cont. home Lasix 40 IV QHS CKD - IV - renal function slightly - continue to trend DM II - on Lantus and log - continue to follow and adjust as needed HTN, HLD - cont statin - held metoprolol and Imdur as above Goals of care - patient with poor ambulatory function, dysphagia and AMS as above - family would like to bring him home although PT rec. was for inpatient rehab - consulted palliative care to clarify goals of care going forward DVT prophylaxis: Heparin Code: full PT/OT eval. and treat, dispo. depending on further pain improvement and his ability to mobilizepotentially home vs. rehab. Admission and Anticipated Discharge Date Admission Date: February 16, 2021 Supervising Physician Co-Signing Physician Notes Resident Physician Supervision Note: I independently interviewed and examined the patient and verified the causey history and physical, reviewed labs and image studies and agree with resident Dr. Chavarria findings and care plan. Subjective Dae Stanley is doing much better this morning and able to communicate with me. He feels alright but was confused and thought he might have gotten up and walked overnight. Review of Systems Review of Systems: Unobtainable due to reduced consciousness Physical Exam Physical Exam: Constitutional well developed, NAD Eyes PERRL, conjunctivae normal, anicteric sclerae Neck normal visual inspection Respiratory normal respiratory effort, lungs clear to auscultation, no increased work of breathing Cardiovascular RRR, no murmur, no edema Gastrointestinal (Abdomen) normal bowel sounds, soft, nontender, no hepatosplenomegaly Musculoskeletal - nTTP of the lumbar spinous process or paraspinous muscles Neurologic - CN II-XII intact with the exception of hearing - resting tremor present Results & Data Results & Data ([facility]) Vital Signs (Past 12 Hours) Vital Signs Temp Pulse Resp BP Pulse Ox 02/21/21 15:35 36.7 C 54 L 18 107/47 L 90 02/21/21 07:28 36.4 C L 52 L 16 95/54 L 93
[2021-02-21] MEDS: CETIRIZINE HCL 10 MG TABLET PO SCH (21:15)
[2021-02-21] MEDS: ATORVASTATIN 40 MG TAB PO SCH (21:16)
[2021-02-21] MEDS: TAMSULOSIN HCL 0.4 MG CAP PO SCH (21:16)
[2021-02-21] MEDS: FUROSEMIDE 40 MG TAB PO SCH (21:16)
[2021-02-22] MEDS: HEPARIN SOD 5,000 UNIT/0.5 ML VIAL SQ SCH ×2 (09:12→20:32)
[2021-02-22] MEDS: INSULIN ASPART 100 UNITS/ML 3 ML PEN SC SCH ×4 (09:44→20:37)
[2021-02-22] MEDS: RIVASTIGMINE PATCH TD SCH (09:46)
[2021-02-22] MEDS: RANOLAZINE 500 MG ER TAB PO SCH ×2 (12:26→20:36)
[2021-02-22] MEDS: PRAMIPEXOLE DIHYDROCHLO 0.5 MG TAB PO SCH ×2 (12:26→20:36)
[2021-02-22] MEDS: DICLOFENAC SOD 1% GEL 100 GM TUBE EXT SCH ×4 (12:27→20:31)
[2021-02-22] MEDS: ASPIRIN 81 MG ECTAB PO SCH (12:27)
[2021-02-22] MEDS: GABAPENTIN 300 MG CAP PO SCH ×2 (12:27→20:36)
[2021-02-22] MEDS: CYANOCOBALAMIN 500 MCG TABLET (VITAMIN B-12) PO SCH (12:27)
[2021-02-22] MEDS: FAMOTIDINE 20 MG TAB PO SCH (12:27)
[2021-02-22] MEDS: POLYETHYLENE (MIRALAX) 17 GM PACK PO SCH (12:27)
[2021-02-22] MEDS: CLOPIDOGREL BISULFATE 75 MG TAB PO SCH (12:27)
[2021-02-22] MEDS: FINASTERIDE 5 MG TAB PO SCH (12:27)
--- NOTE | 2021-02-22 16:33 | Hospitalist Progress Note ---
Date of Service February 22, 2021 Assessment & Plan (1) Back pain: Plan: 85 y/o M with an extensive medical history including dementia, BPH, HTN, HLD, DM, CKD IV, CAD with chronic CP, diastolic CHF. The pt has a chronic distal ureteral calculus. He presents with a primary complaint of severe back pain. Right lower back pain Nontraumatic(Osteoporotic) L4 compression fracture As a result of the pain he is not able to ambulate, whereas he normally mobilizes with a walker. He has not had fevers or rigors. Labs are at baseline. A CT abdomen confirmed the presence of a 5 mm distal right ureteral calculus. Unlikely related to kidney stone as the location is unchanged, and the pain is more in his back. Pain could be radicular due to L4 compression fracture seen on MRI although given that the location is SI/buttock and no bony tenderness. - PT OT ongoing - continue Voltaren and Gabapentin Hypoxia - Stable, possibly due to aspiration event. Vomiting - Possibly due to ileus from constipation, none since the one event on 02/20. Dysphagia speech/swallow consulted - Currently taking pureed diet - continue to evaluate for aspiration risk - order placed to hold diet if altered mental status AMS, waxing and waning level of awareness history of Parkinson's with dementia; also concerning for acute delirium - CT head w/o contrast: no changes Constipation - KUB with finding of dilated stomach, constipation - Miralax order, escalate bowel regimen as needed CAD - asymptomatic - cont ASA, Plavix, Ranexa, NTG PRN - Metoprolol and Imdur held due to hypotension Chronic CHF clinically appearing dry on exam - held extra 80 IV Lasix QAM dose - cont. home Lasix 40 IV QHS CKD - IV - BUN and Cr continuing to trend upwards, 02/21- 54/2.31 - continue to trend DM II - on Lantus and log - continue to follow and adjust as needed HTN, HLD - cont statin - held metoprolol and Imdur as above Goals of care - patient with poor ambulatory function, dysphagia and AMS as above - family would like to bring him home although PT rec. was for inpatient rehab - consulted palliative care to clarify goals of care going forward. Palliative unable to see patient today, may see over weekend. DVT prophylaxis: Heparin Code: full Disspo: see 'goals of care' Admission and Anticipated Discharge Date Admission Date: February 16, 2021 Supervising Physician Co-Signing Physician Notes Resident Physician Supervision Note: I independently interviewed and examined the patient and verified the causey history and physical, reviewed labs and image studies and agree with resident Dr. Keene findings and care plan. Subjective Pt was repeatedly asking for 's presence this morning, could not be redirected and did not seem to notice interviewer's presence in the room. Later in day, pt was with and speaking to her coherently. Denied any acute complaints in afternoon. stated she and patient both want to go home after discharge instead of rehab facility. Review of Systems Review of Systems: Constitutional: denies fevers Cardiac: denies chest pain : denies urinary pain, frequency, urgency Pulm.: denies cough, SOB Physical Exam Physical Exam: Constitutional: well developed, NAD Eyes: PERRL, conjunctivae normal, anicteric sclerae Neck: normal visual inspection, no JVD Respiratory: normal respiratory effort, lungs clear to auscultation, no increased work of breathing Cardiovascular: RRR, no murmur, no edema Gastrointestinal (Abdomen): Soft, nontender, no hepatosplenomegaly Musculoskeletal: unable to palpate back due to pt's lack of orientation at time of exam Neurologic: +Altered mental status, L hand resting tremor present Results & Data Results & Data ([facility]) Vital Signs (Past 12 Hours) Vital Signs Temp Pulse Resp BP Pulse Ox 02/22/21 15:22 36.5 C 69 20 122/69 02/22/21 15:00 100 02/22/21 07:00 36.7 C 64 20 136/69 96 Resident Activity Tracking Resident Involvement: Resident Care Provided Care Provided: Adult Hospital Medicine
[2021-02-22] MEDS: CETIRIZINE HCL 10 MG TABLET PO SCH (20:36)
[2021-02-22] MEDS: FUROSEMIDE 40 MG TAB PO SCH (20:36)
[2021-02-22] MEDS: ATORVASTATIN 40 MG TAB PO SCH (20:36)
[2021-02-22] MEDS: TAMSULOSIN HCL 0.4 MG CAP PO SCH (20:36)
[2021-02-23 08:16] LABS: Basophils # (auto) 0.03 K/uL (0-0.2); Basophils % (auto) 0.4 %; Eosinophils # (auto) 0.21 K/uL (0-0.5); Hematocrit (blood only) 36.4 % (42-52); Hemoglobin 12.2 g/dL (14.0-18.0); Immature Granulocytes # (auto) 0.04 K/uL (0.00-0.02); Immature Granulocytes % (auto) 0.6 %; Mean Corpuscular Hgb Conc 33.5 g/dL (32-36); Mean Corpuscular Volume 92.6 fL (80-100); Mean Platelet Volume 9.6 fL (7.4-10.4); Monocytes # (auto) 0.64 K/uL (0.11-0.59); Monocytes % (auto) 9.2 %; Neutrophils # (auto) 4.43 K/uL (1.4-6.5); Neutrophils % (auto) 63.8 %; Platelet Count 171 K/uL (130-400); RDW Coefficient of Variation 14.6 % (11.5-14.5); RDW Standard Deviation 49.7 fL (36.4-46.3); Red Blood Count 3.93 M/uL (4.7-6.1); White Blood Count 6.95 K/uL (4.8-10.8)
[2021-02-23 08:44] LABS: BUN Creatinine Ratio 27.3 (10-20); Calcium 9.3 mg/dl (8.5-10.1); Creatinine Clr Calc Pharmacy 18.7 ml/min; Est GFR (African American) 29.5 ml/min; Est GFR (Non-African American) 25.4 ml/min; Potassium 3.8 mmol/L (3.5-5.1)
[2021-02-23] MEDS: CLOPIDOGREL BISULFATE 75 MG TAB PO SCH (09:18)
[2021-02-23] MEDS: ASPIRIN 81 MG ECTAB PO SCH (09:18)
[2021-02-23] MEDS: DICLOFENAC SOD 1% GEL 100 GM TUBE EXT SCH ×4 (09:19→21:58)
[2021-02-23] MEDS: CYANOCOBALAMIN 500 MCG TABLET (VITAMIN B-12) PO SCH (09:19)
[2021-02-23] MEDS: FINASTERIDE 5 MG TAB PO SCH (09:20)
[2021-02-23] MEDS: RIVASTIGMINE PATCH TD SCH (09:20)
[2021-02-23] MEDS: FAMOTIDINE 20 MG TAB PO SCH (09:20)
[2021-02-23] MEDS: POLYETHYLENE (MIRALAX) 17 GM PACK PO SCH (09:21)
[2021-02-23] MEDS: RANOLAZINE 500 MG ER TAB PO SCH ×2 (09:21→21:58)
[2021-02-23] MEDS: HEPARIN SOD 5,000 UNIT/0.5 ML VIAL SQ SCH ×2 (09:22→21:59)
[2021-02-23] MEDS: GABAPENTIN 300 MG CAP PO SCH ×2 (09:22→21:59)
[2021-02-23] MEDS: PRAMIPEXOLE DIHYDROCHLO 0.5 MG TAB PO SCH ×2 (09:23→21:58)
[2021-02-23] MEDS: INSULIN ASPART 100 UNITS/ML 3 ML PEN SC SCH ×4 (09:25→22:00)
--- NOTE | 2021-02-23 10:15 | Hospitalist Progress Note ---
Date of Service February 23, 2021 Assessment & Plan (1) Back pain: Plan: 85 y/o M with an extensive medical history including dementia, BPH, HTN, HLD, DM, CKD IV, CAD with chronic CP, diastolic CHF. The pt has a chronic distal ureteral calculus. He presents with a primary complaint of severe back pain. Right lower back pain Nontraumatic(Osteoporotic) L4 compression fracture As a result of the pain he is not able to ambulate, whereas he normally mobilizes with a walker. He has not had fevers or rigors. Labs are at baseline. A CT abdomen confirmed the presence of a 5 mm distal right ureteral calculus. Unlikely related to kidney stone as the location is unchanged, and the pain is more in his back. Pain could be radicular due to L4 compression fracture seen on MRI although given that the location is SI/buttock and no bony tenderness. - PT OT ongoing - continue Voltaren and Gabapentin - Additional pain meds ordered today- Tylenol 1000 mg q8h, lidoderm PRN, Tramadol 50 mg q8h PRN AMS, waxing and waning level of awareness history of Parkinson's with dementia; also concerning for acute delirium - CT head w/o contrast: no changes - Haldol 0.5 mg PO ordered as PRN for agitation/delirium Hypoxia - Stable, possibly due to aspiration event. Vomiting - Possibly due to ileus from constipation, none since the one event on 02/20. Dysphagia speech/swallow consulted - Currently taking pureed diet - continue to evaluate for aspiration risk - order placed to hold diet if altered mental status Constipation - KUB with finding of dilated stomach, constipation - Miralax order, escalate bowel regimen as needed CAD - asymptomatic - cont ASA, Plavix, Ranexa, NTG PRN - Metoprolol and Imdur held due to hypotension Chronic CHF clinically appearing dry on exam - held extra 80 IV Lasix QAM dose - cont. home Lasix 40 IV QHS CKD - IV - BUN and Cr continuing to trend upwards, 02/21- 54/2.31 - continue to trend DM II - on Lantus and log - continue to follow and adjust as needed HTN, HLD - cont statin - held metoprolol and Imdur as above Goals of care - patient with poor ambulatory function, dysphagia and AMS as above - family would like to bring him home although PT rec. was for inpatient rehab - consulted palliative care to clarify goals of care going forward. Palliative unable to see patient today, may see over weekend. DVT prophylaxis: Heparin Code: full Disspo: see 'goals of care' Admission and Anticipated Discharge Date Admission Date: February 16, 2021 Supervising Physician Co-Signing Physician Notes Attending attestation - Pt seen/examined, chart reviewed, care plan d/w PGY1 Dr Marcy Keene. I agree w/ the causey components of his documentation. Due to severe hearing impairment and dementia it was nearly impossible to communicate with the patient during rounds. staff, however, state he can get up from the bed (w/ staff assistance) and ambulate to the bathroom pretty decently w/o severe pain. appetite very, very poor. VSS, afebrile gen - NAD ENT - severe hearing impairment mouth - MMM heart - RRR, s1 s2 lungs - CTA b/l abd -soft NT ext - no edema neuro - strength b/l hip flexion 5/5 A/P: Osteoporotic L4 compression fracture - stable. Pain control (tylenol TID, lidoderm patches, tramadol prn, etc). consider TLSO brace. check 25-Oh vit D level while here. significant anorexia -- 2nd to advanced dementia? infectious process? other? agree w/ palliative care consultation to refine goals of care in light of the above. dispo - uncertain Femi Contreras MD Subjective Pt was more coherent today, though difficulty communicating due to considerable hearing impairment. Did not endorse any acute complaints. Review of Systems Review of Systems: Constitutional: denies fevers Cardiac: denies chest pain : denies urinary pain, frequency, urgency Pulm.: denies cough, SOB Neurologic: Baseline hearing impairment Physical Exam Physical Exam: Constitutional: well developed, NAD Eyes: PERRL, conjunctivae normal, anicteric sclerae Neck: normal visual inspection, no JVD Respiratory: normal respiratory effort, lungs clear to auscultation, no increased work of breathing Cardiovascular: RRR, no murmur, no edema Gastrointestinal (Abdomen): Soft, nontender, no hepatosplenomegaly Musculoskeletal: unable to palpate back due to pt's lack of orientation at time of exam Neurologic: AOx2, L hand resting tremor present, bilateral hearing impairment L > R Constitutional: WD/WN, vitals as above Eyes: PERRL, conjunctivae normal, anicteric sclerae Neck: normal visual inspection Respiratory: normal respiratory effort, lungs clear to auscultation Cardiovascular: RRR, no murmur, no edema Gastrointestinal (Abdomen): normal bowel sounds, soft, nontender, no hepatosplenomegaly Results & Data Results & Data ([facility]) Vital Signs (Past 12 Hours) Vital Signs Temp Pulse Pulse Resp BP BP Pulse Ox 02/23/21 07:30 36.3 C L 66 66 20 120/68 92 02/22/21 23:03 36.4 C L 70 18 119/63 96 Resident Activity Tracking Resident Involvement: Resident Care Provided Care Provided: Adult Hospital Medicine
[2021-02-23] MEDS ORDERED: haloperidoL 0.5 MG TAB PO PRN (12:16)
[2021-02-23] MEDS ORDERED: traMADol HCL 50 MG TABLET PO PRN (12:18)
[2021-02-23] MEDS: ACETAMINOPHEN 500 MG TAB PO SCH ×2 (14:17→22:02)
[2021-02-23] MEDS: LIDOCAINE 5% 1 PATCH TD SCH (14:17)
--- NOTE | 2021-02-23 21:54 | Billing Data ---
Date of Service February 23, 2021 Coding Level of Care Code 89872 Subseq Hosp Care Lvl 2
[2021-02-23] MEDS: ATORVASTATIN 40 MG TAB PO SCH (21:57)
[2021-02-23] MEDS: CETIRIZINE HCL 10 MG TABLET PO SCH (21:58)
[2021-02-23] MEDS: TAMSULOSIN HCL 0.4 MG CAP PO SCH (21:58)
[2021-02-23] MEDS: FUROSEMIDE 40 MG TAB PO SCH (21:58)
[2021-02-24] MEDS: ACETAMINOPHEN 500 MG TAB PO SCH ×3 (06:19→21:00)
[2021-02-24 08:09] LABS: Basophils # (auto) 0.04 K/uL (0-0.2); Basophils % (auto) 0.7 %; Eosinophils # (auto) 0.11 K/uL (0-0.5); Eosinophils % (auto) 1.9 %; Hematocrit (blood only) 36.7 % (42-52); Hemoglobin 12.4 g/dL (14.0-18.0); Immature Granulocytes # (auto) 0.05 K/uL (0.00-0.02); Immature Granulocytes % (auto) 0.9 %; Lymphocytes # (auto) 1.38 K/uL (1.2-3.4); Lymphocytes % (auto) 24.3 %; Mean Corpuscular Hemoglobin 31.5 pg (25-34); Mean Corpuscular Hgb Conc 33.8 g/dL (32-36); Mean Corpuscular Volume 93.1 fL (80-100); Mean Platelet Volume 9.6 fL (7.4-10.4); Monocytes # (auto) 0.59 K/uL (0.11-0.59); Monocytes % (auto) 10.4 %; Neutrophils # (auto) 3.52 K/uL (1.4-6.5); Neutrophils % (auto) 61.8 %; Platelet Count 170 K/uL (130-400); RDW Coefficient of Variation 14.3 % (11.5-14.5); RDW Standard Deviation 48.8 fL (36.4-46.3); Red Blood Count 3.94 M/uL (4.7-6.1); White Blood Count 5.69 K/uL (4.8-10.8)
[2021-02-24 08:30] LABS: BUN Creatinine Ratio 31.6 (10-20); Calcium 9.1 mg/dl (8.5-10.1); Creatinine Clr Calc Pharmacy 22.9 ml/min; Est GFR (African American) 37.6 ml/min; Est GFR (Non-African American) 32.4 ml/min
--- NOTE | 2021-02-24 09:29 | Hospitalist Progress Note ---
Date of Service February 24, 2021 Assessment & Plan (1) Back pain: Plan: 85 y/o M with an extensive medical history including dementia, BPH, HTN, HLD, DM, CKD IV, CAD with chronic CP, diastolic CHF. The pt has a chronic distal ureteral calculus. He presents with a primary complaint of severe back pain. AMS/Goals of care - History of Parkinson's with dementia; also concerning for acute delirium, waxing and waning cognition - Haldol 0.5 mg PO ordered as PRN for agitation/delirium - Palliative consult 02/24 -Family wants pt to come home, pt's and son live with him and assist in his care. Family amenable to visiting nurses/home health aides - stated pt has living will expressing rejection of life supporting measures, code status changed to DNR Right lower back pain - Nontraumatic(Osteoporotic) L4 compression fracture - A CT abdomen confirmed the presence of a 5 mm distal right ureteral calculus. Unlikely related to kidney stone as the location is unchanged, and the pain is more in his back. Pain could be radicular due to L4 compression fracture seen on MRI although given that the location is SI/buttock and no bony tenderness. - PT OT ongoing though patient reportedly struggling - continue Voltaren and Gabapentin - Pain control- Tylenol 1000 mg q8h, lidoderm PRN, Tramadol 50 mg q8h PRN - Orthotics consulted for possible thoracic/lumbar brace, will see on 02/25 - Vit D-25 OH level sent Hypoxia - Stable, possibly due to aspiration event. Vomiting - Possibly due to ileus from constipation, none since the one event on 02/20. Dysphagia speech/swallow consulted - currently taking pureed diet but poor tolerance - continue to evaluate for aspiration risk - order placed to hold diet if altered mental status Constipation - KUB with finding of dilated stomach, constipation - Miralax order, escalate bowel regimen as needed CAD - asymptomatic - cont ASA, Plavix, Ranexa, NTG PRN - Metoprolol and Imdur held due to hypotension Chronic CHF clinically appearing dry on exam - held extra 80 IV Lasix QAM dose - cont. home Lasix 40 IV QHS CKD - IV - BUN and Cr continuing to trend upwards, 02/21- 54/2.31 - continue to trend DM II - on Lantus and log - continue to follow and adjust as needed HTN, HLD - cont statin - held metoprolol and Imdur as above FENGI: Heart healthy, carb consistent/DM2, pureed DVT prophylaxis: Heparin Code: full Disspo: see 'goals of care' Admission and Anticipated Discharge Date Admission Date: February 16, 2021 Supervising Physician Co-Signing Physician Notes Attending attestation - Pt seen/examined, chart reviewed, care plan d/w PGY1 Dr Marcy Keene. I agree w/ the causey components of his documentation. Pt's at bedside during the visit. She feels he is doing better overall than prior days. Eating is poor - but states this is chronic issue at home. Pt denied any back pain VSS, afebrile gen - NAD ENT - severe hearing impairment mouth - MMM heart - RRR, s1 s2 lungs - CTA b/l abd -soft NT ext - no edema neuro - strength b/l hip flexion 5/5 A/P: Osteoporotic L4 compression fracture - stable. Pain control (tylenol TID, lidoderm patches, tramadol prn, etc). consult orthotics for TLSO brace. check 25-Oh vit D in am. significant anorexia -- 2nd to advanced dementia? other? ongoing. could consider remeron. anorexia is chronic per . HTN - resume toprol xl 25mg daily (was on 100mg BID prior) tomorrow am. pt now DNR; Dr Babin from palliative met with pt and his today dispo - home with tomorrow for d/c home? Femi Contreras MD Subjective Pt was largely coherent today though still significant difficulty communicating due to hearing impairment. Denies any pain currently but reports his appetite is decreased due to concern about swallowing food successfully, though he is tolerating pureed foods Review of Systems Review of Systems: Constitutional: denies fevers Cardiac: denies chest pain GI: denies abdominal pain : denies urinary pain, frequency, urgency Pulm.: denies dyspnea Neurologic: Baseline hearing impairment Physical Exam Physical Exam: Constitutional: well developed, NAD Eyes: PERRL, conjunctivae normal, anicteric sclerae Neck: normal visual inspection, no JVD Respiratory: normal respiratory effort, lungs clear to auscultation, no increased work of breathing Cardiovascular: RRR, no murmur, no edema Gastrointestinal (Abdomen): Soft, nontender, no hepatosplenomegaly Musculoskeletal: no tenderness to palpation of the thoracolumbar muscles Neurologic: AOx3, L hand resting tremor present, bilateral hearing impairment L > R Results & Data Results & Data ([facility]) Vital Signs (Past 12 Hours) Vital Signs Temp Pulse Resp BP Pulse Ox Pulse Ox 02/23/21 23:31 36.4 C L 60 16 120/66 98 02/23/21 22:40 98 Laboratory Results Laboratory Results - last 24 hr 02/24/21 02/24/21 02/24/21 07:45 07:45 08:09 WBC 5.69 RBC 3.94 L Hgb 12.4 L Hct 36.7 L MCV 93.1 MCH 31.5 MCHC 33.8 RDW Std Deviation 48.8 H RDW Coeff of Bryce 14.3 Plt Count 170 MPV 9.6 Immature Gran % (Auto) 0.9 Neut % (Auto) 61.8 Lymph % (Auto) 24.3 [place] % (Auto) 10.4 Eos % (Auto) 1.9 Baso % (Auto) 0.7 Neut # (Auto) 3.52 Lymph # (Auto) 1.38 [place] # (Auto) 0.59 Eos # (Auto) 0.11 Baso # (Auto) 0.04 Immature Gran # (Auto) 0.05 H Sodium 138 Potassium 4.0 Chloride 103 Carbon Dioxide 30 Anion Gap 5.0 BUN 58 H Creatinine 1.83 H D Est Cr Clr Drug Dosing 22.9 Est GFR ( Amer) 37.6 Est GFR (Non-Af Amer) 32.4 BUN/Creatinine Ratio 31.6 H Glucose 165 H POC Glucose 154 H Calcium 9.1 02/24/21 02/24/21 02/24/21 12:48 16:58 20:53 WBC RBC Hgb Hct MCV MCH MCHC RDW Std Deviation RDW Coeff of Bryce Plt Count MPV Immature Gran % (Auto) Neut % (Auto) Lymph % (Auto) [place] % (Auto) Eos % (Auto) Baso % (Auto) Neut # (Auto) Lymph # (Auto) [place] # (Auto) Eos # (Auto) Baso # (Auto) Immature Gran # (Auto) Sodium Potassium Chloride Carbon Dioxide Anion Gap BUN Creatinine Est Cr Clr Drug Dosing Est GFR ( Amer) Est GFR (Non-Af Amer) BUN/Creatinine Ratio Glucose POC Glucose 127 H 107 H 108 H Calcium Resident Activity Tracking Resident Involvement: Resident Care Provided Care Provided: Adult Hospital Medicine
[2021-02-24] MEDS: INSULIN ASPART 100 UNITS/ML 3 ML PEN SC SCH ×4 (09:55→21:00)
[2021-02-24] MEDS: CLOPIDOGREL BISULFATE 75 MG TAB PO SCH (09:56)
[2021-02-24] MEDS: CYANOCOBALAMIN 500 MCG TABLET (VITAMIN B-12) PO SCH ×2 (09:56→10:11)
[2021-02-24] MEDS: ASPIRIN 81 MG ECTAB PO SCH (09:56)
[2021-02-24] MEDS: DICLOFENAC SOD 1% GEL 100 GM TUBE EXT SCH ×4 (09:57→20:59)
[2021-02-24] MEDS: FINASTERIDE 5 MG TAB PO SCH (09:57)
[2021-02-24] MEDS: FAMOTIDINE 20 MG TAB PO SCH (09:57)
[2021-02-24] MEDS: HEPARIN SOD 5,000 UNIT/0.5 ML VIAL SQ SCH ×2 (09:58→21:59)
[2021-02-24] MEDS: GABAPENTIN 300 MG CAP PO SCH ×3 (09:58→20:59)
[2021-02-24] MEDS: LIDOCAINE 5% 1 PATCH TD SCH (10:00)
[2021-02-24] MEDS: POLYETHYLENE (MIRALAX) 17 GM PACK PO SCH (10:00)
[2021-02-24] MEDS: RANOLAZINE 500 MG ER TAB PO SCH ×2 (10:00→20:59)
[2021-02-24] MEDS: RIVASTIGMINE PATCH TD SCH (10:01)
[2021-02-24] MEDS: PRAMIPEXOLE DIHYDROCHLO 0.5 MG TAB PO SCH ×2 (10:01→20:59)
--- NOTE | 2021-02-24 12:38 | Palliative Care Consultation ---
Date of Consultation February 24, 2021 Assessment & Plan (1) Dysphagia: He is more alert now and tolerating diet though his po intake is poor. (2) Back pain: With spinal stenosis and L4 compression fracture. Pain currently controlled with topical lidocaine and diclofenac. He has an order for tramadol but has not taken that. (3) Palliative care encounter: I talked with Mr. Stanley at bedside. He describes feeling like he was going to with the hypoxic episode that he had a few days ago. I asked him if he was afraid and he told me that he was not and that he has strong mehrdad and knows that he would go to be with Mando. Due to his hearing impairment, goals of care conversation was somewhat limited. I did speak with his on the phone as well. She tells me that he had been getting around at home with his scooter and a walker. She would like him to come home and does not want him to go to SNF. She has her son who lives at home with them and helps with his care. She understands that he is declining and would want him to be at home. She would be interested in visiting nurses and home therapy. We talked about the conversation he had with me and she tells me that he has a living will and that he has said that he would not want to be kept alive on machines or have any interventions if they were not going to help him. We discussed his current status and full code and that DNR was more consistent with what he is describing. She agrees. Code status changed to DNR to reflect this. (4) CAD (coronary artery disease): (5) Diastolic CHF: (6) TIA (transient ischemic attack): (7) Carotid stenosis: (8) CKD (chronic kidney disease) stage 4, GFR 15-29 ml/min: (9) Type 2 diabetes mellitus: History of Present Illness Reason for Consultation: goals of care Requesting Physician: Dr. Chavarria Attending Physician: Femi Contreras History of Present Illness 85 yo gentleman with dementia, diabetes, CKD4, HFpEF and CAD. He was initially admitted with severe back pain. He does have a known right distal ureteral calculus but was found to have lumbar stenosis and an L4 compression fracture on MRI consistent with his pain. He is able to ambulate with assistance and currently denies pain. He is very hard of hearing so conversation is limited. When I asked him how he was doing he told me that he thought he was going to a few days ago when he had a hypoxia with presumed aspiration. He has been evaluated by speech therapy and had recommendations to adjust diet with moderate oral dysphagia. He denies problems with swallowing though RN notes that he has had very poor po intake. He tells me that he just doesn't have an appetite. Allergies Allergy/AdvReac Type Severity Reaction Status Date / Time No Known Allergies Allergy Verified 12/12/20 15:52 Home Medications Medication Instructions Recorded Confirmed Type cyanocobalamin (vitamin B-12) 1,000 mcg PO QAM #90 tab 01/03/19 02/16/21 History 1,000 mcg tablet aspirin 81 mg tablet,delayed 81 mg PO QAM 06/13/19 02/16/21 History release nitroglycerin 0.4 mg sublingual 0.4 mg SL Q5M PRN #25 tab 05/16/20 02/16/21 Rx tablet atorvastatin 40 mg tablet 40 mg PO HS 06/18/20 02/16/21 History clopidogrel 75 mg tablet 75 mg PO QAM 06/18/20 02/16/21 History finasteride 5 mg tablet 5 mg PO QAM 06/18/20 02/16/21 History tamsulosin 0.4 mg capsule 0.4 mg PO HS 06/18/20 02/16/21 History gabapentin 300 mg capsule 300 mg PO BID #60 cap 09/24/20 02/16/21 Rx rivastigmine 4.6 mg TD DAILY #30 ea 09/24/20 02/16/21 Rx ranolazine 500 mg tablet,extended 1,000 mg PO BID #180 tab 10/16/20 02/16/21 Rx release,12 hr (Ranexa) metoprolol succinate 50 mg 100 mg PO BID tab 10/26/20 02/16/21 History tablet,extended release 24 hr insulin glargine 100 unit/mL (3 10 unit SUBCUT QPM #3 ml 11/09/20 02/16/21 Rx mL) subcutaneous pen (Lantus Solostar U-100 Insulin) cetirizine 10 mg tablet 10 mg PO HS #90 tab 11/14/20 02/16/21 Rx isosorbide mononitrate 60 mg 30 mg PO QAM #90 tab 11/26/20 02/16/21 Rx tablet,extended release 24 hr glimepiride 1 mg tablet 3 mg PO BID #540 tab 11/28/20 02/16/21 Rx pramipexole 1 mg tablet 1 mg PO BID 90 Days #180 tab 01/31/21 02/16/21 Rx furosemide 40 mg tablet (Lasix) 40 mg PO TID 02/16/21 02/16/21 History Patient History Medical History Alzheimer's dementia Anemia Benign prostatic hyperplasia with urinary obstruction Bilateral hearing loss Chronic diastolic CHF (congestive heart failure) Chronic kidney disease, stage III (moderate) CKD (chronic kidney disease) stage 4, GFR 15-29 ml/min Coronary artery disease COVID-19 virus infection Diabetic polyneuropathy Essential hypertension Essential tremor Hyperlipidemia Nephrolithiasis Past myocardial infarction Peripheral vascular disease Restless leg syndrome Type 2 diabetes mellitus Uncontrolled diabetes mellitus Vitamin D deficiency Surgical History H/O hemorrhoidectomy H/O shoulder surgery Hx of CABG S/P cholecystectomy S/P coronary artery stent placement S/P cystoscopy Family History Mother , age 88 of heart issues Heart disease Father , age 52 of silicosis Lung disease Social History Smoking Status: Former smoker Number of Years Since Quit: 50; Second Hand Exposure: No; Hx Alcohol Use: No Hx Substance Use: No Preferred Language: [place] Communication Ability: Impaired Visual Impairment: No Limitations Toilet Products Molder Required: No Beliefs That Will Affect Care: None marital status: Unknown Current Living Situation: Spouse and Other Current Living Situation Comment: Home with and son. 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 Feels Safe at Home: Yes Assistive Devices: Walker Review of Systems Review of Systems: [place] Symptom Assessment Scale Pain 1/3 Dyspnea 0/3 Anxiety 1/3 Fatigue 1/3 Nausea 0/3 Anorexia 2/3 Drowsiness 0/3 Palliative Performance Score 50% Physical Exam Constitutional: comfortable; no acute distress ENMT: Ears: + hearing impairment Respiratory: normal respiratory effort; no labored breathing Cardiovascular: Extremities: no edema Musculoskeletal: Extremities: + muscle atrophy Neurologic: resting tremor Psychiatric: Orientation: oriented x 3 PG Care Time/CCT Total # of Minutes Spent Total Time Spent: 70 Total Time Spent with Patient: Total time spent is greater than 50% in coordination of care (as documented) at patient's floor/unit and/or counseling patient: symptom management, goals of care, code status Coding Level of Care Code 26875 Initial Inpt Care Lvl 3 Diagnoses Palliative care encounter Z51.5 CAD (coronary artery disease) I25.10 Diastolic CHF I50.30 Dysphagia R13.10 TIA (transient ischemic attack) G45.9 Carotid stenosis I65.29 Back pain M54.9 CKD (chronic kidney disease) stage 4, GFR 15-29 ml/min N18.4 Type 2 diabetes mellitus E11.9
[2021-02-24] MEDS: CETIRIZINE HCL 10 MG TABLET PO SCH (20:59)
[2021-02-24] MEDS: FUROSEMIDE 40 MG TAB PO SCH (20:59)
[2021-02-24] MEDS: ATORVASTATIN 40 MG TAB PO SCH (20:59)
[2021-02-24] MEDS: TAMSULOSIN HCL 0.4 MG CAP PO SCH (21:00)
--- NOTE | 2021-02-24 21:29 | Billing Data ---
Date of Service February 24, 2021 Coding Level of Care Code 49190 Subseq Hosp Care Lvl 2
[2021-02-25] MEDS: ACETAMINOPHEN 500 MG TAB PO SCH ×2 (05:50→13:04)
[2021-02-25 06:07] LABS: Hematocrit (blood only) 39.7 % (42-52); Hemoglobin 13.3 g/dL (14.0-18.0); Mean Corpuscular Hemoglobin 31.2 pg (25-34); Mean Corpuscular Hgb Conc 33.5 g/dL (32-36); Mean Corpuscular Volume 93.2 fL (80-100); Mean Platelet Volume 9.5 fL (7.4-10.4); Platelet Count 191 K/uL (130-400); RDW Coefficient of Variation 14.4 % (11.5-14.5); RDW Standard Deviation 48.5 fL (36.4-46.3); Red Blood Count 4.26 M/uL (4.7-6.1); White Blood Count 4.74 K/uL (4.8-10.8)
[2021-02-25 06:48] LABS: BUN Creatinine Ratio 27.3 (10-20); Calcium 9.2 mg/dl (8.5-10.1); Est GFR (Non-African American) 39.7 ml/min; Potassium 4.2 mmol/L (3.5-5.1)
[2021-02-25] MEDS ORDERED: METOPROLOL SUCC 25MG EXT REL TAB PO SCH (09:00)
[2021-02-25] MEDS: INSULIN ASPART 100 UNITS/ML 3 ML PEN SC SCH ×2 (09:05→12:13)
[2021-02-25] MEDS: LIDOCAINE 5% 1 PATCH TD SCH (09:06)
[2021-02-25] MEDS: RIVASTIGMINE PATCH TD SCH (09:08)
[2021-02-25] MEDS: FINASTERIDE 5 MG TAB PO SCH (09:10)
[2021-02-25] MEDS: HEPARIN SOD 5,000 UNIT/0.5 ML VIAL SQ SCH (09:10)
[2021-02-25] MEDS: CYANOCOBALAMIN 500 MCG TABLET (VITAMIN B-12) PO SCH (09:10)
[2021-02-25] MEDS: FAMOTIDINE 20 MG TAB PO SCH (09:10)
[2021-02-25] MEDS: ASPIRIN 81 MG ECTAB PO SCH (09:10)
[2021-02-25] MEDS: GABAPENTIN 300 MG CAP PO SCH (09:10)
[2021-02-25] MEDS: CLOPIDOGREL BISULFATE 75 MG TAB PO SCH (09:10)
[2021-02-25] MEDS: DICLOFENAC SOD 1% GEL 100 GM TUBE EXT SCH ×2 (09:10→12:13)
[2021-02-25] MEDS: RANOLAZINE 500 MG ER TAB PO SCH (09:11)
[2021-02-25] MEDS: POLYETHYLENE (MIRALAX) 17 GM PACK PO SCH (09:11)
[2021-02-25] MEDS: PRAMIPEXOLE DIHYDROCHLO 0.5 MG TAB PO SCH (09:11)
--- NOTE | 2021-02-25 14:05 | Discharge Summary ---
Date of Service February 25, 2021 Admission HPI Per Admitting Provider 85 y/o M with an extensive medical history including dementia, BPH, HTN, HLD, DM, CKD IV, CAD with chronic CP, diastolic CHF. The pt has a chronic distal ureteral calculus. He presents with a primary complaint of severe back pain. The pain is primarily limited to the R lower back. As a result of the pain he is not able to ambulate, whereas he normally mobilizes with a walker. He has not had fevers or rigors. He is accustomed to some pain due to his calculus but states that the pain he is experiencing feels different. Labs are at baseline. A CT abdomen confirmed the presence of a 5 mm distal right ureteral calculus. PMH: 1) HTN 2) HLD 3) DM II 4) BPH 5) Dementia 6) CAD - chronic CP - takes Ranexa 7) Diastolic CHF 8) CKD IV 9) Hard of hearing 10) Carotid stenosis 11) TIA Surgical: 1) CABG 2) Cholecystectomy 3) Hemorrhoidectomy Social: Does not drink or smoke Family: Noncontributory Admission Exam Per Admitting Provider General: Pleasant, elderly M, AAO - distress due to back pain comes in waves ENT: No erythema or exudates, no thrush Eyes: ZEB, EOMI Head and neck: Normocephalic, atraumatic, No JVD, neck is supple. Chest/heart: Nontender, S1,2, + systolic murmur, RRR Lungs: CTAB, no wheezing or crackles Abdomen: Nontender, nondistended, BS+ - could not elicit CVA tenderness Neuro: AAO x 3, speech is clear, no unilateral weakness or loss of sensation, coordination intact Musculoskeletal: Was not tender to palpation over lower back Skin: No acute rashes or ulcers Extremities: No clubbing, cyanosis. +3 BL edema Principal Diagnosis Back pain Discharge Exam Constitutional WD/WN, vitals as above well developed; no acute distress Eyes PERRL, conjunctivae normal, anicteric sclerae Neck normal visual inspection Respiratory normal respiratory effort, lungs clear to auscultation Cardiovascular RRR, no murmur, no edema Gastrointestinal (Abdomen) normal bowel sounds, soft, nontender, no hepatosplenomegaly Musculoskeletal No midline tenderness or pain to palpation of the lumbar spinal muscles Neurologic Baseline severe hearing impairment L > R Psychiatric Alert and oriented to person, place, year Discharge Data Allergies Allergy/AdvReac Type Severity Reaction Status Date / Time No Known Allergies Allergy Verified 12/12/20 15:52 Consultations 02/16/21 11:27 ED Decision to Admit Stat 02/16/21 14:35 Consult Urology Routine 02/21/21 18:54 Consult Palliative Care Routine Ordered Studies 02/16/21 07:03 CT abd pelvis wo con Stat 02/16/21 14:35 MR lumbar spine wo con Routine 02/20/21 15:39 CT head/brain wo con Urgent Hospital Course (1) Back pain: 85 y/o M with an extensive medical history including dementia, BPH, HTN, HLD, DM, CKD IV, CAD with chronic CP, diastolic CHF, presented with back pain and AMS, hospitalized from 02/16 to 02/25. Right lower back pain - Pt's back pain was likely caused by deconditioning secondary to his limited mobility/physical activity as well as inadequate nutritional intake and hydration causing weakness. There was also contribution from a nontraumatic osteoporotic L4 compression fracture discovered on spine MRI. Patient often struggled with PT/OT exercises during his stay but this was mostly due to his AMS. His pain responded well to pain PRNs- lidoderm, Tylenol, Voltaren and standing Gabapentin. Orthotics was consulted and fit the patient for a thoracolumbar brace to be continued after his discharge. Patient will also have home health services of PT/OT. AMS/Goals of care - Patient's AMS was likely due to history of Parkinson's with progressive dementia as well as acute delirium due to waxing and waning cognition. He did not require any PRNs for agitation nor were there significant behavioral issues. His AMS improved during hospital stay and he was largely coherent by day of discharge, though communication was regularly limited by patient's severe hearing impairment per baseline. Patient was seen by palliative care, who agreed he can return home. Patient discharged home to stay with and son who participate in his care, and will also have home health services/visiting nurses. Dysphagia - Speech/swallow consulted during stay due to patient's worsening PO tolerance to solids, was largely able to tolerate recommended pureed diet. Palliative care Hypoxia - Pt had a single isolated hypoxic episode during his admission which was attributed to an aspiration event given his dysphagia. Constipation - KUB with finding of dilated stomach, constipation - Pt responded well to bowel regimen/laxatives CAD - Pt did not have any chest pain during stay - Continued ASA, Plavix, Ranexa, NTG PRN Chronic CHF - No signs of fluid overload during stay, continued home Lasix CKD - IV - Pt's BUN/Cr was trended during stay, by day of discharge was 42/1.55. No concern for MICHAEL DM II - Managed with Lantus and Novolog, ISS during hospital stay HTN, HLD - Continued home statin, metoprolol FENGI: Heart healthy, carb consistent/DM2, pureed DVT prophylaxis: Heparin Code: full Disspo: see 'goals of care' Total Time Total Time Spent Total Time Spent (In Minutes): Less than 30 Discharge Plan Discharge Items Patient Disposition: Home - Home Health Services Reason For Visit: BACK PAIN Discharge Diagnosis: Osteoporotic spinal fracture Condition on Discharge: Good Activity: Per Instructions section Non-emergency contact: Primary Care Provider Call non-emergency contact if: you have any medication questions, your symptoms worsen, your pain is not controlled and your pain is worsening Follow-up/Referrals: Edie Tavares MD [Primary Care Provider] - 03/07/21 11:30 am Diet: Carb Consistent or DM2 Addtl Attending Provider Instructions: You were admitted to the hospital for back pain. Back pain -You were hospitalized for back pain. Our workup revealed a fracture of the lower part of your back caused by age-related decline in the bones of your spine. Your back pain was caused by limited mobility/physical activity as well as inadequate nutritional intake. You were treated with medication to relieve the pain as well as physical therapy and a back brace. You also experienced some difficulty swallowing during your hospitalization for which you were then given pureed foods. Your back pain improved and you were discharged home with home health services. It is important you increase your activity as tolerated and perform the exercises your physical therapist instructed. It is important you also maintain your hydration and nutrition. A discharge summary will be sent to your primary care physician to ensure continuity of care. Please bring this discharge summary with you to your next office appointment so that your provider can review it at that time. Follow-up appointments: Make a follow-up appointment with your PCP within the next week. It is very important that you follow up with them shortly after discharge from the hospital.] Keep all your follow-up appointments as already scheduled. If you cannot make an appointment, notify your provider. Medications: Your medication list has been reviewed and reconciled upon discharge to ensure accuracy and continuity of care. An updated list of all your medications is included with your hospital discharge paperwork. Please review this list closely, and make note of any changes. Take your medications as instructed; do not skip a dose of your medicines. Make sure all of your doctors know every medicine you are taking (including [id number]-cyytltn medicines, vitamins, and supplements). Call your primary care provider before taking any new medicines (including rmpu-gmy-jlghggu medicines, vitamins, and supplements), because some of these may interact with your current medications, or may make your symptoms worse. Tell your primary care provider if you cannot afford your medications. CONTACT YOUR PRIMARY CARE PROVIDER if you experience any of the following: Back pain Difficulty walking or weakness Difficulty swallowing food Confusion or memory loss Difficulty following your treatment plan, or difficulty taking medications CALL 911 OR GO TO THE EMERGENCY DEPARTMENT if you experience any of the following: Sudden, severe abdominal pain or nausea/vomiting Severe chest pain, or chest pain that radiates (moves) to your jaw or arm Sudden, severe shortness of breath or difficulty breathing Choking on food Thank you for allowing us to participate in your care. Pending Studies at Discharge: No Stand-Alone Forms: My [facility] Medications and DC Order Prescriptions: Continued ranolazine [Ranexa] 500 mg tablet extended release 12 hr 1,000 mg PO BID Qty: 180 RF: 3 Lantus Solostar U-100 Insulin 100 unit/mL (3 mL) insulin pen 10 unit subcut QPM Qty: 3 RF: 2 cetirizine 10 mg tablet 10 mg PO HS Qty: 90 RF: 3 isosorbide mononitrate 60 mg tablet extended release 24 hr 30 mg PO QAM Qty: 90 RF: 3 glimepiride 1 mg tablet 3 mg PO BID Qty: 540 RF: 3 pramipexole 1 mg tablet 1 mg PO BID 90 Days Qty: 180 RF: 0 cyanocobalamin (vitamin B-12) 1,000 mcg tablet 1,000 mcg PO QAM Qty: 90 RF: 0 rivastigmine 4.6 mg/24 hr patch 24 hour 4.6 mg TD DAILY Qty: 30 RF: 5 gabapentin 300 mg capsule 300 mg PO BID Qty: 60 RF: 5 nitroglycerin 0.4 mg tablet, sublingual 0.4 mg SL Q5M PRN (Reason: chest pain) Qty: 25 RF: 3 metoprolol succinate 50 mg tablet extended release 24 hr 100 mg PO BID RF: 0 atorvastatin 40 mg tablet 40 mg PO HS RF: 0 clopidogrel 75 mg tablet 75 mg PO QAM RF: 0 tamsulosin 0.4 mg capsule 0.4 mg PO HS RF: 0 finasteride 5 mg tablet 5 mg PO QAM RF: 0 aspirin 81 mg Tablet,Delayed Release (Dr/Ec) 81 mg PO QAM RF: 0 furosemide [Lasix] 40 mg tablet 40 mg PO TID RF: 0 Discharge Orders: Discharge Order (Routine); Ordered 02/25/21 Ordered By: Marcy Hopson/Other Patient Handouts: Back Safety Into & Out Bed, Back Basics: A Healthy Spine Admission Data Admit Date/Time: 02/16/21 12:02 Attending Provider: Mohan Romero Admit Provider: Miguel Peck Primary Care Provider: Edie Tavares Other Providers: Miguel Peck ; Braulio Osborn ; Lai Triplett ; Lizbeth Babin ; Femi Contreras Other Interventions: Discharge Summary Assessment (RN) Last Done: 02/25/21 13:40 Supervising Physician Co-Signing Physician Notes I personally examined the patient and verified all causey points of history and exam, discussed case, and agree with decision making with Dr Keene. Feeling okay to go home. No new complaints. Vitals noted, in general he is awake and alert pleasant no distress. HEENT normocephalic atraumatic mucous membranes moist. Still quite hard of hearing but better able to communicate than when I last saw him. Back painstable for home. Otherwise as above. Resident Activity Tracking Resident Involvement: Resident Care Provided Care Provided: Adult Hospital Medicine
--- NOTE | 2021-02-25 19:39 | Billing Data ---
Date of Service February 25, 2021 Coding Level of Care Code D/C DAY MANAGEMENT <30 MINS
== END 2021-02-25 15:03 | disposition home health service (06) | DRG 543 ==
LOC: ED 06:28 → SUATTDRO 12:02 → 3E 12:02